=== PATIENT | male | born 1975 | race Caucasian/White ===

== ENCOUNTER 2017-01-11 02:24 | Inpatient (IN) | payer OTHER ==
[~2017-01-11] VITALS: Ht 177.8 cm; Wt 120.0 kg
--- NOTE | 2017-01-11 02:47 | ED GENERAL ADULT ---
History of Present Illness General Chief Complaint: General Adult Stated Complaint: UNRESPONSIVE Source: EMS, friend Exam Limitations: clinical condition Vital Signs & Intake/Output Vital Signs & Intake/Output Vital Signs Date Time Temp Pulse Resp B/P Pulse O2 O2 Flow FiO2 Ox Delivery Rate 01/11 0409 40 01/11 0318 94.9 94 16 86/43 99 Ventilator 100% 01/11 0308 100 01/11 0306 95.4 90 16 76/39 99 Ventilator 100% 01/11 0238 85 18 79 Room Air Allergies Coded Allergies: No Known Allergies (01/11/17) Triage Nurses Notes Reviewed? yes HPI: Patient brought in by ambulance for unresponsive. The friend states that the patient has not been feeling well over the past few days. He has been having a nonproductive cough. Been no fevers. He is just been feeling weak. Today he has been sleeping most of the day and when he woke up he was hallucinating. Tonight she thought that she saw him shaking so she finally called 911. ED Sepsis Exam Date of Focused Sepsis Exam: 01/11/17 Time of Focused Sepsis Exam: 229 Sepsis Cardiac Exam: Tachycardia Sepsis Resp Exam: DECREASED Sepsis Cap Refill Exam: >2 sec Sepsis Peripheral Pulse Exam: Weak Sepsis Peripheral Pulse Location: CAROTID ONLY Sepsis Skin Color Exam: Cyanotic, Mottled, Pale Skin Temp/Moisture Exam: Cool/Dry Past History Travel History Traveled to [place] past 21 day Yes Medical History Any Pertinent Medical History? none Surgical History Surgical History: non-contributory Psychosocial History Tobacco Use: Never used ETOH Use: occasional use Illicit Drug Use: denies illicit drug use Family History Hx Contributory? No Review of Systems Review of Systems Constitutional: Reports: see HPI. Physical Exam Physical Exam General Appearance: sedated, severe distress Head: atraumatic Eyes: Bilateral: PERRL. Ears, Nose, Throat: normal pharynx, normal ENT inspection Neck: supple, NO JVD Respiratory: decreased breath sounds, DECREASED RESP EFFORT NO GAG REFLEX Cardiovascular: tachycardia, CAROTID PULSE ONLY, NO OTHER PERIPHERAL PULSES PRESENT Gastrointestinal: normal bowel sounds, soft Back: normal inspection Extremities: no edema, DELAYED CAP REFIL Neurologic/Psych: UNRESPONSIVE NO RESPONSE TO PAIN Skin: cyanosis, mottled Core Measures ACS in differential dx? No CVA/TIA Diagnosis: No Severe Sepsis Present: No Septic Shock Present: No Progress Differential Diagnoses I considered the following diagnoses in my evaluation of the patient: [Septic shock, encephalitis, seizures, AMI, DKA, electrolyte abnormality, drug overdose] Plan of Care: Orders Procedure Date/time Status LACTIC ACID 01/11 0547 Complete Patient Data 01/11 438 Active Admit to inpatient 01/11 043 Active Add-on Test (ER Only) 01/11 0424 Active VENTILATOR PARAMETERS 01/11 0408 Complete ACETONE 01/11 0340 Complete ARTERIAL BLOOD GAS (GEN) 01/11 247 Complete Proctor, Insertion/Removal/Asses 01/11 247 Active CULTURE,URINE 01/11 247 Active BLOOD CULTURE 01/11 247 Active URINE DRUGS OF ABUSE 01/11 247 Complete URINALYSIS 01/11 247 Complete TROPONIN LEVEL 01/11 247 Complete COMPREHENSIVE METABOLIC PANEL 01/11 247 Complete CBC WITHOUT DIFFERENTIAL 01/11 247 Complete VENTILATOR PARAMETERS 01/11 245 Complete EKG 01/11 242 Active Current Medications Sig/Nelida Start time Last Medication Dose Stop Time Status Admin Ampicillin Sodium/ 3,000 MG ONCE ONE 01/11 445 AC Sulbactam Sodium 01/11 05 (Unasyn) Sodium Chloride 100 ML (Normal Saline 0.9%) Norepinephrine 4 MG Q24H 01/11 040 UNVr (Levophed Drip) Sodium Chloride 250 ML (Normal Saline 0.9%) Laboratory Tests 01/11/17 0350: pH 7.11 *L, pCO2 42, pO2 387 H, HCO3 13 L, ABG O2 Sat (Measured) 99.0, P-50 ( Temp Corrected) Y, Carboxyhemoglobin 0.5 L, O2 Concentration % 100%, Temperature 94.9 L, Respiration Rate 16, O2 Delivery Method ESPRIT, Vent Mode AC, Expiratory Pressure 5, Tidal Volume 550, Phlebotomy Draw Site LF 01/11/17 0340: Lactic Acid 2.4 H 01/11/17 034: Anion Gap 29 H, Estimated GFR 11 L, BUN/Creatinine Ratio 10.0, Glucose 1942 *H , Calcium 8.9, Total Bilirubin 0.5, AST 32, ALT 94 H, Alkaline Phosphatase 135 H, Troponin I < 0.01, Total Protein 5.7 L, Albumin 3.1 L, Globulin 2.6, Albumin/Globulin Ratio 1.2, CBC w Diff MAN DIFF ORDERED, RBC 4.94, MCV 102.8 H, MCH 29.6, RDW 15.9 H, MPV 14.2 H, Gran % 82.1 H, Lymphocytes % 8.4 L, Monocytes % 9.4 H, Eosinophils % 0.1, Basophils % 0 L, Absolute Granulocytes 14.8 H, Absolute Lymphocytes 1.5, Absolute Monocytes 1.7 H, Absolute Eosinophils 0, Absolute Basophils 0, Platelet Estimate ADEQUATE, Macrocytic Cells 1+, PUBS MCHC 28.9 L, Acetone Level POSITIVE AT 1:16 DIL 01/11/17 0306: Urine Opiates Screen < 100.00, Methadone Screen < 40, Barbiturate Screen < 60, Ur Phencyclidine Scrn < 6.00, Amphetamines Screen < 100, U Benzodiazepines Scrn < 85, Urine Cocaine Screen < 50, Urine Cannabis Screen 18.00, Urinalysis LIGHT H, Urine Color YEL, Urine Clarity CLEAR, Urine pH 6.0, Ur Specific [place] 1.010 , Urine Protein TRACE H, Urine Ketones TRACE H, Urine Nitrite NEG, Urine Bilirubin NEG, Urine Urobilinogen 0.2, Ur Leukocyte Esterase NEG, Ur Microscopic SEDIMENT EXAMINED, Urine RBC 1-3, Urine WBC 1-3 H, Ur Epithelial Cells FEW, Hyaline Casts 1-3 H, Granular Casts 3-5 H, Urine Mucus FEW, Urine Hemoglobin MOD H, Urine Glucose >=1000 H Microbiology 01/11 0355 BLOOD: Blood Culture - RECD 01/11 0340 BLOOD: Blood Culture - RECD 01/11 0306 URINE ROUT: Urine Culture - RECD Diagnostic Imaging: Viewed by Me: CT Scan. Discussed w/RAD: CT Scan. Radiology Impression: PATIENT: MERYL SENIOR PRESENT AGE: 41 PATIENT ACCOUNT NO: [id number] : 74 LOCATION: [facility] ORDERING PHYSICIAN: UMER MAHARAJ MD SERVICE DATE: 01/11/17 EXAM TYPE: CAT - CT ABD & PELVIS W/O IV CONTRAS; CT CHEST WO IV CONTRAST EXAM: NONCONTRAST CT OF THE CHEST; NONCONTRAST CT OF THE ABDOMEN AND PELVIS INDICATION: Unresponsive and hypotensive COMPARISON: None TECHNIQUE: No IV contrast was utilized. Multidetector helical imaging was performed through the chest, abdomen, and pelvis. Coronal and sagittal reformatted images were created at the technologist workstation. DLP: 1466.73 mGy-cm FINDINGS: Chest: Endotracheal tube tip lies approximately 3.3 cm above the marcello. There are dependent pulmonary opacities bilaterally favoring atelectasis. There is additional ill-defined, somewhat curvilinear opacity in the right middle lobe also suggestive of atelectasis. No pneumothorax or definite pleural effusion. The visualized thyroid gland is unremarkable. There are subcentimeter mediastinal lymph nodes within the range of normal variation. Cardiac size is within normal limits; no pericardial effusion. Abdomen/Pelvis: The liver demonstrates hypoattenuation consistent with fatty infiltration. No biliary ductal dilatation. The gallbladder is unremarkable. The unenhanced spleen, pancreas, and adrenal glands are within normal limits. There is a subcentimeter hypoattenuating lesion in the upper right kidney, suggestive of a small cyst. The unenhanced kidneys are unremarkable without hydronephrosis. No renal or ureteral calculi are present. The urinary bladder is unremarkable. The prostate and seminal vesicles are unremarkable. Bilateral fat-containing inguinal hernias are noted. There is mild colonic diverticulosis. The small and large bowel are otherwise unremarkable without evidence of obstruction or pericolonic inflammatory change. The appendix is unremarkable. No free fluid or free air is present. The unenhanced vascular structures are unremarkable. No retroperitoneal or pelvic lymphadenopathy is seen. Mild scattered endplate osteophytes are noted in the spine. IMPRESSION: 1. No acute findings identified in the chest/abdomen/pelvis. 2. Bibasilar atelectasis. 3. Hepatic steatosis. 4. Mild colonic diverticulosis. DICTATED BY : FRANCHESKA CANSECO MD DATE/TIME DICTATED:01/11/17317 ANALYTICAL LEAD: TONY DATE/TIME TRANSCRIBED:01/11/17317 CONFIDENTIAL, DO NOT COPY WITHOUT APPROPRIATE AUTHORIZATION. <Electronically signed in Other Vendor System> SIGNED BY: FRANCHESKA CANSECO MD 01/11/17 0332, PATIENT: MERYL SENIOR PRESENT AGE: 41 PATIENT ACCOUNT NO: [id number] : LOCATION: [facility] ORDERING PHYSICIAN: UMER MAHARAJ MD SERVICE DATE: 01/11/17 EXAM TYPE: CAT - CT HEAD WO IV CONTRAST EXAMINATION: CT HEAD WITHOUT CONTRAST CLINICAL INFORMATION: Unresponsive COMPARISON: None TECHNIQUE: Contiguous axial imaging was performed from the skull base to vertex without intravenous administration of contrast. DLP: 529.16 mGy-cm FINDINGS: There is no evidence of acute intracranial hemorrhage or territorial infarction. No abnormal mass effect or midline shift is seen. Garrison to white matter differentiation is well preserved. No extra-axial fluid collections are identified. The ventricles are normal in size. There is no abnormal attenuation within the brain parenchyma. The osseous structures and soft tissues are normal. The mastoid air cells and visualized portions of the paranasal sinuses are well aerated. IMPRESSION: No acute intracranial pathology. This was discussed with UMER MAHARAJ on 01/11/2017 3:07 AM. DICTATED BY: FRANCHESKA CANSECO MD DATE/TIME DICTATED:01/11/17301 ANALYTICAL LEAD:TONY DATE/TIME TRANSCRIBED:301 CONFIDENTIAL, DO NOT COPY WITHOUT APPROPRIATE AUTHORIZATION. < Electronically signed in Other Vendor System> SIGNED BY: FRANCHESKA CANSECO MD 01/11/17311 Initial ED EKG: SINUS RHYTHM WITH NONSPECIFIC st-t CHANGES AND ivcd Rhythm Strip: sinus tachycardia Comments: Girlfriend now mentions that he has been up for the past few nights because he has been urinating approximately every half an hour. She attributed to him drinking a lot of fluids. ABG is consistent with metabolic acidosis. We'll increase in respiratory rate to achieve respiratory alkalosis for compensation. Departure Departure Disposition: STILL A PATIENT Condition: Critical Clinical Impression Primary Impression: Acute renal failure Qualifiers: Acute renal failure type: unspecified Qualified Code: N17.9 - Acute kidney failure, unspecified Secondary Impressions: DKA (diabetic ketoacidoses) Qualifiers: Diabetes mellitus complication detail: with coma Hypotension Qualifiers: Hypotension type: unspecified hypotension type Qualified Code: I95.9 - Hypotension, unspecified Metabolic acidosis Shock Referrals: PATIENT HAS NO PRIMARY CARE DR (PCP/Family) Departure Forms: Customer Survey General Discharge Information Admission Note Spoke With: ÁLVARO NUR MD Documentation of Exam: Documentation of any treatments & extenuating circumstances including Concerns Regarding Discharge (functional status, medication knowledge or non-compliance, living conditions, etc.) that warrant an admission rather than observation: [ Aggressive hydration, pressors, most likely DKA, endocrine consult, renal consult, ICU level of care pulmonary consult] Procedures Central Line Central Line Lumen: triple Central Line Procedure: Yes: bentadine prep?, sterile drapes applied, sterile dressing applied. Central Line Position: femoral (R) Complications: none Central Line Post Position: sutured, good blood return Intubation Time of Intubation: 237 Intubation Method: orotracheal Tube Size (cm): 8.0 Medications: succinylcholine Breath Sounds After Intubation: equal Intubation Complications: no complications Post Intubation Xray? Yes Critical Care Note Critical Care Note Critical Care Time: mins: (75 MIN)
--- NOTE | 2017-01-11 03:12 | CT SCAN REPORT ---
EXAMINATION: CT HEAD WITHOUT CONTRAST CLINICAL INFORMATION: Unresponsive COMPARISON: None TECHNIQUE: Contiguous axial imaging was performed from the skull base to vertex without intravenous administration of contrast. DLP: 529.16 mGy-cm FINDINGS: There is no evidence of acute intracranial hemorrhage or territorial infarction. No abnormal mass effect or midline shift is seen. Garrison to white matter differentiation is well preserved. No extra-axial fluid collections are identified. The ventricles are normal in size. There is no abnormal attenuation within the brain parenchyma. The osseous structures and soft tissues are normal. The mastoid air cells and visualized portions of the paranasal sinuses are well aerated. IMPRESSION: No acute intracranial pathology. This was discussed with UMER MAHARAJ on 01/11/2017 3:07 AM.
--- NOTE | 2017-01-11 03:32 | CT SCAN REPORT ---
EXAM: NONCONTRAST CT OF THE CHEST; NONCONTRAST CT OF THE ABDOMEN AND PELVIS INDICATION: Unresponsive and hypotensive COMPARISON: None TECHNIQUE: No IV contrast was utilized. Multidetector helical imaging was performed through the chest, abdomen, and pelvis. Coronal and sagittal reformatted images were created at the technologist workstation. DLP: 1466.73 mGy-cm FINDINGS: Chest: Endotracheal tube tip lies approximately 3.3 cm above the marcello. There are dependent pulmonary opacities bilaterally favoring atelectasis. There is additional ill-defined, somewhat curvilinear opacity in the right middle lobe also suggestive of atelectasis. No pneumothorax or definite pleural effusion. The visualized thyroid gland is unremarkable. There are subcentimeter mediastinal lymph nodes within the range of normal variation. Cardiac size is within normal limits; no pericardial effusion. Abdomen/Pelvis: The liver demonstrates hypoattenuation consistent with fatty infiltration. No biliary ductal dilatation. The gallbladder is unremarkable. The unenhanced spleen, pancreas, and adrenal glands are within normal limits. There is a subcentimeter hypoattenuating lesion in the upper right kidney, suggestive of a small cyst. The unenhanced kidneys are unremarkable without hydronephrosis. No renal or ureteral calculi are present. The urinary bladder is unremarkable. The prostate and seminal vesicles are unremarkable. Bilateral fat-containing inguinal hernias are noted. There is mild colonic diverticulosis. The small and large bowel are otherwise unremarkable without evidence of obstruction or pericolonic inflammatory change. The appendix is unremarkable. No free fluid or free air is present. The unenhanced vascular structures are unremarkable. No retroperitoneal or pelvic lymphadenopathy is seen. Mild scattered endplate osteophytes are noted in the spine. IMPRESSION: 1. No acute findings identified in the chest/abdomen/pelvis. 2. Bibasilar atelectasis. 3. Hepatic steatosis. 4. Mild colonic diverticulosis.
[2017-01-11 03:52] LABS: ABSOLUTE EOSINOPHIL COUNT 0 /CUMM (0.0-0.7); EOSINOPHIL % 0.1 % (0-5); MEAN CORPUSCULAR HGB 29.6 PG (27.0-31.0)
[2017-01-11 04:10] LABS: ABSOLUTE BASOPHIL COUNT 0 /CUMM (0.0-0.2); ABSOLUTE GRANULOCYTE CT 14.8 /CUMM (1.4-6.5); ABSOLUTE LYMPH COUNT 1.5 /CUMM (1.2-3.4); ABSOLUTE MONOCYTE COUNT 1.7 /CUMM (0.10-0.60); BASOPHIL % 0 % (0.0-2.0); GRANULOCYTE % 82.1 % (42.2-75.2); HEMATOCRIT 50.8 % (42-52); MEAN CORPUSCULAR HGB CONC 28.9 G/DL (33.0-37.0); MEAN CORPUSCULAR VOLUME 102.8 FL (80.0-94.0); MEAN PLATELET VOLUME 14.2 FL (7.4-10.4); PLATELET COUNT 223 /CUMM (130-400); RBC DISTRIBUTION WIDTH 15.9 % (11.5-14.5); RED BLOOD CELL CT 4.94 /CUMM (4.70-6.10)
--- NOTE | 2017-01-11 05:53 | PN- Att Addend ---
Attending Addendum Attending Brief Note CC: AMS/ unresponsive PMHx :none History provided by ayleen and brother, a bedside. Patient intubated. Ayleen states that the patient has not been feeling well since one week or so. He has been having a nonproductive cough, extremely thirsty and drinking a lot of water , urinating a lot. He was drinking anything and everything possible to quench his thirst according to the family. He was complaining of altered taste in his mouth. They denied fever, burning urination, vomiting diarrhea nausea. He was feeling weak and lethargic, was not getting enough sleep. Yesterday he woke up several times and was hallucinating and inappropriate response. Today his fianc could not wake him up, he was very cold to touch so she called 911. On presentation patient was mottled, hypotensive with carotid pulsations only. He Was intubated for airway protection, extremely dry while intubating and unresponsive to pain. Right femoral was placed in ER. Vitals at presentation: Temperature 95.4, pulse 84, heart are 18, blood pressure 76/39, saturating 79% on room air. Blood pressure is gradually trending up, O2 saturation improved after intubation. On examination intubated, pupils dilated reactive, neck supple, no lymphadenopathy, no JVD, CVS: S1-S2, RRR. RS: Bilateral air entry present no adventitious sounds. Abdomen: Soft, NT, bowel sounds present. No pedal edema. Peripheral pulses present but feeble, extremities cold to touch decreased perfusion. Labs: WBC 18.0, neutrophils 82%, MCV 102, sodium 144, bicarbonate 14, anion gap 29, BUN 55, creatinine 5.5, glucose 1942, lactate 2.4, ALT 94, alkaline phosphatase 135, albumin 3.1, UA positive for trace protein and ketones and glucose, U tox negative except THC, acetone positive ABG: PH 7.11, PCO2 42, PO2 387, HCO3 13 on 100% before meals mode with tidal volume 550 and respiratory rate 16. Imaging CT chest, abdomen and pelvis, head was obtained : 1. No acute findings identified in the chest/abdomen/pelvis. 2. Bibasilar atelectasis. 3. Hepatic steatosis. 4. Mild colonic diverticulosis. 5. No acute intracranial pathology. A and P #1 acute respiratory failure #2 hypovolemic shock #3 high anion gap metabolic acidosis #4 DKA/hhs come #5 newly diagnosed diabetes #6 acute kidney injury : urine output appro 400 since arrival #7 suspected pneumonia # 8 S T depression in II III avf #9 paradoxically normal Na -Patient has right femoral central line, currently maxed on Levophed, 2 L NS wide open through triple-lumen, add third liter NS on peripheral line. -Maintain map above 60, add Tod-Synephrine if required - Continue current went settings at AC tidal volume 550 and RR 20, repeat ABG 1 hour from previous. Consult on-call pulmonology, inform the repeat ABG in current vent settings. - Continue insulin drip, patient received 10 unit bolus regular insulin in ER, Accu-Chek every hourly, BMP every 4 hours, titrate insulin drip according to Accu-Cheks, inform on-call bindery chief now. - Aggressive hydration: Currently patient on fifth L, continue boluses daily map improving, then maintenance drip at 250 mL per hour - check HBA1c - Potassium drip 40 mEq in 1 L NS at 150 mL per hour - Blood culture - Urine culture - Continue Unasyn - I's and O's - continue zelaya - Consult nephrology in a.m. - Trend troponin and serial EKG - Currently not sedated, neurochecks : Assess sedation requirement Patient is full code. Critical condition discussed with family at length TTS 40 min
--- NOTE | 2017-01-11 05:53 | Admission Certification ---
Admission Certification Certification Statement - As attending physician, I certify that at the time of - admission, based on clinical presentation, severity of - symptoms, need for further diagnostic testing and - therapeutic interventions, and risk of adverse outcomes - without in-hospital treatment, in my clinical assessment, - this patient requires an acute hospital stay for a minimum - of two nights or longer. I have also considered psychsocial - factors such as support system, advanced age, financial - issues, cognitive issues, and failed out-patient treatments, - past re-admission history, safety of patient, and lack of - compliance as applicable. Specific rationale supporting this admission is: Hypovolemic shock, DKA, acute kidney injury, acute respiratory failure
--- NOTE | 2017-01-11 06:58 | History & Physical ---
See Addendum General Information and HPI MD Statement: I have seen and personally examined MERYL SENIOR and documented this H&P. The patient is a 41 year old M who presented with a patient stated chief complaint of unresponsiveness []. Source of Information: family Exam Limitations: unable to give history, clinical condition History of Present Illness: Patient is 41-year-old gentleman with no significant past medical history was brought in by his fiance and brother through ambulance to emergency room when she found him unresponsive/lethargic last night. By the time I saw the patient in ER he was intubated and history was taken from his fiance and brother present at bedside. According to his fiance patient was not feeling well for last couple of weeks but assuming he might had flu as she and his brother had. She noted that patient was fairly thirsty and drinking a lot of fluids to quench his thirst and also urinating a lot. She also mentioned that he might lost 40 pounds in a month and had poor appetite. There is no recent history of fever, chills, cough, palpitations, chest pain, abdominal pain, headache, dizziness or loss of consciousness prior to this. Patient was getting weaker and last night he was pretty drowsy and also hallucinating, his talk was not making any sense, very cold to touch that's why she called 911. Admission vital signs were significant for temperature 95.4, pulse 84, respiratory rate 18, blood pressure 76/39 and because of continuous drop in his blood pressure a central line was taken in ER and patient was started on pressors. Labs on admission were WBC count 18.0, hemoglobin 14.6, hematocrit 50.8, platelet count 223, sodium 144, potassium 4.6, anion gap 29, glucose 1942 and negative troponins urine shows positive acetones Initial ABGs were 7.//13 Allergies/Medications Allergies: Coded Allergies: No Known Allergies (01/11/17) Home Med list No Known Home Medications Compliance With Home Meds: UNKNOWN Past History Travel History Traveled to [place] past 21 day Yes Medical History Neurological: NONE EENT: NONE Cardiovascular: NONE Respiratory: NONE Gastrointestinal: NONE Hepatic: NONE Renal: NONE Musculoskeletal: NONE Psychiatric: NONE Endocrine: NONE Blood Disorders: NONE Cancer(s): NONE 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 Psychosocial History ETOH Use: occasional use Illicit Drug Use: denies illicit drug use Review of Systems Review of Systems Constitutional: Reports: diaphoresis, malaise, weakness. Denies: chills, fever. EENTM: Reports: blurred vision. Cardiovascular: Denies: chest pain, edema, orthopena. Respiratory: Denies: cough, orthopnea. GI: Denies: abdominal pain, bloating, constipation. Genitourinary: Reports: frequency. Musculoskeletal: Denies: back pain, gout. Skin: Denies: cysts, change in skin color. Exam & Diagnostic Data Last 24 Hrs of Vital Signs/I&O Vital Signs Date Time Temp Pulse Resp B/P Pulse O2 O2 Flow FiO2 Ox Delivery Rate 01/11 0625 92 22 102/53 100 Ventilator 100% 01/11 0615 40 01/11 0559 98 22 105/54 100 Ventilator 100% 01/11 0549 95.4 102 22 117/53 100 Ventilator 100% 01/11 0448 96 88/59 01/11 0443 96 84/38 01/11 0441 94 81/38 01/11 0439 94 76/38 01/11 0435 79/38 01/11 0433 94 76/49 01/11 0431 95 75/39 01/11 0431 91 74/39 01/11 0429 93 70/35 01/11 0427 93 69/35 01/11 0425 93 64/31 01/11 0423 92 60/28 01/11 0421 93 58/27 01/11 0419 92 56/24 01/11 0416 92 55/25 01/11 0414 91 52/32 01/11 0413 92 44/22 01/11 0411 45/22 01/11 0409 40 01/11 0409 91 44/19 01/11 0407 91 46/20 01/11 0406 94.9 91 18 43/17 01/11 0406 91 43/17 01/11 0318 94.9 94 16 86/43 99 Ventilator 100% 01/11 0308 100 01/11 0306 95.4 90 16 76/39 99 Ventilator 100% 01/11 0238 85 18 79 Room Air Intake & Output 01/11 0800 01/11 0000 01/10 1600 Intake Total 5000 Output Total 580 Balance 4420 Intake, IV 5000 Output, Urine 580 Physical Exam General Appearance INTUBATED Skin No Breakdown Neck No JVD Cardiovascular Normal S1, Normal S2 Lungs Normal Air Movement Abdomen Soft, No Tenderness Extremities No Clubbing, No Cyanosis, No Edema Last 24 Hrs of Labs/Basilio: Laboratory Tests 01/11/17 0610: pH 7.10 *L, pCO2 36, pO2 105 H, HCO3 11 L, ABG O2 Sat (Measured) 97.0, P-50 ( Temp Corrected) Y, Carboxyhemoglobin 0.1 L, O2 Concentration % 40%, Temperature 95.4 L, Respiration Rate 20, O2 Delivery Method ESPRIT, Vent Mode AC, Expiratory Pressure 5, Tidal Volume 550, Phlebotomy Draw Site RIGHT RADIAL 01/11/17 0350: pH 7.11 *L, pCO2 42, pO2 387 H, HCO3 13 L, ABG O2 Sat (Measured) 99.0, P-50 ( Temp Corrected) Y, Carboxyhemoglobin 0.5 L, O2 Concentration % 100%, Temperature 94.9 L, Respiration Rate 16, O2 Delivery Method ESPRIT, Vent Mode AC, Expiratory Pressure 5, Tidal Volume 550, Phlebotomy Draw Site LF 01/11/17 0340: Lactic Acid 2.4 H 01/11/17 0340: Anion Gap 29 H, Estimated GFR 11 L, BUN/Creatinine Ratio 10.0, Glucose 1942 *H , Calcium 8.9, Total Bilirubin 0.5, AST 32, ALT 94 H, Alkaline Phosphatase 135 H, Troponin I < 0.01, Total Protein 5.7 L, Albumin 3.1 L, Globulin 2.6, Albumin/Globulin Ratio 1.2, CBC w Diff MAN DIFF ORDERED, RBC 4.94, MCV 102.8 H, MCH 29.6, RDW 15.9 H, MPV 14.2 H, Gran % 82.1 H, Lymphocytes % 8.4 L, Monocytes % 9.4 H, Eosinophils % 0.1, Basophils % 0 L, Absolute Granulocytes 14.8 H, Absolute Lymphocytes 1.5, Absolute Monocytes 1.7 H, Absolute Eosinophils 0, Absolute Basophils 0, Platelet Estimate ADEQUATE, Macrocytic Cells 1+, PUBS MCHC 28.9 L, Acetone Level POSITIVE AT 1:16 DIL 01/11/17 0306: Urine Opiates Screen < 100.00, Methadone Screen < 40, Barbiturate Screen < 60, Ur Phencyclidine Scrn < 6.00, Amphetamines Screen < 100, U Benzodiazepines Scrn < 85, Urine Cocaine Screen < 50, Urine Cannabis Screen 18.00, Urinalysis LIGHT H, Urine Color YEL, Urine Clarity CLEAR, Urine pH 6.0, Ur Specific [place] 1.010 , Urine Protein TRACE H, Urine Ketones TRACE H, Urine Nitrite NEG, Urine Bilirubin NEG, Urine Urobilinogen 0.2, Ur Leukocyte Esterase NEG, Ur Microscopic SEDIMENT EXAMINED, Urine RBC 1-3, Urine WBC 1-3 H, Ur Epithelial Cells FEW, Hyaline Casts 1-3 H, Granular Casts 3-5 H, Urine Mucus FEW, Urine Hemoglobin MOD H, Urine Glucose >=1000 H Microbiology 01/11 0355 BLOOD: Blood Culture - RECD 01/11 0340 BLOOD: Blood Culture - RECD 01/11 0306 URINE ROUT: Urine Culture - RECD Diagnostic Data EKG Results ST depressions in V2 V3 and aVF Other Results SERVICE DATE: 01/11/17 EXAM TYPE: CAT - CT ABD & PELVIS W/O IV CONTRAS; CT CHEST WO IV CONTRAST EXAM: NONCONTRAST CT OF THE CHEST; NONCONTRAST CT OF THE ABDOMEN AND PELVIS INDICATION: Unresponsive and hypotensive COMPARISON: None TECHNIQUE: No IV contrast was utilized. Multidetector helical imaging was performed through the chest, abdomen, and pelvis. Coronal and sagittal reformatted images were created at the technologist workstation. DLP: 1466.73 mGy-cm FINDINGS: Chest: Endotracheal tube tip lies approximately 3.3 cm above the marcello. There are dependent pulmonary opacities bilaterally favoring atelectasis. There is additional ill-defined, somewhat curvilinear opacity in the right middle lobe also suggestive of atelectasis. No pneumothorax or definite pleural effusion. The visualized thyroid gland is unremarkable. There are subcentimeter mediastinal lymph nodes within the range of normal variation. Cardiac size is within normal limits; no pericardial effusion. Abdomen/Pelvis: The liver demonstrates hypoattenuation consistent with fatty infiltration. No biliary ductal dilatation. The gallbladder is unremarkable. The unenhanced spleen, pancreas, and adrenal glands are within normal limits. There is a subcentimeter hypoattenuating lesion in the upper right kidney, suggestive of a small cyst. The unenhanced kidneys are unremarkable without hydronephrosis. No renal or ureteral calculi are present. The urinary bladder is unremarkable. The prostate and seminal vesicles are unremarkable. Bilateral fat-containing inguinal hernias are noted. There is mild colonic diverticulosis. The small and large bowel are otherwise unremarkable without evidence of obstruction or pericolonic inflammatory change. The appendix is unremarkable. No free fluid or free air is present. The unenhanced vascular structures are unremarkable. No retroperitoneal or pelvic lymphadenopathy is seen. Mild scattered endplate osteophytes are noted in the spine. IMPRESSION: 1. No acute findings identified in the chest/abdomen/pelvis. 2. Bibasilar atelectasis. 3. Hepatic steatosis. 4. Mild colonic diverticulosis. Assessment/Plan Assessment: Patient is a 41-year-old gentleman with no significant past medical history was brought in to emergency room with severe lethargy, unresponsiveness, hypotension and found to have severely elevated serum glucose of 1942 with high anion gap most likely DKA/hyperosmolar hyperglycemia, achy I most likely due to underlying dehydration, severe metabolic acidosis and hypovolemic shock. She was intubated in the emergency room and also central line was taken and was started on pressors. Problem list 1. DKA/hyperosmolar hyperglycemia most likely type 1 diabetes 2. High anion gap metabolic acidosis 3. Acute injury most likely due to underlying severe dehydration 4. Acute respiratory failure currently intubated 5. Leukocytosis would be due to aspiration pneumonia We will admit patient in ICU Patient was transfused for later normal saline boluses in the ER and currently he is on 6 L of normal saline. We will replete fluids to maintain his map above 60. Aggressive fluid resuscitation. Currently patient is on levo fed and if needed we could add Tod-Synephrine. We will start him on insulin drip 0.1 units per kilogram body weight. Patient was discussed with Tigre Montanez MD on phone and he will see patient in a.m. We will continue insulin drip until Will close and we will transition to subcutaneous insulin accordingly Patient was also started on 40 mEq of KCl in normal saline and we will replete potassium to avoid hypokalemia We will check labs every 4 hours Patient also has EKG changes with ST depression in aVF, V2 and V3. He shall set of troponin was negative and we will trend troponins and EKG and will call cardiology if needed Patient was discussed with Dr. Victoria on phone regarding worsening ABGs and ventilator setting were changed to respiratory rate increased to 24 and we will repeat ABGs in one hour and will hold on bicarbonate drip for now as patient is in DKA Nephrology consultation was called and will see patient in a.m. Patient was started on Unasyn for elevated leukocyte count for presumptive pressure pneumonia Strict ins and outs Patient is nothing by mouth Pharmacological DVT prophylaxis Patient is full code As Ranked By This Provider Problem List: 1. DKA (diabetic ketoacidoses) Qualifiers Diabetes mellitus complication detail: with coma 2. Hypotension Qualifiers Hypotension type: unspecified hypotension type Qualified Code: I95.9 - Hypotension, unspecified 3. Metabolic acidosis 4. Acute renal failure Qualifiers Acute renal failure type: unspecified Qualified Code: N17.9 - Acute kidney failure, unspecified Core Measures/Miscellaneous Acute Coronary Syndrome ACS Diagnosis: No Cerebrovascular Accident CVA/TIA Diagnosis: No Congestive Heart Failure CHF Diagnosis: No Venous Thromboembolism VTE Risk Factors: Age > 40 VTE Prophylaxis Ordered Inpt: Pharm- Heparin No Mech VTE prophylaxis d/t: No contraindications No VTE Pharm Prophylaxis d/t: No contraindications VTE Diagnosis: No VTE Type: NONE VTE Confirmed by (Test): NONE Severe Sepsis Severe Sepsis Present: No Septic Shock Septic Shock Present: No Miscellaneous Documentation Attending Case Discussed With: ÁLVARO NUR MD Primary Care Physician: PATIENT HAS NO PRIMARY CARE DR Patient sees these Specialists None Level of Patient Care: Critical Care (CRI) Resident Review Statement Resident Statement: examined this patient Other Findings: Patient was admitted by resident
--- NOTE | 2017-01-11 07:32 | Cons- Endocrinology ---
General Information and HPI Consulting Request Date of Consult: 01/11/17 Requested By: medical team Reason for Consult: Diabetic ketoacidosis with severe hyperosmolar state Source of Information: family, fiance Exam Limitations: unable to give history History of Present Illness: 41-year-old male not seen the doctor many years was brought in by ambulance. His fianc called the ambulance because he is lethargic and sleeping a lot. He also was noted to have a massively increased thirst and very frequent urination. Eventually condition worse and he began hallucinating as well. When he got to the emergency room blood pressure was low requiring pressors. He also developed respiratory failure and had to be intubated. The patient has no previous history of diabetes. In addition his fianc states there is no family history of diabetes. Allergies/Medications Allergies: Coded Allergies: No Known Allergies (01/11/17) Home Med List: No Known Home Medications Review of Systems Review of Systems Constitutional: Reports: no symptoms (cannot answer questions). 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 Psychosocial History ETOH Use: occasional use Illicit Drug Use: denies illicit drug use Exam & Diagnostic Data Last 24 Hrs of Vital Signs/I&O Vital Signs Date Time Temp Pulse Resp B/P Pulse O2 O2 Flow FiO2 Ox Delivery Rate 01/11 0734 96.4 98 24 99/50 96 Ventilator 100% 01/11 0720 101 24 112/57 96 01/11 0625 92 22 102/53 100 Ventilator 100% 01/11 0615 40 01/11 0559 98 22 105/54 100 Ventilator 100% 01/11 0549 95.4 102 22 117/53 100 Ventilator 100% 01/118 96 88/59 01/113 96 84/38 01/11 0441 94 81/38 01/11 0439 94 76/38 01/11 0435 79/38 01/11 0433 94 76/49 01/11 0431 95 75/39 01/11 0431 91 74/39 02/14 0429 93 70/35 02/14 0427 93 69/35 02/14 0425 93 64/31 02/14 0423 92 60/28 02/14 0421 93 58/27 /14 0419 92 56/24 /14 0416 92 55/25 02/14 0414 91 52/32 /14 0413 92 44/22 02/14 0411 45/22 02/14 0409 40 02/14 0409 91 44/19 /14 0407 91 46/20 /14 0406 94.9 91 18 43/17 02/14 0406 91 43/17 /14 0318 94.9 94 16 86/43 99 Ventilator 100% 01/11 0308 100 01/11 0306 95.4 90 16 76/39 99 Ventilator 100% 01/11 0238 85 18 79 Room Air Intake & Output 01/11 0800 01/11 0000 01/10 1600 Intake Total 5000 Output Total 580 Balance 4420 Intake, IV 5000 Output, Urine 580 Vital Signs Date Time Temp Pulse Resp B/P Pulse O2 O2 Flow FiO2 Ox Delivery Rate 01/11 0734 96.4 98 24 99/50 96 Ventilator 100% 01/11 0720 101 24 112/57 96 02/14 0625 92 22 102/53 100 Ventilator 100% / 0615 40 02/14 0559 98 22 105/54 100 Ventilator 100% / 0549 95.4 102 22 117/53 100 Ventilator 100% /14 0448 96 88/59 02/14 0443 96 84/38 02/14 0441 94 81/38 02/14 0439 94 76/38 02/14 0435 79/38 02/14 0433 94 76/49 02/14 0431 95 75/39 02/14 0431 91 74/39 02/14 0429 93 70/35 02/14 0427 93 69/35 02/14 0425 93 64/31 02/14 0423 92 60/28 02/14 0421 93 58/27 /14 0419 92 56/24 02/14 0416 92 55/25 02/14 0414 91 52/32 /14 0413 92 44/22 02/14 0411 45/22 02/14 0409 40 02/14 0409 91 44/19 /14 0407 91 46/20 /14 0406 94.9 91 18 43/17 01/11 0406 91 43/17 01/11 0318 94.9 94 16 86/43 99 Ventilator 100% 01/11 0308 100 01/11 0306 95.4 90 16 76/39 99 Ventilator 100% 01/11 0238 85 18 79 Room Air Intake & Output 01/11 0800 01/11 0000 01/10 1600 Intake Total 5000 Output Total 580 Balance 4420 Intake, IV 5000 Output, Urine 580 Physical Exam General Appearance: well developed/nourished, in coma on respirator Head: atraumatic Eyes: Bilateral: normal appearance. Neck: normal inspection Respiratory: normal breath sounds Cardiovascular: regular rate/rhythm Gastrointestinal: normal bowel sounds, soft Extremities: normal inspection Skin: intact Labs/Basilio Results: Laboratory Tests 01/11 01/11 01/11 0610 0350 0340 Blood Gas pH (7.35 - 7.45 PH) 7.10 *L 7.11 *L pCO2 (35 - 45 TORR) 36 42 pO2 (80 - 100 TORR) 105 H 387 H HCO3 (21 - 28 MEQ/L) 11 L 13 L ABG O2 Sat (Measured) (>96.0 %) 97.0 99.0 P-50 (Temp Corrected) Y Y Carboxyhemoglobin (1.5 - 5.0 %) 0.1 L 0.5 L O2 Concentration % 40% 100% Temperature (97.0 - 100.0 FARH) 95.4 L 94.9 L Respiration Rate (BPM) 20 16 O2 Delivery Method ESPRIT ESPRIT Vent Mode AC AC Expiratory Pressure (CMH2O/P) 5 5 Tidal Volume (CC) 550 550 Chemistry Lactic Acid (0.7 - 2.1 mmol/L) 2.4 H Miscellaneous Phlebotomy Draw Site RIGHT RADIAL LF 01/11 0340 Chemistry Sodium (137 - 145 mmol/L) 144 Potassium (3.5 - 5.1 mmol/L) 4.6 Chloride (98 - 107 mmol/L) 102 Carbon Dioxide (22 - 30 mmol/L) 14 L Anion Gap (5 - 16) 29 H BUN (9 - 20 mg/dL) 55 H Creatinine (0.7 - 1.2 mg/dL) 5.5 *H Estimated GFR (>60 ml/min) 11 L BUN/Creatinine Ratio (7 - 25 %) 10.0 Glucose (65 - 99 mg/dL) 1942 *H Calcium (8.4 - 10.2 mg/dL) 8.9 Total Bilirubin (0.2 - 1.3 mg/dL) 0.5 AST (17 - 59 U/L) 32 ALT (21 - 72 U/L) 94 H Alkaline Phosphatase (< 127 U/L) 135 H Troponin I (<0.11 ng/ml) < 0.01 Total Protein (6.3 - 8.2 g/dL) 5.7 L Albumin (3.5 - 5.0 g/dL) 3.1 L Globulin (1.9 - 4.2 gm/dL) 2.6 Albumin/Globulin Ratio (1.1 - 2.2 %) 1.2 Hematology CBC w Diff MAN DIFF ORDERED WBC (4.8 - 10.8 /CUMM) 18.0 H RBC (4.70 - 6.10 /CUMM) 4.94 Hgb (14.0 - 18.0 G/DL) 14.6 Hct (42 - 52 %) 50.8 MCV (80.0 - 94.0 FL) 102.8 H MCH (27.0 - 31.0 PG) 29.6 RDW (11.5 - 14.5 %) 15.9 H Plt Count (130 - 400 /CUMM) 223 MPV (7.4 - 10.4 FL) 14.2 H Gran % (42.2 - 75.2 %) 82.1 H Lymphocytes % (20.5 - 51.1 %) 8.4 L Monocytes % (1.7 - 9.3 %) 9.4 H Eosinophils % (0 - 5 %) 0.1 Basophils % (0.0 - 2.0 %) 0 L Absolute Granulocytes (1.4 - 6.5 /CUMM) 14.8 H Absolute Lymphocytes (1.2 - 3.4 /CUMM) 1.5 Absolute Monocytes (0.10 - 0.60 /CUMM) 1.7 H Absolute Eosinophils (0.0 - 0.7 /CUMM) 0 Absolute Basophils (0.0 - 0.2 /CUMM) 0 Platelet Estimate (ADEQUATE) ADEQUATE Macrocytic Cells 1+ PUBS MCHC (33.0 - 37.0 G/DL) 28.9 L Toxicology Acetone Level (NEGATIVE) POSITIVE AT 1:16 DIL 01/11 01/11 4505 5255 Chemistry Hemoglobin A1c Pending Toxicology Urine Opiates Screen (>2000 NG/ML) < 100.00 Methadone Screen (>300 NG/ML) < 40 Barbiturate Screen (>200 NG/ML) < 60 Ur Phencyclidine Scrn (>25 NG/ML) < 6.00 Amphetamines Screen (>1000 NG/ML) < 100 U Benzodiazepines Scrn (>200 NG/ML) < 85 Urine Cocaine Screen (>300 NG/ML) < 50 Urine Cannabis Screen (>50 NG/ML) 18.00 Urines Urinalysis LIGHT H Urine Color (YEL,AMB,STR) YEL Urine Clarity (CLEAR) CLEAR Urine pH (5.0 - 8.0) 6.0 Ur Specific [place] (1.001 - 1.035) 1.010 Urine Protein (NEG,<30 MG/DL) TRACE H Urine Ketones (NEG) TRACE H Urine Nitrite (NEG) NEG Urine Bilirubin (NEG) NEG Urine Urobilinogen (0.1 - 1.0 EU/dl) 0.2 Ur Leukocyte Esterase (NEG) NEG Ur Microscopic SEDIMENT EXAMINED Urine RBC (0 - 5 /HPF) 1-3 Urine WBC (0 - 2 /HPF) 1-3 H Ur Epithelial Cells (NONE,FEW) FEW Hyaline Casts (0/LPF) 1-3 H Granular Casts (NONE /LPF) 3-5 H Urine Mucus (FEW,NONE) FEW Urine Hemoglobin (NEG) MOD H Urine Glucose (N MG/DL) >=1000 H Assessment/Plan Assessment/Plan This 41-year-old male with no known previous medical history has a severe hyperosmolar state with diabetic ketoacidosis. Most likely he has a severely decompensated type II diabetes. He has a metabolic encephalopathy due to his high sugar. He is presently in a coma. His effective osmolality is about 400. The patient also has renal insufficiency a creatinine of 5.5. The patient was severely dehydrated on presentation. He is beginning to make some urine. He has received about 6 L of normal saline. Repeat blood work is pending at this time. He is being covered with antibiotics for possible aspiration although his CT scan shows mostly atelectasis. I suggest that we continue the insulin drip and continue the IV with normal saline. Once his blood pressure improves we should switch him to more hypotonic fluids. His serum potassium needs to be monitored closely while he is on insulin and as we bring his blood sugar down.. We should measure the patient's fingerstick blood sugars every hour when it comes in to arrange that we can measure. It appears that we may will be able to taper him off the pressors soon. We should repeat his labs every 2 hours including his CBC, BUN and creatinine electrolytes and anion gap. Renal consult should also be obtained. Arpan Victoria MD to also see the patient in ICU consult. Because of the risk of thrombotic events the patient is presently on subcutaneous heparin. Full blown anticoagulation with IV heparin could also be considered. Should measure the patient's anti-VINAY antibody. Consult Acknowledgment - Thank you for your consult request.
--- NOTE | 2017-01-11 07:41 | Cons- CRCU ---
RAVI [place]INGH[place] [place] 0741: General Information and HPI Consulting Request Date of Consult: 01/11/17 Requested By: Andres Cotter MD Reason for Consult: DKA Source of Information: family, old records Exam Limitations: unable to give history, not alert/orientated, clinical condition History of Present Illness: 41 y/o M with no significant PMHx other than obesity of who is brought in for unresponsiveness. Patient is unable to provide any history given his altered mental status and history is provided by his fiancee and brother who are at bedside. Per patient's fiancee, patient had been in his usual state of good health up until one week prior to admission when he started endorsing nonproductive cough, polydipsia, polyuria, generalized weakness and lethargy. He had also been complaining of a strange taste in his mouth. Of note, patient had lost between 20-40 pounds in the past 3 weeks. He does not have a PCP and does not take any medications including OTC medications. There was no dysuria, nausea , vomiting or diarrhea. On the day prior to current presentation, he was noted to be hallucinating and giving inappropriate responses to questions. On the day of current presentation to the ED, patient's fiancee was unable to wake him up, he was unresponsive and very cold to touch which prompted her to call 911. On initial presentation in the ED, vitals were temperature 95.4, HR 85, BP 76/39 and SpO2 of 79% on RA. Labs were remarkable for WBC 18, Na 144, anion gap metabolic acidosis with bicarbonate 14 and anion gap 29, BUN 55, creatinine 5.5, glucose 1942, ALT 95, alkaline phosphatase 135. UA was positive for glucose and trace protein and ketones. Urine toxicology was positive for acetone and THC. CT Head was negative for acute intracranial process and ABG revealed marked acidosis with 7.11/42/387/13. CT Chest/Abdomen/Pelvis was unremarkable. Patient was subsequently intubated for airway protection and administered 1 L boluses of NS x 6. Femoral line was placed in the ED and patient was started on Levophed drip for blood pressure support. He was admitted to the ICU for management of his DKA. Allergies/Medications Allergies: Coded Allergies: No Known Allergies (02/14/17) Home Med List: No Known Home Medications Current Medications: Current Medications Sig/Nelida Start time Last Medication Dose Route Stop Time Status Admin Acetaminophen 1,000 MG Q6P PRN 01/11 0745 01/11 N/A 1 UNIT IV 1520 Ampicillin Sodium/ 1,500 MG Q12H 01/11 1700 AC 01/11 Sulbactam Sodium IV 1609 Sodium Chloride 100 ML Ampicillin Sodium/ 1,500 MG Q12H 01/11 0500 DC Sulbactam Sodium IV Sodium Chloride 100 ML Ampicillin Sodium/ 0 .STK-MED ONE 01/11 0456 DC Sulbactam Sodium .ROUTE Ampicillin Sodium/ 3,000 MG ONCE ONE 01/11 0445 DC 01/11 Sulbactam Sodium IV 01/11 0514 0500 Sodium Chloride 100 ML Fentanyl Citrate 1,000 MCG Q14H 01/11 2200 AC Dextrose/Water 250 ML IV Fentanyl Citrate 50 MCG ONCE ONE 01/11 1215 DC 01/11 IV 01/11 1216 1740 Fentanyl Citrate 100 MCG .STK-MED ONE 01/11 1205 DC IM 01/11 1206 Fentanyl Citrate 1,000 MCG Q24H 01/11 1200 DC 01/11 Dextrose/Water 250 ML IV 1814 Heparin Sodium 0 .STK-MED ONE 01/11 0723 DC (Porcine) .ROUTE Heparin Sodium 5,000 UNIT Q8 01/11 0600 01/11 (Porcine) SC 1422 Insulin Human Regular 100 UNIT Q12H 01/11 0445 01/11 Sodium Chloride 100 ML IV 1421 Insulin Human Regular 10 UNITS ONCE ONE 01/11 0445 DC 01/11 IV 01/11 0446 0520 Levetiracetam 500 MG BID 01/11 1230 01/11 Sodium Chloride 100 ML IV 1422 Lorazepam 2 MG Q1 PRN 01/11 1200 AC 01/11 IV 1222 Lorazepam 1 MG ONCE ONE 01/11 0745 DC 01/11 IV 01/11 0746 0733 Lorazepam 0 .STK-MED ONE 01/11 0732 DC .ROUTE Naloxone HCl 0 .STK-MED ONE 01/11 0302 DC .ROUTE Naloxone HCl 0.4 MG ONCE ONE 01/11 0245 DC 01/11 IV 01/11 0246 0301 Norepinephrine 4 MG Q3H 01/11 2200 AC Sodium Chloride 250 ML IV Norepinephrine 4 MG Q24H 01/11 0400 DC 01/11 Sodium Chloride 250 ML IV 1815 Norepinephrine 0 .STK-MED ONE 01/11 0352 DC IV Pantoprazole Sodium 40 MG BID 01/11 1138 AC 01/11 IV 1155 Potassium Chloride 40 MEQ Q2H 01/11 2200 AC Sodium Chloride 1,000 ML IV Potassium Chloride 20 MEQ Q1 01/11 1900 CAN IV 01/11 2001 Potassium Chloride 20 MEQ ONCE ONE 01/11 1200 DC 01/11 IV 01/11 1201 1149 Potassium Chloride 40 MEQ Q4H 01/11 1130 CAN Dextrose/Sodium 1,000 ML IV Chloride Potassium Chloride 40 MEQ Q4H 01/11 1130 DC 01/11 Sodium Chloride 1,000 ML IV 2056 Potassium Chloride 20 MEQ ONCE ONE 01/11 1015 DC 01/11 IV 01/11 1016 1028 Potassium Chloride 20 MEQ ONCE ONE 01/11 0915 DC 01/11 IV 01/11 0916 0933 Potassium Chloride 40 MEQ Q8H 01/11 0515 DC 01/11 Sodium Chloride 1,000 ML IV 01/12 0354 0525 Potassium Phosphate 15 mMol ONE ONE 01/11 1845 CAN Sodium Chloride 250 ML IV 01/11 2248 Potassium Phosphate 15 mMol ONE ONE 01/11 1515 DC 01/11 Sodium Chloride 250 ML IV 01/11 1918 1704 Sodium Chloride 500 ML ONCE ONE 01/11 1645 DC 01/11 IV 01/11 1744 1638 Sodium Chloride 1,000 ML BOLUS ONE 01/11 1415 DC 01/11 IV 01/11 1514 1421 Sodium Chloride 1,000 ML BOLUS ONE 01/11 1315 DC / IV 01/11 1414 1315 Sodium Chloride 1,000 ML BOLUS ONE 01/11 0500 DC / IV 01/11 0559 0459 Sodium Chloride 1,000 ML BOLUS ONE 01/11 0500 DC / IV 01/11 0559 0525 Sodium Chloride 1,000 ML BOLUS ONE 01/11 0245 DC / IV 01/11 0344 0350 Sodium Chloride 1,000 ML BOLUS ONE 01/11 0245 DC 01/11 IV 01/11 0344 0350 Sodium Chloride 1,000 ML BOLUS ONE 01/11 0245 DC / IV 01/11 0344 0235 Sodium Chloride 1,000 ML BOLUS ONE 01/11 0245 DC 01/11 IV 01/11 0344 0235 Succinylcholine 100 MG ONCE ONE 01/11 0245 DC 01/11 Chloride IV 01/11 0246 0237 Vasopressin 40 UNIT Q16H 01/11 1600 DC 01/11 Sodium Chloride 100 ML IV 1640 Vecuronium [place] 0 .STK-MED ONE 01/11 0554 DC IV Vecuronium [place] 10 MG ONCE ONE 01/11 0245 DC 01/11 IV 01/11 0246 0240 Review of Systems Review of Systems Constitutional: Reports: malaise, weakness, unexplained weight loss. Denies: chills, fever. EENTM: Reports: blurred vision. Cardiovascular: Denies: chest pain. Respiratory: Reports: cough. Denies: sputum production. GI: Denies: abdominal pain, diarrhea, nausea. Genitourinary: Reports: frequency. Denies: dysuria. Musculoskeletal: Reports: no symptoms. Skin: Reports: no symptoms. Neurological/Psychological: Reports: confusion. Hematologic/Endocrine: Reports: polyuria, polydipsia. Immunologic/Allergic: Reports: no symptoms. 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 FH: [facility] (myocardial infarction) MATERNAL AUNT, . FH: chronic kidney disease FH: diabetes mellitus Psychosocial History Where Do You Live? Home Who Do You Live With? fiancee Services at Home: None Primary Language: Arabic Smoking Status: Never Smoked ETOH Use: denies use Illicit Drug Use: cocaine (remote history), marijuana, no IV drug abuse Functional Ability ADLs Independent: dressing, eating, toileting, bathing. Ambulation: independent IADLs Independent: shopping, housework, finances, food prep, telephone, transportation , medication admin. Employment History Employment: Employed Profession/Employer: Works from home Exam & Diagnostic Data Last 24 Hrs of Vital Signs/I&O Vital Signs Date Time Temp Pulse Resp B/P Pulse O2 O2 Flow FiO2 Ox Delivery Rate 01/11 1025 40 01/11 0900 97 Ventilator 40% 01/11 08 100.2 105 27 106/58 97 Ventilator 40% 01/11 0822 105 24 101/55 96 Ventilator 100% 01/11 0805 40 / 0734 96.4 98 24 99/50 96 Ventilator 100% 01/11 0720 101 24 112/57 96 / 0625 92 22 102/53 100 Ventilator 100% 01/11 0615 40 / 0559 98 22 105/54 100 Ventilator 100% 01/11 0549 95.4 102 22 117/53 100 Ventilator 100% 01/11 0448 96 88/59 / 0443 96 84/38 02/14 0441 94 81/38 /14 0439 94 76/38 /14 0435 79/38 /14 0433 94 76/49 /14 0431 95 75/39 /14 0431 91 74/39 / 0429 93 70/35 / 0427 93 69/35 /14 0425 93 64/31 / 0423 92 60/28 01/11 0421 93 58/27 01/11 0419 92 56/24 01/11 0416 92 55/25 01/11 0414 91 52/32 / 0413 92 44/22 01/11 0411 45/22 01/11 0409 40 / 0409 91 44/19 01/11 0407 91 46/20 01/11 0406 94.9 91 18 43/17 01/11 0406 91 43/17 01/11 0318 94.9 94 16 86/43 99 Ventilator 100% 01/11 0308 100 01/11 0306 95.4 90 16 76/39 99 Ventilator 100% 01/11 0238 85 18 79 Room Air Intake & Output 01/11 1600 01/11 0800 01/11 0000 Intake Total 5000 Output Total 700 580 Balance -700 4420 Intake, IV 5000 Output, Urine 700 580 Patient 120.004 kg Weight Physical Exam General Appearance: sedated, intubated, obese Ears, Nose, Throat: moist mucus membranes Neck: supple Respiratory: bilateral lungs clear on anterior marr Cardiovascular: regular rate/rhythm Gastrointestinal: soft, non-tender, positive bowel sounds Extremities: no edema Neurologic/Psych: unresponsive Last 48 Hrs of Labs/Basilio: Laboratory Tests 01/11/17 1040: Lactic Acid 2.7 H 01/11/17 1040: Anion Gap 18 H, Estimated GFR 15 L, Glucose 1230 *H, Calcium 8.6, Phosphorus 1.4 L, Magnesium 3.2 H, Total Bilirubin 0.5, AST 39, ALT 86 H, Troponin I 0.03, Albumin 2.9 L, Vitamin B12 Pending, Folate Pending, CBC w Diff NO MAN DIFF REQ, RBC 5.04, MCV 91.3, MCH 29.8, RDW 14.1, MPV 11.7 H, Gran % 88.8 H, Lymphocytes % 5.9 L, Monocytes % 5.0, Eosinophils % 0, Basophils % 0.3, Absolute Granulocytes 16.2 H, Absolute Lymphocytes 1.1 L, Absolute Monocytes 0.9 H, Absolute Eosinophils 0, Absolute Basophils 0.1, PUBS MCHC 32.7 L 01/11/17 0800: Lactic Acid 2.2 H 01/11/17 0800: Anion Gap 25 H, Estimated GFR 14 L, Glucose 1464 *H, Calcium 8.6, Phosphorus 2.5, Magnesium 3.2 H, Total Bilirubin 0.5, AST 32, ALT 82 H, Albumin 3.0 L, CBC w Diff MAN DIFF ORDERED, RBC 4.99, MCV 95.8 H, MCH 29.5, RDW 14.7 H, MPV 13.7 H, Gran % 84.4 H, Lymphocytes % 8.2 L, Monocytes % 7.0, Eosinophils % 0, Basophils % 0.4, Absolute Granulocytes 16.6 H, Segmented Neutrophils 76 H, Band Neutrophils 4, Absolute Lymphocytes 1.6, Lymphocytes 16 L, Monocytes 4, Absolute Monocytes 1.4 H, Absolute Eosinophils 0, Absolute Basophils 0.1, Platelet Estimate VERIFIED BY SMEAR, Normocytic RBCs VERIFIED, Normochromic RBCs VERIFIED, PUBS MCHC 30.8 L 01/11/17 0755: pH 7.21 *L, pCO2 33 L, pO2 103 H, HCO3 13 L, ABG O2 Sat (Measured) 97.0, P-50 (Temp Corrected) N, Carboxyhemoglobin 0.8 L, O2 Concentration % 40%, Respiration Rate 24, O2 Delivery Method VENT, Vent Mode AC, Expiratory Pressure 5, Tidal Volume 550, Pressure Support 0, Phlebotomy Draw Site RIGHT RADIAL 01/11/17 0610: pH 7.10 *L, pCO2 36, pO2 105 H, HCO3 11 L, ABG O2 Sat (Measured) 97.0, P-50 ( Temp Corrected) Y, Carboxyhemoglobin 0.1 L, O2 Concentration % 40%, Temperature 95.4 L, Respiration Rate 20, O2 Delivery Method ESPRIT, Vent Mode AC, Expiratory Pressure 5, Tidal Volume 550, Phlebotomy Draw Site RIGHT RADIAL 01/11/17 0350: pH 7.11 *L, pCO2 42, pO2 387 H, HCO3 13 L, ABG O2 Sat (Measured) 99.0, P-50 ( Temp Corrected) Y, Carboxyhemoglobin 0.5 L, O2 Concentration % 100%, Temperature 94.9 L, Respiration Rate 16, O2 Delivery Method ESPRIT, Vent Mode AC, Expiratory Pressure 5, Tidal Volume 550, Phlebotomy Draw Site LF 01/11/17 0340: Lactic Acid 2.4 H 01/11/17 0340: Anion Gap 29 H, Estimated GFR 11 L, BUN/Creatinine Ratio 10.0, Glucose 1942 *H , Calcium 8.9, Total Bilirubin 0.5, AST 32, ALT 94 H, Alkaline Phosphatase 135 H, Troponin I < 0.01, Total Protein 5.7 L, Albumin 3.1 L, Globulin 2.6, Albumin/Globulin Ratio 1.2, Amylase 481 H, Lipase 6960 H, TSH 0.142 L, Free T4 0.94, Cortisol AM Sample > 61.6 H, CBC w Diff MAN DIFF ORDERED, RBC 4.94, MCV 102.8 H, MCH 29.6, RDW 15.9 H, MPV 14.2 H, Gran % 82.1 H, Lymphocytes % 8.4 L, Monocytes % 9.4 H, Eosinophils % 0.1, Basophils % 0 L, Absolute Granulocytes 14.8 H, Absolute Lymphocytes 1.5, Absolute Monocytes 1.7 H, Absolute Eosinophils 0, Absolute Basophils 0, Platelet Estimate ADEQUATE, Macrocytic Cells 1+, PUBS MCHC 28.9 L, Salicylates < 1.0, Acetone Level POSITIVE AT 1:16 DIL 01/11/17 0306: Urine Opiates Screen < 100.00, Methadone Screen < 40, Barbiturate Screen < 60, Ur Phencyclidine Scrn < 6.00, Amphetamines Screen < 100, U Benzodiazepines Scrn < 85, Urine Cocaine Screen < 50, Urine Cannabis Screen 18.00, Urinalysis LIGHT H, Urine Color YEL, Urine Clarity CLEAR, Urine pH 6.0, Ur Specific [place] 1.010 , Urine Protein TRACE H, Urine Ketones TRACE H, Urine Nitrite NEG, Urine Bilirubin NEG, Urine Urobilinogen 0.2, Ur Leukocyte Esterase NEG, Ur Microscopic SEDIMENT EXAMINED, Urine RBC 1-3, Urine WBC 1-3 H, Ur Epithelial Cells FEW, Hyaline Casts 1-3 H, Granular Casts 3-5 H, Urine Mucus FEW, Urine Hemoglobin MOD H, Urine Glucose >=1000 H 01/11/17 0247: Hemoglobin A1c Pending Diagnostic Data EKG Results Sinus rhythm HR 90 [address]Tc [address] HEAD: No acute intracranial pathology. CT CHEST/ABDOMEN/PELVIS: 1. No acute findings identified in the chest/abdomen/pelvis. 2. Bibasilar atelectasis. 3. Hepatic steatosis. 4. Mild colonic diverticulosis. Assessment/Plan Impression/Plan: 41 y/o M with no prior history of DM who is admitted for severe DKA requiring intubation and pressor support. Respiratory: #Acute respiratory failure: Secondary to metabolic encephalopathy. Currently intubated and on mechanical ventilation with AC mode, tidal volume 650, FiO2 35% , RR 24 and PEEP 5. Initial ABG 7.11/42/387/13 consistent with severe metabolic acidosis. Most recent ABG 7.21/33/103/13 with some improvement of acidosis. * Check CXR daily. * Continue mechanical ventilation. * Re-check ABG. Reduce respiratory rate if alkalosis worsens. Infectious Diseases: #Suspected pneumonia: Presented with low grade-fever of 100.2 and marked leukocytosis to 18. Although CT Chest with no infiltrates, there is concern that patient may have aspirated during aspiration. * Rapid flu test ordered. * Continue Unasyn 1.5 g IV Q12H. * BCx, UCx and sputum Cx pending. Cardiovascular: #Hypovolemic shock: S/p femoral line placement. Hypotensive despite being on maximum doses of Levophed IV drip. * Administer NS boluses as needed. * Start second pressor for blood pressure support if no improvement with NS boluses. * Consider removing femoral line and replacing with central line to enable monitoring of CVP. * Check TSH, free T4 and random cortisol. * Monitor on telemetry for arrhythmia. * Although initial troponin negative, continue to monitor troponin and EKG to evaluate for demand ischemia/ACS in the setting of patient's critical condition. Hematology: #Upper GI bleed: Bloody secretions noted in the NG tube concerning for GI bleed secondary to acute stress. H/H 14.6/50.8 on admission. * Check CBC Q2H. * Monitor for worsening GI bleed. * Protonix 40 mg IV BID started. * Clamp NG tube. Metabolic: #DKA/hyperosmolar hyperglycemic state: Likely secondary to underlying decompensated T2DM. Blood glucose extremely elevated at 1942 on initial presentation and with severe anion gap metabolic acidosis (bicarbonate 14 and anion gap 29). Hyperosmolar state present with effective osmolality of about 400 and corrected sodium of 162, corresponding to a total body free water deficit of 11 L. S/p NS boluses x 6 and currently on 40 mEq KCL in NS @ 150 cc/hr. Fluid resuscitation is adequate as patient is having good urine output. * Endocrinology and nephrology following. Appreciate their recs. * Continue insulin drip with the goal of reducing blood sugars by 50-100 mg/hr. * Change fluids to 40 mEq KCl in 1/2 NS @ 250 cc/hr given marked hypernatremia and extremely high total body free water deficit. * Monitor Na closely to avoid rapid correction of hypernatremia. * Monitor corrected Na, glucose, K, Mg and Phos and replete as needed. * Check ICU bundle Q2H and adjust fluids/replete lytes accordingly. * Start phosphate supplementation if phosphorus drops down to <1. * Check amylase and lipase to evaluate for pancreatitis as a potential cause for new-onset diabetes. * Check salicylic level in the setting of severe metabolic acidosis. #LAMBERTO: Creatinine elevated to 5.5 on admission. Most likely pre-renal vs ATN 2/2 dehydration in the setting of poor PO intake and DKA. Urine output good initially, but decreasing. * Consider renal US if renal function does not improve. * Proctor inserted. Monitor strict I/Os. * Monitor kidney function closely. Alimentary: NPO Neurological: #Metabolic encephalopathy: Comatose. Secondary to severe DKA. CT Head negative on admission. * Fentanyl IV drip and Ativan 2 mg IV Q1H PRN for agitation. * Avoid rapid correction of hypernatremia to prevent cerebral edema. #New onset seizures: Suspected seizure with 20 seconds of upwardly deviating gaze. * Keppra 500 mg IV BID started for seizures. * Ativan 2 mg IV Q1H PRN for seizures. * Will repeat CT Head in the evening. * EEG ordered. Skin: No issues DVT PPx: HSQ CODE: FULL Problem List: 1. Acute renal failure 2. DKA (diabetic ketoacidoses) 3. Metabolic encephalopathy 4. Acute respiratory failure 5. Altered mental status 6. Aspiration pneumonia 7. Hypotension 8. High anion gap metabolic acidosis 9. Hypovolemic shock 10. Diabetic hyperosmolar coma 11. Upper GI bleed Consult Acknowledgment - Thank you for your consult request. ALESSANDRO SINGH,[facility] 01/11/17 1043: Assessment/Plan Other Findings/Comments: Seen and examined independently This is a critically ill 41-year-old gentleman with above noted history was brought in by ambulance as he had increasing lethargy. Prior to that he was apparently very thirsty and was becoming more and more lethargic. In the emergency room he was becoming more lethargic and had to be intubated. He was also found to have significant hypotension and shock while in the emergency room and was initially aggressively fluid resuscitated and subsequently was started on vasopressors with norepinephrine. When I saw him he was intubated. Patient had received 1 mg of Ativan and was not responding. Unfortunately history could not be obtained. All the other details of the patient is as noted above On exam patient was intubated bilateral pupils were responding extraocular movements appeared intact neck supple no JVD chest decreased breath sounds on both sides abdominal exam soft bowel sounds were heard No edema NG tube noted bloody secretions and fluid was aspirated from the NG tube Neurologically patient could not get proper exam as he was less responsive. Although significant data reviewed Corrected sodium upon admission was 181 Initial sugar was 1900His creatinine was more than 5 and his anion gap was 25. His acetone was positive for 1 is 16 dilution Lactic acid level was 2.2. All the other data reviewed as noted above IMPRESSION This is a 41-year-old gentleman with no significant past history who recently has had increasing thirst altered mental status no comes into the hospital with clinical signs and symptoms suggestive of * Significant hyperosmolar hyperglycemic diabetic ketoacidosis state * Acute renal insufficiency which seems to be slowly improving due to above and hypovolemia * Acute respiratory failure related to metabolic encephalopathy * Significant hypotension probably related to significant hypokalemia now has been resuscitated with more than 6 L of normal saline the emergency room now requiring vasopressors with norepinephrine with normalization of blood pressure and slow improvement in this urine output * Significantly reduced mental status related to hyperosmolar state as his corrected sodium was significantly elevated and osmolality calculated was more than 380. * No significant evidence of sepsis. There is some note to suggest that he may have aspirated during intubation and patient is now on Unasyn * Mild upper GI bleed most likely related to gastritis from above-mentioned factors * Significant leukocytosis most likely related to stress, probable aspiration RECOMMENDATION * Continue mechanical ventilator * Increase tidal volume * Continue his high respiratory rate of 24 with the mechanical ventilator and check ABG and reduce his respiratory rate if he starts becoming more alkalotic * Patient seems to be adequately fluid resuscitated with normal saline as he is adequately making urine and he appears to have had adequate initial resuscitation with normal saline. At this time his IV fluids needs to be changed to half-normal saline as his corrected sodium is still significantly elevated * Insulin drip to continue her endocrine * Check his blood work every 2 hours to evaluate his potassium * If his potassium continues to be low, hold his insulin drip and adequately replace his potassium so that we can avoid sig hypokalemic sideeffects * IV PPI bid * SUb cut heparin for now as he has a groin line * Watch for worsening gi bleed * Clamp ng for now * COnt Abx * Watch his cardiac rhythm * Goal of reduction of his glucose should be around 50 to 100 mg/h * His total body fluid deficit is very high, continue intravenous fluid around 200-250 mL per hour t provided his urine output maintains * Wean office levofed * Use fentanyl for sedation and as needed Ativan * No need for any bicarbonate drip * Renal evaluation pending * Maintain a flow sheet of Corrected sodium, Glucose, Potassium and phosphorus and appropriatetly replace. DO not correct phosphorus unless less than 1.5 Discussed extensively with the family and house staff Consult Acknowledgment - Thank you for your consult request.
[2017-01-11 08:13] LABS: ABSOLUTE BASOPHIL COUNT 0.1 /CUMM (0.0-0.2); ABSOLUTE EOSINOPHIL COUNT 0 /CUMM (0.0-0.7); ABSOLUTE GRANULOCYTE CT 16.6 /CUMM (1.4-6.5); ABSOLUTE LYMPH COUNT 1.6 /CUMM (1.2-3.4); ABSOLUTE MONOCYTE COUNT 1.4 /CUMM (0.10-0.60); BASOPHIL % 0.4 % (0.0-2.0); EOSINOPHIL % 0 % (0-5); GRANULOCYTE % 84.4 % (42.2-75.2); HEMATOCRIT 47.8 % (42-52); MEAN CORPUSCULAR HGB 29.5 PG (27.0-31.0); MEAN CORPUSCULAR HGB CONC 30.8 G/DL (33.0-37.0); MEAN PLATELET VOLUME 13.7 FL (7.4-10.4); PLATELET COUNT 215 /CUMM (130-400); RBC DISTRIBUTION WIDTH 14.7 % (11.5-14.5); RED BLOOD CELL CT 4.99 /CUMM (4.70-6.10); WHITE BLOOD CELL COUNT 19.7 /CUMM (4.8-10.8)
[2017-01-11 08:35] LABS: MEAN CORPUSCULAR VOLUME 95.8 FL (80.0-94.0)
[2017-01-11 08:40] VITALS: BP 106/58
[2017-01-11 10:56] LABS: ABSOLUTE BASOPHIL COUNT 0.1 /CUMM (0.0-0.2); ABSOLUTE EOSINOPHIL COUNT 0 /CUMM (0.0-0.7); ABSOLUTE GRANULOCYTE CT 16.2 /CUMM (1.4-6.5); ABSOLUTE LYMPH COUNT 1.1 /CUMM (1.2-3.4); ABSOLUTE MONOCYTE COUNT 0.9 /CUMM (0.10-0.60); BASOPHIL % 0.3 % (0.0-2.0); EOSINOPHIL % 0 % (0-5); MEAN CORPUSCULAR HGB 29.8 PG (27.0-31.0); MEAN CORPUSCULAR HGB CONC 32.7 G/DL (33.0-37.0); MEAN CORPUSCULAR VOLUME 91.3 FL (80.0-94.0); MEAN PLATELET VOLUME 11.7 FL (7.4-10.4); RBC DISTRIBUTION WIDTH 14.1 % (11.5-14.5); RED BLOOD CELL CT 5.04 /CUMM (4.70-6.10); WHITE BLOOD CELL COUNT 18.2 /CUMM (4.8-10.8)
[2017-01-11 11:24] LABS: PLATELET COUNT 170 /CUMM (130-400)
[2017-01-11 11:25] LABS: GRANULOCYTE % 88.8 % (42.2-75.2)
[2017-01-11 12:00] VITALS: BP 98/50
--- NOTE | 2017-01-11 12:08 | Cons- Nephrology ---
General Information and HPI Consulting Request Date of Consult: 01/11/17 Requested By: ALESSANDRO SINGH,ANKIT Brown Reason for Consult: Elevated creatinine level, DKA Source of Information: family History of Present Illness: Patient is a 41-year-old man who was admitted yesterday with obtundation and found to have a blood sugar of 1942 with a serum creatinine of 5.5, uncorrected sodium of 155, potassium 4.6 falling to 2.7, serum CO2 of 14 with an anion gap of 29, positive serum ketones of 1:16 and his serum phosphorus level of 2.5. Arterial blood gas showed a metabolic acidosis with inadequate respiratory compensation: PH 7.11, PCO2 42, bicarbonate 13. Lactic acid level was 2.4 rising slightly to 2.7. Initial troponin level was within normal limits; no amylase or lipase levels. He has required intubation and ventilator support. The history was obtained from the patient's family (mother, ayleen, brother) stated that he has been polyuric and polydipsia With impressive nocturia for the past 3 weeks without any associated symptoms until the last 48 hours when he are to to become confused and ultimately minimally responsive. Only episode of vomiting occurred 2-3 weeks ago, no diarrhea. There's been no fever, chills, abdominal pain or chest pain. According to his fiance, he lost between 20 and 40 pounds over the past 3 weeks, which she was happy about because of his obesity. He has no previous past history and specifically is not known to be a diabetic or to have any renal disease. He does not have a primary care physician. Finally, he is on no medications and does not take any over-the- counter medications with any regularity. Past medical history is entirely negative as noted above, except for obesity Medications: None Allergies: No known drug allergies Family history: Positive for diabetes mellitus with end-stage kidney disease in a maternal aunt who is now . Neither of his parents and none of his other many aunts and uncles have a history of either diabetes mellitus or kidney disease. He has one younger brother who is well and he has no children. Social history: He works from home, lives with his fiance, has no children, has never smoked or abused alcohol. There is a remote history of cocaine use but no IV drug abuse. He smokes cannabis on occasion. Allergies/Medications Allergies: Coded Allergies: No Known Allergies (01/11/17) Home Med List: No Known Home Medications Review of Systems Review of Systems: Review of Systems - obtained primarily from family and from the chart Constitutional: Reports: diaphoresis, malaise, weakness. Denies: chills, fever. EENTM: Reports: blurred vision. Cardiovascular: Denies: chest pain, edema, orthopena. Respiratory: Denies: cough, orthopnea. GI: Denies: abdominal pain, bloating, constipation. Genitourinary: Reports: polyuria, frequency, nocturia. Musculoskeletal: Denies: back pain, gout. Skin: Denies: cysts, change in skin color. 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 Psychosocial History Where Do You Live? Home Services at Home: None Smoking Status: Never Smoked ETOH Use: occasional use Illicit Drug Use: denies illicit drug use Exam & Diagnostic Data Vital Signs and I&O Vital Signs Date Time Temp Pulse Resp B/P Pulse O2 O2 Flow FiO2 Ox Delivery Rate 01/11 1025 40 01/11 0900 97 Ventilator 40% 01/11 0840 100.2 105 27 106/58 97 Ventilator 40% 01/11 0822 105 24 101/55 96 Ventilator 100% 01/11 0805 40 01/11 0734 96.4 98 24 99/50 96 Ventilator 100% 01/11 0720 101 24 112/57 96 01/11 0625 92 22 102/53 100 Ventilator 100% 01/11 0615 40 01/11 0559 98 22 105/54 100 Ventilator 100% 01/11 0549 95.4 102 22 117/53 100 Ventilator 100% 01/11 0448 96 88/59 01/11 0443 96 84/38 01/11 0441 94 81/38 01/11 0439 94 76/38 01/11 0435 79/38 01/11 0433 94 76/49 01/11 0431 95 75/39 01/11 0431 91 74/39 01/11 042 93 70/35 01/11 042 93 69/35 01/11 0425 93 64/31 01/11 0423 92 60/28 01/11 042 93 58/27 01/11 0419 92 56/24 01/11 0416 92 55/25 01/11 0414 91 52/32 01/11 0413 92 44/22 01/11 0411 45/22 01/11 0409 40 01/11 0409 91 44/19 01/11 0407 91 46/20 01/11 0406 94.9 91 18 43/17 01/11 0406 91 43/17 01/11 0318 94.9 94 16 86/43 99 Ventilator 100% 01/11 0308 100 01/11 0306 95.4 90 16 76/39 99 Ventilator 100% 01/11 0238 85 18 79 Room Air Intake & Output 01/11 1600 01/11 0400 01/10 1600 01/10 0400 01/09 1600 01/09 0400 Intake Total 4000 1000 Output Total 1080 200 Balance 2920 800 Intake, IV 4000 1000 Output, Urine 1080 200 Patient 265 lb Weight Physical Exam: General: Well-developed, obese, intubated, vented, unresponsive white male Skin: No rash or jaundice HEENT: Conjunctivae pink, sclerae anicteric Neck: Without masses or thyromegaly, no supraclavicular or cervical adenopathy Chest: Clear anterolaterally Heart: Regular rate and rhythm without S3 or rub Abdomen: Soft without palpable masses or organomegaly Extremities: Without cyanosis or edema Neuro: Unresponsive, no focal findings, no asterixis or myoclonus Results Pertinent Lab Results: Laboratory Tests 01/11 01/11 01/11 1040 1040 0800 Chemistry Sodium (137 - 145 mmol/L) 159 *H Potassium (3.5 - 5.1 mmol/L) 3.0 L Chloride (98 - 107 mmol/L) 121 H Carbon Dioxide (22 - 30 mmol/L) 20 L Anion Gap (5 - 16) 18 H BUN (9 - 20 mg/dL) 53 H Creatinine (0.7 - 1.2 mg/dL) 4.4 H Estimated GFR (>60 ml/min) 15 L Glucose (65 - 99 mg/dL) 1230 *H Lactic Acid (0.7 - 2.1 mmol/L) 2.7 H 2.2 H Calcium (8.4 - 10.2 mg/dL) 8.6 Phosphorus (2.5 - 4.5 mg/dL) 1.4 L Magnesium (1.6 - 2.3 mg/dL) 3.2 H Total Bilirubin (0.2 - 1.3 mg/dL) 0.5 AST (17 - 59 U/L) 39 ALT (21 - 72 U/L) 86 H Troponin I (<0.11 ng/ml) 0.03 Albumin (3.5 - 5.0 g/dL) 2.9 L Vitamin B12 (239 - 931 pg/mL) Pending Folate (2.76 - 20.0 ng/mL) Pending Hematology CBC w Diff NO MAN DIFF REQ WBC (4.8 - 10.8 /CUMM) 18.2 H RBC (4.70 - 6.10 /CUMM) 5.04 Hgb (14.0 - 18.0 G/DL) 15.0 Hct (42 - 52 %) 46.0 MCV (80.0 - 94.0 FL) 91.3 MCH (27.0 - 31.0 PG) 29.8 RDW (11.5 - 14.5 %) 14.1 Plt Count (130 - 400 /CUMM) 170 MPV (7.4 - 10.4 FL) 11.7 H Gran % (42.2 - 75.2 %) 88.8 H Lymphocytes % (20.5 - 51.1 %) 5.9 L Monocytes % (1.7 - 9.3 %) 5.0 Eosinophils % (0 - 5 %) 0 Basophils % (0.0 - 2.0 %) 0.3 Absolute Granulocytes (1.4 - 6.5 /CUMM) 16.2 H Absolute Lymphocytes (1.2 - 3.4 /CUMM) 1.1 L Absolute Monocytes (0.10 - 0.60 /CUMM) 0.9 H Absolute Eosinophils (0.0 - 0.7 /CUMM) 0 Absolute Basophils (0.0 - 0.2 /CUMM) 0.1 PUBS MCHC (33.0 - 37.0 G/DL) 32.7 L 01/11 01/11 0800 0755 Blood Gas pH (7.35 - 7.45 PH) 7.21 *L pCO2 (35 - 45 TORR) 33 L pO2 (80 - 100 TORR) 103 H HCO3 (21 - 28 MEQ/L) 13 L ABG O2 Sat (Measured) (>96.0 %) 97.0 P-50 (Temp Corrected) N Carboxyhemoglobin (1.5 - 5.0 %) 0.8 L O2 Concentration % 40% Respiration Rate (BPM) 24 O2 Delivery Method VENT Vent Mode AC Expiratory Pressure (CMH2O/P) 5 Tidal Volume (CC) 550 Pressure Support (CMH2O/P) 0 Chemistry Sodium (137 - 145 mmol/L) 155 H Potassium (3.5 - 5.1 mmol/L) 2.7 *L Chloride (98 - 107 mmol/L) 117 H Carbon Dioxide (22 - 30 mmol/L) 13 L Anion Gap (5 - 16) 25 H BUN (9 - 20 mg/dL) 54 H Creatinine (0.7 - 1.2 mg/dL) 4.6 H Estimated GFR (>60 ml/min) 14 L Glucose (65 - 99 mg/dL) 1464 *H Calcium (8.4 - 10.2 mg/dL) 8.6 Phosphorus (2.5 - 4.5 mg/dL) 2.5 Magnesium (1.6 - 2.3 mg/dL) 3.2 H Total Bilirubin (0.2 - 1.3 mg/dL) 0.5 AST (17 - 59 U/L) 32 ALT (21 - 72 U/L) 82 H Albumin (3.5 - 5.0 g/dL) 3.0 L Hematology CBC w Diff MAN DIFF ORDERED WBC (4.8 - 10.8 /CUMM) 19.7 H RBC (4.70 - 6.10 /CUMM) 4.99 Hgb (14.0 - 18.0 G/DL) 14.7 Hct (42 - 52 %) 47.8 MCV (80.0 - 94.0 FL) 95.8 H MCH (27.0 - 31.0 PG) 29.5 RDW (11.5 - 14.5 %) 14.7 H Plt Count (130 - 400 /CUMM) 215 MPV (7.4 - 10.4 FL) 13.7 H Gran % (42.2 - 75.2 %) 84.4 H Lymphocytes % (20.5 - 51.1 %) 8.2 L Monocytes % (1.7 - 9.3 %) 7.0 Eosinophils % (0 - 5 %) 0 Basophils % (0.0 - 2.0 %) 0.4 Absolute Granulocytes (1.4 - 6.5 /CUMM) 16.6 H Segmented Neutrophils (42.2 - 75.2 %) 76 H Band Neutrophils (0.0 - 5.0 %) 4 Absolute Lymphocytes (1.2 - 3.4 /CUMM) 1.6 Lymphocytes (20.5 - 51.1 %) 16 L Monocytes (1.7 - 9.3 %) 4 Absolute Monocytes (0.10 - 0.60 /CUMM) 1.4 H Absolute Eosinophils (0.0 - 0.7 /CUMM) 0 Absolute Basophils (0.0 - 0.2 /CUMM) 0.1 Platelet Estimate (ADEQUATE) VERIFIED BY SMEAR Normocytic RBCs VERIFIED Normochromic RBCs VERIFIED PUBS MCHC (33.0 - 37.0 G/DL) 30.8 L Miscellaneous Phlebotomy Draw Site RIGHT RADIAL 01/11 01/11 01/11 0610 0350 0340 Blood Gas pH (7.35 - 7.45 PH) 7.10 *L 7.11 *L pCO2 (35 - 45 TORR) 36 42 pO2 (80 - 100 TORR) 105 H 387 H HCO3 (21 - 28 MEQ/L) 11 L 13 L ABG O2 Sat (Measured) (>96.0 %) 97.0 99.0 P-50 (Temp Corrected) Y Y Carboxyhemoglobin (1.5 - 5.0 %) 0.1 L 0.5 L O2 Concentration % 40% 100% Temperature (97.0 - 100.0 FARH) 95.4 L 94.9 L Respiration Rate (BPM) 20 16 O2 Delivery Method ESPRIT ESPRIT Vent Mode AC AC Expiratory Pressure (CMH2O/P) 5 5 Tidal Volume (CC) 550 550 Chemistry Lactic Acid (0.7 - 2.1 mmol/L) 2.4 H Miscellaneous Phlebotomy Draw Site RIGHT RADIAL LF 01/11 0340 Chemistry Sodium (137 - 145 mmol/L) 144 Potassium (3.5 - 5.1 mmol/L) 4.6 Chloride (98 - 107 mmol/L) 102 Carbon Dioxide (22 - 30 mmol/L) 14 L Anion Gap (5 - 16) 29 H BUN (9 - 20 mg/dL) 55 H Creatinine (0.7 - 1.2 mg/dL) 5.5 *H Estimated GFR (>60 ml/min) 11 L BUN/Creatinine Ratio (7 - 25 %) 10.0 Glucose (65 - 99 mg/dL) 1942 *H Calcium (8.4 - 10.2 mg/dL) 8.9 Total Bilirubin (0.2 - 1.3 mg/dL) 0.5 AST (17 - 59 U/L) 32 ALT (21 - 72 U/L) 94 H Alkaline Phosphatase (< 127 U/L) 135 H Troponin I (<0.11 ng/ml) < 0.01 Total Protein (6.3 - 8.2 g/dL) 5.7 L Albumin (3.5 - 5.0 g/dL) 3.1 L Globulin (1.9 - 4.2 gm/dL) 2.6 Albumin/Globulin Ratio (1.1 - 2.2 %) 1.2 TSH (0.270 - 4.200 uIU/mL) Pending Free T4 (0.64 - 1.79 ng/dL) Pending Cortisol AM Sample (4.46 - 22.7 ug/dL) Pending Hematology CBC w Diff MAN DIFF ORDERED WBC (4.8 - 10.8 /CUMM) 18.0 H RBC (4.70 - 6.10 /CUMM) 4.94 Hgb (14.0 - 18.0 G/DL) 14.6 Hct (42 - 52 %) 50.8 MCV (80.0 - 94.0 FL) 102.8 H MCH (27.0 - 31.0 PG) 29.6 RDW (11.5 - 14.5 %) 15.9 H Plt Count (130 - 400 /CUMM) 223 MPV (7.4 - 10.4 FL) 14.2 H Gran % (42.2 - 75.2 %) 82.1 H Lymphocytes % (20.5 - 51.1 %) 8.4 L Monocytes % (1.7 - 9.3 %) 9.4 H Eosinophils % (0 - 5 %) 0.1 Basophils % (0.0 - 2.0 %) 0 L Absolute Granulocytes (1.4 - 6.5 /CUMM) 14.8 H Absolute Lymphocytes (1.2 - 3.4 /CUMM) 1.5 Absolute Monocytes (0.10 - 0.60 /CUMM) 1.7 H Absolute Eosinophils (0.0 - 0.7 /CUMM) 0 Absolute Basophils (0.0 - 0.2 /CUMM) 0 Platelet Estimate (ADEQUATE) ADEQUATE Macrocytic Cells 1+ PUBS MCHC (33.0 - 37.0 G/DL) 28.9 L Toxicology Salicylates (0 - 20.0 mg/dL) Pending Acetone Level (NEGATIVE) POSITIVE AT 1:16 DIL 01/11 01/11 0306 0247 Chemistry Hemoglobin A1c Pending Toxicology Urine Opiates Screen (>2000 NG/ML) < 100.00 Methadone Screen (>300 NG/ML) < 40 Barbiturate Screen (>200 NG/ML) < 60 Ur Phencyclidine Scrn (>25 NG/ML) < 6.00 Amphetamines Screen (>1000 NG/ML) < 100 U Benzodiazepines Scrn (>200 NG/ML) < 85 Urine Cocaine Screen (>300 NG/ML) < 50 Urine Cannabis Screen (>50 NG/ML) 18.00 Urines Urinalysis LIGHT H Urine Color (YEL,AMB,STR) YEL Urine Clarity (CLEAR) CLEAR Urine pH (5.0 - 8.0) 6.0 Ur Specific [place] (1.001 - 1.035) 1.010 Urine Protein (NEG,<30 MG/DL) TRACE H Urine Ketones (NEG) TRACE H Urine Nitrite (NEG) NEG Urine Bilirubin (NEG) NEG Urine Urobilinogen (0.1 - 1.0 EU/dl) 0.2 Ur Leukocyte Esterase (NEG) NEG Ur Microscopic SEDIMENT EXAMINED Urine RBC (0 - 5 /HPF) 1-3 Urine WBC (0 - 2 /HPF) 1-3 H Ur Epithelial Cells (NONE,FEW) FEW Hyaline Casts (0/LPF) 1-3 H Granular Casts (NONE /LPF) 3-5 H Urine Mucus (FEW,NONE) FEW Urine Hemoglobin (NEG) MOD H Urine Glucose (N MG/DL) >=1000 H Assessment/Plan Assessment/Recommendations Assessment: 41-year-old gentleman with no prior history of diabetes mellitus now presents with a 3 week history of polyuria, polydipsia and nocturia and is found to be in diabetic ketoacidosis with an impressively elevated blood sugar of almost 2000. As one would expect, concomitant problems include renal failure and multiple electrolyte problems including hypernatremia, hypokalemia and borderline hypophosphatemia. The acid base disturbance is consistent with an anion gap metabolic acidosis with a superimposed respiratory acidosis as well, which required intubation. His corrected serum sodium at time of admission was markedly elevated at approximately 175, and this is due to extensive free water losses induced by several weeks of profound glycosuria. The same pathophysiology is responsible for his marked depletion and total body potassium. I expect that his phosphorus level will fall with further correction of his metabolic state. Finally, I am hopeful that renal function will markedly improve, perhaps normalize, with correction of his metabolic, hemodynamic and volume status. Recommendations: 1. Diagnostically, would obtain blood and urine cultures as well as a serum amylase and lipase 2. Renal ultrasound if renal function does not normalize over next few days 3. Agree with changing to hypotonic IV fluids with aggressive potassium supplementation 4. Would monitor phosphorus and magnesium closely; for the moment no supplementation is recommended Thank you. Will follow along with you.
[2017-01-11 13:34] LABS: ABSOLUTE BASOPHIL COUNT 0 /CUMM (0.0-0.2); ABSOLUTE EOSINOPHIL COUNT 0 /CUMM (0.0-0.7); ABSOLUTE GRANULOCYTE CT 12.6 /CUMM (1.4-6.5); ABSOLUTE LYMPH COUNT 0.7 /CUMM (1.2-3.4); ABSOLUTE MONOCYTE COUNT 1.1 /CUMM (0.10-0.60); BASOPHIL % 0 % (0.0-2.0); EOSINOPHIL % 0 % (0-5); GRANULOCYTE % 87.7 % (42.2-75.2); HEMATOCRIT 41.1 % (42-52); MEAN CORPUSCULAR HGB 29.5 PG (27.0-31.0); MEAN CORPUSCULAR HGB CONC 32.8 G/DL (33.0-37.0); MEAN PLATELET VOLUME 13.5 FL (7.4-10.4); PLATELET COUNT 190 /CUMM (130-400); RBC DISTRIBUTION WIDTH 13.9 % (11.5-14.5); RED BLOOD CELL CT 4.57 /CUMM (4.70-6.10)
[2017-01-11 13:46] LABS: PT 12.4 SEC (9.4-12.5)
[2017-01-11 13:53] LABS: WHITE BLOOD CELL COUNT 14.4 /CUMM (4.8-10.8)
[2017-01-11 13:55] LABS: PTT 18 SEC (25-37)
[2017-01-11 15:00] VITALS: BP 94/42
[2017-01-11 16:00] VITALS: BP 78/38
[2017-01-11 16:45] LABS: HEMATOCRIT 39.7 % (42-52); MEAN CORPUSCULAR HGB 29.6 PG (27.0-31.0); MEAN CORPUSCULAR HGB CONC 33.8 G/DL (33.0-37.0); MEAN CORPUSCULAR VOLUME 87.6 FL (80.0-94.0); PLATELET COUNT 167 /CUMM (130-400); RBC DISTRIBUTION WIDTH 13.9 % (11.5-14.5); RED BLOOD CELL CT 4.54 /CUMM (4.70-6.10); WHITE BLOOD CELL COUNT 15.4 /CUMM (4.8-10.8)
[2017-01-11 17:00] VITALS: BP 98/56
[2017-01-11 18:00] VITALS: BP 100/60
--- NOTE | 2017-01-11 18:13 | CT SCAN REPORT ---
EXAMINATION: CT HEAD WITHOUT CONTRAST CLINICAL INFORMATION: Evaluate for acute abnormality. Patient is comatose and in diabetic ketoacidosis. COMPARISON: Head CT dated 01/11/2017. TECHNIQUE: Contiguous axial imaging was performed from the skull base to vertex without intravenous administration of contrast. The study is limited due to patient motion artifacts. DLP: 1201.41 mGy-cm FINDINGS: There is no evidence of acute intracranial hemorrhage or territorial infarction. No abnormal mass effect or midline shift is seen. [place] to white matter differentiation is well preserved. No extra-axial fluid collections are identified. The ventricles are normal in size. There is no abnormal attenuation within the brain parenchyma. The osseous structures and soft tissues are normal. The mastoid air cells and visualized portions of the paranasal sinuses are well aerated. IMPRESSION: Limited study due to motion artifacts. No acute territorial infarction or intracranial hemorrhage. No abnormal mass effect.
[2017-01-11 19:19] LABS: HEMATOCRIT 39.2 % (42-52); MEAN CORPUSCULAR HGB 29.6 PG (27.0-31.0); MEAN CORPUSCULAR HGB CONC 33.6 G/DL (33.0-37.0); MEAN PLATELET VOLUME 13.1 FL (7.4-10.4); PLATELET COUNT 157 /CUMM (130-400); RBC DISTRIBUTION WIDTH 13.7 % (11.5-14.5); RED BLOOD CELL CT 4.46 /CUMM (4.70-6.10); WHITE BLOOD CELL COUNT 13.7 /CUMM (4.8-10.8)
[2017-01-11 21:05] LABS: MEAN CORPUSCULAR HGB 30.1 PG (27.0-31.0); MEAN CORPUSCULAR HGB CONC 34.8 G/DL (33.0-37.0); MEAN CORPUSCULAR VOLUME 86.5 FL (80.0-94.0); MEAN PLATELET VOLUME 12.5 FL (7.4-10.4); PLATELET COUNT 139 /CUMM (130-400); RBC DISTRIBUTION WIDTH 13.7 % (11.5-14.5); RED BLOOD CELL CT 4.51 /CUMM (4.70-6.10); WHITE BLOOD CELL COUNT 12.8 /CUMM (4.8-10.8)
[2017-01-11 22:53] LABS: MEAN CORPUSCULAR HGB 29.6 PG (27.0-31.0); MEAN CORPUSCULAR HGB CONC 33.7 G/DL (33.0-37.0); MEAN CORPUSCULAR VOLUME 87.7 FL (80.0-94.0); MEAN PLATELET VOLUME 10.8 FL (7.4-10.4); PLATELET COUNT 119 /CUMM (130-400); RBC DISTRIBUTION WIDTH 13.8 % (11.5-14.5); RED BLOOD CELL CT 4.45 /CUMM (4.70-6.10); WHITE BLOOD CELL COUNT 12.7 /CUMM (4.8-10.8)
[2017-01-12] VITALS: BP 130/64
[2017-01-12 00:52] LABS: ABSOLUTE BASOPHIL COUNT 0 /CUMM (0.0-0.2); ABSOLUTE EOSINOPHIL COUNT 0 /CUMM (0.0-0.7); ABSOLUTE GRANULOCYTE CT 8.8 /CUMM (1.4-6.5); ABSOLUTE LYMPH COUNT 1.5 /CUMM (1.2-3.4); ABSOLUTE MONOCYTE COUNT 1.4 /CUMM (0.10-0.60); BASOPHIL % 0.3 % (0.0-2.0); EOSINOPHIL % 0.1 % (0-5); GRANULOCYTE % 74.3 % (42.2-75.2); HEMATOCRIT 38.5 % (42-52); MEAN CORPUSCULAR HGB 29.7 PG (27.0-31.0); MEAN CORPUSCULAR HGB CONC 34.4 G/DL (33.0-37.0); MEAN CORPUSCULAR VOLUME 86.4 FL (80.0-94.0); MEAN PLATELET VOLUME 10.4 FL (7.4-10.4); PLATELET COUNT 119 /CUMM (130-400); RBC DISTRIBUTION WIDTH 13.8 % (11.5-14.5); RED BLOOD CELL CT 4.46 /CUMM (4.70-6.10); WHITE BLOOD CELL COUNT 11.9 /CUMM (4.8-10.8)
[2017-01-12 03:26] LABS: ABSOLUTE BASOPHIL COUNT 0 /CUMM (0.0-0.2); ABSOLUTE EOSINOPHIL COUNT 0 /CUMM (0.0-0.7); ABSOLUTE GRANULOCYTE CT 6.9 /CUMM (1.4-6.5); ABSOLUTE LYMPH COUNT 1.4 /CUMM (1.2-3.4); ABSOLUTE MONOCYTE COUNT 1.3 /CUMM (0.10-0.60); BASOPHIL % 0.2 % (0.0-2.0); EOSINOPHIL % 0 % (0-5); GRANULOCYTE % 71.6 % (42.2-75.2); HEMATOCRIT 37.5 % (42-52); MEAN CORPUSCULAR HGB 29.8 PG (27.0-31.0); MEAN CORPUSCULAR HGB CONC 33.8 G/DL (33.0-37.0); MEAN PLATELET VOLUME 12.6 FL (7.4-10.4); PLATELET COUNT 122 /CUMM (130-400); RBC DISTRIBUTION WIDTH 13.9 % (11.5-14.5); RED BLOOD CELL CT 4.25 /CUMM (4.70-6.10); WHITE BLOOD CELL COUNT 9.7 /CUMM (4.8-10.8)
[2017-01-12 06:42] LABS: ABSOLUTE BASOPHIL COUNT 0 /CUMM (0.0-0.2); ABSOLUTE EOSINOPHIL COUNT 0 /CUMM (0.0-0.7); ABSOLUTE GRANULOCYTE CT 5.8 /CUMM (1.4-6.5); ABSOLUTE LYMPH COUNT 1.5 /CUMM (1.2-3.4); ABSOLUTE MONOCYTE COUNT 1.1 /CUMM (0.10-0.60); BASOPHIL % 0.2 % (0.0-2.0); EOSINOPHIL % 0.2 % (0-5); GRANULOCYTE % 69.2 % (42.2-75.2); HEMATOCRIT 36.3 % (42-52); MEAN CORPUSCULAR VOLUME 88.1 FL (80.0-94.0); MEAN PLATELET VOLUME 12.6 FL (7.4-10.4); PLATELET COUNT 109 /CUMM (130-400); RBC DISTRIBUTION WIDTH 13.8 % (11.5-14.5); RED BLOOD CELL CT 4.11 /CUMM (4.70-6.10); WHITE BLOOD CELL COUNT 8.4 /CUMM (4.8-10.8)
--- NOTE | 2017-01-12 07:15 | PN- Resident CRCU ---
Subjective HPI/CRCU Issues: Patient was on the insulin drip overnight with gradual improvement of his blood sugars to 300s this morning. He was started on vasopressin IV drip yesterday evening which was later discontinued as blood pressures improved. He was also weaned off the Levophed IV drip this morning around 5 AM and currently he is hemodynamically stable off pressors. Patient was seen and examined this morning. His mental status is showing some improvement. He is moving all four extremities spontaneously and opens eye to verbal command. He remains intubated and sedated on Fentanyl drip. On mechanical ventilation day #2 with the following current settings: VC-AC mode, tidal volume 650, FiO2 30%, RR 24 and PEEP 5. Objective Vital Signs & I&O Last 8 Hrs of Vitals and I&O: Vital Signs Date Time Temp Pulse Resp B/P Pulse O2 O2 Flow FiO2 Ox Delivery Rate 01/12 0842 30 01/12 0800 98 Ventilator 30% 01/12 0800 98.3 122 24 116/67 98 Ventilator 30% 01/12 0519 30 01/12 0400 98 Ventilator 30% 01/12 0209 30 01/12 0205 35 01/12 0114 112 129/73 01/12 0000 100.0 112 24 130/64 98 Ventilator 35% 01/12 0000 98 Ventilator 35% 01/11 2230 35 01/11 2147 116 114/66 01/11 2000 98 Ventilator 35% 01/11 1918 35 01/11 1815 101.9 127 25 100/60 02/14 1800 101.9 127 27 100/60 98 Ventilator 35% 01/11 1700 101.7 128 24 98/56 99 Ventilator 35% 01/11 1620 101.7 / 1600 129 27 78/38 99 Ventilator 35% /14 1600 99 Ventilator 35% /14 1553 35 01/11 1520 102.9 02/14 1500 102.9 129 26 94/42 99 Ventilator 35% 01/11 1435 35 14 1421 128 92/40 02/14 1200 100 Ventilator 35% / 1200 99.0 124 24 98/50 100 Ventilator 35% / 1025 40 Exam General Appearance: sedated, intubated, obese Ears, Nose, Throat: moist mucus membranes Respiratory: bilateral anterior lung marr clear Cardiovascular: regular rate/rhythm, normal S1 and S2, no murmurs, rubs or gallops Gastrointestinal: soft, non-tender, non-distended, positive bowel sounds Extremities: no edema, no clubbing or cyanosis Cranial Nerves: PERRL, moving all extremities spontaneously, opens eye to verbal command Skin: normal color, warm/dry IV Drips IV Drips: Fentanyl IV drip Current Medications: Current Medications Sig/Nelida Start time Last Medication Dose Route Stop Time Status Admin Acetaminophen 1,000 MG Q6P PRN 01/11 0745 AC 01/11 N/A 1 UNIT IV 1520 Ampicillin Sodium/ 1,500 MG Q12H 01/11 1700 AC 01/12 Sulbactam Sodium IV 0445 Sodium Chloride 100 ML Fentanyl Citrate 1,000 MCG Q24H 01/12 0100 CAN Dextrose/Water 250 ML IV Fentanyl Citrate 1,000 MCG Q14H 01/11 2200 AC 01/12 Dextrose/Water 250 ML IV 0349 Fentanyl Citrate 50 MCG ONCE ONE 01/11 1215 DC 01/11 IV 01/11 1216 1740 Fentanyl Citrate 100 MCG .STK-MED ONE 01/11 1205 DC IM 01/11 1206 Fentanyl Citrate 1,000 MCG Q24H 01/11 1200 DC 01/11 Dextrose/Water 250 ML IV 1814 Heparin Sodium 5,000 UNIT Q8 01/11 0600 AC 01/12 (Porcine) SC 0637 Insulin Human Regular 100 UNIT Q12H 01/11 0445 AC 01/12 Sodium Chloride 100 ML IV 0000 Levetiracetam 500 MG BID 01/11 1230 AC 01/12 Sodium Chloride 100 ML IV 01/13 0200 0904 Lorazepam 2 MG Q1 PRN 01/11 1200 AC 01/11 IV 1222 Norepinephrine 4 MG Q3H 01/11 2200 AC 01/12 Sodium Chloride 250 ML IV 0114 Norepinephrine 4 MG .STK-MED ONE 01/11 2138 DC IV 01/11 2139 Norepinephrine 4 MG Q24H 01/11 0400 DC 01/11 Sodium Chloride 250 ML IV 1815 Pantoprazole Sodium 40 MG BID 01/11 1138 AC 01/12 IV 0904 Potassium Chloride 40 MEQ Q4H 01/12 0130 AC 01/12 Sodium Chloride 1,000 ML IV 0636 Potassium Chloride 40 MEQ Q2H 01/11 2200 DC 01/11 Sodium Chloride 1,000 ML IV 2300 Potassium Chloride 20 MEQ Q1 01/11 1900 CAN IV 01/11 2001 Potassium Chloride 20 MEQ ONCE ONE 01/11 1200 DC 01/11 IV 01/11 1201 1149 Potassium Chloride 40 MEQ Q4H 01/11 1130 CAN Dextrose/Sodium 1,000 ML IV Chloride Potassium Chloride 40 MEQ Q4H 01/11 1130 DC 01/11 Sodium Chloride 1,000 ML IV 2056 Potassium Chloride 20 MEQ ONCE ONE 01/11 1015 DC 01/11 IV 01/11 1016 1028 Potassium Chloride 40 MEQ Q8H 01/11 0515 DC 01/11 Sodium Chloride 1,000 ML IV 01/12 0354 0525 Potassium Phosphate 15 mMol ONE ONE 01/11 1845 CAN Sodium Chloride 250 ML IV 01/11 2248 Potassium Phosphate 15 mMol ONE ONE 01/11 1515 DC 01/11 Sodium Chloride 250 ML IV 01/11 1918 1704 Sodium Chloride 500 ML ONCE ONE 01/11 1645 DC 01/11 IV 01/11 1744 1638 Sodium Chloride 1,000 ML BOLUS ONE 01/11 1415 DC 01/11 IV 01/11 1514 1421 Sodium Chloride 1,000 ML BOLUS ONE 01/11 1315 DC 01/11 IV 01/11 1414 1315 Vancomycin HCl 1,500 MG ONCE ONE 01/12 0900 AC Dextrose/Water 250 ML IV 01/12 1059 Vasopressin 40 UNIT Q16H 01/11 1600 DC 01/11 Sodium Chloride 100 ML IV 1640 Results Results: Laboratory Tests 01/12 01/12 0900 0850 Blood Gas pH (7.35 - 7.45 PH) 7.38 pCO2 (35 - 45 TORR) 27 L pO2 (80 - 100 TORR) 82 HCO3 (21 - 28 MEQ/L) 16 L ABG O2 Sat (Measured) (>96.0 %) 96.0 Carboxyhemoglobin (1.5 - 5.0 %) 0.6 L O2 Concentration % .30 Temperature (97.0 - 100.0 FARH) 98.3 Respiration Rate (BPM) 24 O2 Delivery Method VENT Vent Mode VC-AC Expiratory Pressure (CMH2O/P) 5 Tidal Volume (CC) 650 Chemistry Sodium Pending Potassium Pending Chloride Pending Carbon Dioxide Pending Anion Gap Pending BUN Pending Creatinine Pending Glucose Pending Calcium Pending Phosphorus Pending Magnesium Pending Total Bilirubin Pending AST Pending ALT Pending Albumin Pending Hematology CBC w Diff NO MAN DIFF REQ WBC (4.8 - 10.8 /CUMM) 8.2 RBC (4.70 - 6.10 /CUMM) 4.16 L Hgb (14.0 - 18.0 G/DL) 12.4 L Hct (42 - 52 %) 36.4 L MCV (80.0 - 94.0 FL) 87.5 MCH (27.0 - 31.0 PG) 29.7 RDW (11.5 - 14.5 %) 14.4 Plt Count (130 - 400 /CUMM) 111 L MPV (7.4 - 10.4 FL) 12.8 H Gran % (42.2 - 75.2 %) 74.4 Lymphocytes % (20.5 - 51.1 %) 16.9 L Monocytes % (1.7 - 9.3 %) 8.4 Eosinophils % (0 - 5 %) 0.2 Basophils % (0.0 - 2.0 %) 0.1 Absolute Granulocytes (1.4 - 6.5 /CUMM) 6.1 Absolute Lymphocytes (1.2 - 3.4 /CUMM) 1.4 Absolute Monocytes (0.10 - 0.60 /CUMM) 0.7 H Absolute Eosinophils (0.0 - 0.7 /CUMM) 0 Absolute Basophils (0.0 - 0.2 /CUMM) 0 PUBS MCHC (33.0 - 37.0 G/DL) 34.0 Miscellaneous Phlebotomy Draw Site R BRACH 01/12 01/12 0600 0500 Chemistry Sodium (137 - 145 mmol/L) 162 *H Cancelled Potassium (3.5 - 5.1 mmol/L) 4.1 Cancelled Chloride (98 - 107 mmol/L) 136 H Cancelled Carbon Dioxide (22 - 30 mmol/L) 18 L Cancelled Anion Gap (5 - 16) 8 Cancelled BUN (9 - 20 mg/dL) 39 H Cancelled Creatinine (0.7 - 1.2 mg/dL) 2.7 H Cancelled Estimated GFR (>60 ml/min) 26 L Glucose (65 - 99 mg/dL) 381 H Cancelled Calcium (8.4 - 10.2 mg/dL) 8.3 L Cancelled Phosphorus (2.5 - 4.5 mg/dL) 1.1 L Cancelled Magnesium (1.6 - 2.3 mg/dL) 2.4 H Cancelled Total Bilirubin (0.2 - 1.3 mg/dL) 0.4 Cancelled AST (17 - 59 U/L) 81 H Cancelled ALT (21 - 72 U/L) 77 H Cancelled Troponin I (<0.11 ng/ml) 0.08 Albumin (3.5 - 5.0 g/dL) 2.2 L Cancelled Hematology CBC w Diff NO MAN DIFF REQ Cancelled WBC (4.8 - 10.8 /CUMM) 8.4 Cancelled RBC (4.70 - 6.10 /CUMM) 4.11 L Cancelled Hgb (14.0 - 18.0 G/DL) 12.3 L Cancelled Hct (42 - 52 %) 36.3 L Cancelled MCV (80.0 - 94.0 FL) 88.1 Cancelled MCH (27.0 - 31.0 PG) 30.0 Cancelled RDW (11.5 - 14.5 %) 13.8 Cancelled Plt Count (130 - 400 /CUMM) 109 L Cancelled MPV (7.4 - 10.4 FL) 12.6 H Cancelled Gran % (42.2 - 75.2 %) 69.2 Lymphocytes % (20.5 - 51.1 %) 17.8 L Monocytes % (1.7 - 9.3 %) 12.6 H Eosinophils % (0 - 5 %) 0.2 Basophils % (0.0 - 2.0 %) 0.2 Absolute Granulocytes (1.4 - 6.5 /CUMM) 5.8 Absolute Lymphocytes (1.2 - 3.4 /CUMM) 1.5 Absolute Monocytes (0.10 - 0.60 /CUMM) 1.1 H Absolute Eosinophils (0.0 - 0.7 /CUMM) 0 Absolute Basophils (0.0 - 0.2 /CUMM) 0 PUBS MCHC (33.0 - 37.0 G/DL) 34.0 Cancelled 01/12 01/12 0300 0030 Chemistry Sodium (137 - 145 mmol/L) 163 *H 165 *H Potassium (3.5 - 5.1 mmol/L) 4.2 4.5 Chloride (98 - 107 mmol/L) 135 H 133 H Carbon Dioxide (22 - 30 mmol/L) 19 L 18 L Anion Gap (5 - 16) 9 14 BUN (9 - 20 mg/dL) 42 H 45 H Creatinine (0.7 - 1.2 mg/dL) 3.0 H 3.2 H Estimated GFR (>60 ml/min) 23 L 21 L Glucose (65 - 99 mg/dL) 447 H 513 *H Calcium (8.4 - 10.2 mg/dL) 8.2 L 8.3 L Phosphorus (2.5 - 4.5 mg/dL) 1.0 L 1.1 L Magnesium (1.6 - 2.3 mg/dL) 2.5 H 2.6 H Total Bilirubin (0.2 - 1.3 mg/dL) 0.4 0.4 AST (17 - 59 U/L) 74 H 65 H ALT (21 - 72 U/L) 73 H 74 H Albumin (3.5 - 5.0 g/dL) 2.2 L 2.4 L Hematology CBC w Diff NO MAN DIFF REQ MAN DIFF ORDERED WBC (4.8 - 10.8 /CUMM) 9.7 11.9 H RBC (4.70 - 6.10 /CUMM) 4.25 L 4.46 L Hgb (14.0 - 18.0 G/DL) 12.7 L 13.2 L Hct (42 - 52 %) 37.5 L 38.5 L MCV (80.0 - 94.0 FL) 88.0 86.4 MCH (27.0 - 31.0 PG) 29.8 29.7 RDW (11.5 - 14.5 %) 13.9 13.8 Plt Count (130 - 400 /CUMM) 122 L 119 L MPV (7.4 - 10.4 FL) 12.6 H 10.4 Gran % (42.2 - 75.2 %) 71.6 74.3 Lymphocytes % (20.5 - 51.1 %) 14.4 L 13.1 L Monocytes % (1.7 - 9.3 %) 13.8 H 12.2 H Eosinophils % (0 - 5 %) 0 0.1 Basophils % (0.0 - 2.0 %) 0.2 0.3 Absolute Granulocytes (1.4 - 6.5 /CUMM) 6.9 H 8.8 H Segmented Neutrophils (42.2 - 75.2 %) 67 Band Neutrophils (0.0 - 5.0 %) 9 H Absolute Lymphocytes (1.2 - 3.4 /CUMM) 1.4 1.5 Lymphocytes (20.5 - 51.1 %) 16 L Monocytes (1.7 - 9.3 %) 7 Absolute Monocytes (0.10 - 0.60 /CUMM) 1.3 H 1.4 H Absolute Eosinophils (0.0 - 0.7 /CUMM) 0 0 Basophils (0.0 - 2.0 %) 1 Absolute Basophils (0.0 - 0.2 /CUMM) 0 0 Platelet Estimate (ADEQUATE) ADEQUATE Normocytic RBCs VERIFIED Normochromic RBCs VERIFIED PUBS MCHC (33.0 - 37.0 G/DL) 33.8 34.4 Other Body Source Fld Total RBCs Counted (%) 100 01/110 2030 Chemistry Sodium (137 - 145 mmol/L) 161 *H 161 *H Potassium (3.5 - 5.1 mmol/L) 4.0 3.9 Chloride (98 - 107 mmol/L) 131 H 130 H Carbon Dioxide (22 - 30 mmol/L) 18 L 20 L Anion Gap (5 - 16) 12 11 BUN (9 - 20 mg/dL) 47 H 49 H Creatinine (0.7 - 1.2 mg/dL) 3.5 H 3.7 H Estimated GFR (>60 ml/min) 19 L 18 L Glucose (65 - 99 mg/dL) 579 *H 644 *H Lactic Acid (0.7 - 2.1 mmol/L) 1.6 1.6 Calcium (8.4 - 10.2 mg/dL) 8.0 L 8.0 L Phosphorus (2.5 - 4.5 mg/dL) 1.2 L 1.0 L Magnesium (1.6 - 2.3 mg/dL) 2.6 H 2.6 H Total Bilirubin (0.2 - 1.3 mg/dL) 0.4 0.4 AST (17 - 59 U/L) 65 H 58 ALT (21 - 72 U/L) 75 H 75 H Creatine Kinase (55 - 170 U/L) 1497 H Troponin I (<0.11 ng/ml) 0.11 *H Albumin (3.5 - 5.0 g/dL) 2.4 L 2.4 L Hematology CBC w Diff MAN DIFF ORDERED MAN DIFF ORDERED WBC (4.8 - 10.8 /CUMM) 12.7 H 12.8 H RBC (4.70 - 6.10 /CUMM) 4.45 L 4.51 L Hgb (14.0 - 18.0 G/DL) 13.2 L 13.6 L Hct (42 - 52 %) 39.0 L 39.0 L MCV (80.0 - 94.0 FL) 87.7 86.5 MCH (27.0 - 31.0 PG) 29.6 30.1 RDW (11.5 - 14.5 %) 13.8 13.7 Plt Count (130 - 400 /CUMM) 119 L 139 MPV (7.4 - 10.4 FL) 10.8 H 12.5 H Segmented Neutrophils (42.2 - 75.2 %) 66 61 Band Neutrophils (0.0 - 5.0 %) 19 H 20 H Lymphocytes (20.5 - 51.1 %) 8 L 10 L Monocytes (1.7 - 9.3 %) 5 6 Metamyelocytes (0.0 - 1.0 %) 2 H 3 H Platelet Estimate (ADEQUATE) ADEQUATE Polychromasia 1+ Anisocytosis 1+ Microcytic Cells 1+ 1+ PUBS MCHC (33.0 - 37.0 G/DL) 33.7 34.8 01/11 01/11 1910 1840 Blood Gas pH (7.35 - 7.45 PH) 7.40 pCO2 (35 - 45 TORR) 28 L pO2 (80 - 100 TORR) 90 HCO3 (21 - 28 MEQ/L) 17 L ABG O2 Sat (Measured) (>96.0 %) 97.0 Carboxyhemoglobin (1.5 - 5.0 %) 0.1 L O2 Concentration % 35 Respiration Rate (BPM) 24 O2 Delivery Method VENT Vent Mode AC Expiratory Pressure (CMH2O/P) 5 Tidal Volume (CC) 650 Chemistry Sodium (137 - 145 mmol/L) 160 *H Potassium (3.5 - 5.1 mmol/L) 3.5 Chloride (98 - 107 mmol/L) 129 H Carbon Dioxide (22 - 30 mmol/L) 20 L Anion Gap (5 - 16) 11 BUN (9 - 20 mg/dL) 51 H Creatinine (0.7 - 1.2 mg/dL) 4.0 H Estimated GFR (>60 ml/min) 17 L Glucose (65 - 99 mg/dL) 749 *H Lactic Acid (0.7 - 2.1 mmol/L) 1.8 Calcium (8.4 - 10.2 mg/dL) 8.1 L Phosphorus (2.5 - 4.5 mg/dL) 0.9 *L Magnesium (1.6 - 2.3 mg/dL) 2.6 H Total Bilirubin (0.2 - 1.3 mg/dL) 0.4 AST (17 - 59 U/L) 53 ALT (21 - 72 U/L) 73 H Albumin (3.5 - 5.0 g/dL) 2.4 L Hematology CBC w Diff MAN DIFF ORDERED WBC (4.8 - 10.8 /CUMM) 13.7 H RBC (4.70 - 6.10 /CUMM) 4.46 L Hgb (14.0 - 18.0 G/DL) 13.2 L Hct (42 - 52 %) 39.2 L MCV (80.0 - 94.0 FL) 88.0 MCH (27.0 - 31.0 PG) 29.6 RDW (11.5 - 14.5 %) 13.7 Plt Count (130 - 400 /CUMM) 157 MPV (7.4 - 10.4 FL) 13.1 H Segmented Neutrophils (42.2 - 75.2 %) 75 Band Neutrophils (0.0 - 5.0 %) 13 H Lymphocytes (20.5 - 51.1 %) 8 L Monocytes (1.7 - 9.3 %) 3 Metamyelocytes (0.0 - 1.0 %) 1 Platelet Estimate (ADEQUATE) ADEQUATE Anisocytosis 1+ Microcytic Cells 1+ PUBS MCHC (33.0 - 37.0 G/DL) 33.6 Miscellaneous Phlebotomy Draw Site RIGHT BRACHIAL 01/11 01/11 01/11 1620 1445 1406 Blood Gas pH (7.35 - 7.45 PH) 7.37 pCO2 (35 - 45 TORR) 29 L pO2 (80 - 100 TORR) 117 H HCO3 (21 - 28 MEQ/L) 16 L ABG O2 Sat (Measured) (>96.0 %) 98.0 Carboxyhemoglobin (1.5 - 5.0 %) 0.4 L O2 Concentration % .35 Respiration Rate (BPM) 24 O2 Delivery Method VENT Vent Mode AC Expiratory Pressure (CMH2O/P) 5 Tidal Volume (CC) 650 Chemistry Sodium (137 - 145 mmol/L) 161 *H 162 *H Potassium (3.5 - 5.1 mmol/L) 3.1 L 3.1 L Chloride (98 - 107 mmol/L) 127 H 126 H Carbon Dioxide (22 - 30 mmol/L) 19 L 21 L Anion Gap (5 - 16) 15 15 BUN (9 - 20 mg/dL) 52 H 55 H Creatinine (0.7 - 1.2 mg/dL) 4.4 H 4.4 H Estimated GFR (>60 ml/min) 15 L 15 L Glucose (65 - 99 mg/dL) 899 *H 1076 *H Lactic Acid (0.7 - 2.1 mmol/L) 2.4 H 2.5 H Calcium (8.4 - 10.2 mg/dL) 8.2 L 8.4 Phosphorus (2.5 - 4.5 mg/dL) 0.6 *L 0.7 *L Magnesium (1.6 - 2.3 mg/dL) 2.8 H 2.9 H Total Bilirubin (0.2 - 1.3 mg/dL) 0.5 0.5 AST (17 - 59 U/L) 45 39 ALT (21 - 72 U/L) 71 78 H Troponin I (<0.11 ng/ml) 0.11 *H Albumin (3.5 - 5.0 g/dL) 2.4 L 2.6 L Hematology CBC w Diff MAN DIFF ORDERED WBC (4.8 - 10.8 /CUMM) 15.4 H RBC (4.70 - 6.10 /CUMM) 4.54 L Hgb (14.0 - 18.0 G/DL) 13.4 L Hct (42 - 52 %) 39.7 L MCV (80.0 - 94.0 FL) 87.6 MCH (27.0 - 31.0 PG) 29.6 RDW (11.5 - 14.5 %) 13.9 Plt Count (130 - 400 /CUMM) 167 MPV (7.4 - 10.4 FL) 13.0 H Segmented Neutrophils (42.2 - 75.2 %) 81 H Band Neutrophils (0.0 - 5.0 %) 4 Lymphocytes (20.5 - 51.1 %) 9 L Monocytes (1.7 - 9.3 %) 6 Platelet Estimate (ADEQUATE) ADEQUATE Anisocytosis 1+ Microcytic Cells 1+ PUBS MCHC (33.0 - 37.0 G/DL) 33.8 Miscellaneous Phlebotomy Draw Site LEFT RADIAL 01/11 01/11 1304 1040 Chemistry Lactic Acid (0.7 - 2.1 mmol/L) 2.7 H Coagulation PT (9.4 - 12.5 SEC) 12.4 INR (0.90 - 1.17) 1.18 H APTT (25 - 37 SEC) 18 L Hematology CBC w Diff NO MAN DIFF REQ WBC (4.8 - 10.8 /CUMM) 14.4 H RBC (4.70 - 6.10 /CUMM) 4.57 L Hgb (14.0 - 18.0 G/DL) 13.5 L Hct (42 - 52 %) 41.1 L MCV (80.0 - 94.0 FL) 90.0 MCH (27.0 - 31.0 PG) 29.5 RDW (11.5 - 14.5 %) 13.9 Plt Count (130 - 400 /CUMM) 190 MPV (7.4 - 10.4 FL) 13.5 H Gran % (42.2 - 75.2 %) 87.7 H Lymphocytes % (20.5 - 51.1 %) 4.6 L Monocytes % (1.7 - 9.3 %) 7.7 Eosinophils % (0 - 5 %) 0 Basophils % (0.0 - 2.0 %) 0 L Absolute Granulocytes (1.4 - 6.5 /CUMM) 12.6 H Absolute Lymphocytes (1.2 - 3.4 /CUMM) 0.7 L Absolute Monocytes (0.10 - 0.60 /CUMM) 1.1 H Absolute Eosinophils (0.0 - 0.7 /CUMM) 0 Absolute Basophils (0.0 - 0.2 /CUMM) 0 PUBS MCHC (33.0 - 37.0 G/DL) 32.8 L 01/11 1040 Chemistry Sodium (137 - 145 mmol/L) 159 *H Potassium (3.5 - 5.1 mmol/L) 3.0 L Chloride (98 - 107 mmol/L) 121 H Carbon Dioxide (22 - 30 mmol/L) 20 L Anion Gap (5 - 16) 18 H BUN (9 - 20 mg/dL) 53 H Creatinine (0.7 - 1.2 mg/dL) 4.4 H Estimated GFR (>60 ml/min) 15 L Glucose (65 - 99 mg/dL) 1230 *H Calcium (8.4 - 10.2 mg/dL) 8.6 Phosphorus (2.5 - 4.5 mg/dL) 1.4 L Magnesium (1.6 - 2.3 mg/dL) 3.2 H Total Bilirubin (0.2 - 1.3 mg/dL) 0.5 AST (17 - 59 U/L) 39 ALT (21 - 72 U/L) 86 H Troponin I (<0.11 ng/ml) 0.03 Albumin (3.5 - 5.0 g/dL) 2.9 L Vitamin B12 (239 - 931 pg/mL) > 1000 H Folate (2.76 - 20.0 ng/mL) > 20.0 H Hematology CBC w Diff NO MAN DIFF REQ WBC (4.8 - 10.8 /CUMM) 18.2 H RBC (4.70 - 6.10 /CUMM) 5.04 Hgb (14.0 - 18.0 G/DL) 15.0 Hct (42 - 52 %) 46.0 MCV (80.0 - 94.0 FL) 91.3 MCH (27.0 - 31.0 PG) 29.8 RDW (11.5 - 14.5 %) 14.1 Plt Count (130 - 400 /CUMM) 170 MPV (7.4 - 10.4 FL) 11.7 H Gran % (42.2 - 75.2 %) 88.8 H Lymphocytes % (20.5 - 51.1 %) 5.9 L Monocytes % (1.7 - 9.3 %) 5.0 Eosinophils % (0 - 5 %) 0 Basophils % (0.0 - 2.0 %) 0.3 Absolute Granulocytes (1.4 - 6.5 /CUMM) 16.2 H Absolute Lymphocytes (1.2 - 3.4 /CUMM) 1.1 L Absolute Monocytes (0.10 - 0.60 /CUMM) 0.9 H Absolute Eosinophils (0.0 - 0.7 /CUMM) 0 Absolute Basophils (0.0 - 0.2 /CUMM) 0.1 PUBS MCHC (33.0 - 37.0 G/DL) 32.7 L Sputum Cx (01/11/17): Light growth of gram negative rods, moderate growth of yeast and Staph aureus BCx (01/11/17): NGTD x2 UCx (01/11/17): NGTD CXR Findings: Patchy right basilar opacity, nonspecific potentially reflecting aspiration or consolidation. Endotracheal tube terminating 4.6 in meters above the marcello. Interval placement of a feeding tube extending below the hemidiaphragmatic level, tip not visualized. CT Scan Findings: CT HEAD: Limited study due to motion artifacts. No acute territorial infarction or intracranial hemorrhage. No abnormal mass effect. Impression/Plan Impression/Problem List Impression: 41 y/o M with no prior history of DM who is admitted for severe DKA with multisystem organ failure. Currently hemodynamically stable off pressors, but remains intubated and on insulin drip. Problem List: 1. DKA (diabetic ketoacidoses) 2. Metabolic encephalopathy 3. Acute respiratory failure 4. Acute renal failure 5. Hypernatremia 6. Diabetic hyperosmolar coma 7. Hypotension 8. Pneumonia Pain Ratin Tomorrow's Labs & Rationales: CBC and ICU bundle (critically ill ICU patient) Plan Respiratory: #Acute respiratory failure: Secondary to metabolic encephalopathy. On mechanical ventilation day #2 with the following current vent settings: VC-AC mode, tidal volume 650, FiO2 30%, RR 24 and PEEP 5. Serial ABGs yesterday documented resolution of acidosis. Most recent ABG this AM 7.38///16. * Check CXR daily. * Continue mechanical ventilation. Reduce respiratory rate to 14. * Continue fentanyl IV drip and Ativan 2 mg IV Q1H PRN for sedation. Infectious Diseases: #Pneumonia: CXR this AM with patchy right basilar opacity suspicious for aspiration pneumonia vs CAP. Sputum Cx with light growth of gram negative rods and moderate growth of yeast and Staph aureus. Spiked fevers to Tmax of 102.9 yesterday afternoon. Continues to be febrile, Tmax 101.7 today, although leukocytosis has resolved, WBC 8.2 this morning down from 19.7 on admission. Rapid flu test negative. BCx and UCx NGTD. * Continue Unasyn 1.5 g IV Q12H. * Vancomycin 1.5 g IV daily started. * Follow sputum Cx speciation and susceptibilities. Cardiovascular: #Hypovolemic shock: Secondary to severe DKA with massive free water deficit. S/p femoral line placement. Currently improved with aggressive IVF hydration. Patient is hemodynamically stable off pressors. Hypothyroidism can be ruled out as TSH low at 0.142 and free T4 within normal limits. Adrenal insufficiency can be ruled out as well given random cortisol from admission labs elevated at 61.6. * Establish multiple peripheral lines and consider removing femoral line. * Continue telemetry monitoring. * Continue aggressive IVF hydration with care in the setting of acute pancreatitis (amylase 481 and lipase 6960 on admission). * Re-check amylase and lipase today. #Elevated troponin: Although troponins were negative on admission, they increased to 0.11. Serial EKGs without any ST-T changes. Most likely secondary to demand ischemia. Troponins have been downtrended to 0.18. * NTD. Hematology: #Upper GI bleed: Bloody secretions noted in the NG tube yesterday concerning for GI bleed secondary to acute stress. Currently resolved. H/H has been downtrending slightly from 14.6/50.8 on admission to 11.9/35.4 but this is secondary to hemodilution in the setting of aggressive IVF hydration. * Check CBC Q3H. * Monitor for worsening GI bleed. * Continue protonix 40 mg IV BID. * HSQ for DVT PPx. Metabolic: #DKA/hyperosmolar hyperglycemic state: Likely secondary to underlying decompensated T2DM. Remains on insulin drip. Anion gap closed yesterday and multiple electrolyte abnormalities are gradually normalizing. Corrected sodium still remains elevated around 160s. Currently on 40 mEq KCl in 1/2 NS @ 250 cc/ hr and 100 mL free water flushes through the NG tube every 4 hours. * Endocrinology and nephrology following. Appreciate their recs. * Continue insulin drip adjusting to keep blood glucose in the 180-200 range. * Change fluids to 20 mEq KCl in D51/2 NS @ 150 cc/hr once blood sugar reaches 250. * Increase free water flushes through the NG tube to 200 mL every 3 hours. * Check ICU bundle Q3H and adjust fluids/replete lytes accordingly. * Monitor Na closely to avoid rapid correction of hypernatremia. * Start phosphate supplementation if phosphorus drops down to <1. #LAMBERTO: Creatinine elevated to 5.5 on admission. Most likely pre-renal vs ATN 2/2 dehydration and DKA. Creatinine has improved to 2-3 range with IVF hydration. Urine output is good. * Nephrology following. Appreciate their recs. * Continue to monitor strict I/Os and kidney function. Alimentary: NPO Neurological: #Metabolic encephalopathy: Mental status improved since yesterday. Currently moving all extremities spontaneously and opening eyes to verbal command. Repeat CT Head negative yesterday evening. * Fentanyl IV drip and Ativan 2 mg IV Q1H PRN for agitation. * Avoid rapid correction of hypernatremia to prevent cerebral edema. #New onset seizures: Suspected seizure with 20 seconds of upwardly deviating gaze yesterday. Started on Keppra with no repeat seizures subsequently. * Will discontinue Keppra tomorrow if there are no more seizures. * EEG pending. Skin: #Stage 2 pressure ulcers: Multiple stage 2 pressure ulcers noted to left buttock. * Management per wound care team. * Apply barrier cream to affected areas Qshift and PRN. * Reposition and turn patient frequently. * Patient placed on category 2 mattress. * Nutrition consult requested. Appreciate their recs. Skin Care Protocol Ordered? Yes DVT/Prophylaxis: mechanical, pharmacological Code Status: Full Code
--- NOTE | 2017-01-12 07:23 | PN- Diabetes ---
Assessment/Plan Assessment: The patient remains on a respirator. He is on an insulin drip at 6 units per hour. He is off pressors. He is currently sedated. His most recent labs show glucose 447, BUN 42, creatinine 3.0, sodium 163, potassium 4.2, anion gap is 9, and CO2 is 19. Liver lunction tests are mildly elevated. The patient is improved. The ketoacidosis is resolved. Renal function is also improving. Plan: Suggest continue the insulin drip. When the patient's fingerstick blood sugar gets to 250 we should be placed on D5 half-normal saline +20 mEq of KCl at 150 mL per hour. We should adjust the insulin drip to keep his sugar between 180- 200 range. In view of the hyponatremia we should increase his [place] through the NG tube to 200 mL every 4 hours. We need to bring his serum sodium down gradually. Subjective Subjective: Patient is on respirator Objective Last 24 Hrs of Vital Signs/I&O Vital Signs Date Time Temp Pulse Resp B/P Pulse O2 O2 Flow FiO2 Ox Delivery Rate 01/12 0519 30 01/12 0400 98 Ventilator 30% 01/12 0209 30 01/12 0205 35 01/12 0114 112 129/73 01/12 0000 100.0 112 24 130/64 98 Ventilator 35% 01/12 0000 98 Ventilator 35% 01/11 2230 35 01/11 2147 116 114/66 01/11 2000 98 Ventilator 35% 01/11 1918 35 0214 1815 101.9 127 25 100/60 02/14 1800 101.9 127 27 100/60 98 Ventilator 35% 01/11 1700 101.7 128 24 98/56 99 Ventilator 35% / 1620 101.7 02/14 1600 129 27 78/38 99 Ventilator 35% 02/14 1600 99 Ventilator 35% 02/14 1553 35 14 1520 102.9 02/14 1500 102.9 129 26 94/42 99 Ventilator 35% 02/14 1435 35 0214 1421 128 92/40 02/14 1200 100 Ventilator 35% 02/14 1200 99.0 124 24 98/50 100 Ventilator 35% 02/14 1025 40 02/14 0900 97 Ventilator 40% 02 0840 100.2 105 27 106/58 97 Ventilator 40% 02 0822 105 24 101/55 96 Ventilator 100% 02/14 0805 40 01/11 0734 96.4 98 24 99/50 96 Ventilator 100% Intake & Output 01/12 0800 01/12 0000 01/11 1600 Intake Total 3649 5010 4578 Output Total 9735 408 2794 Balance 2449 4230 2453 Intake, IV 3449 4880 4548 Intake, Other 200 130 30 Number 0 Bowel Movements Output, 200 550 Gastric Drainage Output, Urine 4994 617 3289 Patient 265 lb Weight Vital Signs Date Time Temp Pulse Resp B/P Pulse O2 O2 Flow FiO2 Ox Delivery Rate 01/12 0519 30 01/12 0400 98 Ventilator 30% 01/12 0209 30 01/12 0205 35 01/12 0114 112 129/73 01/12 0000 100.0 112 24 130/64 98 Ventilator 35% 01/12 0000 98 Ventilator 35% 01/11 2230 35 01/11 2147 116 114/66 01/11 2000 98 Ventilator 35% 01/11 1918 35 01/11 1815 101.9 127 25 100/60 01/11 1800 101.9 127 27 100/60 98 Ventilator 35% 01/11 1700 101.7 128 24 98/56 99 Ventilator 35% 01/11 1620 101.7 01/11 1600 129 27 78/38 99 Ventilator 35% 01/11 1600 99 Ventilator 35% 01/11 1553 35 01/11 1520 102.9 01/11 1500 102.9 129 26 94/42 99 Ventilator 35% 01/11 1435 35 01/11 1421 128 92/40 01/11 1200 100 Ventilator 35% 01/11 1200 99.0 124 24 98/50 100 Ventilator 35% 01/11 1025 40 01/11 0900 97 Ventilator 40% 01/11 0840 100.2 105 27 106/58 97 Ventilator 40% 01/11 0822 105 24 101/55 96 Ventilator 100% 01/11 0805 40 01/11 0734 96.4 98 24 99/50 96 Ventilator 100% Intake & Output 01/12 0800 01/12 0000 01/11 1600 Intake Total 3649 5010 4578 Output Total 8365 189 3025 Balance 2449 4230 2453 Intake, IV 3449 4880 4548 Intake, Other 200 130 30 Number 0 Bowel Movements Output, 200 550 Gastric Drainage Output, Urine 2933 126 6578 Patient 265 lb Weight Physical Exam General Appearance: sedated, intubated Head: normal appearance Neck: normal inspection Respiratory: normal breath sounds Cardiovascular: regular rate/rhythm Abdomen: normal bowel sounds Extremities: normal inspection Current Medications: Current Medications Sig/Nelida Start time Last Medication Dose Route Stop Time Status Admin Acetaminophen 1,000 MG Q6P PRN 01/11 0745 AC 01/11 N/A 1 UNIT IV 1520 Ampicillin Sodium/ 1,500 MG Q12H 01/11 1700 AC 01/12 Sulbactam Sodium IV 0445 Sodium Chloride 100 ML Fentanyl Citrate 1,000 MCG Q24H 01/12 0100 CAN Dextrose/Water 250 ML IV Fentanyl Citrate 1,000 MCG Q14H 01/11 2200 AC 01/12 Dextrose/Water 250 ML IV 0349 Fentanyl Citrate 50 MCG ONCE ONE 01/11 1215 DC 01/11 IV 01/11 1216 1740 Fentanyl Citrate 100 MCG .STK-MED ONE 01/11 1205 DC IM 01/11 1206 Fentanyl Citrate 1,000 MCG Q24H 01/11 1200 DC 01/11 Dextrose/Water 250 ML IV 1814 Heparin Sodium 5,000 UNIT Q8 01/11 0600 AC 01/12 (Porcine) SC 0637 Insulin Human Regular 100 UNIT Q12H 01/11 0445 AC 01/12 Sodium Chloride 100 ML IV 0000 Levetiracetam 500 MG BID 01/11 1230 AC 01/11 Sodium Chloride 100 ML IV 2148 Lorazepam 2 MG Q1 PRN 01/11 1200 AC 01/11 IV 1222 Lorazepam 1 MG ONCE ONE 01/11 0745 DC 01/11 IV 01/11 0746 0733 Lorazepam 0 .STK-MED ONE 01/11 0732 DC .ROUTE Norepinephrine 4 MG Q3H 01/11 2200 AC 01/12 Sodium Chloride 250 ML IV 0114 Norepinephrine 4 MG .STK-MED ONE 01/11 2138 DC IV 01/11 2139 Norepinephrine 4 MG Q24H 01/11 0400 DC 01/11 Sodium Chloride 250 ML IV 1815 Pantoprazole Sodium 40 MG BID 01/11 1138 AC 01/11 IV 2147 Potassium Chloride 40 MEQ Q4H 01/12 0130 AC 01/12 Sodium Chloride 1,000 ML IV 0636 Potassium Chloride 40 MEQ Q2H 01/11 2200 DC 01/11 Sodium Chloride 1,000 ML IV 2300 Potassium Chloride 20 MEQ Q1 01/11 1900 CAN IV 01/11 2001 Potassium Chloride 20 MEQ ONCE ONE 01/11 1200 DC 01/11 IV 01/11 1201 1149 Potassium Chloride 40 MEQ Q4H 01/11 1130 CAN Dextrose/Sodium 1,000 ML IV Chloride Potassium Chloride 40 MEQ Q4H 01/11 1130 DC 01/11 Sodium Chloride 1,000 ML IV 2056 Potassium Chloride 20 MEQ ONCE ONE 01/11 1015 DC 01/11 IV 01/11 1016 1028 Potassium Chloride 20 MEQ ONCE ONE 01/11 0915 DC 01/11 IV 01/11 0916 0933 Potassium Chloride 40 MEQ Q8H 01/11 0515 DC 01/11 Sodium Chloride 1,000 ML IV 01/12 0354 0525 Potassium Phosphate 15 mMol ONE ONE 01/11 1845 CAN Sodium Chloride 250 ML IV 01/11 2248 Potassium Phosphate 15 mMol ONE ONE 01/11 1515 DC 01/11 Sodium Chloride 250 ML IV 01/11 1918 1704 Sodium Chloride 500 ML ONCE ONE 01/11 1645 DC 01/11 IV 01/11 1744 1638 Sodium Chloride 1,000 ML BOLUS ONE 01/11 1415 DC 01/11 IV 01/11 1514 1421 Sodium Chloride 1,000 ML BOLUS ONE 01/11 1315 DC 01/11 IV 01/11 1414 1315 Vasopressin 40 UNIT Q16H 01/11 1600 DC 01/11 Sodium Chloride 100 ML IV 1640 Findings Pertinent Lab/Basilio Results: Laboratory Tests 01/12 01/12 0600 0500 Chemistry Sodium (137 - 145 mmol/L) 162 *H Cancelled Potassium (3.5 - 5.1 mmol/L) 4.1 Cancelled Chloride (98 - 107 mmol/L) 136 H Cancelled Carbon Dioxide (22 - 30 mmol/L) 18 L Cancelled Anion Gap (5 - 16) 8 Cancelled BUN (9 - 20 mg/dL) 39 H Cancelled Creatinine (0.7 - 1.2 mg/dL) 2.7 H Cancelled Estimated GFR (>60 ml/min) 26 L Glucose (65 - 99 mg/dL) 381 H Cancelled Calcium (8.4 - 10.2 mg/dL) 8.3 L Cancelled Phosphorus (2.5 - 4.5 mg/dL) 1.1 L Cancelled Magnesium (1.6 - 2.3 mg/dL) 2.4 H Cancelled Total Bilirubin (0.2 - 1.3 mg/dL) 0.4 Cancelled AST (17 - 59 U/L) 81 H Cancelled ALT (21 - 72 U/L) 77 H Cancelled Troponin I (<0.11 ng/ml) 0.08 Albumin (3.5 - 5.0 g/dL) 2.2 L Cancelled Hematology CBC w Diff NO MAN DIFF REQ Cancelled WBC (4.8 - 10.8 /CUMM) 8.4 Cancelled RBC (4.70 - 6.10 /CUMM) 4.11 L Cancelled Hgb (14.0 - 18.0 G/DL) 12.3 L Cancelled Hct (42 - 52 %) 36.3 L Cancelled MCV (80.0 - 94.0 FL) 88.1 Cancelled MCH (27.0 - 31.0 PG) 30.0 Cancelled RDW (11.5 - 14.5 %) 13.8 Cancelled Plt Count (130 - 400 /CUMM) 109 L Cancelled MPV (7.4 - 10.4 FL) 12.6 H Cancelled Gran % (42.2 - 75.2 %) 69.2 Lymphocytes % (20.5 - 51.1 %) 17.8 L Monocytes % (1.7 - 9.3 %) 12.6 H Eosinophils % (0 - 5 %) 0.2 Basophils % (0.0 - 2.0 %) 0.2 Absolute Granulocytes (1.4 - 6.5 /CUMM) 5.8 Absolute Lymphocytes (1.2 - 3.4 /CUMM) 1.5 Absolute Monocytes (0.10 - 0.60 /CUMM) 1.1 H Absolute Eosinophils (0.0 - 0.7 /CUMM) 0 Absolute Basophils (0.0 - 0.2 /CUMM) 0 PUBS MCHC (33.0 - 37.0 G/DL) 34.0 Cancelled 01/12 01/12 0300 0030 Chemistry Sodium (137 - 145 mmol/L) 163 *H 165 *H Potassium (3.5 - 5.1 mmol/L) 4.2 4.5 Chloride (98 - 107 mmol/L) 135 H 133 H Carbon Dioxide (22 - 30 mmol/L) 19 L 18 L Anion Gap (5 - 16) 9 14 BUN (9 - 20 mg/dL) 42 H 45 H Creatinine (0.7 - 1.2 mg/dL) 3.0 H 3.2 H Estimated GFR (>60 ml/min) 23 L 21 L Glucose (65 - 99 mg/dL) 447 H 513 *H Calcium (8.4 - 10.2 mg/dL) 8.2 L 8.3 L Phosphorus (2.5 - 4.5 mg/dL) 1.0 L 1.1 L Magnesium (1.6 - 2.3 mg/dL) 2.5 H 2.6 H Total Bilirubin (0.2 - 1.3 mg/dL) 0.4 0.4 AST (17 - 59 U/L) 74 H 65 H ALT (21 - 72 U/L) 73 H 74 H Albumin (3.5 - 5.0 g/dL) 2.2 L 2.4 L Hematology CBC w Diff NO MAN DIFF REQ MAN DIFF ORDERED WBC (4.8 - 10.8 /CUMM) 9.7 11.9 H RBC (4.70 - 6.10 /CUMM) 4.25 L 4.46 L Hgb (14.0 - 18.0 G/DL) 12.7 L 13.2 L Hct (42 - 52 %) 37.5 L 38.5 L MCV (80.0 - 94.0 FL) 88.0 86.4 MCH (27.0 - 31.0 PG) 29.8 29.7 RDW (11.5 - 14.5 %) 13.9 13.8 Plt Count (130 - 400 /CUMM) 122 L 119 L MPV (7.4 - 10.4 FL) 12.6 H 10.4 Gran % (42.2 - 75.2 %) 71.6 74.3 Lymphocytes % (20.5 - 51.1 %) 14.4 L 13.1 L Monocytes % (1.7 - 9.3 %) 13.8 H 12.2 H Eosinophils % (0 - 5 %) 0 0.1 Basophils % (0.0 - 2.0 %) 0.2 0.3 Absolute Granulocytes (1.4 - 6.5 /CUMM) 6.9 H 8.8 H Segmented Neutrophils (42.2 - 75.2 %) 67 Band Neutrophils (0.0 - 5.0 %) 9 H Absolute Lymphocytes (1.2 - 3.4 /CUMM) 1.4 1.5 Lymphocytes (20.5 - 51.1 %) 16 L Monocytes (1.7 - 9.3 %) 7 Absolute Monocytes (0.10 - 0.60 /CUMM) 1.3 H 1.4 H Absolute Eosinophils (0.0 - 0.7 /CUMM) 0 0 Basophils (0.0 - 2.0 %) 1 Absolute Basophils (0.0 - 0.2 /CUMM) 0 0 Platelet Estimate (ADEQUATE) ADEQUATE Normocytic RBCs VERIFIED Normochromic RBCs VERIFIED PUBS MCHC (33.0 - 37.0 G/DL) 33.8 34.4 Other Body Source Fld Total RBCs Counted (%) 100 01/11 01/11 2230 2030 Chemistry Sodium (137 - 145 mmol/L) 161 *H 161 *H Potassium (3.5 - 5.1 mmol/L) 4.0 3.9 Chloride (98 - 107 mmol/L) 131 H 130 H Carbon Dioxide (22 - 30 mmol/L) 18 L 20 L Anion Gap (5 - 16) 12 11 BUN (9 - 20 mg/dL) 47 H 49 H Creatinine (0.7 - 1.2 mg/dL) 3.5 H 3.7 H Estimated GFR (>60 ml/min) 19 L 18 L Glucose (65 - 99 mg/dL) 579 *H 644 *H Lactic Acid (0.7 - 2.1 mmol/L) 1.6 1.6 Calcium (8.4 - 10.2 mg/dL) 8.0 L 8.0 L Phosphorus (2.5 - 4.5 mg/dL) 1.2 L 1.0 L Magnesium (1.6 - 2.3 mg/dL) 2.6 H 2.6 H Total Bilirubin (0.2 - 1.3 mg/dL) 0.4 0.4 AST (17 - 59 U/L) 65 H 58 ALT (21 - 72 U/L) 75 H 75 H Creatine Kinase (55 - 170 U/L) 1497 H Troponin I (<0.11 ng/ml) 0.11 *H Albumin (3.5 - 5.0 g/dL) 2.4 L 2.4 L Hematology CBC w Diff MAN DIFF ORDERED MAN DIFF ORDERED WBC (4.8 - 10.8 /CUMM) 12.7 H 12.8 H RBC (4.70 - 6.10 /CUMM) 4.45 L 4.51 L Hgb (14.0 - 18.0 G/DL) 13.2 L 13.6 L Hct (42 - 52 %) 39.0 L 39.0 L MCV (80.0 - 94.0 FL) 87.7 86.5 MCH (27.0 - 31.0 PG) 29.6 30.1 RDW (11.5 - 14.5 %) 13.8 13.7 Plt Count (130 - 400 /CUMM) 119 L 139 MPV (7.4 - 10.4 FL) 10.8 H 12.5 H Segmented Neutrophils (42.2 - 75.2 %) 66 61 Band Neutrophils (0.0 - 5.0 %) 19 H 20 H Lymphocytes (20.5 - 51.1 %) 8 L 10 L Monocytes (1.7 - 9.3 %) 5 6 Metamyelocytes (0.0 - 1.0 %) 2 H 3 H Platelet Estimate (ADEQUATE) ADEQUATE Polychromasia 1+ Anisocytosis 1+ Microcytic Cells 1+ 1+ PUBS MCHC (33.0 - 37.0 G/DL) 33.7 34.8 01/11 01/11 1840 1620 Chemistry Sodium (137 - 145 mmol/L) 160 *H 161 *H Potassium (3.5 - 5.1 mmol/L) 3.5 3.1 L Chloride (98 - 107 mmol/L) 129 H 127 H Carbon Dioxide (22 - 30 mmol/L) 20 L 19 L Anion Gap (5 - 16) 11 15 BUN (9 - 20 mg/dL) 51 H 52 H Creatinine (0.7 - 1.2 mg/dL) 4.0 H 4.4 H Estimated GFR (>60 ml/min) 17 L 15 L Glucose (65 - 99 mg/dL) 749 *H 899 *H Lactic Acid (0.7 - 2.1 mmol/L) 1.8 2.4 H Calcium (8.4 - 10.2 mg/dL) 8.1 L 8.2 L Phosphorus (2.5 - 4.5 mg/dL) 0.9 *L 0.6 *L Magnesium (1.6 - 2.3 mg/dL) 2.6 H 2.8 H Total Bilirubin (0.2 - 1.3 mg/dL) 0.4 0.5 AST (17 - 59 U/L) 53 45 ALT (21 - 72 U/L) 73 H 71 Troponin I (<0.11 ng/ml) 0.11 *H Albumin (3.5 - 5.0 g/dL) 2.4 L 2.4 L Hematology CBC w Diff MAN DIFF ORDERED MAN DIFF ORDERED WBC (4.8 - 10.8 /CUMM) 13.7 H 15.4 H RBC (4.70 - 6.10 /CUMM) 4.46 L 4.54 L Hgb (14.0 - 18.0 G/DL) 13.2 L 13.4 L Hct (42 - 52 %) 39.2 L 39.7 L MCV (80.0 - 94.0 FL) 88.0 87.6 MCH (27.0 - 31.0 PG) 29.6 29.6 RDW (11.5 - 14.5 %) 13.7 13.9 Plt Count (130 - 400 /CUMM) 157 167 MPV (7.4 - 10.4 FL) 13.1 H 13.0 H Segmented Neutrophils (42.2 - 75.2 %) 75 81 H Band Neutrophils (0.0 - 5.0 %) 13 H 4 Lymphocytes (20.5 - 51.1 %) 8 L 9 L Monocytes (1.7 - 9.3 %) 3 6 Metamyelocytes (0.0 - 1.0 %) 1 Platelet Estimate (ADEQUATE) ADEQUATE ADEQUATE Anisocytosis 1+ 1+ Microcytic Cells 1+ 1+ PUBS MCHC (33.0 - 37.0 G/DL) 33.6 33.8 01/11 01/11 01/11 1445 1406 1304 Blood Gas pH (7.35 - 7.45 PH) 7.37 pCO2 (35 - 45 TORR) 29 L pO2 (80 - 100 TORR) 117 H HCO3 (21 - 28 MEQ/L) 16 L ABG O2 Sat (Measured) (>96.0 %) 98.0 Carboxyhemoglobin (1.5 - 5.0 %) 0.4 L O2 Concentration % .35 Respiration Rate (BPM) 24 O2 Delivery Method VENT Vent Mode AC Expiratory Pressure (CMH2O/P) 5 Tidal Volume (CC) 650 Chemistry Sodium (137 - 145 mmol/L) 162 *H Potassium (3.5 - 5.1 mmol/L) 3.1 L Chloride (98 - 107 mmol/L) 126 H Carbon Dioxide (22 - 30 mmol/L) 21 L Anion Gap (5 - 16) 15 BUN (9 - 20 mg/dL) 55 H Creatinine (0.7 - 1.2 mg/dL) 4.4 H Estimated GFR (>60 ml/min) 15 L Glucose (65 - 99 mg/dL) 1076 *H Lactic Acid (0.7 - 2.1 mmol/L) 2.5 H Calcium (8.4 - 10.2 mg/dL) 8.4 Phosphorus (2.5 - 4.5 mg/dL) 0.7 *L Magnesium (1.6 - 2.3 mg/dL) 2.9 H Total Bilirubin (0.2 - 1.3 mg/dL) 0.5 AST (17 - 59 U/L) 39 ALT (21 - 72 U/L) 78 H Albumin (3.5 - 5.0 g/dL) 2.6 L Coagulation PT (9.4 - 12.5 SEC) 12.4 INR (0.90 - 1.17) 1.18 H APTT (25 - 37 SEC) 18 L Hematology CBC w Diff NO MAN DIFF REQ WBC (4.8 - 10.8 /CUMM) 14.4 H RBC (4.70 - 6.10 /CUMM) 4.57 L Hgb (14.0 - 18.0 G/DL) 13.5 L Hct (42 - 52 %) 41.1 L MCV (80.0 - 94.0 FL) 90.0 MCH (27.0 - 31.0 PG) 29.5 RDW (11.5 - 14.5 %) 13.9 Plt Count (130 - 400 /CUMM) 190 MPV (7.4 - 10.4 FL) 13.5 H Gran % (42.2 - 75.2 %) 87.7 H Lymphocytes % (20.5 - 51.1 %) 4.6 L Monocytes % (1.7 - 9.3 %) 7.7 Eosinophils % (0 - 5 %) 0 Basophils % (0.0 - 2.0 %) 0 L Absolute Granulocytes (1.4 - 6.5 /CUMM) 12.6 H Absolute Lymphocytes (1.2 - 3.4 /CUMM) 0.7 L Absolute Monocytes (0.10 - 0.60 /CUMM) 1.1 H Absolute Eosinophils (0.0 - 0.7 /CUMM) 0 Absolute Basophils (0.0 - 0.2 /CUMM) 0 PUBS MCHC (33.0 - 37.0 G/DL) 32.8 L Miscellaneous Phlebotomy Draw Site LEFT RADIAL 01/11 01/11 01/11 1040 1040 0905 Chemistry Sodium (137 - 145 mmol/L) 159 *H Potassium (3.5 - 5.1 mmol/L) 3.0 L Chloride (98 - 107 mmol/L) 121 H Carbon Dioxide (22 - 30 mmol/L) 20 L Anion Gap (5 - 16) 18 H BUN (9 - 20 mg/dL) 53 H Creatinine (0.7 - 1.2 mg/dL) 4.4 H Estimated GFR (>60 ml/min) 15 L Glucose (65 - 99 mg/dL) 1230 *H Lactic Acid (0.7 - 2.1 mmol/L) 2.7 H Calcium (8.4 - 10.2 mg/dL) 8.6 Phosphorus (2.5 - 4.5 mg/dL) 1.4 L Magnesium (1.6 - 2.3 mg/dL) 3.2 H Total Bilirubin (0.2 - 1.3 mg/dL) 0.5 AST (17 - 59 U/L) 39 ALT (21 - 72 U/L) 86 H Troponin I (<0.11 ng/ml) 0.03 Albumin (3.5 - 5.0 g/dL) 2.9 L Vitamin B12 (239 - 931 pg/mL) > 1000 H Folate (2.76 - 20.0 ng/mL) > 20.0 H Hematology CBC w Diff NO MAN DIFF REQ WBC (4.8 - 10.8 /CUMM) 18.2 H RBC (4.70 - 6.10 /CUMM) 5.04 Hgb (14.0 - 18.0 G/DL) 15.0 Hct (42 - 52 %) 46.0 MCV (80.0 - 94.0 FL) 91.3 MCH (27.0 - 31.0 PG) 29.8 RDW (11.5 - 14.5 %) 14.1 Plt Count (130 - 400 /CUMM) 170 MPV (7.4 - 10.4 FL) 11.7 H Gran % (42.2 - 75.2 %) 88.8 H Lymphocytes % (20.5 - 51.1 %) 5.9 L Monocytes % (1.7 - 9.3 %) 5.0 Eosinophils % (0 - 5 %) 0 Basophils % (0.0 - 2.0 %) 0.3 Absolute Granulocytes (1.4 - 6.5 /CUMM) 16.2 H Absolute Lymphocytes (1.2 - 3.4 /CUMM) 1.1 L Absolute Monocytes (0.10 - 0.60 /CUMM) 0.9 H Absolute Eosinophils (0.0 - 0.7 /CUMM) 0 Absolute Basophils (0.0 - 0.2 /CUMM) 0.1 PUBS MCHC (33.0 - 37.0 G/DL) 32.7 L Serology Virus Culture Pending 01/11 01/11 0800 0800 Chemistry Sodium (137 - 145 mmol/L) 155 H Potassium (3.5 - 5.1 mmol/L) 2.7 *L Chloride (98 - 107 mmol/L) 117 H Carbon Dioxide (22 - 30 mmol/L) 13 L Anion Gap (5 - 16) 25 H BUN (9 - 20 mg/dL) 54 H Creatinine (0.7 - 1.2 mg/dL) 4.6 H Estimated GFR (>60 ml/min) 14 L Glucose (65 - 99 mg/dL) 1464 *H Lactic Acid (0.7 - 2.1 mmol/L) 2.2 H Calcium (8.4 - 10.2 mg/dL) 8.6 Phosphorus (2.5 - 4.5 mg/dL) 2.5 Magnesium (1.6 - 2.3 mg/dL) 3.2 H Total Bilirubin (0.2 - 1.3 mg/dL) 0.5 AST (17 - 59 U/L) 32 ALT (21 - 72 U/L) 82 H Albumin (3.5 - 5.0 g/dL) 3.0 L Hematology CBC w Diff MAN DIFF ORDERED WBC (4.8 - 10.8 /CUMM) 19.7 H RBC (4.70 - 6.10 /CUMM) 4.99 Hgb (14.0 - 18.0 G/DL) 14.7 Hct (42 - 52 %) 47.8 MCV (80.0 - 94.0 FL) 95.8 H MCH (27.0 - 31.0 PG) 29.5 RDW (11.5 - 14.5 %) 14.7 H Plt Count (130 - 400 /CUMM) 215 MPV (7.4 - 10.4 FL) 13.7 H Gran % (42.2 - 75.2 %) 84.4 H Lymphocytes % (20.5 - 51.1 %) 8.2 L Monocytes % (1.7 - 9.3 %) 7.0 Eosinophils % (0 - 5 %) 0 Basophils % (0.0 - 2.0 %) 0.4 Absolute Granulocytes (1.4 - 6.5 /CUMM) 16.6 H Segmented Neutrophils (42.2 - 75.2 %) 76 H Band Neutrophils (0.0 - 5.0 %) 4 Absolute Lymphocytes (1.2 - 3.4 /CUMM) 1.6 Lymphocytes (20.5 - 51.1 %) 16 L Monocytes (1.7 - 9.3 %) 4 Absolute Monocytes (0.10 - 0.60 /CUMM) 1.4 H Absolute Eosinophils (0.0 - 0.7 /CUMM) 0 Absolute Basophils (0.0 - 0.2 /CUMM) 0.1 Platelet Estimate (ADEQUATE) VERIFIED BY SMEAR Normocytic RBCs VERIFIED Normochromic RBCs VERIFIED PUBS MCHC (33.0 - 37.0 G/DL) 30.8 L 01/11 0755 Blood Gas pH (7.35 - 7.45 PH) 7.21 *L pCO2 (35 - 45 TORR) 33 L pO2 (80 - 100 TORR) 103 H HCO3 (21 - 28 MEQ/L) 13 L ABG O2 Sat (Measured) (>96.0 %) 97.0 P-50 (Temp Corrected) N Carboxyhemoglobin (1.5 - 5.0 %) 0.8 L O2 Concentration % 40% Respiration Rate (BPM) 24 O2 Delivery Method VENT Vent Mode AC Expiratory Pressure (CMH2O/P) 5 Tidal Volume (CC) 550 Pressure Support (CMH2O/P) 0 Miscellaneous Phlebotomy Draw Site RIGHT RADIAL
[2017-01-12 08:00] VITALS: BP 116/67
--- NOTE | 2017-01-12 08:10 | RADIOLOGY REPORT ---
EXAMINATION: XR PORTABLE CHEST CLINICAL INFORMATION: Suspected aspiration pneumonia COMPARISON: CT chest from 01/11/2017 TECHNIQUE: Portable AP view of the chest was obtained. FINDINGS: An endotracheal tube terminates proximally 4.6 cm above the marcello. A feeding tube is visualized extending into the stomach, new from the prior. Its tip extends below the imaged volume. The cardiomediastinal silhouette is normal. There are some patchy platelike opacities in the right lung base, fairly similar to the prior across modalities. The left lung appears grossly clear. No gross pleural effusions or pneumothoraces. No acute osseous abnormalities. IMPRESSION: Patchy right basilar opacity, nonspecific potentially reflecting aspiration or consolidation. Endotracheal tube terminating 4.6 in meters above the marcello. Interval placement of a feeding tube extending below the hemidiaphragmatic level, tip not visualized.
[2017-01-12 09:21] LABS: ABSOLUTE BASOPHIL COUNT 0 /CUMM (0.0-0.2); ABSOLUTE EOSINOPHIL COUNT 0 /CUMM (0.0-0.7); ABSOLUTE GRANULOCYTE CT 6.1 /CUMM (1.4-6.5); ABSOLUTE LYMPH COUNT 1.4 /CUMM (1.2-3.4); ABSOLUTE MONOCYTE COUNT 0.7 /CUMM (0.10-0.60); BASOPHIL % 0.1 % (0.0-2.0); EOSINOPHIL % 0.2 % (0-5); GRANULOCYTE % 74.4 % (42.2-75.2); HEMATOCRIT 36.4 % (42-52); MEAN CORPUSCULAR HGB 29.7 PG (27.0-31.0); MEAN CORPUSCULAR VOLUME 87.5 FL (80.0-94.0); MEAN PLATELET VOLUME 12.8 FL (7.4-10.4); PLATELET COUNT 111 /CUMM (130-400); RBC DISTRIBUTION WIDTH 14.4 % (11.5-14.5); RED BLOOD CELL CT 4.16 /CUMM (4.70-6.10); WHITE BLOOD CELL COUNT 8.2 /CUMM (4.8-10.8)
--- NOTE | 2017-01-12 12:34 | PN- Nephrology ---
Assessment/Plan Assessment: 1. DKA - resolving 2. Persistent hypernatremia 3. Multiple electrolyte abnormalities gradually normalizing Suggestion: 1. Increase free water administration via NG tube to 200 mL tap water every 3 hours 2. Continue to monitor chemistries frequently until stable Subjective Subjective: Patient remains intubated and vented. He is sedated because of agitation. Labs as noted. Renal function continues to improve with good urine output. Temperature curve trending down, afebrile today. Objective Vital Signs and I&Os Vital Signs Date Time Temp Pulse Resp B/P Pulse O2 O2 Flow FiO2 Ox Delivery Rate 01/12 0842 30 01/12 0800 98 Ventilator 30% 01/12 0800 98.3 122 24 116/67 98 Ventilator 30% 01/12 0519 30 01/12 0400 98 Ventilator 30% 01/12 0209 30 01/12 0205 35 01/12 0114 112 129/73 01/12 0000 100.0 112 24 130/64 98 Ventilator 35% 01/12 0000 98 Ventilator 35% 01/11 2230 35 01/11 2147 116 114/66 01/11 2000 98 Ventilator 35% 01/11 1918 35 01/11 1815 101.9 127 25 100/60 01/11 1800 101.9 127 27 100/60 98 Ventilator 35% 01/11 1700 101.7 128 24 98/56 99 Ventilator 35% 01/11 1620 101.7 01/11 1600 129 27 78/38 99 Ventilator 35% 01/11 1600 99 Ventilator 35% 01/11 1553 35 01/11 1520 102.9 01/11 1500 102.9 129 26 94/42 99 Ventilator 35% 01/11 1435 35 01/11 1421 128 92/40 Intake & Output 01/12 1600 01/12 0400 01/11 1600 01/11 0400 01/10 1600 01/10 0400 Intake Total 3649 5010 8578 1000 Output Total 3276 948 7083 200 Balance 2449 4230 6073 800 Intake, IV 3449 4880 8548 1000 Intake, Other 200 130 30 Number 0 Bowel Movements Output, 200 550 Gastric Drainage Output, Urine 3363 934 0226 200 Patient 265 lb Weight Physical Exam: General: Well-developed, obese, intubated, vented, unresponsive white male Skin: No rash or jaundice HEENT: Conjunctivae pink, sclerae anicteric Neck: Without masses or thyromegaly, no supraclavicular or cervical adenopathy Chest: Clear anterolaterally Heart: Regular rate and rhythm without S3 or rub Abdomen: Soft without palpable masses or organomegaly Extremities: Without cyanosis or edema Neuro: Sedated, no focal findings, no asterixis or myoclonus Current Medications: Current Medications Sig/Nelida Start time Last Medication Dose Route Stop Time Status Admin Acetaminophen 1,000 MG Q6P PRN 01/11 0745 01/11 N/A 1 UNIT IV 1520 Ampicillin Sodium/ 1,500 MG Q12H 01/11 1700 AC 01/12 Sulbactam Sodium IV 0445 Sodium Chloride 100 ML Fentanyl Citrate 1,000 MCG Q24H 01/12 0100 CAN Dextrose/Water 250 ML IV Fentanyl Citrate 1,000 MCG Q14H 01/11 2200 AC 01/12 Dextrose/Water 250 ML IV 1124 Fentanyl Citrate 1,000 MCG Q24H 01/11 1200 DC 01/11 Dextrose/Water 250 ML IV 1814 Heparin Sodium 5,000 UNIT Q8 01/11 0600 01/12 (Porcine) SC 0637 Insulin Human Regular 100 UNIT Q12H 01/11 0445 AC 01/12 Sodium Chloride 100 ML IV 0000 Levetiracetam 500 MG BID 01/11 1230 AC 01/12 Sodium Chloride 100 ML IV 01/13 0200 0904 Lorazepam 2 MG Q1 PRN 01/11 1200 AC 01/11 IV 1222 Norepinephrine 4 MG Q3H 01/11 2200 DC 01/12 Sodium Chloride 250 ML IV 0114 Norepinephrine 4 MG .STK-MED ONE 01/11 2138 DC IV 01/11 2139 Norepinephrine 4 MG Q24H 01/11 0400 SC 01/11 Sodium Chloride 250 ML IV 1815 Pantoprazole Sodium 40 MG BID 01/11 1138 01/12 IV 0904 Potassium Chloride 40 MEQ Q4H 01/12 0130 01/12 Sodium Chloride 1,000 ML IV 0636 Potassium Chloride 40 MEQ Q2H 01/11 2200 DC 01/11 Sodium Chloride 1,000 ML IV 2300 Potassium Chloride 20 MEQ Q1 01/11 1900 CAN IV 01/11 2001 Potassium Chloride 40 MEQ Q4H 01/11 1130 SC 01/11 Sodium Chloride 1,000 ML IV 2056 Potassium Phosphate 15 mMol ONE ONE 01/11 1845 CAN Sodium Chloride 250 ML IV 01/11 2248 Potassium Phosphate 15 mMol ONE ONE 01/11 1515 DC 01/11 Sodium Chloride 250 ML IV 01/11 1918 1704 Sodium Chloride 500 ML ONCE ONE 01/11 1645 DC 01/11 IV 01/11 1744 1638 Sodium Chloride 1,000 ML BOLUS ONE 01/11 1415 DC 01/11 IV 01/11 1514 1421 Sodium Chloride 1,000 ML BOLUS ONE 01/11 1315 DC 01/11 IV 01/11 1414 1315 Vancomycin HCl 1,500 MG ONCE ONE 01/12 0900 DC 01/12 Dextrose/Water 250 ML IV 01/12 1059 1017 Vasopressin 40 UNIT Q16H 01/11 1600 DC 01/11 Sodium Chloride 100 ML IV 1640 Results Pertinent Lab Results: Laboratory Tests 01/12 01/12 01/12 1202 0900 0850 Blood Gas pH (7.35 - 7.45 PH) 7.38 pCO2 (35 - 45 TORR) 27 L pO2 (80 - 100 TORR) 82 HCO3 (21 - 28 MEQ/L) 16 L ABG O2 Sat (Measured) (>96.0 %) 96.0 Carboxyhemoglobin (1.5 - 5.0 %) 0.6 L O2 Concentration % .30 Temperature (97.0 - 100.0 FARH) 98.3 Respiration Rate (BPM) 24 O2 Delivery Method VENT Vent Mode VC-AC Expiratory Pressure (CMH2O/P) 5 Tidal Volume (CC) 650 Chemistry Sodium (137 - 145 mmol/L) Pending 163 *H Potassium (3.5 - 5.1 mmol/L) Pending 4.0 Chloride (98 - 107 mmol/L) Pending 136 H Carbon Dioxide (22 - 30 mmol/L) Pending 18 L Anion Gap (5 - 16) Pending 9 BUN (9 - 20 mg/dL) Pending 37 H Creatinine (0.7 - 1.2 mg/dL) Pending 2.5 H Estimated GFR (>60 ml/min) 28 L Glucose (65 - 99 mg/dL) Pending 348 H Calcium (8.4 - 10.2 mg/dL) Pending 8.4 Phosphorus (2.5 - 4.5 mg/dL) Pending 1.5 L Magnesium (1.6 - 2.3 mg/dL) Pending 2.3 Total Bilirubin (0.2 - 1.3 mg/dL) Pending 0.5 AST (17 - 59 U/L) Pending 90 H ALT (21 - 72 U/L) Pending 75 H Albumin (3.5 - 5.0 g/dL) Pending 2.2 L Hematology CBC w Diff Pending NO MAN DIFF REQ WBC (4.8 - 10.8 /CUMM) Pending 8.2 RBC (4.70 - 6.10 /CUMM) Pending 4.16 L Hgb (14.0 - 18.0 G/DL) Pending 12.4 L Hct (42 - 52 %) Pending 36.4 L MCV (80.0 - 94.0 FL) Pending 87.5 MCH (27.0 - 31.0 PG) Pending 29.7 RDW (11.5 - 14.5 %) Pending 14.4 Plt Count (130 - 400 /CUMM) Pending 111 L MPV (7.4 - 10.4 FL) Pending 12.8 H Gran % (42.2 - 75.2 %) 74.4 Lymphocytes % (20.5 - 51.1 %) 16.9 L Monocytes % (1.7 - 9.3 %) 8.4 Eosinophils % (0 - 5 %) 0.2 Basophils % (0.0 - 2.0 %) 0.1 Absolute Granulocytes (1.4 - 6.5 /CUMM) 6.1 Absolute Lymphocytes (1.2 - 3.4 /CUMM) 1.4 Absolute Monocytes (0.10 - 0.60 /CUMM) 0.7 H Absolute Eosinophils (0.0 - 0.7 /CUMM) 0 Absolute Basophils (0.0 - 0.2 /CUMM) 0 PUBS MCHC (33.0 - 37.0 G/DL) Pending 34.0 Miscellaneous Phlebotomy Draw Site R BRACH 01/12 01/12 0600 0500 Chemistry Sodium (137 - 145 mmol/L) 162 *H Cancelled Potassium (3.5 - 5.1 mmol/L) 4.1 Cancelled Chloride (98 - 107 mmol/L) 136 H Cancelled Carbon Dioxide (22 - 30 mmol/L) 18 L Cancelled Anion Gap (5 - 16) 8 Cancelled BUN (9 - 20 mg/dL) 39 H Cancelled Creatinine (0.7 - 1.2 mg/dL) 2.7 H Cancelled Estimated GFR (>60 ml/min) 26 L Glucose (65 - 99 mg/dL) 381 H Cancelled Calcium (8.4 - 10.2 mg/dL) 8.3 L Cancelled Phosphorus (2.5 - 4.5 mg/dL) 1.1 L Cancelled Magnesium (1.6 - 2.3 mg/dL) 2.4 H Cancelled Total Bilirubin (0.2 - 1.3 mg/dL) 0.4 Cancelled AST (17 - 59 U/L) 81 H Cancelled ALT (21 - 72 U/L) 77 H Cancelled Troponin I (<0.11 ng/ml) 0.08 Albumin (3.5 - 5.0 g/dL) 2.2 L Cancelled Amylase (30 - 110 U/L) 402 H Lipase (23 - 300 U/L) 2781 H Hematology CBC w Diff NO MAN DIFF REQ Cancelled WBC (4.8 - 10.8 /CUMM) 8.4 Cancelled RBC (4.70 - 6.10 /CUMM) 4.11 L Cancelled Hgb (14.0 - 18.0 G/DL) 12.3 L Cancelled Hct (42 - 52 %) 36.3 L Cancelled MCV (80.0 - 94.0 FL) 88.1 Cancelled MCH (27.0 - 31.0 PG) 30.0 Cancelled RDW (11.5 - 14.5 %) 13.8 Cancelled Plt Count (130 - 400 /CUMM) 109 L Cancelled MPV (7.4 - 10.4 FL) 12.6 H Cancelled Gran % (42.2 - 75.2 %) 69.2 Lymphocytes % (20.5 - 51.1 %) 17.8 L Monocytes % (1.7 - 9.3 %) 12.6 H Eosinophils % (0 - 5 %) 0.2 Basophils % (0.0 - 2.0 %) 0.2 Absolute Granulocytes (1.4 - 6.5 /CUMM) 5.8 Absolute Lymphocytes (1.2 - 3.4 /CUMM) 1.5 Absolute Monocytes (0.10 - 0.60 /CUMM) 1.1 H Absolute Eosinophils (0.0 - 0.7 /CUMM) 0 Absolute Basophils (0.0 - 0.2 /CUMM) 0 PUBS MCHC (33.0 - 37.0 G/DL) 34.0 Cancelled 01/12 01/12 0300 0030 Chemistry Sodium (137 - 145 mmol/L) 163 *H 165 *H Potassium (3.5 - 5.1 mmol/L) 4.2 4.5 Chloride (98 - 107 mmol/L) 135 H 133 H Carbon Dioxide (22 - 30 mmol/L) 19 L 18 L Anion Gap (5 - 16) 9 14 BUN (9 - 20 mg/dL) 42 H 45 H Creatinine (0.7 - 1.2 mg/dL) 3.0 H 3.2 H Estimated GFR (>60 ml/min) 23 L 21 L Glucose (65 - 99 mg/dL) 447 H 513 *H Calcium (8.4 - 10.2 mg/dL) 8.2 L 8.3 L Phosphorus (2.5 - 4.5 mg/dL) 1.0 L 1.1 L Magnesium (1.6 - 2.3 mg/dL) 2.5 H 2.6 H Total Bilirubin (0.2 - 1.3 mg/dL) 0.4 0.4 AST (17 - 59 U/L) 74 H 65 H ALT (21 - 72 U/L) 73 H 74 H Albumin (3.5 - 5.0 g/dL) 2.2 L 2.4 L Hematology CBC w Diff NO MAN DIFF REQ MAN DIFF ORDERED WBC (4.8 - 10.8 /CUMM) 9.7 11.9 H RBC (4.70 - 6.10 /CUMM) 4.25 L 4.46 L Hgb (14.0 - 18.0 G/DL) 12.7 L 13.2 L Hct (42 - 52 %) 37.5 L 38.5 L MCV (80.0 - 94.0 FL) 88.0 86.4 MCH (27.0 - 31.0 PG) 29.8 29.7 RDW (11.5 - 14.5 %) 13.9 13.8 Plt Count (130 - 400 /CUMM) 122 L 119 L MPV (7.4 - 10.4 FL) 12.6 H 10.4 Gran % (42.2 - 75.2 %) 71.6 74.3 Lymphocytes % (20.5 - 51.1 %) 14.4 L 13.1 L Monocytes % (1.7 - 9.3 %) 13.8 H 12.2 H Eosinophils % (0 - 5 %) 0 0.1 Basophils % (0.0 - 2.0 %) 0.2 0.3 Absolute Granulocytes (1.4 - 6.5 /CUMM) 6.9 H 8.8 H Segmented Neutrophils (42.2 - 75.2 %) 67 Band Neutrophils (0.0 - 5.0 %) 9 H Absolute Lymphocytes (1.2 - 3.4 /CUMM) 1.4 1.5 Lymphocytes (20.5 - 51.1 %) 16 L Monocytes (1.7 - 9.3 %) 7 Absolute Monocytes (0.10 - 0.60 /CUMM) 1.3 H 1.4 H Absolute Eosinophils (0.0 - 0.7 /CUMM) 0 0 Basophils (0.0 - 2.0 %) 1 Absolute Basophils (0.0 - 0.2 /CUMM) 0 0 Platelet Estimate (ADEQUATE) ADEQUATE Normocytic RBCs VERIFIED Normochromic RBCs VERIFIED PUBS MCHC (33.0 - 37.0 G/DL) 33.8 34.4 Other Body Source Fld Total RBCs Counted (%) 100 01/11 01/11 2230 2030 Chemistry Sodium (137 - 145 mmol/L) 161 *H 161 *H Potassium (3.5 - 5.1 mmol/L) 4.0 3.9 Chloride (98 - 107 mmol/L) 131 H 130 H Carbon Dioxide (22 - 30 mmol/L) 18 L 20 L Anion Gap (5 - 16) 12 11 BUN (9 - 20 mg/dL) 47 H 49 H Creatinine (0.7 - 1.2 mg/dL) 3.5 H 3.7 H Estimated GFR (>60 ml/min) 19 L 18 L Glucose (65 - 99 mg/dL) 579 *H 644 *H Lactic Acid (0.7 - 2.1 mmol/L) 1.6 1.6 Calcium (8.4 - 10.2 mg/dL) 8.0 L 8.0 L Phosphorus (2.5 - 4.5 mg/dL) 1.2 L 1.0 L Magnesium (1.6 - 2.3 mg/dL) 2.6 H 2.6 H Total Bilirubin (0.2 - 1.3 mg/dL) 0.4 0.4 AST (17 - 59 U/L) 65 H 58 ALT (21 - 72 U/L) 75 H 75 H Creatine Kinase (55 - 170 U/L) 1497 H Troponin I (<0.11 ng/ml) 0.11 *H Albumin (3.5 - 5.0 g/dL) 2.4 L 2.4 L Hematology CBC w Diff MAN DIFF ORDERED MAN DIFF ORDERED WBC (4.8 - 10.8 /CUMM) 12.7 H 12.8 H RBC (4.70 - 6.10 /CUMM) 4.45 L 4.51 L Hgb (14.0 - 18.0 G/DL) 13.2 L 13.6 L Hct (42 - 52 %) 39.0 L 39.0 L MCV (80.0 - 94.0 FL) 87.7 86.5 MCH (27.0 - 31.0 PG) 29.6 30.1 RDW (11.5 - 14.5 %) 13.8 13.7 Plt Count (130 - 400 /CUMM) 119 L 139 MPV (7.4 - 10.4 FL) 10.8 H 12.5 H Segmented Neutrophils (42.2 - 75.2 %) 66 61 Band Neutrophils (0.0 - 5.0 %) 19 H 20 H Lymphocytes (20.5 - 51.1 %) 8 L 10 L Monocytes (1.7 - 9.3 %) 5 6 Metamyelocytes (0.0 - 1.0 %) 2 H 3 H Platelet Estimate (ADEQUATE) ADEQUATE Polychromasia 1+ Anisocytosis 1+ Microcytic Cells 1+ 1+ PUBS MCHC (33.0 - 37.0 G/DL) 33.7 34.8 01/11 01/11 1910 1840 Blood Gas pH (7.35 - 7.45 PH) 7.40 pCO2 (35 - 45 TORR) 28 L pO2 (80 - 100 TORR) 90 HCO3 (21 - 28 MEQ/L) 17 L ABG O2 Sat (Measured) (>96.0 %) 97.0 Carboxyhemoglobin (1.5 - 5.0 %) 0.1 L O2 Concentration % 35 Respiration Rate (BPM) 24 O2 Delivery Method VENT Vent Mode AC Expiratory Pressure (CMH2O/P) 5 Tidal Volume (CC) 650 Chemistry Sodium (137 - 145 mmol/L) 160 *H Potassium (3.5 - 5.1 mmol/L) 3.5 Chloride (98 - 107 mmol/L) 129 H Carbon Dioxide (22 - 30 mmol/L) 20 L Anion Gap (5 - 16) 11 BUN (9 - 20 mg/dL) 51 H Creatinine (0.7 - 1.2 mg/dL) 4.0 H Estimated GFR (>60 ml/min) 17 L Glucose (65 - 99 mg/dL) 749 *H Lactic Acid (0.7 - 2.1 mmol/L) 1.8 Calcium (8.4 - 10.2 mg/dL) 8.1 L Phosphorus (2.5 - 4.5 mg/dL) 0.9 *L Magnesium (1.6 - 2.3 mg/dL) 2.6 H Total Bilirubin (0.2 - 1.3 mg/dL) 0.4 AST (17 - 59 U/L) 53 ALT (21 - 72 U/L) 73 H Albumin (3.5 - 5.0 g/dL) 2.4 L Hematology CBC w Diff MAN DIFF ORDERED WBC (4.8 - 10.8 /CUMM) 13.7 H RBC (4.70 - 6.10 /CUMM) 4.46 L Hgb (14.0 - 18.0 G/DL) 13.2 L Hct (42 - 52 %) 39.2 L MCV (80.0 - 94.0 FL) 88.0 MCH (27.0 - 31.0 PG) 29.6 RDW (11.5 - 14.5 %) 13.7 Plt Count (130 - 400 /CUMM) 157 MPV (7.4 - 10.4 FL) 13.1 H Segmented Neutrophils (42.2 - 75.2 %) 75 Band Neutrophils (0.0 - 5.0 %) 13 H Lymphocytes (20.5 - 51.1 %) 8 L Monocytes (1.7 - 9.3 %) 3 Metamyelocytes (0.0 - 1.0 %) 1 Platelet Estimate (ADEQUATE) ADEQUATE Anisocytosis 1+ Microcytic Cells 1+ PUBS MCHC (33.0 - 37.0 G/DL) 33.6 Miscellaneous Phlebotomy Draw Site RIGHT BRACHIAL 01/11 01/11 01/11 1620 1445 1406 Blood Gas pH (7.35 - 7.45 PH) 7.37 pCO2 (35 - 45 TORR) 29 L pO2 (80 - 100 TORR) 117 H HCO3 (21 - 28 MEQ/L) 16 L ABG O2 Sat (Measured) (>96.0 %) 98.0 Carboxyhemoglobin (1.5 - 5.0 %) 0.4 L O2 Concentration % .35 Respiration Rate (BPM) 24 O2 Delivery Method VENT Vent Mode AC Expiratory Pressure (CMH2O/P) 5 Tidal Volume (CC) 650 Chemistry Sodium (137 - 145 mmol/L) 161 *H 162 *H Potassium (3.5 - 5.1 mmol/L) 3.1 L 3.1 L Chloride (98 - 107 mmol/L) 127 H 126 H Carbon Dioxide (22 - 30 mmol/L) 19 L 21 L Anion Gap (5 - 16) 15 15 BUN (9 - 20 mg/dL) 52 H 55 H Creatinine (0.7 - 1.2 mg/dL) 4.4 H 4.4 H Estimated GFR (>60 ml/min) 15 L 15 L Glucose (65 - 99 mg/dL) 899 *H 1076 *H Lactic Acid (0.7 - 2.1 mmol/L) 2.4 H 2.5 H Calcium (8.4 - 10.2 mg/dL) 8.2 L 8.4 Phosphorus (2.5 - 4.5 mg/dL) 0.6 *L 0.7 *L Magnesium (1.6 - 2.3 mg/dL) 2.8 H 2.9 H Total Bilirubin (0.2 - 1.3 mg/dL) 0.5 0.5 AST (17 - 59 U/L) 45 39 ALT (21 - 72 U/L) 71 78 H Troponin I (<0.11 ng/ml) 0.11 *H Albumin (3.5 - 5.0 g/dL) 2.4 L 2.6 L Hematology CBC w Diff MAN DIFF ORDERED WBC (4.8 - 10.8 /CUMM) 15.4 H RBC (4.70 - 6.10 /CUMM) 4.54 L Hgb (14.0 - 18.0 G/DL) 13.4 L Hct (42 - 52 %) 39.7 L MCV (80.0 - 94.0 FL) 87.6 MCH (27.0 - 31.0 PG) 29.6 RDW (11.5 - 14.5 %) 13.9 Plt Count (130 - 400 /CUMM) 167 MPV (7.4 - 10.4 FL) 13.0 H Segmented Neutrophils (42.2 - 75.2 %) 81 H Band Neutrophils (0.0 - 5.0 %) 4 Lymphocytes (20.5 - 51.1 %) 9 L Monocytes (1.7 - 9.3 %) 6 Platelet Estimate (ADEQUATE) ADEQUATE Anisocytosis 1+ Microcytic Cells 1+ PUBS MCHC (33.0 - 37.0 G/DL) 33.8 Miscellaneous Phlebotomy Draw Site LEFT RADIAL 01/11 01/11 1304 1040 Chemistry Lactic Acid (0.7 - 2.1 mmol/L) 2.7 H Coagulation PT (9.4 - 12.5 SEC) 12.4 INR (0.90 - 1.17) 1.18 H APTT (25 - 37 SEC) 18 L Hematology CBC w Diff NO MAN DIFF REQ WBC (4.8 - 10.8 /CUMM) 14.4 H RBC (4.70 - 6.10 /CUMM) 4.57 L Hgb (14.0 - 18.0 G/DL) 13.5 L Hct (42 - 52 %) 41.1 L MCV (80.0 - 94.0 FL) 90.0 MCH (27.0 - 31.0 PG) 29.5 RDW (11.5 - 14.5 %) 13.9 Plt Count (130 - 400 /CUMM) 190 MPV (7.4 - 10.4 FL) 13.5 H Gran % (42.2 - 75.2 %) 87.7 H Lymphocytes % (20.5 - 51.1 %) 4.6 L Monocytes % (1.7 - 9.3 %) 7.7 Eosinophils % (0 - 5 %) 0 Basophils % (0.0 - 2.0 %) 0 L Absolute Granulocytes (1.4 - 6.5 /CUMM) 12.6 H Absolute Lymphocytes (1.2 - 3.4 /CUMM) 0.7 L Absolute Monocytes (0.10 - 0.60 /CUMM) 1.1 H Absolute Eosinophils (0.0 - 0.7 /CUMM) 0 Absolute Basophils (0.0 - 0.2 /CUMM) 0 PUBS MCHC (33.0 - 37.0 G/DL) 32.8 L 01/11 01/11 01/11 1040 0905 0800 Chemistry Sodium (137 - 145 mmol/L) 159 *H Potassium (3.5 - 5.1 mmol/L) 3.0 L Chloride (98 - 107 mmol/L) 121 H Carbon Dioxide (22 - 30 mmol/L) 20 L Anion Gap (5 - 16) 18 H BUN (9 - 20 mg/dL) 53 H Creatinine (0.7 - 1.2 mg/dL) 4.4 H Estimated GFR (>60 ml/min) 15 L Glucose (65 - 99 mg/dL) 1230 *H Lactic Acid (0.7 - 2.1 mmol/L) 2.2 H Calcium (8.4 - 10.2 mg/dL) 8.6 Phosphorus (2.5 - 4.5 mg/dL) 1.4 L Magnesium (1.6 - 2.3 mg/dL) 3.2 H Total Bilirubin (0.2 - 1.3 mg/dL) 0.5 AST (17 - 59 U/L) 39 ALT (21 - 72 U/L) 86 H Troponin I (<0.11 ng/ml) 0.03 Albumin (3.5 - 5.0 g/dL) 2.9 L Vitamin B12 (239 - 931 pg/mL) > 1000 H Folate (2.76 - 20.0 ng/mL) > 20.0 H Hematology CBC w Diff NO MAN DIFF REQ WBC (4.8 - 10.8 /CUMM) 18.2 H RBC (4.70 - 6.10 /CUMM) 5.04 Hgb (14.0 - 18.0 G/DL) 15.0 Hct (42 - 52 %) 46.0 MCV (80.0 - 94.0 FL) 91.3 MCH (27.0 - 31.0 PG) 29.8 RDW (11.5 - 14.5 %) 14.1 Plt Count (130 - 400 /CUMM) 170 MPV (7.4 - 10.4 FL) 11.7 H Gran % (42.2 - 75.2 %) 88.8 H Lymphocytes % (20.5 - 51.1 %) 5.9 L Monocytes % (1.7 - 9.3 %) 5.0 Eosinophils % (0 - 5 %) 0 Basophils % (0.0 - 2.0 %) 0.3 Absolute Granulocytes (1.4 - 6.5 /CUMM) 16.2 H Absolute Lymphocytes (1.2 - 3.4 /CUMM) 1.1 L Absolute Monocytes (0.10 - 0.60 /CUMM) 0.9 H Absolute Eosinophils (0.0 - 0.7 /CUMM) 0 Absolute Basophils (0.0 - 0.2 /CUMM) 0.1 PUBS MCHC (33.0 - 37.0 G/DL) 32.7 L Serology Virus Culture Pending 01/11 01/11 0800 0755 Blood Gas pH (7.35 - 7.45 PH) 7.21 *L pCO2 (35 - 45 TORR) 33 L pO2 (80 - 100 TORR) 103 H HCO3 (21 - 28 MEQ/L) 13 L ABG O2 Sat (Measured) (>96.0 %) 97.0 P-50 (Temp Corrected) N Carboxyhemoglobin (1.5 - 5.0 %) 0.8 L O2 Concentration % 40% Respiration Rate (BPM) 24 O2 Delivery Method VENT Vent Mode AC Expiratory Pressure (CMH2O/P) 5 Tidal Volume (CC) 550 Pressure Support (CMH2O/P) 0 Chemistry Sodium (137 - 145 mmol/L) 155 H Potassium (3.5 - 5.1 mmol/L) 2.7 *L Chloride (98 - 107 mmol/L) 117 H Carbon Dioxide (22 - 30 mmol/L) 13 L Anion Gap (5 - 16) 25 H BUN (9 - 20 mg/dL) 54 H Creatinine (0.7 - 1.2 mg/dL) 4.6 H Estimated GFR (>60 ml/min) 14 L Glucose (65 - 99 mg/dL) 1464 *H Calcium (8.4 - 10.2 mg/dL) 8.6 Phosphorus (2.5 - 4.5 mg/dL) 2.5 Magnesium (1.6 - 2.3 mg/dL) 3.2 H Total Bilirubin (0.2 - 1.3 mg/dL) 0.5 AST (17 - 59 U/L) 32 ALT (21 - 72 U/L) 82 H Albumin (3.5 - 5.0 g/dL) 3.0 L Hematology CBC w Diff MAN DIFF ORDERED WBC (4.8 - 10.8 /CUMM) 19.7 H RBC (4.70 - 6.10 /CUMM) 4.99 Hgb (14.0 - 18.0 G/DL) 14.7 Hct (42 - 52 %) 47.8 MCV (80.0 - 94.0 FL) 95.8 H MCH (27.0 - 31.0 PG) 29.5 RDW (11.5 - 14.5 %) 14.7 H Plt Count (130 - 400 /CUMM) 215 MPV (7.4 - 10.4 FL) 13.7 H Gran % (42.2 - 75.2 %) 84.4 H Lymphocytes % (20.5 - 51.1 %) 8.2 L Monocytes % (1.7 - 9.3 %) 7.0 Eosinophils % (0 - 5 %) 0 Basophils % (0.0 - 2.0 %) 0.4 Absolute Granulocytes (1.4 - 6.5 /CUMM) 16.6 H Segmented Neutrophils (42.2 - 75.2 %) 76 H Band Neutrophils (0.0 - 5.0 %) 4 Absolute Lymphocytes (1.2 - 3.4 /CUMM) 1.6 Lymphocytes (20.5 - 51.1 %) 16 L Monocytes (1.7 - 9.3 %) 4 Absolute Monocytes (0.10 - 0.60 /CUMM) 1.4 H Absolute Eosinophils (0.0 - 0.7 /CUMM) 0 Absolute Basophils (0.0 - 0.2 /CUMM) 0.1 Platelet Estimate (ADEQUATE) VERIFIED BY SMEAR Normocytic RBCs VERIFIED Normochromic RBCs VERIFIED PUBS MCHC (33.0 - 37.0 G/DL) 30.8 L Miscellaneous Phlebotomy Draw Site RIGHT RADIAL 01/11 01/11 01/11 0633 0355 0340 Blood Gas pH (7.35 - 7.45 PH) 7.10 *L 7.11 *L pCO2 (35 - 45 TORR) 36 42 pO2 (80 - 100 TORR) 105 H 387 H HCO3 (21 - 28 MEQ/L) 11 L 13 L ABG O2 Sat (Measured) (>96.0 %) 97.0 99.0 P-50 (Temp Corrected) Y Y Carboxyhemoglobin (1.5 - 5.0 %) 0.1 L 0.5 L O2 Concentration % 40% 100% Temperature (97.0 - 100.0 FARH) 95.4 L 94.9 L Respiration Rate (BPM) 20 16 O2 Delivery Method ESPRIT ESPRIT Vent Mode AC AC Expiratory Pressure (CMH2O/P) 5 5 Tidal Volume (CC) 550 550 Chemistry Lactic Acid (0.7 - 2.1 mmol/L) 2.4 H Miscellaneous Phlebotomy Draw Site RIGHT RADIAL LF 01/11 0340 Chemistry Sodium (137 - 145 mmol/L) 144 Potassium (3.5 - 5.1 mmol/L) 4.6 Chloride (98 - 107 mmol/L) 102 Carbon Dioxide (22 - 30 mmol/L) 14 L Anion Gap (5 - 16) 29 H BUN (9 - 20 mg/dL) 55 H Creatinine (0.7 - 1.2 mg/dL) 5.5 *H Estimated GFR (>60 ml/min) 11 L BUN/Creatinine Ratio (7 - 25 %) 10.0 Glucose (65 - 99 mg/dL) 1942 *H Calcium (8.4 - 10.2 mg/dL) 8.9 Total Bilirubin (0.2 - 1.3 mg/dL) 0.5 AST (17 - 59 U/L) 32 ALT (21 - 72 U/L) 94 H Alkaline Phosphatase (< 127 U/L) 135 H Troponin I (<0.11 ng/ml) < 0.01 Total Protein (6.3 - 8.2 g/dL) 5.7 L Albumin (3.5 - 5.0 g/dL) 3.1 L Globulin (1.9 - 4.2 gm/dL) 2.6 Albumin/Globulin Ratio (1.1 - 2.2 %) 1.2 Triglycerides (<150 mg/dL) 839 H Cholesterol (< 200 MG/DL) 242 H LDL Cholesterol, Calc (65 - 129 MG/DL) ND HDL Cholesterol (40 - 60 mg/dL) 24 L Cholesterol/HDL Ratio (0.00 - 4.88 %) 10 H Amylase (30 - 110 U/L) 481 H Lipase (23 - 300 U/L) 6960 H TSH (0.270 - 4.200 uIU/mL) 0.142 L Free T4 (0.64 - 1.79 ng/dL) 0.94 Cortisol AM Sample (4.46 - 22.7 ug/dL) > 61.6 H Hematology CBC w Diff MAN DIFF ORDERED WBC (4.8 - 10.8 /CUMM) 18.0 H RBC (4.70 - 6.10 /CUMM) 4.94 Hgb (14.0 - 18.0 G/DL) 14.6 Hct (42 - 52 %) 50.8 MCV (80.0 - 94.0 FL) 102.8 H MCH (27.0 - 31.0 PG) 29.6 RDW (11.5 - 14.5 %) 15.9 H Plt Count (130 - 400 /CUMM) 223 MPV (7.4 - 10.4 FL) 14.2 H Gran % (42.2 - 75.2 %) 82.1 H Lymphocytes % (20.5 - 51.1 %) 8.4 L Monocytes % (1.7 - 9.3 %) 9.4 H Eosinophils % (0 - 5 %) 0.1 Basophils % (0.0 - 2.0 %) 0 L Absolute Granulocytes (1.4 - 6.5 /CUMM) 14.8 H Absolute Lymphocytes (1.2 - 3.4 /CUMM) 1.5 Absolute Monocytes (0.10 - 0.60 /CUMM) 1.7 H Absolute Eosinophils (0.0 - 0.7 /CUMM) 0 Absolute Basophils (0.0 - 0.2 /CUMM) 0 Platelet Estimate (ADEQUATE) ADEQUATE Macrocytic Cells 1+ PUBS MCHC (33.0 - 37.0 G/DL) 28.9 L Toxicology Salicylates (0 - 20.0 mg/dL) < 1.0 Acetone Level (NEGATIVE) POSITIVE AT 1:16 DIL 01/11 01/11 [id number] Chemistry Hemoglobin A1c (<5.7) 15.1 H Toxicology Urine Opiates Screen (>2000 NG/ML) < 100.00 Methadone Screen (>300 NG/ML) < 40 Barbiturate Screen (>200 NG/ML) < 60 Ur Phencyclidine Scrn (>25 NG/ML) < 6.00 Amphetamines Screen (>1000 NG/ML) < 100 U Benzodiazepines Scrn (>200 NG/ML) < 85 Urine Cocaine Screen (>300 NG/ML) < 50 Urine Cannabis Screen (>50 NG/ML) 18.00 Urines Urinalysis LIGHT H Urine Color (YEL,AMB,STR) YEL Urine Clarity (CLEAR) CLEAR Urine pH (5.0 - 8.0) 6.0 Ur Specific [place] (1.001 - 1.035) 1.010 Urine Protein (NEG,<30 MG/DL) TRACE H Urine Ketones (NEG) TRACE H Urine Nitrite (NEG) NEG Urine Bilirubin (NEG) NEG Urine Urobilinogen (0.1 - 1.0 EU/dl) 0.2 Ur Leukocyte Esterase (NEG) NEG Ur Microscopic SEDIMENT EXAMINED Urine RBC (0 - 5 /HPF) 1-3 Urine WBC (0 - 2 /HPF) 1-3 H Ur Epithelial Cells (NONE,FEW) FEW Hyaline Casts (0/LPF) 1-3 H Granular Casts (NONE /LPF) 3-5 H Urine Mucus (FEW,NONE) FEW Urine Hemoglobin (NEG) MOD H Urine Glucose (N MG/DL) >=1000 H
[2017-01-12 13:08] LABS: ABSOLUTE BASOPHIL COUNT 0 /CUMM (0.0-0.2); ABSOLUTE EOSINOPHIL COUNT 0 /CUMM (0.0-0.7); ABSOLUTE GRANULOCYTE CT 6.1 /CUMM (1.4-6.5); ABSOLUTE LYMPH COUNT 1.5 /CUMM (1.2-3.4); ABSOLUTE MONOCYTE COUNT 0.7 /CUMM (0.10-0.60); BASOPHIL % 0.3 % (0.0-2.0); EOSINOPHIL % 0.2 % (0-5); GRANULOCYTE % 72.9 % (42.2-75.2); HEMATOCRIT 35.9 % (42-52); MEAN CORPUSCULAR HGB 29.5 PG (27.0-31.0); MEAN CORPUSCULAR HGB CONC 33.5 G/DL (33.0-37.0); MEAN CORPUSCULAR VOLUME 88.1 FL (80.0-94.0); MEAN PLATELET VOLUME 13.1 FL (7.4-10.4); PLATELET COUNT 109 /CUMM (130-400); RBC DISTRIBUTION WIDTH 14.3 % (11.5-14.5); RED BLOOD CELL CT 4.08 /CUMM (4.70-6.10); WHITE BLOOD CELL COUNT 8.3 /CUMM (4.8-10.8)
--- NOTE | 2017-01-12 13:59 | PN- CRCU ---
Subjective HPI/Critical Care Issues: Patient was on the insulin drip overnight with gradual improvement of his blood sugars to 381 this morning. He was started on vasopressin IV drip yesterday evening which was later discontinued as blood pressures improved. He was also weaned off the Levophed IV drip this morning around 5 AM and currently he is hemodynamically stable off pressors. Patient was seen and examined this morning. His mental status has improved since yesterday and now does move all limbs and does opens eyes on commands attimes, intubated and sedated on Fentanyl drip. Vent reviewed Objective Current Medications: Current Medications Sig/Nelida Start time Last Medication Dose Route Stop Time Status Admin Acetaminophen 1,000 MG Q6P PRN 01/11 0745 AC 01/11 N/A 1 UNIT IV 1520 Ampicillin Sodium/ 1,500 MG Q12H 01/11 1700 AC 01/12 Sulbactam Sodium IV 0445 Sodium Chloride 100 ML Fentanyl Citrate 1,000 MCG Q24H 01/12 0100 CAN Dextrose/Water 250 ML IV Fentanyl Citrate 1,000 MCG Q14H 01/11 2200 AC 01/12 Dextrose/Water 250 ML IV 1124 Fentanyl Citrate 1,000 MCG Q24H 01/11 1200 DC 01/11 Dextrose/Water 250 ML IV 1814 Heparin Sodium 5,000 UNIT Q8 01/11 0600 AC 01/12 (Porcine) SC 0637 Insulin Human Regular 100 UNIT Q12H 01/11 0445 AC 01/12 Sodium Chloride 100 ML IV 0000 Levetiracetam 500 MG BID 01/11 1230 AC 01/12 Sodium Chloride 100 ML IV 01/13 0200 0904 Lorazepam 2 MG Q1 PRN 01/11 1200 AC 01/11 IV 1222 Norepinephrine 4 MG Q3H 01/11 2200 DC 01/12 Sodium Chloride 250 ML IV 0114 Norepinephrine 4 MG .STK-MED ONE 01/11 2138 DC IV 01/11 2139 Norepinephrine 4 MG Q24H 01/11 0400 DC 01/11 Sodium Chloride 250 ML IV 1815 Pantoprazole Sodium 40 MG BID 01/11 1138 AC 01/12 IV 0904 Potassium Chloride 40 MEQ Q4H 01/12 0130 AC 01/12 Sodium Chloride 1,000 ML IV 1321 Potassium Chloride 40 MEQ Q2H 01/11 2200 DC 01/11 Sodium Chloride 1,000 ML IV 2300 Potassium Chloride 20 MEQ Q1 01/11 1900 CAN IV 02/14 2001 Potassium Chloride 40 MEQ Q4H 01/11 1130 DC 01/11 Sodium Chloride 1,000 ML IV 2056 Potassium Phosphate 15 mMol ONE ONE 01/11 1845 CAN Sodium Chloride 250 ML IV 01/11 2248 Potassium Phosphate 15 mMol ONE ONE 01/11 1515 DC 01/11 Sodium Chloride 250 ML IV 01/11 1918 1704 Sodium Chloride 500 ML ONCE ONE 01/11 1645 DC 01/11 IV 01/11 1744 1638 Sodium Chloride 1,000 ML BOLUS ONE 01/11 1415 DC 01/11 IV 01/11 1514 1421 Sodium Chloride 1,000 ML BOLUS ONE 01/11 1315 DC 01/11 IV 01/11 1414 1315 Vancomycin HCl 1,500 MG ONCE ONE 01/12 0900 DC 01/12 Dextrose/Water 250 ML IV 01/12 1059 1017 Vasopressin 40 UNIT Q16H 01/11 1600 DC 01/11 Sodium Chloride 100 ML IV 1640 Vital Signs & I&O Last 24 Hrs of Vitals and I&O: Vital Signs Date Time Temp Pulse Resp B/P Pulse O2 O2 Flow FiO2 Ox Delivery Rate 01/12 1344 30 01/12 1200 94 Ventilator 30% 01/12 1100 30 01/12 0842 30 01/12 0800 98 Ventilator 30% 01/12 0800 98.3 122 24 116/67 98 Ventilator 30% 01/12 0519 30 01/12 0400 98 Ventilator 30% 01/12 0209 30 01/12 0205 35 01/12 0114 112 129/73 01/12 0000 100.0 112 24 130/64 98 Ventilator 35% 01/12 0000 98 Ventilator 35% 01/11 2230 35 01/11 2147 116 114/66 01/11 2000 98 Ventilator 35% 01/11 1918 35 01/11 1815 101.9 127 25 100/60 14 1800 101.9 127 27 100/60 98 Ventilator 35% 01/11 1700 101.7 128 24 98/56 99 Ventilator 35% 01/11 1620 101.7 / 1600 129 27 78/38 99 Ventilator 35% 01/11 1600 99 Ventilator 35% 01/11 1553 35 01/11 1520 102.9 01/11 1500 102.9 129 26 94/42 99 Ventilator 35% 01/11 1435 35 01/11 1421 128 92/40 Intake & Output 02/15 1600 01/12 0800 01/12 0000 Intake Total 3649 5010 Output Total 1200 780 Balance 2449 4230 Intake, IV 3449 4880 Intake, Other 200 130 Output, 200 Gastric Drainage Output, Urine 1000 780 Impression/Plan Impression/Plan Impression/Plan: 41 y/o M with no prior history of DM who is admitted for severe DKA with multisystem organ failure. Currently hemodynamically stable off pressors, but remains intubated and on insulin drip. IMPRESSION * Significant hyperosmolar hyperglycemic diabetic ketoacidosis state * Acute renal insufficiency which seems to be slowly improving due to above and hypovolemia * Acute respiratory failure related to metabolic encephalopathy * Significant hypotension now resolved due to hypovolemia and improvement * Improving but Significantly reduced mental status related to hyperosmolar state as his corrected sodium was significantly elevated and osmolality calculated was more than 380. * Asp pna vs cap now has staph and gram neg rods in evelina sputum * REsolved Mild upper GI bleed most likely related to gastritis from above- mentioned factors Significant leukocytosis most likely related to stress, probable aspiration RECOMMENDATION * Cont vent and reduce rate to 14 * IV fluids to contine and change to d5.45 when sugars are better * Insulin drip to continue her endocrine * Check his blood work often * IV PPI bid * SUb cut heparin for now as he has a groin line * COnt Abx and add vanco * Use fentanyl for sedation and as needed Ativan * Increase free water Discussed extensively with the family and house staff Code Status: Full Code
[2017-01-12 16:00] VITALS: BP 108/56
[2017-01-12 16:37] LABS: ABSOLUTE BASOPHIL COUNT 0 /CUMM (0.0-0.2); ABSOLUTE EOSINOPHIL COUNT 0 /CUMM (0.0-0.7); ABSOLUTE GRANULOCYTE CT 6.5 /CUMM (1.4-6.5); ABSOLUTE LYMPH COUNT 1.5 /CUMM (1.2-3.4); ABSOLUTE MONOCYTE COUNT 0.8 /CUMM (0.10-0.60); BASOPHIL % 0.2 % (0.0-2.0); EOSINOPHIL % 0.3 % (0-5); GRANULOCYTE % 74.2 % (42.2-75.2); HEMATOCRIT 35.4 % (42-52); MEAN CORPUSCULAR HGB 29.9 PG (27.0-31.0); MEAN CORPUSCULAR HGB CONC 33.5 G/DL (33.0-37.0); MEAN CORPUSCULAR VOLUME 89.1 FL (80.0-94.0); RBC DISTRIBUTION WIDTH 14.2 % (11.5-14.5); RED BLOOD CELL CT 3.98 /CUMM (4.70-6.10); WHITE BLOOD CELL COUNT 8.8 /CUMM (4.8-10.8)
[2017-01-12 16:44] LABS: PLATELET COUNT 99 /CUMM (130-400)
--- NOTE | 2017-01-12 19:14 | Event Note ---
Event Note Event Note: I was informed by nursing staff that patient's blood sugar was 244. I change the IV drip to 20 meq KCl in D5W half normal saline at 150 mL per hour. His potassium is 3.7, not needing any correction, phosphorus is 1.4 not needing any correction either, sodium however is still 162. Dr. Montanez was called to inquire about the timing to start subcutaneous insulin on the patient, as his blood sugar seems to be dropping as planned. According to him, subcutis insulin can be started in the morning and was to how he drops his blood sugar overnight. Regarding sodium levels, if he continues to have high sodium in 6 PM labs as well, the free water intake being delivered via NG tube can be increased in frequency from 4 hours to 2 hours. If urine output becomes low, the IV fluid rate can be increased from 150 mL per hour to 250 mL per hour. Also he advised to reduce the insulin drip on 16 units per hour and titrate it down with a target glucose of 180-200. Accordingly, insulin drip was decreased initially to 14 and then 12. Patient's glucose seems to be dropping drastically in 180s so insulin drip was reduced to 6 units per hour. Night staff informed.
[2017-01-12 19:19] LABS: ABSOLUTE BASOPHIL COUNT 0 /CUMM (0.0-0.2); ABSOLUTE EOSINOPHIL COUNT 0 /CUMM (0.0-0.7); ABSOLUTE GRANULOCYTE CT 7.1 /CUMM (1.4-6.5); ABSOLUTE LYMPH COUNT 1.5 /CUMM (1.2-3.4); ABSOLUTE MONOCYTE COUNT 1.1 /CUMM (0.10-0.60); BASOPHIL % 0.4 % (0.0-2.0); EOSINOPHIL % 0.5 % (0-5); GRANULOCYTE % 73.1 % (42.2-75.2); HEMATOCRIT 34.6 % (42-52); MEAN CORPUSCULAR HGB 29.9 PG (27.0-31.0); MEAN CORPUSCULAR HGB CONC 33.6 G/DL (33.0-37.0); MEAN CORPUSCULAR VOLUME 88.9 FL (80.0-94.0); RBC DISTRIBUTION WIDTH 14.3 % (11.5-14.5); RED BLOOD CELL CT 3.89 /CUMM (4.70-6.10); WHITE BLOOD CELL COUNT 9.7 /CUMM (4.8-10.8)
[2017-01-12 19:23] LABS: PLATELET COUNT 90 /CUMM (130-400)
--- NOTE | 2017-01-12 19:54 | ELECTROENCEPHALOGRAM REPORT ---
Electroencephalogram Report Electroencephalogram Results Date of service: 01/12/17 Attending MD: ALESSANDRO SINGH,ANKIT Brown Patient Care Coordinator: Karla EEG Number: [id number] Test Utilizes: Test Utilizes a 10-20 system, 21 lead, 18 channel digital recording Pertinent Hx/Physical/Neuro Findings/Clin Diagnosis: 41 year old male wiith "new onset seizures". Inpatient Medications: Current Medications Sig/Nelida Start time Last Medication Dose Route Stop Time Status Admin Acetaminophen 1,000 MG Q6P PRN 01/11 0745 AC 01/12 N/A 1 UNIT IV 1402 Ampicillin Sodium/ 1,500 MG Q12H 01/11 1700 AC 01/12 Sulbactam Sodium IV 1624 Sodium Chloride 100 ML Fentanyl Citrate 1,000 MCG Q24H 01/12 0100 CAN Dextrose/Water 250 ML IV Fentanyl Citrate 1,000 MCG Q14H 01/11 2200 AC 01/12 Dextrose/Water 250 ML IV 1124 Fentanyl Citrate 1,000 MCG Q24H 01/11 1200 DC 01/11 Dextrose/Water 250 ML IV 1814 Heparin Sodium 5,000 UNIT Q8 01/11 0600 AC 01/12 (Porcine) SC 1415 Insulin Human Regular 100 UNIT Q12H 01/11 0445 AC 01/12 Sodium Chloride 100 ML IV 1600 Levetiracetam 500 MG BID 01/11 1230 AC 01/12 Sodium Chloride 100 ML IV 01/13 0200 0904 Lorazepam 2 MG Q1 PRN 01/11 1200 AC 01/11 IV 1222 Norepinephrine 4 MG Q3H 01/11 2200 DC 01/12 Sodium Chloride 250 ML IV 0114 Norepinephrine 4 MG .STK-MED ONE 01/11 2138 DC IV 01/11 2139 Norepinephrine 4 MG Q24H / 0400 DC 01/11 Sodium Chloride 250 ML IV 1815 Pantoprazole Sodium 40 MG BID 01/11 1138 AC 01/12 IV 0904 Potassium Chloride 20 MEQ ONCE ONE 01/12 1945 UNVr IV 01/12 1946 Potassium Chloride 20 MEQ Q8H / 1615 AC 01/12 Dextrose/Sodium 1,000 ML IV 1611 Chloride Potassium Chloride 40 MEQ Q4H 01/12 0130 DC 01/12 Sodium Chloride 1,000 ML IV 1321 Potassium Chloride 40 MEQ Q2H 01/11 2200 DC 01/11 Sodium Chloride 1,000 ML IV 2300 Potassium Chloride 40 MEQ Q4H 01/11 1130 DC 01/11 Sodium Chloride 1,000 ML IV 2056 Potassium Phosphate 15 mMol ONE ONE 01/11 1845 CAN Sodium Chloride 250 ML IV 01/11 2248 Vancomycin HCl 1,500 MG ONCE ONE 01/12 0900 DC 01/12 Dextrose/Water 250 ML IV 01/12 1059 1017 Vasopressin 40 UNIT Q16H 01/11 1600 DC 01/11 Sodium Chloride 100 ML IV 1640 Interpretation: The recording demonstrates a diminution in the normal frequency gradient due to mild background slowing. There is intermixed theta and delta rhythms, with bursts of theta range activity followed by some low amplitude slow delta waves. There are occasional bifrontal periodic discharges that are more prominent on the left. The posterior dominant rhythm is indiscernible. Impression: Abnormal EEG due to slowing of the backgrounds with rare intermittent periodic discharges that could potentially be epileptogenic. Please correlate clinically.
[2017-01-12 21:39] LABS: ABSOLUTE BASOPHIL COUNT 0 /CUMM (0.0-0.2); ABSOLUTE EOSINOPHIL COUNT 0 /CUMM (0.0-0.7); ABSOLUTE GRANULOCYTE CT 8.5 /CUMM (1.4-6.5); ABSOLUTE LYMPH COUNT 1.7 /CUMM (1.2-3.4); ABSOLUTE MONOCYTE COUNT 0.9 /CUMM (0.10-0.60); BASOPHIL % 0.3 % (0.0-2.0); EOSINOPHIL % 0.4 % (0-5); GRANULOCYTE % 76.3 % (42.2-75.2); HEMATOCRIT 35.8 % (42-52); MEAN CORPUSCULAR HGB 29.4 PG (27.0-31.0); MEAN CORPUSCULAR HGB CONC 33.3 G/DL (33.0-37.0); MEAN PLATELET VOLUME 11.8 FL (7.4-10.4); PLATELET COUNT 90 /CUMM (130-400); RBC DISTRIBUTION WIDTH 14.6 % (11.5-14.5); RED BLOOD CELL CT 4.06 /CUMM (4.70-6.10); WHITE BLOOD CELL COUNT 11.2 /CUMM (4.8-10.8)
[2017-01-13] VITALS: BP 130/60
[2017-01-13 01:08] LABS: ABSOLUTE BASOPHIL COUNT 0 /CUMM (0.0-0.2); ABSOLUTE EOSINOPHIL COUNT 0 /CUMM (0.0-0.7); ABSOLUTE GRANULOCYTE CT 9.3 /CUMM (1.4-6.5); ABSOLUTE LYMPH COUNT 1.7 /CUMM (1.2-3.4); ABSOLUTE MONOCYTE COUNT 0.8 /CUMM (0.10-0.60); BASOPHIL % 0.2 % (0.0-2.0); EOSINOPHIL % 0.3 % (0-5); GRANULOCYTE % 78.5 % (42.2-75.2); HEMATOCRIT 34.3 % (42-52); MEAN CORPUSCULAR HGB 30.1 PG (27.0-31.0); MEAN CORPUSCULAR HGB CONC 34.3 G/DL (33.0-37.0); MEAN CORPUSCULAR VOLUME 87.8 FL (80.0-94.0); MEAN PLATELET VOLUME 12.6 FL (7.4-10.4); PLATELET COUNT 89 /CUMM (130-400); RBC DISTRIBUTION WIDTH 14.4 % (11.5-14.5); RED BLOOD CELL CT 3.91 /CUMM (4.70-6.10); WHITE BLOOD CELL COUNT 11.9 /CUMM (4.8-10.8)
[2017-01-13 03:26] LABS: ABSOLUTE BASOPHIL COUNT 0 /CUMM (0.0-0.2); ABSOLUTE EOSINOPHIL COUNT 0 /CUMM (0.0-0.7); ABSOLUTE GRANULOCYTE CT 8.5 /CUMM (1.4-6.5); ABSOLUTE LYMPH COUNT 1.2 /CUMM (1.2-3.4); ABSOLUTE MONOCYTE COUNT 1.1 /CUMM (0.10-0.60); BASOPHIL % 0 % (0.0-2.0); EOSINOPHIL % 0.2 % (0-5); GRANULOCYTE % 77.9 % (42.2-75.2); HEMATOCRIT 33.3 % (42-52); MEAN CORPUSCULAR HGB 29.9 PG (27.0-31.0); MEAN CORPUSCULAR VOLUME 87.9 FL (80.0-94.0); PLATELET COUNT 80 /CUMM (130-400); RBC DISTRIBUTION WIDTH 14.2 % (11.5-14.5); RED BLOOD CELL CT 3.78 /CUMM (4.70-6.10); WHITE BLOOD CELL COUNT 10.9 /CUMM (4.8-10.8)
[2017-01-13 06:36] LABS: ABSOLUTE BASOPHIL COUNT 0 /CUMM (0.0-0.2); ABSOLUTE EOSINOPHIL COUNT 0 /CUMM (0.0-0.7); ABSOLUTE GRANULOCYTE CT 8.5 /CUMM (1.4-6.5); ABSOLUTE LYMPH COUNT 1.7 /CUMM (1.2-3.4); ABSOLUTE MONOCYTE COUNT 0.7 /CUMM (0.10-0.60); BASOPHIL % 0.1 % (0.0-2.0); EOSINOPHIL % 0.3 % (0-5); GRANULOCYTE % 78.2 % (42.2-75.2); HEMATOCRIT 32.4 % (42-52); MEAN CORPUSCULAR HGB 29.6 PG (27.0-31.0); MEAN CORPUSCULAR HGB CONC 33.3 G/DL (33.0-37.0); MEAN PLATELET VOLUME 13.6 FL (7.4-10.4); PLATELET COUNT 78 /CUMM (130-400); RBC DISTRIBUTION WIDTH 14.4 % (11.5-14.5); RED BLOOD CELL CT 3.64 /CUMM (4.70-6.10); WHITE BLOOD CELL COUNT 10.9 /CUMM (4.8-10.8)
--- NOTE | 2017-01-13 07:45 | PN- Diabetes ---
Assessment/Plan Assessment: The patient remains on a respirator. He is on an insulin drip at 10 units per hour. He is off pressors. He is currently sedated. Most recent blood sugar readings are from 214 to 286. The patient is improved. The ketoacidosis is resolved. Renal function is also improving. His serum sodium is coming down gradually. Abscess today show glucose to 36 BUN 20 creatinine 1.5, sodium 157, potassium 3.3, chloride 129 CO2 21, anion gap 7. Plan: Suggest that if we want to convert the patient to subcutaneous insulin could begin Levemir 30 units twice a day. Would also need to give him sliding-scale NovoLog every 4 hours. His sliding scale NovoLog every 4 hours would be 100-150 give 8 units NovoLog, and 151-200 give 10 units NovoLog, 201-250 give 12 units NovoLog, 251-300 give 14 units NovoLog, 301-350 give 16 units NovoLog, 351 of 400 give 18 units NovoLog. The patient should continue with free water through the NG tube to bring his sodium down gradually While on the above insulin regimen on D5 half normal saline plus 40 milliequivalents KCl at 150 mL per hour. Two hours after the first dose of Levemir and the first dose of NovoLog, the insulin drip can be discontinued. The patient should have his anti-VINAY antibody measured to see if he has type I versus type 2 diabetes. This will assist with his future management. Subjective Subjective: Sedated on respirator Objective Last 24 Hrs of Vital Signs/I&O Vital Signs Date Time Temp Pulse Resp B/P Pulse O2 O2 Flow FiO2 Ox Delivery Rate 01/13 0550 40 01/13 0400 95 Ventilator 40% 01/13 0321 40 01/13 0139 40 01/13 0039 30 01/13 0000 93 Ventilator 30% 01/13 0000 100.1 135 35 130/60 93 Ventilator 30% 01/12 2221 30 01/12 2100 101.5 01/12 2007 101.7 01/12 2000 96 Ventilator 30% 02 1931 30 01/12 1725 30 01/12 1600 98 Ventilator 30% 02 1600 97.6 125 20 108/56 98 Ventilator 30% 02/ 1402 101.7 / 1344 30 02 1200 94 Ventilator 30% 02 1100 30 01/12 0842 30 01/12 0800 98 Ventilator 30% 02/15 0800 98.3 122 24 116/67 98 Ventilator 30% Intake & Output 01/13 0800 01/13 0000 01/12 1600 Intake Total 2714 3052 2727.3 Output Total 1000 800 900 Balance 1714 2252 1827.3 Intake, IV 1914 2252 2327.3 Intake, Oral 400 Intake, Other 800 Intake, Tube 800 Irrigant Number 0 0 1 Bowel Movements Output, Urine 1000 800 900 Vital Signs Date Time Temp Pulse Resp B/P Pulse O2 O2 Flow FiO2 Ox Delivery Rate 01/13 0550 40 01/13 0400 95 Ventilator 40% 01/13 0321 40 01/13 0139 40 01/13 0039 30 01/13 0000 93 Ventilator 30% 01/13 0000 100.1 135 35 130/60 93 Ventilator 30% 01/12 2221 30 01/12 2100 101.5 01/12 2007 101.7 01/12 2000 96 Ventilator 30% 01/12 1931 30 01/12 1725 30 01/12 1600 98 Ventilator 30% 01/12 1600 97.6 125 20 108/56 98 Ventilator 30% 01/12 1402 101.7 01/12 1344 30 01/12 1200 94 Ventilator 30% 01/12 1100 30 01/12 0842 30 01/12 0800 98 Ventilator 30% 01/12 0800 98.3 122 24 116/67 98 Ventilator 30% Intake & Output 01/13 0800 01/13 0000 01/12 1600 Intake Total 2714 3052 2727.3 Output Total 1000 800 900 Balance 1714 2252 1827.3 Intake, IV 191 2252 2327.3 Intake, Oral 400 Intake, Other 800 Intake, Tube 800 Irrigant Number 0 0 1 Bowel Movements Output, Urine 1000 800 900 Physical Exam General Appearance: sedated, intubated Head: normal appearance Neck: normal inspection Respiratory: normal breath sounds Cardiovascular: regular rate/rhythm Abdomen: normal bowel sounds Extremities: normal inspection Current Medications: Current Medications Sig/Nelida Start time Last Medication Dose Route Stop Time Status Admin Acetaminophen 1,000 MG Q6P PRN 01/11 0745 AC 01/12 N/A 1 UNIT IV 2006 Ampicillin Sodium/ 1,500 MG Q6 01/12 2359 AC 01/13 Sulbactam Sodium IV 0629 Sodium Chloride 100 ML Ampicillin Sodium/ 1,500 MG Q12H 01/11 1700 DC 01/12 Sulbactam Sodium IV 1624 Sodium Chloride 100 ML Fentanyl Citrate 1,000 MCG Q4H 01/13 0500 AC 01/13 Dextrose/Water 250 ML IV 0535 Fentanyl Citrate 1,000 MCG Q14H 01/11 2200 DC 01/13 Dextrose/Water 250 ML IV 0046 Heparin Sodium 0 .STK-MED ONE 01/11 0723 CAN (Porcine) .ROUTE Heparin Sodium 5,000 UNIT Q8 01/11 0600 DC 01/13 (Porcine) SC 0629 Insulin Human Regular 100 UNIT Q12H 01/11 0445 AC 01/13 Sodium Chloride 100 ML IV 0012 Levetiracetam 500 MG BID 01/11 1230 DC 01/12 Sodium Chloride 100 ML IV 01/13 0200 2224 Lorazepam 2 MG Q1 PRN 01/11 1200 AC 01/11 IV 1222 Norepinephrine 4 MG Q3H 01/11 2200 DC 01/12 Sodium Chloride 250 ML IV 0114 Pantoprazole Sodium 40 MG BID 01/11 1138 AC 01/12 IV 2221 Potassium Chloride 20 MEQ Q6H 01/13 0000 AC 01/13 Dextrose/Sodium 1,000 ML IV 0012 Chloride Potassium Chloride 20 MEQ ONCE ONE 01/12 1945 DC 01/12 IV 01/12 1946 2004 Potassium Chloride 20 MEQ Q8H 01/12 1615 DC 01/12 Dextrose/Sodium 1,000 ML IV 1611 Chloride Potassium Chloride 40 MEQ Q4H 01/12 0130 DC 01/12 Sodium Chloride 1,000 ML IV 1321 Vancomycin HCl 1,000 MG DAILY 01/13 1000 CAN Dextrose/Water 250 ML IV Vancomycin HCl 2,000 MG ONCE ONE 01/13 0330 DC 01/13 Dextrose/Water 500 ML IV 01/13 0529 0351 Vancomycin HCl 1,500 MG ONCE ONE 01/12 0900 DC 01/12 Dextrose/Water 250 ML IV 01/12 1059 1017 Findings Pertinent Lab/Basilio Results: Laboratory Tests 01/13 01/13 0546 0310 Chemistry Sodium (137 - 145 mmol/L) 157 *H 160 *H Potassium (3.5 - 5.1 mmol/L) 3.3 L 3.7 Chloride (98 - 107 mmol/L) 129 H 131 H Carbon Dioxide (22 - 30 mmol/L) 21 L 21 L Anion Gap (5 - 16) 7 8 BUN (9 - 20 mg/dL) 20 22 H Creatinine (0.7 - 1.2 mg/dL) 1.5 H 1.6 H Estimated GFR (>60 ml/min) 51 L 48 L Glucose (65 - 99 mg/dL) 236 H 205 H Calcium (8.4 - 10.2 mg/dL) 8.1 L 8.2 L Phosphorus (2.5 - 4.5 mg/dL) 2.0 L 2.1 L Magnesium (1.6 - 2.3 mg/dL) 1.6 1.6 Total Bilirubin (0.2 - 1.3 mg/dL) 0.6 0.6 AST (17 - 59 U/L) 207 H 215 H ALT (21 - 72 U/L) 97 H 102 H Albumin (3.5 - 5.0 g/dL) 1.9 L 2.0 L Hematology CBC w Diff MAN DIFF ORDERED MAN DIFF ORDERED WBC (4.8 - 10.8 /CUMM) 10.9 H 10.9 H RBC (4.70 - 6.10 /CUMM) 3.64 L 3.78 L Hgb (14.0 - 18.0 G/DL) 10.8 L 11.3 L Hct (42 - 52 %) 32.4 L 33.3 L MCV (80.0 - 94.0 FL) 89.0 87.9 MCH (27.0 - 31.0 PG) 29.6 29.9 RDW (11.5 - 14.5 %) 14.4 14.2 Plt Count (130 - 400 /CUMM) 78 L 80 L MPV (7.4 - 10.4 FL) 13.6 H 12.0 H Gran % (42.2 - 75.2 %) 78.2 H 77.9 H Lymphocytes % (20.5 - 51.1 %) 15.3 L 11.4 L Monocytes % (1.7 - 9.3 %) 6.1 10.5 H Eosinophils % (0 - 5 %) 0.3 0.2 Basophils % (0.0 - 2.0 %) 0.1 0 L Absolute Granulocytes (1.4 - 6.5 /CUMM) 8.5 H 8.5 H Segmented Neutrophils (42.2 - 75.2 %) 61 76 H Band Neutrophils (0.0 - 5.0 %) 11 H 14 H Absolute Lymphocytes (1.2 - 3.4 /CUMM) 1.7 1.2 Lymphocytes (20.5 - 51.1 %) 21 8 L Monocytes (1.7 - 9.3 %) 4 1 L Absolute Monocytes (0.10 - 0.60 /CUMM) 0.7 H 1.1 H Eosinophils (0 - 5.0 %) 1 Absolute Eosinophils (0.0 - 0.7 /CUMM) 0 0 Basophils (0.0 - 2.0 %) 1 Absolute Basophils (0.0 - 0.2 /CUMM) 0 0 Metamyelocytes (0.0 - 1.0 %) 1 1 Platelet Estimate (ADEQUATE) DECREASED DECREASED Polychromasia 1+ 1+ Poikilocytosis 1+ 1+ Basophilic Stippling SLIGHT Ovalocytes 1+ 1+ PUBS MCHC (33.0 - 37.0 G/DL) 33.3 34.0 Other Body Source Fld Total RBCs Counted (%) 100 100 01/13 01/13 0045 0043 Chemistry Sodium (137 - 145 mmol/L) 162 *H Potassium (3.5 - 5.1 mmol/L) 3.7 Chloride (98 - 107 mmol/L) 133 H Carbon Dioxide (22 - 30 mmol/L) 19 L Anion Gap (5 - 16) 10 BUN (9 - 20 mg/dL) 24 H Creatinine (0.7 - 1.2 mg/dL) 1.8 H Estimated GFR (>60 ml/min) 42 L Glucose (65 - 99 mg/dL) 198 H Calcium (8.4 - 10.2 mg/dL) 8.4 Phosphorus (2.5 - 4.5 mg/dL) 2.1 L Magnesium (1.6 - 2.3 mg/dL) 1.7 Total Bilirubin (0.2 - 1.3 mg/dL) 0.7 AST (17 - 59 U/L) 197 H ALT (21 - 72 U/L) 95 H Albumin (3.5 - 5.0 g/dL) 2.1 L Hematology CBC w Diff MAN DIFF ORDERED WBC (4.8 - 10.8 /CUMM) 11.9 H RBC (4.70 - 6.10 /CUMM) 3.91 L Hgb (14.0 - 18.0 G/DL) 11.8 L Hct (42 - 52 %) 34.3 L MCV (80.0 - 94.0 FL) 87.8 MCH (27.0 - 31.0 PG) 30.1 RDW (11.5 - 14.5 %) 14.4 Plt Count (130 - 400 /CUMM) 89 L MPV (7.4 - 10.4 FL) 12.6 H Gran % (42.2 - 75.2 %) 78.5 H Lymphocytes % (20.5 - 51.1 %) 14.1 L Monocytes % (1.7 - 9.3 %) 6.9 Eosinophils % (0 - 5 %) 0.3 Basophils % (0.0 - 2.0 %) 0.2 Absolute Granulocytes (1.4 - 6.5 /CUMM) 9.3 H Segmented Neutrophils (42.2 - 75.2 %) 59 Band Neutrophils (0.0 - 5.0 %) 11 H Absolute Lymphocytes (1.2 - 3.4 /CUMM) 1.7 Lymphocytes (20.5 - 51.1 %) 20 L Monocytes (1.7 - 9.3 %) 9 Absolute Monocytes (0.10 - 0.60 /CUMM) 0.8 H Eosinophils (0 - 5.0 %) 1 Absolute Eosinophils (0.0 - 0.7 /CUMM) 0 Absolute Basophils (0.0 - 0.2 /CUMM) 0 Platelet Estimate (ADEQUATE) DECREASED Polychromasia 1+ Poikilocytosis 1+ Ovalocytes 1+ PUBS MCHC (33.0 - 37.0 G/DL) 34.3 Other Body Source Fld Total RBCs Counted (%) 100 Urines Urinalysis LIGHT H Urine Color (YEL,AMB,STR) YEL Urine Clarity (CLEAR) CLDY H Urine pH (5.0 - 8.0) 6.0 Ur Specific [place] (1.001 - 1.035) 1.025 Urine Protein (NEG,<30 MG/DL) 100 H Urine Ketones (NEG) NEG Urine Nitrite (NEG) NEG Urine Bilirubin (NEG) NEG Urine Urobilinogen (0.1 - 1.0 EU/dl) 0.2 Ur Leukocyte Esterase (NEG) NEG Ur Microscopic SEDIMENT EXAMINED Urine RBC (0 - 5 /HPF) 15-25 H Urine WBC (0 - 2 /HPF) RARE Ur Epithelial Cells (NONE,FEW) RARE Urine Crystals 4+ UR AC H Urine Mucus (FEW,NONE) RARE Urine Hemoglobin (NEG) LARGE H Urine Glucose (N MG/DL) 250 H 01/12 01/12 2119 1750 Chemistry Sodium (137 - 145 mmol/L) 160 *H 162 *H Potassium (3.5 - 5.1 mmol/L) 4.0 3.5 Chloride (98 - 107 mmol/L) 131 H 134 H Carbon Dioxide (22 - 30 mmol/L) 19 L 19 L Anion Gap (5 - 16) 10 9 BUN (9 - 20 mg/dL) 27 H 31 H Creatinine (0.7 - 1.2 mg/dL) 1.8 H 1.9 H Estimated GFR (>60 ml/min) 42 L 39 L Glucose (65 - 99 mg/dL) 190 H 159 H Calcium (8.4 - 10.2 mg/dL) 8.6 8.4 Phosphorus (2.5 - 4.5 mg/dL) 1.9 L 2.0 L Magnesium (1.6 - 2.3 mg/dL) 1.8 1.9 Total Bilirubin (0.2 - 1.3 mg/dL) 0.7 0.6 AST (17 - 59 U/L) 134 H 110 H ALT (21 - 72 U/L) 85 H 77 H Albumin (3.5 - 5.0 g/dL) 2.2 L 2.1 L Hematology CBC w Diff NO MAN DIFF REQ MAN DIFF ORDERED WBC (4.8 - 10.8 /CUMM) 11.2 H 9.7 RBC (4.70 - 6.10 /CUMM) 4.06 L 3.89 L Hgb (14.0 - 18.0 G/DL) 11.9 L 11.6 L Hct (42 - 52 %) 35.8 L 34.6 L MCV (80.0 - 94.0 FL) 88.0 88.9 MCH (27.0 - 31.0 PG) 29.4 29.9 RDW (11.5 - 14.5 %) 14.6 H 14.3 Plt Count (130 - 400 /CUMM) 90 L 90 L MPV (7.4 - 10.4 FL) 11.8 H 12.0 H Gran % (42.2 - 75.2 %) 76.3 H 73.1 Lymphocytes % (20.5 - 51.1 %) 14.8 L 15.0 L Monocytes % (1.7 - 9.3 %) 8.2 11.0 H Eosinophils % (0 - 5 %) 0.4 0.5 Basophils % (0.0 - 2.0 %) 0.3 0.4 Absolute Granulocytes (1.4 - 6.5 /CUMM) 8.5 H 7.1 H Segmented Neutrophils (42.2 - 75.2 %) 64 Band Neutrophils (0.0 - 5.0 %) 17 H Absolute Lymphocytes (1.2 - 3.4 /CUMM) 1.7 1.5 Lymphocytes (20.5 - 51.1 %) 12 L Monocytes (1.7 - 9.3 %) 6 Absolute Monocytes (0.10 - 0.60 /CUMM) 0.9 H 1.1 H Absolute Eosinophils (0.0 - 0.7 /CUMM) 0 0 Basophils (0.0 - 2.0 %) 1 Absolute Basophils (0.0 - 0.2 /CUMM) 0 0 Platelet Estimate (ADEQUATE) VERIFIED BY SMEAR Normocytic RBCs VERIFIED Normochromic RBCs VERIFIED PUBS MCHC (33.0 - 37.0 G/DL) 33.3 33.6 Other Body Source Fld Total RBCs Counted (%) 100 01/12 01/12 1520 1456 Chemistry Sodium (137 - 145 mmol/L) Cancelled 162 *H Potassium (3.5 - 5.1 mmol/L) Cancelled 3.7 Chloride (98 - 107 mmol/L) Cancelled 133 H Carbon Dioxide (22 - 30 mmol/L) Cancelled 19 L Anion Gap (5 - 16) Cancelled 10 BUN (9 - 20 mg/dL) Cancelled 32 H Creatinine (0.7 - 1.2 mg/dL) Cancelled 2.1 H Estimated GFR (>60 ml/min) 35 L Glucose (65 - 99 mg/dL) Cancelled 231 H Calcium (8.4 - 10.2 mg/dL) Cancelled 8.3 L Phosphorus (2.5 - 4.5 mg/dL) Cancelled 1.4 L Magnesium (1.6 - 2.3 mg/dL) Cancelled 2.0 Total Bilirubin (0.2 - 1.3 mg/dL) Cancelled 0.5 AST (17 - 59 U/L) Cancelled 105 H ALT (21 - 72 U/L) Cancelled 75 H Albumin (3.5 - 5.0 g/dL) Cancelled 2.1 L Hematology CBC w Diff NO MAN DIFF REQ WBC (4.8 - 10.8 /CUMM) Cancelled 8.8 RBC (4.70 - 6.10 /CUMM) Cancelled 3.98 L Hgb (14.0 - 18.0 G/DL) Cancelled 11.9 L Hct (42 - 52 %) Cancelled 35.4 L MCV (80.0 - 94.0 FL) Cancelled 89.1 MCH (27.0 - 31.0 PG) Cancelled 29.9 RDW (11.5 - 14.5 %) Cancelled 14.2 Plt Count (130 - 400 /CUMM) Cancelled 99 L MPV (7.4 - 10.4 FL) Cancelled 13.0 H Gran % (42.2 - 75.2 %) 74.2 Lymphocytes % (20.5 - 51.1 %) 16.6 L Monocytes % (1.7 - 9.3 %) 8.7 Eosinophils % (0 - 5 %) 0.3 Basophils % (0.0 - 2.0 %) 0.2 Absolute Granulocytes (1.4 - 6.5 /CUMM) 6.5 Absolute Lymphocytes (1.2 - 3.4 /CUMM) 1.5 Absolute Monocytes (0.10 - 0.60 /CUMM) 0.8 H Absolute Eosinophils (0.0 - 0.7 /CUMM) 0 Absolute Basophils (0.0 - 0.2 /CUMM) 0 PUBS MCHC (33.0 - 37.0 G/DL) Cancelled 33.5 15 01/12 1202 UNK Chemistry Sodium (137 - 145 mmol/L) 163 *H Cancelled Potassium (3.5 - 5.1 mmol/L) 3.9 Cancelled Chloride (98 - 107 mmol/L) 133 H Cancelled Carbon Dioxide (22 - 30 mmol/L) 19 L Cancelled Anion Gap (5 - 16) 11 Cancelled BUN (9 - 20 mg/dL) 34 H Cancelled Creatinine (0.7 - 1.2 mg/dL) 2.3 H Cancelled Estimated GFR (>60 ml/min) 31 L Glucose (65 - 99 mg/dL) 323 H Cancelled Calcium (8.4 - 10.2 mg/dL) 8.3 L Cancelled Phosphorus (2.5 - 4.5 mg/dL) 2.4 L Cancelled Magnesium (1.6 - 2.3 mg/dL) 2.1 Cancelled Total Bilirubin (0.2 - 1.3 mg/dL) 0.5 Cancelled AST (17 - 59 U/L) 106 H Cancelled ALT (21 - 72 U/L) 79 H Cancelled Albumin (3.5 - 5.0 g/dL) 2.2 L Cancelled Hematology CBC w Diff NO MAN DIFF REQ WBC (4.8 - 10.8 /CUMM) 8.3 RBC (4.70 - 6.10 /CUMM) 4.08 L Hgb (14.0 - 18.0 G/DL) 12.0 L Hct (42 - 52 %) 35.9 L MCV (80.0 - 94.0 FL) 88.1 MCH (27.0 - 31.0 PG) 29.5 RDW (11.5 - 14.5 %) 14.3 Plt Count (130 - 400 /CUMM) 109 L MPV (7.4 - 10.4 FL) 13.1 H Gran % (42.2 - 75.2 %) 72.9 Lymphocytes % (20.5 - 51.1 %) 18.0 L Monocytes % (1.7 - 9.3 %) 8.6 Eosinophils % (0 - 5 %) 0.2 Basophils % (0.0 - 2.0 %) 0.3 Absolute Granulocytes (1.4 - 6.5 /CUMM) 6.1 Absolute Lymphocytes (1.2 - 3.4 /CUMM) 1.5 Absolute Monocytes (0.10 - 0.60 /CUMM) 0.7 H Absolute Eosinophils (0.0 - 0.7 /CUMM) 0 Absolute Basophils (0.0 - 0.2 /CUMM) 0 PUBS MCHC (33.0 - 37.0 G/DL) 33.5 0215 02 0900 0850 Blood Gas pH (7.35 - 7.45 PH) 7.38 pCO2 (35 - 45 TORR) 27 L pO2 (80 - 100 TORR) 82 HCO3 (21 - 28 MEQ/L) 16 L ABG O2 Sat (Measured) (>96.0 %) 96.0 Carboxyhemoglobin (1.5 - 5.0 %) 0.6 L O2 Concentration % .30 Temperature (97.0 - 100.0 FARH) 98.3 Respiration Rate (BPM) 24 O2 Delivery Method VENT Vent Mode VC-AC Expiratory Pressure (CMH2O/P) 5 Tidal Volume (CC) 650 Chemistry Sodium (137 - 145 mmol/L) 163 *H Potassium (3.5 - 5.1 mmol/L) 4.0 Chloride (98 - 107 mmol/L) 136 H Carbon Dioxide (22 - 30 mmol/L) 18 L Anion Gap (5 - 16) 9 BUN (9 - 20 mg/dL) 37 H Creatinine (0.7 - 1.2 mg/dL) 2.5 H Estimated GFR (>60 ml/min) 28 L Glucose (65 - 99 mg/dL) 348 H Calcium (8.4 - 10.2 mg/dL) 8.4 Phosphorus (2.5 - 4.5 mg/dL) 1.5 L Magnesium (1.6 - 2.3 mg/dL) 2.3 Total Bilirubin (0.2 - 1.3 mg/dL) 0.5 AST (17 - 59 U/L) 90 H ALT (21 - 72 U/L) 75 H Albumin (3.5 - 5.0 g/dL) 2.2 L Hematology CBC w Diff NO MAN DIFF REQ WBC (4.8 - 10.8 /CUMM) 8.2 RBC (4.70 - 6.10 /CUMM) 4.16 L Hgb (14.0 - 18.0 G/DL) 12.4 L Hct (42 - 52 %) 36.4 L MCV (80.0 - 94.0 FL) 87.5 MCH (27.0 - 31.0 PG) 29.7 RDW (11.5 - 14.5 %) 14.4 Plt Count (130 - 400 /CUMM) 111 L MPV (7.4 - 10.4 FL) 12.8 H Gran % (42.2 - 75.2 %) 74.4 Lymphocytes % (20.5 - 51.1 %) 16.9 L Monocytes % (1.7 - 9.3 %) 8.4 Eosinophils % (0 - 5 %) 0.2 Basophils % (0.0 - 2.0 %) 0.1 Absolute Granulocytes (1.4 - 6.5 /CUMM) 6.1 Absolute Lymphocytes (1.2 - 3.4 /CUMM) 1.4 Absolute Monocytes (0.10 - 0.60 /CUMM) 0.7 H Absolute Eosinophils (0.0 - 0.7 /CUMM) 0 Absolute Basophils (0.0 - 0.2 /CUMM) 0 PUBS MCHC (33.0 - 37.0 G/DL) 34.0 Miscellaneous Phlebotomy Draw Site R BRACH
[2017-01-13 08:00] VITALS: BP 110/70
--- NOTE | 2017-01-13 08:02 | PN- Resident CRCU ---
Subjective HPI/CRCU Issues: Patient was kept on the insulin drip overnight with resolution of his ketoacidosis and further improvement of his multiple electrolyte abnormalities, including his sodium. He remains intubated and partially sedated but his mental status has significantly improved since yesterday. He is a lot more awake, alert and communicative, making eye contact, responding to commands and moving all four extremities spontaneously. He continues to spike fevers, Tmax was 101.7 this morning. On mechanical ventilation day #3 with the following current settings: VC-AC mode, tidal volume 650, FiO2 40%, RR 14 and PEEP 5. Objective Vital Signs & I&O Last 8 Hrs of Vitals and I&O: Vital Signs Date Time Temp Pulse Resp B/P Pulse O2 O2 Flow FiO2 Ox Delivery Rate 01/13 0800 101.7 01/13 0550 40 01/13 0400 95 Ventilator 40% 01/13 0321 40 01/13 0139 40 01/13 0039 30 01/13 0000 93 Ventilator 30% 01/13 0000 100.1 135 35 130/60 93 Ventilator 30% 01/12 2221 30 01/12 2100 101.5 01/12 2007 101.7 01/12 2000 96 Ventilator 30% 01/12 1931 30 01/12 1725 30 01/12 1600 98 Ventilator 30% 01/12 1600 97.6 125 20 108/56 98 Ventilator 30% 01/12 1402 101.7 01/12 1344 30 01/12 1200 94 Ventilator 30% 01/12 1100 30 01/12 0842 30 Exam General Appearance: sedated (partially), intubated, obese Ears, Nose, Throat: moist mucus membranes Respiratory: bilateral anterior lung marr clear to auscultation Cardiovascular: regular rate/rhythm, normal S1 and S2, no murmurs, rubs or gallops Gastrointestinal: soft, non-tender, positive bowel sounds Extremities: no edema Cranial Nerves: PERRL, makes eye contact, follows commands, moves all four extremities spontaneously Current Medications: Current Medications Sig/Nelida Start time Last Medication Dose Route Stop Time Status Admin Acetaminophen 1,000 MG Q6P PRN 01/11 0745 AC 01/13 N/A 1 UNIT IV 0800 Ampicillin Sodium/ 1,500 MG Q6 01/12 2359 AC 01/13 Sulbactam Sodium IV 0629 Sodium Chloride 100 ML Ampicillin Sodium/ 1,500 MG Q12H 01/11 1700 DC 01/12 Sulbactam Sodium IV 1624 Sodium Chloride 100 ML Fentanyl Citrate 1,000 MCG Q4H 01/13 0500 AC 01/13 Dextrose/Water 250 ML IV 0535 Fentanyl Citrate 1,000 MCG Q14H 01/11 2200 DC 01/13 Dextrose/Water 250 ML IV 0046 Heparin Sodium 0 .STK-MED ONE 01/11 0723 CAN (Porcine) .ROUTE Heparin Sodium 5,000 UNIT Q8 01/11 0600 DC 01/13 (Porcine) SC 0629 Insulin Aspart 0 Q4 01/13 1000 AC SC Insulin Detemir 30 UNITS BID 01/13 1000 AC SC Insulin Human Regular 100 UNIT Q12H 01/11 0445 AC 01/13 Sodium Chloride 100 ML IV 01/13 1200 0012 Levetiracetam 500 MG BID 01/11 1230 DC 01/12 Sodium Chloride 100 ML IV 01/13 0200 2224 Lorazepam 2 MG Q1 PRN 01/11 1200 AC 01/11 IV 1222 Norepinephrine 4 MG Q3H 01/11 2200 DC 01/12 Sodium Chloride 250 ML IV 0114 Pantoprazole Sodium 40 MG BID 01/11 1138 AC 01/12 IV 2221 Potassium Chloride 40 MEQ Q6H 01/13 0800 AC Dextrose/Sodium 1,000 ML IV Chloride Potassium Chloride 20 MEQ Q6H 01/13 0000 DC 01/13 Dextrose/Sodium 1,000 ML IV 0012 Chloride Potassium Chloride 20 MEQ ONCE ONE 01/12 1945 DC 01/12 IV 01/12 1946 2004 Potassium Chloride 20 MEQ Q8H 01/12 1615 DC 01/12 Dextrose/Sodium 1,000 ML IV 1611 Chloride Potassium Chloride 40 MEQ Q4H 01/12 0130 DC 01/12 Sodium Chloride 1,000 ML IV 1321 Potassium Phosphate 15 mMol ONE ONE 01/13 0745 AC Sodium Chloride 250 ML IV 01/13 1148 Vancomycin HCl 1,000 MG DAILY 01/13 1000 CAN Dextrose/Water 250 ML IV Vancomycin HCl 2,000 MG ONCE ONE 01/13 0330 DC 01/13 Dextrose/Water 500 ML IV 01/13 0529 0351 Vancomycin HCl 1,500 MG ONCE ONE 01/12 0900 DC 01/12 Dextrose/Water 250 ML IV 01/12 1059 1017 Results Results: Laboratory Tests 01/13 01/13 0546 0310 Chemistry Sodium (137 - 145 mmol/L) 157 *H 160 *H Potassium (3.5 - 5.1 mmol/L) 3.3 L 3.7 Chloride (98 - 107 mmol/L) 129 H 131 H Carbon Dioxide (22 - 30 mmol/L) 21 L 21 L Anion Gap (5 - 16) 7 8 BUN (9 - 20 mg/dL) 20 22 H Creatinine (0.7 - 1.2 mg/dL) 1.5 H 1.6 H Estimated GFR (>60 ml/min) 51 L 48 L Glucose (65 - 99 mg/dL) 236 H 205 H Calcium (8.4 - 10.2 mg/dL) 8.1 L 8.2 L Phosphorus (2.5 - 4.5 mg/dL) 2.0 L 2.1 L Magnesium (1.6 - 2.3 mg/dL) 1.6 1.6 Total Bilirubin (0.2 - 1.3 mg/dL) 0.6 0.6 AST (17 - 59 U/L) 207 H 215 H ALT (21 - 72 U/L) 97 H 102 H Albumin (3.5 - 5.0 g/dL) 1.9 L 2.0 L Hematology CBC w Diff MAN DIFF ORDERED MAN DIFF ORDERED WBC (4.8 - 10.8 /CUMM) 10.9 H 10.9 H RBC (4.70 - 6.10 /CUMM) 3.64 L 3.78 L Hgb (14.0 - 18.0 G/DL) 10.8 L 11.3 L Hct (42 - 52 %) 32.4 L 33.3 L MCV (80.0 - 94.0 FL) 89.0 87.9 MCH (27.0 - 31.0 PG) 29.6 29.9 RDW (11.5 - 14.5 %) 14.4 14.2 Plt Count (130 - 400 /CUMM) 78 L 80 L MPV (7.4 - 10.4 FL) 13.6 H 12.0 H Gran % (42.2 - 75.2 %) 78.2 H 77.9 H Lymphocytes % (20.5 - 51.1 %) 15.3 L 11.4 L Monocytes % (1.7 - 9.3 %) 6.1 10.5 H Eosinophils % (0 - 5 %) 0.3 0.2 Basophils % (0.0 - 2.0 %) 0.1 0 L Absolute Granulocytes (1.4 - 6.5 /CUMM) 8.5 H 8.5 H Segmented Neutrophils (42.2 - 75.2 %) 61 76 H Band Neutrophils (0.0 - 5.0 %) 11 H 14 H Absolute Lymphocytes (1.2 - 3.4 /CUMM) 1.7 1.2 Lymphocytes (20.5 - 51.1 %) 21 8 L Monocytes (1.7 - 9.3 %) 4 1 L Absolute Monocytes (0.10 - 0.60 /CUMM) 0.7 H 1.1 H Eosinophils (0 - 5.0 %) 1 Absolute Eosinophils (0.0 - 0.7 /CUMM) 0 0 Basophils (0.0 - 2.0 %) 1 Absolute Basophils (0.0 - 0.2 /CUMM) 0 0 Metamyelocytes (0.0 - 1.0 %) 1 1 Platelet Estimate (ADEQUATE) DECREASED DECREASED Polychromasia 1+ 1+ Poikilocytosis 1+ 1+ Basophilic Stippling SLIGHT Ovalocytes 1+ 1+ PUBS MCHC (33.0 - 37.0 G/DL) 33.3 34.0 Other Body Source Fld Total RBCs Counted (%) 100 100 01/13 01/13 0045 0043 Chemistry Sodium (137 - 145 mmol/L) 162 *H Potassium (3.5 - 5.1 mmol/L) 3.7 Chloride (98 - 107 mmol/L) 133 H Carbon Dioxide (22 - 30 mmol/L) 19 L Anion Gap (5 - 16) 10 BUN (9 - 20 mg/dL) 24 H Creatinine (0.7 - 1.2 mg/dL) 1.8 H Estimated GFR (>60 ml/min) 42 L Glucose (65 - 99 mg/dL) 198 H Calcium (8.4 - 10.2 mg/dL) 8.4 Phosphorus (2.5 - 4.5 mg/dL) 2.1 L Magnesium (1.6 - 2.3 mg/dL) 1.7 Total Bilirubin (0.2 - 1.3 mg/dL) 0.7 AST (17 - 59 U/L) 197 H ALT (21 - 72 U/L) 95 H Albumin (3.5 - 5.0 g/dL) 2.1 L Hematology CBC w Diff MAN DIFF ORDERED WBC (4.8 - 10.8 /CUMM) 11.9 H RBC (4.70 - 6.10 /CUMM) 3.91 L Hgb (14.0 - 18.0 G/DL) 11.8 L Hct (42 - 52 %) 34.3 L MCV (80.0 - 94.0 FL) 87.8 MCH (27.0 - 31.0 PG) 30.1 RDW (11.5 - 14.5 %) 14.4 Plt Count (130 - 400 /CUMM) 89 L MPV (7.4 - 10.4 FL) 12.6 H Gran % (42.2 - 75.2 %) 78.5 H Lymphocytes % (20.5 - 51.1 %) 14.1 L Monocytes % (1.7 - 9.3 %) 6.9 Eosinophils % (0 - 5 %) 0.3 Basophils % (0.0 - 2.0 %) 0.2 Absolute Granulocytes (1.4 - 6.5 /CUMM) 9.3 H Segmented Neutrophils (42.2 - 75.2 %) 59 Band Neutrophils (0.0 - 5.0 %) 11 H Absolute Lymphocytes (1.2 - 3.4 /CUMM) 1.7 Lymphocytes (20.5 - 51.1 %) 20 L Monocytes (1.7 - 9.3 %) 9 Absolute Monocytes (0.10 - 0.60 /CUMM) 0.8 H Eosinophils (0 - 5.0 %) 1 Absolute Eosinophils (0.0 - 0.7 /CUMM) 0 Absolute Basophils (0.0 - 0.2 /CUMM) 0 Platelet Estimate (ADEQUATE) DECREASED Polychromasia 1+ Poikilocytosis 1+ Ovalocytes 1+ PUBS MCHC (33.0 - 37.0 G/DL) 34.3 Other Body Source Fld Total RBCs Counted (%) 100 Urines Urinalysis LIGHT H Urine Color (YEL,AMB,STR) YEL Urine Clarity (CLEAR) CLDY H Urine pH (5.0 - 8.0) 6.0 Ur Specific Manley (1.001 - 1.035) 1.025 Urine Protein (NEG,<30 MG/DL) 100 H Urine Ketones (NEG) NEG Urine Nitrite (NEG) NEG Urine Bilirubin (NEG) NEG Urine Urobilinogen (0.1 - 1.0 EU/dl) 0.2 Ur Leukocyte Esterase (NEG) NEG Ur Microscopic SEDIMENT EXAMINED Urine RBC (0 - 5 /HPF) 15-25 H Urine WBC (0 - 2 /HPF) RARE Ur Epithelial Cells (NONE,FEW) RARE Urine Crystals 4+ UR AC H Urine Mucus (FEW,NONE) RARE Urine Hemoglobin (NEG) LARGE H Urine Glucose (N MG/DL) 250 H 01/12 01/12 2119 1750 Chemistry Sodium (137 - 145 mmol/L) 160 *H 162 *H Potassium (3.5 - 5.1 mmol/L) 4.0 3.5 Chloride (98 - 107 mmol/L) 131 H 134 H Carbon Dioxide (22 - 30 mmol/L) 19 L 19 L Anion Gap (5 - 16) 10 9 BUN (9 - 20 mg/dL) 27 H 31 H Creatinine (0.7 - 1.2 mg/dL) 1.8 H 1.9 H Estimated GFR (>60 ml/min) 42 L 39 L Glucose (65 - 99 mg/dL) 190 H 159 H Calcium (8.4 - 10.2 mg/dL) 8.6 8.4 Phosphorus (2.5 - 4.5 mg/dL) 1.9 L 2.0 L Magnesium (1.6 - 2.3 mg/dL) 1.8 1.9 Total Bilirubin (0.2 - 1.3 mg/dL) 0.7 0.6 AST (17 - 59 U/L) 134 H 110 H ALT (21 - 72 U/L) 85 H 77 H Albumin (3.5 - 5.0 g/dL) 2.2 L 2.1 L Hematology CBC w Diff NO MAN DIFF REQ MAN DIFF ORDERED WBC (4.8 - 10.8 /CUMM) 11.2 H 9.7 RBC (4.70 - 6.10 /CUMM) 4.06 L 3.89 L Hgb (14.0 - 18.0 G/DL) 11.9 L 11.6 L Hct (42 - 52 %) 35.8 L 34.6 L MCV (80.0 - 94.0 FL) 88.0 88.9 MCH (27.0 - 31.0 PG) 29.4 29.9 RDW (11.5 - 14.5 %) 14.6 H 14.3 Plt Count (130 - 400 /CUMM) 90 L 90 L MPV (7.4 - 10.4 FL) 11.8 H 12.0 H Gran % (42.2 - 75.2 %) 76.3 H 73.1 Lymphocytes % (20.5 - 51.1 %) 14.8 L 15.0 L Monocytes % (1.7 - 9.3 %) 8.2 11.0 H Eosinophils % (0 - 5 %) 0.4 0.5 Basophils % (0.0 - 2.0 %) 0.3 0.4 Absolute Granulocytes (1.4 - 6.5 /CUMM) 8.5 H 7.1 H Segmented Neutrophils (42.2 - 75.2 %) 64 Band Neutrophils (0.0 - 5.0 %) 17 H Absolute Lymphocytes (1.2 - 3.4 /CUMM) 1.7 1.5 Lymphocytes (20.5 - 51.1 %) 12 L Monocytes (1.7 - 9.3 %) 6 Absolute Monocytes (0.10 - 0.60 /CUMM) 0.9 H 1.1 H Absolute Eosinophils (0.0 - 0.7 /CUMM) 0 0 Basophils (0.0 - 2.0 %) 1 Absolute Basophils (0.0 - 0.2 /CUMM) 0 0 Platelet Estimate (ADEQUATE) VERIFIED BY SMEAR Normocytic RBCs VERIFIED Normochromic RBCs VERIFIED PUBS MCHC (33.0 - 37.0 G/DL) 33.3 33.6 Other Body Source Fld Total RBCs Counted (%) 100 01/12 01/12 1520 1456 Chemistry Sodium (137 - 145 mmol/L) Cancelled 162 *H Potassium (3.5 - 5.1 mmol/L) Cancelled 3.7 Chloride (98 - 107 mmol/L) Cancelled 133 H Carbon Dioxide (22 - 30 mmol/L) Cancelled 19 L Anion Gap (5 - 16) Cancelled 10 BUN (9 - 20 mg/dL) Cancelled 32 H Creatinine (0.7 - 1.2 mg/dL) Cancelled 2.1 H Estimated GFR (>60 ml/min) 35 L Glucose (65 - 99 mg/dL) Cancelled 231 H Calcium (8.4 - 10.2 mg/dL) Cancelled 8.3 L Phosphorus (2.5 - 4.5 mg/dL) Cancelled 1.4 L Magnesium (1.6 - 2.3 mg/dL) Cancelled 2.0 Total Bilirubin (0.2 - 1.3 mg/dL) Cancelled 0.5 AST (17 - 59 U/L) Cancelled 105 H ALT (21 - 72 U/L) Cancelled 75 H Albumin (3.5 - 5.0 g/dL) Cancelled 2.1 L Hematology CBC w Diff NO MAN DIFF REQ WBC (4.8 - 10.8 /CUMM) Cancelled 8.8 RBC (4.70 - 6.10 /CUMM) Cancelled 3.98 L Hgb (14.0 - 18.0 G/DL) Cancelled 11.9 L Hct (42 - 52 %) Cancelled 35.4 L MCV (80.0 - 94.0 FL) Cancelled 89.1 MCH (27.0 - 31.0 PG) Cancelled 29.9 RDW (11.5 - 14.5 %) Cancelled 14.2 Plt Count (130 - 400 /CUMM) Cancelled 99 L MPV (7.4 - 10.4 FL) Cancelled 13.0 H Gran % (42.2 - 75.2 %) 74.2 Lymphocytes % (20.5 - 51.1 %) 16.6 L Monocytes % (1.7 - 9.3 %) 8.7 Eosinophils % (0 - 5 %) 0.3 Basophils % (0.0 - 2.0 %) 0.2 Absolute Granulocytes (1.4 - 6.5 /CUMM) 6.5 Absolute Lymphocytes (1.2 - 3.4 /CUMM) 1.5 Absolute Monocytes (0.10 - 0.60 /CUMM) 0.8 H Absolute Eosinophils (0.0 - 0.7 /CUMM) 0 Absolute Basophils (0.0 - 0.2 /CUMM) 0 PUBS MCHC (33.0 - 37.0 G/DL) Cancelled 33.5 15 01/12 1202 UNK Chemistry Sodium (137 - 145 mmol/L) 163 *H Cancelled Potassium (3.5 - 5.1 mmol/L) 3.9 Cancelled Chloride (98 - 107 mmol/L) 133 H Cancelled Carbon Dioxide (22 - 30 mmol/L) 19 L Cancelled Anion Gap (5 - 16) 11 Cancelled BUN (9 - 20 mg/dL) 34 H Cancelled Creatinine (0.7 - 1.2 mg/dL) 2.3 H Cancelled Estimated GFR (>60 ml/min) 31 L Glucose (65 - 99 mg/dL) 323 H Cancelled Calcium (8.4 - 10.2 mg/dL) 8.3 L Cancelled Phosphorus (2.5 - 4.5 mg/dL) 2.4 L Cancelled Magnesium (1.6 - 2.3 mg/dL) 2.1 Cancelled Total Bilirubin (0.2 - 1.3 mg/dL) 0.5 Cancelled AST (17 - 59 U/L) 106 H Cancelled ALT (21 - 72 U/L) 79 H Cancelled Albumin (3.5 - 5.0 g/dL) 2.2 L Cancelled Hematology CBC w Diff NO MAN DIFF REQ WBC (4.8 - 10.8 /CUMM) 8.3 RBC (4.70 - 6.10 /CUMM) 4.08 L Hgb (14.0 - 18.0 G/DL) 12.0 L Hct (42 - 52 %) 35.9 L MCV (80.0 - 94.0 FL) 88.1 MCH (27.0 - 31.0 PG) 29.5 RDW (11.5 - 14.5 %) 14.3 Plt Count (130 - 400 /CUMM) 109 L MPV (7.4 - 10.4 FL) 13.1 H Gran % (42.2 - 75.2 %) 72.9 Lymphocytes % (20.5 - 51.1 %) 18.0 L Monocytes % (1.7 - 9.3 %) 8.6 Eosinophils % (0 - 5 %) 0.2 Basophils % (0.0 - 2.0 %) 0.3 Absolute Granulocytes (1.4 - 6.5 /CUMM) 6.1 Absolute Lymphocytes (1.2 - 3.4 /CUMM) 1.5 Absolute Monocytes (0.10 - 0.60 /CUMM) 0.7 H Absolute Eosinophils (0.0 - 0.7 /CUMM) 0 Absolute Basophils (0.0 - 0.2 /CUMM) 0 PUBS MCHC (33.0 - 37.0 G/DL) 33.5 01/12 01/12 0900 0850 Blood Gas pH (7.35 - 7.45 PH) 7.38 pCO2 (35 - 45 TORR) 27 L pO2 (80 - 100 TORR) 82 HCO3 (21 - 28 MEQ/L) 16 L ABG O2 Sat (Measured) (>96.0 %) 96.0 Carboxyhemoglobin (1.5 - 5.0 %) 0.6 L O2 Concentration % .30 Temperature (97.0 - 100.0 FARH) 98.3 Respiration Rate (BPM) 24 O2 Delivery Method VENT Vent Mode VC-AC Expiratory Pressure (CMH2O/P) 5 Tidal Volume (CC) 650 Chemistry Sodium (137 - 145 mmol/L) 163 *H Potassium (3.5 - 5.1 mmol/L) 4.0 Chloride (98 - 107 mmol/L) 136 H Carbon Dioxide (22 - 30 mmol/L) 18 L Anion Gap (5 - 16) 9 BUN (9 - 20 mg/dL) 37 H Creatinine (0.7 - 1.2 mg/dL) 2.5 H Estimated GFR (>60 ml/min) 28 L Glucose (65 - 99 mg/dL) 348 H Calcium (8.4 - 10.2 mg/dL) 8.4 Phosphorus (2.5 - 4.5 mg/dL) 1.5 L Magnesium (1.6 - 2.3 mg/dL) 2.3 Total Bilirubin (0.2 - 1.3 mg/dL) 0.5 AST (17 - 59 U/L) 90 H ALT (21 - 72 U/L) 75 H Albumin (3.5 - 5.0 g/dL) 2.2 L Hematology CBC w Diff NO MAN DIFF REQ WBC (4.8 - 10.8 /CUMM) 8.2 RBC (4.70 - 6.10 /CUMM) 4.16 L Hgb (14.0 - 18.0 G/DL) 12.4 L Hct (42 - 52 %) 36.4 L MCV (80.0 - 94.0 FL) 87.5 MCH (27.0 - 31.0 PG) 29.7 RDW (11.5 - 14.5 %) 14.4 Plt Count (130 - 400 /CUMM) 111 L MPV (7.4 - 10.4 FL) 12.8 H Gran % (42.2 - 75.2 %) 74.4 Lymphocytes % (20.5 - 51.1 %) 16.9 L Monocytes % (1.7 - 9.3 %) 8.4 Eosinophils % (0 - 5 %) 0.2 Basophils % (0.0 - 2.0 %) 0.1 Absolute Granulocytes (1.4 - 6.5 /CUMM) 6.1 Absolute Lymphocytes (1.2 - 3.4 /CUMM) 1.4 Absolute Monocytes (0.10 - 0.60 /CUMM) 0.7 H Absolute Eosinophils (0.0 - 0.7 /CUMM) 0 Absolute Basophils (0.0 - 0.2 /CUMM) 0 PUBS MCHC (33.0 - 37.0 G/DL) 34.0 Miscellaneous Phlebotomy Draw Site R BRACH CXR Findings: 1. Endotracheal tube 4 cm above marcello. 2. Low lung volumes. Subsegmental atelectasis right base. No definite airspace consolidation or effusion. Miscellaneous Findings: EEG: Abnormal EEG due to slowing of the backgrounds with rare intermittent periodic discharges that could potentially be epileptogenic. Please correlate clinically. Impression/Plan Impression/Problem List Impression: 41 y/o M with no prior history of DM who is admitted for severe DKA with multisystem organ failure. DKA has resolved but patient remains intubated and partially sedated. Problem List: 1. Diabetic hyperosmolar coma 2. DKA (diabetic ketoacidoses) 3. Acute renal failure 4. Metabolic encephalopathy 5. Acute respiratory failure 6. Pneumonia 7. Hypernatremia 8. Thrombocytopenia 9. Pancreatitis 10. Hyperlipidemia 11. Sepsis 12. Hypertriglyceridemia 13. Seizure 14. Hypovolemia Pain Ratin Tomorrow's Labs & Rationales: CBC and ICU bundle (critically ill patient in DKA) Plan Respiratory: #Acute respiratory failure: Secondary to metabolic encephalopathy. On mechanical ventilation day #3 with the following current vent settings: VC-AC mode, tidal volume 650, FiO2 40%, RR 14 and PEEP 5. * Check CXR daily. * Perform weaning trial and attempt to extubate patient today. Before extubation administer single dose of Lasix IV 20 mg. * Continue fentanyl IV drip and Ativan 2 mg IV Q1H PRN for sedation. * Continue to wean off sedation. Infectious Diseases: #Pneumonia: CXR yesterday with patchy right basilar opacity suspicious for aspiration pneumonia vs CAP. Sputum Cx with light growth of gram negative rods and moderate growth of yeast and Staph aureus. Continues to spike fevers, Tmax 101.7 this AM. Mild leukocytosis to 10.9. On day 3 of Unasyn and day 2 of vancomycin. BCx from admission NGTD. * Continue Unasyn 1.5 g IV Q12H. * Continue vancomycin dosing based on renal function. Will dose 2 g today as creatinine has improved. * Follow sputum Cx speciation and susceptibilities. * Repeat BCx and sputum Cx ordered. * If fever persists, check abdominal US to rule out intraabdominal pathology. Cardiovascular: #Hypovolemic shock: Resolved with aggressive IVF hydration. Patient continues to be hemodynamically stable off pressors. * Remove femoral line. * Continue telemetry monitoring. * Continue aggressive IVF hydration. Hematology: #Thrombocytopenia: Platelets were 223 on admission but have gradually been downtrending, 78 today. H/H stable. Concerning for HIT. * HIT antibody panel ordered. * HSQ discontinued. ALPs for DVT PPx. Metabolic: #DKA/hyperosmolar hyperglycemic state: Remained on insulin drip overnight with gradual normalization of multiple electrolyte abnormalities. Corrected sodium remains elevated but has improved to 157 from 160s yesterday. Currently on 20 mEq KCl in 1/2 NS @ 150 cc/hr. * Endocrinology and nephrology following. Appreciate their recs. * Transition to subcutaneous insulin. Start Levemir 30 units SQ BID and Novolog SSI Q4H as follows: for glucose 100-150 give 8 units of Novolog, 151-200 give 10 units, 201-250 give 12 units, for 251-300 give 14 units, for 301-350 give 16 units and for 351-400 give 18 units of Novolog. Will discontinue insulin drip two hours after the first dose of Levemir and first dose of Novolog. * Continue 200 mL free water flushes through the NG tube every 3 hours for correction of hypernatremia. * Continue to monitor electrolytes and replete potassium, magnesium and phosphorus aggressively. * Switch fluids to 40 mEq of KCl in D51/2NS @ 150 cc/hr. * Anti-VINAY antibody ordered to see if patient has type 1 or type 2 diabetes. #LAMBERTO: Creatinine has further improved to 1.5 this morning. Continues to have good urine output. * Nephrology following. Appreciate their recs. * Continue to monitor strict I/Os and kidney function. #Acute pancreatitis: Likely secondary to hypovolemic shock. Amylase and lipase markedly elevated on admission (amylase 481 and lipase 6960), but improved yesterday (amylase 402 and lipase 2781). * Re-check amylase and lipase tomorrow. #Hyperlipidemia/hypertriglyceridemia: Cholesterol 242 and triglycerides 839 on admission. Likely contributing to pancreatitis. * Add lipid panel to AM labs. Alimentary: NPO Neurological: #Metabolic encephalopathy: Mental status significantly improved since yesterday, patient is a lot more awake and alert. He is making eye contact and following commands. * Neurology consulted. Appreciate their recs. * Fentanyl IV drip and Ativan 2 mg IV Q1H PRN for agitation. * Avoid rapid correction of hypernatremia to prevent cerebral edema. #New onset seizures: Suspected seizure with 20 seconds of upwardly deviating gaze on the day of admission (01/11/17). Started on Keppra with no repeat seizures subsequently. Abnormal EEG with rare intermittent periodic discharges which could be epileptogenic. * Continue Keppra 500 mg IV BID. Skin: #Stage 2 pressure ulcers: Multiple stage 2 pressure ulcers noted to left buttock. * Management per wound care team. * Apply barrier cream to affected areas Qshift and PRN. * Reposition and turn patient frequently. * Patient placed on category 2 mattress. * Nutrition following. Appreciate their recs. Skin Care Protocol Ordered? Yes DVT/Prophylaxis: mechanical, pharmacological Code Status: Full Code
--- NOTE | 2017-01-13 08:28 | RADIOLOGY REPORT ---
EXAMINATION: XR PORTABLE CHEST CLINICAL INFORMATION: Evaluate for acute changes. Patient intubated on mechanical ventilation. COMPARISON: X-ray chest 01/12/2017. TECHNIQUE: Portable AP view of the chest is performed at 0624 hours. FINDINGS: There are low lung volumes with inspiration to the posterior eighth ribs. Endotracheal tube is approximately 4 cm above marcello. Nasogastric tube is again present and faintly seen with distal end below the diaphragm left upper quadrant. There is subsegmental disc atelectasis right base. There is no definite airspace consolidation or effusion. The heart is within normal size. Hilar and mediastinal contours are normal. IMPRESSION: 1. Endotracheal tube 4 cm above marcello. 2. Low lung volumes. Subsegmental atelectasis right base. No definite airspace consolidation or effusion.
--- NOTE | 2017-01-13 10:10 | PN- CRCU ---
Subjective HPI/Critical Care Issues: Doing much better today more awake and responding to commands Moves all limbs Follows commands Continues to be febrile His sodium is coming down Patient intubated partially sedated Review of symptoms could not be obtained Making eye contact SIGNIFICANT DATA Sodium was 157 potassium lobe magnesium below amylase lipase pending alkaline phosphatase pending his previous cholesterol was elevated triglyceride was 839 CPK was elevated upon admission white count 10.9 platelets have dropped significantly Objective Current Medications: Current Medications Sig/Nelida Start time Last Medication Dose Route Stop Time Status Admin Acetaminophen 1,000 MG Q6P PRN 01/11 0745 01/13 N/A 1 UNIT IV 0800 Ampicillin Sodium/ 1,500 MG Q6 01/12 2359 AC 01/13 Sulbactam Sodium IV 0629 Sodium Chloride 100 ML Ampicillin Sodium/ 1,500 MG Q12H 01/11 1700 DC 01/12 Sulbactam Sodium IV 1624 Sodium Chloride 100 ML Fentanyl Citrate 1,000 MCG Q4H 01/13 0500 01/13 Dextrose/Water 250 ML IV 0535 Fentanyl Citrate 1,000 MCG Q14H 01/11 2200 NC 01/13 Dextrose/Water 250 ML IV 0046 Heparin Sodium 0 .K-MED ONE 01/11 0723 CAN (Porcine) .ROUTE Heparin Sodium 5,000 UNIT Q8 01/11 0600 NC 01/13 (Porcine) SC 0629 Insulin Aspart 0 Q4 01/13 1000 AC SC Insulin Detemir 30 UNITS BID 01/13 1000 AC 01/13 SC 0908 Insulin Human Regular 100 UNIT Q12H 01/11 0445 01/13 Sodium Chloride 100 ML IV 01/13 1200 0012 Levetiracetam 500 MG BID 01/13 1000 AC Sodium Chloride 100 ML IV Levetiracetam 500 MG BID 01/11 1230 DC 01/12 Sodium Chloride 100 ML IV 01/13 0200 2224 Lorazepam 2 MG Q1 PRN 01/11 1200 AC 01/11 IV 1222 Norepinephrine 4 MG Q3H 01/11 2200 DC 01/12 Sodium Chloride 250 ML IV 0114 Pantoprazole Sodium 40 MG BID 01/11 1138 AC 01/12 IV 2221 Potassium Chloride 40 MEQ Q6H 01/13 0800 AC Dextrose/Sodium 1,000 ML IV Chloride Potassium Chloride 20 MEQ Q6H 01/13 0000 DC 01/13 Dextrose/Sodium 1,000 ML IV 0012 Chloride Potassium Chloride 20 MEQ ONCE ONE 01/12 194 DC 01/12 IV 01/12 194 2004 Potassium Chloride 20 MEQ Q8H 01/12 1615 DC 01/12 Dextrose/Sodium 1,000 ML IV 1611 Chloride Potassium Chloride 40 MEQ Q4H 01/12 0130 DC 01/12 Sodium Chloride 1,000 ML IV 1321 Potassium Phosphate 15 mMol ONE ONE 01/13 0745 AC 01/13 Sodium Chloride 250 ML IV 01/13 1148 0909 Vancomycin HCl 1,000 MG DAILY 01/13 1000 CAN Dextrose/Water 250 ML IV Vancomycin HCl 2,000 MG ONCE ONE 01/13 0330 DC 01/13 Dextrose/Water 500 ML IV 01/13 0529 0351 Vancomycin HCl 1,500 MG ONCE ONE 01/12 0900 DC 01/12 Dextrose/Water 250 ML IV 01/12 1059 1017 Vital Signs & I&O Last 24 Hrs of Vitals and I&O: Vital Signs Date Time Temp Pulse Resp B/P Pulse O2 O2 Flow FiO2 Ox Delivery Rate 01/13 0800 101.7 01/13 0800 96 Ventilator 40% 01/13 0800 101.7 109 21 110/70 96 Ventilator 40% 01/13 0550 40 01/13 0400 95 Ventilator 40% 01/13 0321 40 01/13 0139 40 01/13 0039 30 01/13 0000 93 Ventilator 30% 01/13 0000 100.1 135 35 130/60 93 Ventilator 30% 01/12 2221 30 01/12 2100 101.5 01/12 2007 101.7 01/12 2000 96 Ventilator 30% 01/12 1931 30 01/12 1725 30 01/12 1600 98 Ventilator 30% 01/12 1600 97.6 125 20 108/56 98 Ventilator 30% 01/12 1402 101.7 01/12 1344 30 01/12 1200 94 Ventilator 30% 01/12 1100 30 Intake & Output 01/13 1600 01/13 0800 01/13 0000 Intake Total 2714 3052 Output Total 1000 800 Balance 1714 2252 Intake, IV 1914 2252 Intake, Other 800 Intake, Tube 800 Irrigant Number 0 0 Bowel Movements Output, Urine 1000 800 Patient 265 lb Weight Impression/Plan Impression/Plan Impression/Plan: 41 y/o M with no prior history of DM who is admitted for severe DKA with multisystem organ failure. Currently hemodynamically stable off pressors, but remains intubated and on insulin drip. IMPRESSION * Improving Significant hyperosmolar hyperglycemic diabetic ketoacidosis state * Improving Acute renal insufficiency due to above and hypovolemia * Acute respiratory failure related to metabolic encephalopathy, sepsis * Resolved hypotension requiring vasopressors initially due to hypovolemia and improvement * Improving but Significantly reduced mental status related to hyperosmolar state as his corrected sodium was significantly elevated and osmolality calculated was more than 380. * Probable seizures as noted in the EEG but seems less likely * Ongoing fever with sepsis probably due to Asp pna vs cap now has staph and gram neg rods in evelina sputum * New onset thrombocytopenia. Patient is on heparin * Pancreatitis as noted upon admission * Significant hypertriglyceridemia and hyperlipidemia which may have precipitated pancreatitis as well * REsolved Mild upper GI bleed most likely related to gastritis from above- mentioned factors Significant leukocytosis most likely related to stress, probable aspiration RECOMMENDATION * Slowly wean off sedation and put him on spontaneous breathing trial and extubate today * IV fluids to contine changes insulin per endocrine note * Discontinue all heparin, checkHIT antibody panel * Use Venodyne boots * Remove femoral line * Insulin drip to continue per endocrine * Check fingerstick glucose and metabolic panel * IV PPI bid * COnt antibiotics for now and continue vancomycin will await cultures * Wean off sedation more * Continue free water down NG. Once he is extubated if he is unable to swallow we will give him D5 water intravenously * Add lipid panel to this morning's labs, alkaline phosphatase this morning's labs * Replace potassium aggressively * 2 g of magnesium intravenously * Before extubation given one dose of intravenous Lasix 20 mg * Check amylase lipase tomorrow * If he continues to have fever we'll check abdominal ultrasound to rule out any other pathology. And will also do 2 sets of blood cultures and repeat sputum culture Patient is critically ill TTS 40 minutes Code Status: Full Code
--- NOTE | 2017-01-13 11:23 | PN- Nephrology ---
Assessment/Plan Assessment: 1. DKA - resolved 2. Hypernatremia - improving 3. Multiple electrolyte abnormalities gradually normalizing Suggestion: 1. Continue current management; hopefully can be extubated today 2. Continue to monitor chemistries Subjective Subjective: Patient awake, alert, still intubated but very communicative. Urine output 2900 mL yesterday. Renal function continues to improve albeit slowly now. Objective Vital Signs and I&Os Vital Signs Date Time Temp Pulse Resp B/P Pulse O2 O2 Flow FiO2 Ox Delivery Rate 01/13 0915 40 01/13 0800 101.7 01/13 0800 96 Ventilator 40% 01/13 0800 101.7 109 21 110/70 96 Ventilator 40% 01/13 0550 40 01/13 0400 95 Ventilator 40% 01/13 0321 40 01/13 0139 40 01/13 0039 30 01/13 0000 93 Ventilator 30% 01/13 0000 100.1 135 35 130/60 93 Ventilator 30% 01/12 2221 30 01/12 2100 101.5 01/12 2007 101.7 01/12 2000 96 Ventilator 30% 01/12 1931 30 01/12 1725 30 01/12 1600 98 Ventilator 30% 01/12 1600 97.6 125 20 108/56 98 Ventilator 30% 01/12 1402 101.7 01/12 1344 30 01/12 1200 94 Ventilator 30% Intake & Output 01/13 1600 01/13 0400 01/12 1600 01/12 0400 01/11 1600 01/11 0400 Intake Total 2714 3052 6376.3 5010 8578 1000 Output Total 1098 874 8389 780 2505 200 Balance 1714 2252 4276.3 4230 6073 800 Intake, IV 1914 2252 5776.3 4880 8548 1000 Intake, Oral 400 Intake, Other 800 200 130 30 Intake, Tube 800 Irrigant Number 0 0 1 0 Bowel Movements Output, 200 550 Gastric Drainage Output, Urine 3626 100 1163 780 1955 200 Patient 265 lb 265 lb Weight Physical Exam: General: Well-developed, obese, intubated, awake and responsive white male Skin: No rash or jaundice HEENT: Conjunctivae pink, sclerae anicteric Neck: Without masses or thyromegaly, no supraclavicular or cervical adenopathy Chest: Clear anterolaterally Heart: Regular rate and rhythm without S3 or rub Abdomen: Soft without palpable masses or organomegaly Extremities: Without cyanosis or edema Neuro: Awake, alert, interactive, follows commands appropriately, no focal findings, no asterixis or myoclonus Current Medications: Current Medications Sig/Nelida Start time Last Medication Dose Route Stop Time Status Admin Acetaminophen 1,000 MG Q6P PRN 01/11 0745 01/13 N/A 1 UNIT IV 0800 Ampicillin Sodium/ 1,500 MG Q6 01/12 2359 AC 01/13 Sulbactam Sodium IV 0629 Sodium Chloride 100 ML Ampicillin Sodium/ 1,500 MG Q12H 01/11 1700 DC 01/12 Sulbactam Sodium IV 1624 Sodium Chloride 100 ML Fentanyl Citrate 1,000 MCG Q4H 01/13 0500 AC 01/13 Dextrose/Water 250 ML IV 0535 Fentanyl Citrate 1,000 MCG Q14H 01/11 2200 DC 01/13 Dextrose/Water 250 ML IV 0046 Heparin Sodium 0 .STK-MED ONE 01/11 0723 CAN (Porcine) .ROUTE Heparin Sodium 5,000 UNIT Q8 01/11 0600 ID 01/13 (Porcine) SC 0629 Insulin Aspart 0 Q4 01/13 1000 AC SC Insulin Detemir 30 UNITS BID 01/13 1000 AC 01/13 SC 0908 Insulin Human Regular 100 UNIT Q12H 01/11 0445 AC 01/13 Sodium Chloride 100 ML IV 01/13 1200 0012 Levetiracetam 500 MG BID 01/13 1000 AC 01/13 Sodium Chloride 100 ML IV 1055 Levetiracetam 500 MG BID 01/11 1230 DC 01/12 Sodium Chloride 100 ML IV 01/13 0200 2224 Lorazepam 2 MG Q1 PRN 01/11 1200 AC 01/11 IV 1222 Magnesium Sulfate 1 GM ONCE ONE 01/13 1500 AC Dextrose/Water 100 ML IV 01/13 1859 Magnesium Sulfate 1 GM ONCE ONE 01/13 1100 AC Dextrose/Water 100 ML IV 01/13 1459 Norepinephrine 4 MG Q3H 01/11 2200 DC 01/12 Sodium Chloride 250 ML IV 0114 Pantoprazole Sodium 40 MG BID 01/11 1138 AC 01/13 IV 1003 Potassium Chloride 40 MEQ Q6H 01/13 0800 AC 01/13 Dextrose/Sodium 1,000 ML IV 1055 Chloride Potassium Chloride 20 MEQ Q6H 01/13 0000 DC 01/13 Dextrose/Sodium 1,000 ML IV 0012 Chloride Potassium Chloride 20 MEQ ONCE ONE 01/12 1945 DC 01/12 IV 01/12 Potassium Chloride 20 MEQ Q8H 01/12 1615 DC 01/12 Dextrose/Sodium 1,000 ML IV 1611 Chloride Potassium Chloride 40 MEQ Q4H 01/12 0130 DC 01/12 Sodium Chloride 1,000 ML IV 1321 Potassium Phosphate 15 mMol ONE ONE 01/13 0745 AC 01/13 Sodium Chloride 250 ML IV 01/13 1148 0909 Vancomycin HCl 1,000 MG DAILY 01/13 1000 CAN Dextrose/Water 250 ML IV Vancomycin HCl 2,000 MG ONCE ONE 01/13 0330 DC 01/13 Dextrose/Water 500 ML IV 01/13 0529 0351 Results Pertinent Lab Results: Laboratory Tests 01/13 01/13 0546 0310 Chemistry Sodium (137 - 145 mmol/L) 157 *H 160 *H Potassium (3.5 - 5.1 mmol/L) 3.3 L 3.7 Chloride (98 - 107 mmol/L) 129 H 131 H Carbon Dioxide (22 - 30 mmol/L) 21 L 21 L Anion Gap (5 - 16) 7 8 BUN (9 - 20 mg/dL) 20 22 H Creatinine (0.7 - 1.2 mg/dL) 1.5 H 1.6 H Estimated GFR (>60 ml/min) 51 L 48 L Glucose (65 - 99 mg/dL) 236 H 205 H Calcium (8.4 - 10.2 mg/dL) 8.1 L 8.2 L Phosphorus (2.5 - 4.5 mg/dL) 2.0 L 2.1 L Magnesium (1.6 - 2.3 mg/dL) 1.6 1.6 Total Bilirubin (0.2 - 1.3 mg/dL) 0.6 0.6 AST (17 - 59 U/L) 207 H 215 H ALT (21 - 72 U/L) 97 H 102 H Alkaline Phosphatase (< 127 U/L) 78 Albumin (3.5 - 5.0 g/dL) 1.9 L 2.0 L Triglycerides (<150 mg/dL) 338 H Cholesterol (< 200 MG/DL) 124 LDL Cholesterol, Calc (65 - 129 mg/dL) 30 L HDL Cholesterol (40 - 60 mg/dL) 27 L Cholesterol/HDL Ratio (0.00 - 4.88 %) 5 H Hematology CBC w Diff MAN DIFF ORDERED MAN DIFF ORDERED WBC (4.8 - 10.8 /CUMM) 10.9 H 10.9 H RBC (4.70 - 6.10 /CUMM) 3.64 L 3.78 L Hgb (14.0 - 18.0 G/DL) 10.8 L 11.3 L Hct (42 - 52 %) 32.4 L 33.3 L MCV (80.0 - 94.0 FL) 89.0 87.9 MCH (27.0 - 31.0 PG) 29.6 29.9 RDW (11.5 - 14.5 %) 14.4 14.2 Plt Count (130 - 400 /CUMM) 78 L 80 L MPV (7.4 - 10.4 FL) 13.6 H 12.0 H Gran % (42.2 - 75.2 %) 78.2 H 77.9 H Lymphocytes % (20.5 - 51.1 %) 15.3 L 11.4 L Monocytes % (1.7 - 9.3 %) 6.1 10.5 H Eosinophils % (0 - 5 %) 0.3 0.2 Basophils % (0.0 - 2.0 %) 0.1 0 L Absolute Granulocytes (1.4 - 6.5 /CUMM) 8.5 H 8.5 H Segmented Neutrophils (42.2 - 75.2 %) 61 76 H Band Neutrophils (0.0 - 5.0 %) 11 H 14 H Absolute Lymphocytes (1.2 - 3.4 /CUMM) 1.7 1.2 Lymphocytes (20.5 - 51.1 %) 21 8 L Monocytes (1.7 - 9.3 %) 4 1 L Absolute Monocytes (0.10 - 0.60 /CUMM) 0.7 H 1.1 H Eosinophils (0 - 5.0 %) 1 Absolute Eosinophils (0.0 - 0.7 /CUMM) 0 0 Basophils (0.0 - 2.0 %) 1 Absolute Basophils (0.0 - 0.2 /CUMM) 0 0 Metamyelocytes (0.0 - 1.0 %) 1 1 Platelet Estimate (ADEQUATE) DECREASED DECREASED Polychromasia 1+ 1+ Poikilocytosis 1+ 1+ Basophilic Stippling SLIGHT Ovalocytes 1+ 1+ PUBS MCHC (33.0 - 37.0 G/DL) 33.3 34.0 Other Body Source Fld Total RBCs Counted (%) 100 100 01/13 01/13 0045 0043 Chemistry Sodium (137 - 145 mmol/L) 162 *H Potassium (3.5 - 5.1 mmol/L) 3.7 Chloride (98 - 107 mmol/L) 133 H Carbon Dioxide (22 - 30 mmol/L) 19 L Anion Gap (5 - 16) 10 BUN (9 - 20 mg/dL) 24 H Creatinine (0.7 - 1.2 mg/dL) 1.8 H Estimated GFR (>60 ml/min) 42 L Glucose (65 - 99 mg/dL) 198 H Calcium (8.4 - 10.2 mg/dL) 8.4 Phosphorus (2.5 - 4.5 mg/dL) 2.1 L Magnesium (1.6 - 2.3 mg/dL) 1.7 Total Bilirubin (0.2 - 1.3 mg/dL) 0.7 AST (17 - 59 U/L) 197 H ALT (21 - 72 U/L) 95 H Albumin (3.5 - 5.0 g/dL) 2.1 L Hematology CBC w Diff MAN DIFF ORDERED WBC (4.8 - 10.8 /CUMM) 11.9 H RBC (4.70 - 6.10 /CUMM) 3.91 L Hgb (14.0 - 18.0 G/DL) 11.8 L Hct (42 - 52 %) 34.3 L MCV (80.0 - 94.0 FL) 87.8 MCH (27.0 - 31.0 PG) 30.1 RDW (11.5 - 14.5 %) 14.4 Plt Count (130 - 400 /CUMM) 89 L MPV (7.4 - 10.4 FL) 12.6 H Gran % (42.2 - 75.2 %) 78.5 H Lymphocytes % (20.5 - 51.1 %) 14.1 L Monocytes % (1.7 - 9.3 %) 6.9 Eosinophils % (0 - 5 %) 0.3 Basophils % (0.0 - 2.0 %) 0.2 Absolute Granulocytes (1.4 - 6.5 /CUMM) 9.3 H Segmented Neutrophils (42.2 - 75.2 %) 59 Band Neutrophils (0.0 - 5.0 %) 11 H Absolute Lymphocytes (1.2 - 3.4 /CUMM) 1.7 Lymphocytes (20.5 - 51.1 %) 20 L Monocytes (1.7 - 9.3 %) 9 Absolute Monocytes (0.10 - 0.60 /CUMM) 0.8 H Eosinophils (0 - 5.0 %) 1 Absolute Eosinophils (0.0 - 0.7 /CUMM) 0 Absolute Basophils (0.0 - 0.2 /CUMM) 0 Platelet Estimate (ADEQUATE) DECREASED Polychromasia 1+ Poikilocytosis 1+ Ovalocytes 1+ PUBS MCHC (33.0 - 37.0 G/DL) 34.3 Other Body Source Fld Total RBCs Counted (%) 100 Urines Urinalysis LIGHT H Urine Color (YEL,AMB,STR) YEL Urine Clarity (CLEAR) CLDY H Urine pH (5.0 - 8.0) 6.0 Ur Specific [place] (1.001 - 1.035) 1.025 Urine Protein (NEG,<30 MG/DL) 100 H Urine Ketones (NEG) NEG Urine Nitrite (NEG) NEG Urine Bilirubin (NEG) NEG Urine Urobilinogen (0.1 - 1.0 EU/dl) 0.2 Ur Leukocyte Esterase (NEG) NEG Ur Microscopic SEDIMENT EXAMINED Urine RBC (0 - 5 /HPF) 15-25 H Urine WBC (0 - 2 /HPF) RARE Ur Epithelial Cells (NONE,FEW) RARE Urine Crystals 4+ UR AC H Urine Mucus (FEW,NONE) RARE Urine Hemoglobin (NEG) LARGE H Urine Glucose (N MG/DL) 250 H 01/12 01/12 2119 1750 Chemistry Sodium (137 - 145 mmol/L) 160 *H 162 *H Potassium (3.5 - 5.1 mmol/L) 4.0 3.5 Chloride (98 - 107 mmol/L) 131 H 134 H Carbon Dioxide (22 - 30 mmol/L) 19 L 19 L Anion Gap (5 - 16) 10 9 BUN (9 - 20 mg/dL) 27 H 31 H Creatinine (0.7 - 1.2 mg/dL) 1.8 H 1.9 H Estimated GFR (>60 ml/min) 42 L 39 L Glucose (65 - 99 mg/dL) 190 H 159 H Calcium (8.4 - 10.2 mg/dL) 8.6 8.4 Phosphorus (2.5 - 4.5 mg/dL) 1.9 L 2.0 L Magnesium (1.6 - 2.3 mg/dL) 1.8 1.9 Total Bilirubin (0.2 - 1.3 mg/dL) 0.7 0.6 AST (17 - 59 U/L) 134 H 110 H ALT (21 - 72 U/L) 85 H 77 H Albumin (3.5 - 5.0 g/dL) 2.2 L 2.1 L Hematology CBC w Diff NO MAN DIFF REQ MAN DIFF ORDERED WBC (4.8 - 10.8 /CUMM) 11.2 H 9.7 RBC (4.70 - 6.10 /CUMM) 4.06 L 3.89 L Hgb (14.0 - 18.0 G/DL) 11.9 L 11.6 L Hct (42 - 52 %) 35.8 L 34.6 L MCV (80.0 - 94.0 FL) 88.0 88.9 MCH (27.0 - 31.0 PG) 29.4 29.9 RDW (11.5 - 14.5 %) 14.6 H 14.3 Plt Count (130 - 400 /CUMM) 90 L 90 L MPV (7.4 - 10.4 FL) 11.8 H 12.0 H Gran % (42.2 - 75.2 %) 76.3 H 73.1 Lymphocytes % (20.5 - 51.1 %) 14.8 L 15.0 L Monocytes % (1.7 - 9.3 %) 8.2 11.0 H Eosinophils % (0 - 5 %) 0.4 0.5 Basophils % (0.0 - 2.0 %) 0.3 0.4 Absolute Granulocytes (1.4 - 6.5 /CUMM) 8.5 H 7.1 H Segmented Neutrophils (42.2 - 75.2 %) 64 Band Neutrophils (0.0 - 5.0 %) 17 H Absolute Lymphocytes (1.2 - 3.4 /CUMM) 1.7 1.5 Lymphocytes (20.5 - 51.1 %) 12 L Monocytes (1.7 - 9.3 %) 6 Absolute Monocytes (0.10 - 0.60 /CUMM) 0.9 H 1.1 H Absolute Eosinophils (0.0 - 0.7 /CUMM) 0 0 Basophils (0.0 - 2.0 %) 1 Absolute Basophils (0.0 - 0.2 /CUMM) 0 0 Platelet Estimate (ADEQUATE) VERIFIED BY SMEAR Normocytic RBCs VERIFIED Normochromic RBCs VERIFIED PUBS MCHC (33.0 - 37.0 G/DL) 33.3 33.6 Other Body Source Fld Total RBCs Counted (%) 100 01/12 01/12 1520 1456 Chemistry Sodium (137 - 145 mmol/L) Cancelled 162 *H Potassium (3.5 - 5.1 mmol/L) Cancelled 3.7 Chloride (98 - 107 mmol/L) Cancelled 133 H Carbon Dioxide (22 - 30 mmol/L) Cancelled 19 L Anion Gap (5 - 16) Cancelled 10 BUN (9 - 20 mg/dL) Cancelled 32 H Creatinine (0.7 - 1.2 mg/dL) Cancelled 2.1 H Estimated GFR (>60 ml/min) 35 L Glucose (65 - 99 mg/dL) Cancelled 231 H Calcium (8.4 - 10.2 mg/dL) Cancelled 8.3 L Phosphorus (2.5 - 4.5 mg/dL) Cancelled 1.4 L Magnesium (1.6 - 2.3 mg/dL) Cancelled 2.0 Total Bilirubin (0.2 - 1.3 mg/dL) Cancelled 0.5 AST (17 - 59 U/L) Cancelled 105 H ALT (21 - 72 U/L) Cancelled 75 H Albumin (3.5 - 5.0 g/dL) Cancelled 2.1 L Hematology CBC w Diff NO MAN DIFF REQ WBC (4.8 - 10.8 /CUMM) Cancelled 8.8 RBC (4.70 - 6.10 /CUMM) Cancelled 3.98 L Hgb (14.0 - 18.0 G/DL) Cancelled 11.9 L Hct (42 - 52 %) Cancelled 35.4 L MCV (80.0 - 94.0 FL) Cancelled 89.1 MCH (27.0 - 31.0 PG) Cancelled 29.9 RDW (11.5 - 14.5 %) Cancelled 14.2 Plt Count (130 - 400 /CUMM) Cancelled 99 L MPV (7.4 - 10.4 FL) Cancelled 13.0 H Gran % (42.2 - 75.2 %) 74.2 Lymphocytes % (20.5 - 51.1 %) 16.6 L Monocytes % (1.7 - 9.3 %) 8.7 Eosinophils % (0 - 5 %) 0.3 Basophils % (0.0 - 2.0 %) 0.2 Absolute Granulocytes (1.4 - 6.5 /CUMM) 6.5 Absolute Lymphocytes (1.2 - 3.4 /CUMM) 1.5 Absolute Monocytes (0.10 - 0.60 /CUMM) 0.8 H Absolute Eosinophils (0.0 - 0.7 /CUMM) 0 Absolute Basophils (0.0 - 0.2 /CUMM) 0 PUBS MCHC (33.0 - 37.0 G/DL) Cancelled 33.5 02 02 1202 UNK Chemistry Sodium (137 - 145 mmol/L) 163 *H Cancelled Potassium (3.5 - 5.1 mmol/L) 3.9 Cancelled Chloride (98 - 107 mmol/L) 133 H Cancelled Carbon Dioxide (22 - 30 mmol/L) 19 L Cancelled Anion Gap (5 - 16) 11 Cancelled BUN (9 - 20 mg/dL) 34 H Cancelled Creatinine (0.7 - 1.2 mg/dL) 2.3 H Cancelled Estimated GFR (>60 ml/min) 31 L Glucose (65 - 99 mg/dL) 323 H Cancelled Calcium (8.4 - 10.2 mg/dL) 8.3 L Cancelled Phosphorus (2.5 - 4.5 mg/dL) 2.4 L Cancelled Magnesium (1.6 - 2.3 mg/dL) 2.1 Cancelled Total Bilirubin (0.2 - 1.3 mg/dL) 0.5 Cancelled AST (17 - 59 U/L) 106 H Cancelled ALT (21 - 72 U/L) 79 H Cancelled Albumin (3.5 - 5.0 g/dL) 2.2 L Cancelled Hematology CBC w Diff NO MAN DIFF REQ WBC (4.8 - 10.8 /CUMM) 8.3 RBC (4.70 - 6.10 /CUMM) 4.08 L Hgb (14.0 - 18.0 G/DL) 12.0 L Hct (42 - 52 %) 35.9 L MCV (80.0 - 94.0 FL) 88.1 MCH (27.0 - 31.0 PG) 29.5 RDW (11.5 - 14.5 %) 14.3 Plt Count (130 - 400 /CUMM) 109 L MPV (7.4 - 10.4 FL) 13.1 H Gran % (42.2 - 75.2 %) 72.9 Lymphocytes % (20.5 - 51.1 %) 18.0 L Monocytes % (1.7 - 9.3 %) 8.6 Eosinophils % (0 - 5 %) 0.2 Basophils % (0.0 - 2.0 %) 0.3 Absolute Granulocytes (1.4 - 6.5 /CUMM) 6.1 Absolute Lymphocytes (1.2 - 3.4 /CUMM) 1.5 Absolute Monocytes (0.10 - 0.60 /CUMM) 0.7 H Absolute Eosinophils (0.0 - 0.7 /CUMM) 0 Absolute Basophils (0.0 - 0.2 /CUMM) 0 PUBS MCHC (33.0 - 37.0 G/DL) 33.5 01/12 02 0900 0850 Blood Gas pH (7.35 - 7.45 PH) 7.38 pCO2 (35 - 45 TORR) 27 L pO2 (80 - 100 TORR) 82 HCO3 (21 - 28 MEQ/L) 16 L ABG O2 Sat (Measured) (>96.0 %) 96.0 Carboxyhemoglobin (1.5 - 5.0 %) 0.6 L O2 Concentration % .30 Temperature (97.0 - 100.0 FARH) 98.3 Respiration Rate (BPM) 24 O2 Delivery Method VENT Vent Mode VC-AC Expiratory Pressure (CMH2O/P) 5 Tidal Volume (CC) 650 Chemistry Sodium (137 - 145 mmol/L) 163 *H Potassium (3.5 - 5.1 mmol/L) 4.0 Chloride (98 - 107 mmol/L) 136 H Carbon Dioxide (22 - 30 mmol/L) 18 L Anion Gap (5 - 16) 9 BUN (9 - 20 mg/dL) 37 H Creatinine (0.7 - 1.2 mg/dL) 2.5 H Estimated GFR (>60 ml/min) 28 L Glucose (65 - 99 mg/dL) 348 H Calcium (8.4 - 10.2 mg/dL) 8.4 Phosphorus (2.5 - 4.5 mg/dL) 1.5 L Magnesium (1.6 - 2.3 mg/dL) 2.3 Total Bilirubin (0.2 - 1.3 mg/dL) 0.5 AST (17 - 59 U/L) 90 H ALT (21 - 72 U/L) 75 H Albumin (3.5 - 5.0 g/dL) 2.2 L Hematology CBC w Diff NO MAN DIFF REQ WBC (4.8 - 10.8 /CUMM) 8.2 RBC (4.70 - 6.10 /CUMM) 4.16 L Hgb (14.0 - 18.0 G/DL) 12.4 L Hct (42 - 52 %) 36.4 L MCV (80.0 - 94.0 FL) 87.5 MCH (27.0 - 31.0 PG) 29.7 RDW (11.5 - 14.5 %) 14.4 Plt Count (130 - 400 /CUMM) 111 L MPV (7.4 - 10.4 FL) 12.8 H Gran % (42.2 - 75.2 %) 74.4 Lymphocytes % (20.5 - 51.1 %) 16.9 L Monocytes % (1.7 - 9.3 %) 8.4 Eosinophils % (0 - 5 %) 0.2 Basophils % (0.0 - 2.0 %) 0.1 Absolute Granulocytes (1.4 - 6.5 /CUMM) 6.1 Absolute Lymphocytes (1.2 - 3.4 /CUMM) 1.4 Absolute Monocytes (0.10 - 0.60 /CUMM) 0.7 H Absolute Eosinophils (0.0 - 0.7 /CUMM) 0 Absolute Basophils (0.0 - 0.2 /CUMM) 0 PUBS MCHC (33.0 - 37.0 G/DL) 34.0 Miscellaneous Phlebotomy Draw Site R BRACH 01/12 01/12 0600 0500 Chemistry Sodium (137 - 145 mmol/L) 162 *H Cancelled Potassium (3.5 - 5.1 mmol/L) 4.1 Cancelled Chloride (98 - 107 mmol/L) 136 H Cancelled Carbon Dioxide (22 - 30 mmol/L) 18 L Cancelled Anion Gap (5 - 16) 8 Cancelled BUN (9 - 20 mg/dL) 39 H Cancelled Creatinine (0.7 - 1.2 mg/dL) 2.7 H Cancelled Estimated GFR (>60 ml/min) 26 L Glucose (65 - 99 mg/dL) 381 H Cancelled Calcium (8.4 - 10.2 mg/dL) 8.3 L Cancelled Phosphorus (2.5 - 4.5 mg/dL) 1.1 L Cancelled Magnesium (1.6 - 2.3 mg/dL) 2.4 H Cancelled Total Bilirubin (0.2 - 1.3 mg/dL) 0.4 Cancelled AST (17 - 59 U/L) 81 H Cancelled ALT (21 - 72 U/L) 77 H Cancelled Troponin I (<0.11 ng/ml) 0.08 Albumin (3.5 - 5.0 g/dL) 2.2 L Cancelled Amylase (30 - 110 U/L) 402 H Lipase (23 - 300 U/L) 2781 H Hematology CBC w Diff NO MAN DIFF REQ Cancelled WBC (4.8 - 10.8 /CUMM) 8.4 Cancelled RBC (4.70 - 6.10 /CUMM) 4.11 L Cancelled Hgb (14.0 - 18.0 G/DL) 12.3 L Cancelled Hct (42 - 52 %) 36.3 L Cancelled MCV (80.0 - 94.0 FL) 88.1 Cancelled MCH (27.0 - 31.0 PG) 30.0 Cancelled RDW (11.5 - 14.5 %) 13.8 Cancelled Plt Count (130 - 400 /CUMM) 109 L Cancelled MPV (7.4 - 10.4 FL) 12.6 H Cancelled Gran % (42.2 - 75.2 %) 69.2 Lymphocytes % (20.5 - 51.1 %) 17.8 L Monocytes % (1.7 - 9.3 %) 12.6 H Eosinophils % (0 - 5 %) 0.2 Basophils % (0.0 - 2.0 %) 0.2 Absolute Granulocytes (1.4 - 6.5 /CUMM) 5.8 Absolute Lymphocytes (1.2 - 3.4 /CUMM) 1.5 Absolute Monocytes (0.10 - 0.60 /CUMM) 1.1 H Absolute Eosinophils (0.0 - 0.7 /CUMM) 0 Absolute Basophils (0.0 - 0.2 /CUMM) 0 PUBS MCHC (33.0 - 37.0 G/DL) 34.0 Cancelled 01/12 01/12 0300 0030 Chemistry Sodium (137 - 145 mmol/L) 163 *H 165 *H Potassium (3.5 - 5.1 mmol/L) 4.2 4.5 Chloride (98 - 107 mmol/L) 135 H 133 H Carbon Dioxide (22 - 30 mmol/L) 19 L 18 L Anion Gap (5 - 16) 9 14 BUN (9 - 20 mg/dL) 42 H 45 H Creatinine (0.7 - 1.2 mg/dL) 3.0 H 3.2 H Estimated GFR (>60 ml/min) 23 L 21 L Glucose (65 - 99 mg/dL) 447 H 513 *H Calcium (8.4 - 10.2 mg/dL) 8.2 L 8.3 L Phosphorus (2.5 - 4.5 mg/dL) 1.0 L 1.1 L Magnesium (1.6 - 2.3 mg/dL) 2.5 H 2.6 H Total Bilirubin (0.2 - 1.3 mg/dL) 0.4 0.4 AST (17 - 59 U/L) 74 H 65 H ALT (21 - 72 U/L) 73 H 74 H Albumin (3.5 - 5.0 g/dL) 2.2 L 2.4 L Hematology CBC w Diff NO MAN DIFF REQ MAN DIFF ORDERED WBC (4.8 - 10.8 /CUMM) 9.7 11.9 H RBC (4.70 - 6.10 /CUMM) 4.25 L 4.46 L Hgb (14.0 - 18.0 G/DL) 12.7 L 13.2 L Hct (42 - 52 %) 37.5 L 38.5 L MCV (80.0 - 94.0 FL) 88.0 86.4 MCH (27.0 - 31.0 PG) 29.8 29.7 RDW (11.5 - 14.5 %) 13.9 13.8 Plt Count (130 - 400 /CUMM) 122 L 119 L MPV (7.4 - 10.4 FL) 12.6 H 10.4 Gran % (42.2 - 75.2 %) 71.6 74.3 Lymphocytes % (20.5 - 51.1 %) 14.4 L 13.1 L Monocytes % (1.7 - 9.3 %) 13.8 H 12.2 H Eosinophils % (0 - 5 %) 0 0.1 Basophils % (0.0 - 2.0 %) 0.2 0.3 Absolute Granulocytes (1.4 - 6.5 /CUMM) 6.9 H 8.8 H Segmented Neutrophils (42.2 - 75.2 %) 67 Band Neutrophils (0.0 - 5.0 %) 9 H Absolute Lymphocytes (1.2 - 3.4 /CUMM) 1.4 1.5 Lymphocytes (20.5 - 51.1 %) 16 L Monocytes (1.7 - 9.3 %) 7 Absolute Monocytes (0.10 - 0.60 /CUMM) 1.3 H 1.4 H Absolute Eosinophils (0.0 - 0.7 /CUMM) 0 0 Basophils (0.0 - 2.0 %) 1 Absolute Basophils (0.0 - 0.2 /CUMM) 0 0 Platelet Estimate (ADEQUATE) ADEQUATE Normocytic RBCs VERIFIED Normochromic RBCs VERIFIED PUBS MCHC (33.0 - 37.0 G/DL) 33.8 34.4 Other Body Source Fld Total RBCs Counted (%) 100 01/11 01/11 2230 2030 Chemistry Sodium (137 - 145 mmol/L) 161 *H 161 *H Potassium (3.5 - 5.1 mmol/L) 4.0 3.9 Chloride (98 - 107 mmol/L) 131 H 130 H Carbon Dioxide (22 - 30 mmol/L) 18 L 20 L Anion Gap (5 - 16) 12 11 BUN (9 - 20 mg/dL) 47 H 49 H Creatinine (0.7 - 1.2 mg/dL) 3.5 H 3.7 H Estimated GFR (>60 ml/min) 19 L 18 L Glucose (65 - 99 mg/dL) 579 *H 644 *H Lactic Acid (0.7 - 2.1 mmol/L) 1.6 1.6 Calcium (8.4 - 10.2 mg/dL) 8.0 L 8.0 L Phosphorus (2.5 - 4.5 mg/dL) 1.2 L 1.0 L Magnesium (1.6 - 2.3 mg/dL) 2.6 H 2.6 H Total Bilirubin (0.2 - 1.3 mg/dL) 0.4 0.4 AST (17 - 59 U/L) 65 H 58 ALT (21 - 72 U/L) 75 H 75 H Creatine Kinase (55 - 170 U/L) 1497 H Troponin I (<0.11 ng/ml) 0.11 *H Albumin (3.5 - 5.0 g/dL) 2.4 L 2.4 L Hematology CBC w Diff MAN DIFF ORDERED MAN DIFF ORDERED WBC (4.8 - 10.8 /CUMM) 12.7 H 12.8 H RBC (4.70 - 6.10 /CUMM) 4.45 L 4.51 L Hgb (14.0 - 18.0 G/DL) 13.2 L 13.6 L Hct (42 - 52 %) 39.0 L 39.0 L MCV (80.0 - 94.0 FL) 87.7 86.5 MCH (27.0 - 31.0 PG) 29.6 30.1 RDW (11.5 - 14.5 %) 13.8 13.7 Plt Count (130 - 400 /CUMM) 119 L 139 MPV (7.4 - 10.4 FL) 10.8 H 12.5 H Segmented Neutrophils (42.2 - 75.2 %) 66 61 Band Neutrophils (0.0 - 5.0 %) 19 H 20 H Lymphocytes (20.5 - 51.1 %) 8 L 10 L Monocytes (1.7 - 9.3 %) 5 6 Metamyelocytes (0.0 - 1.0 %) 2 H 3 H Platelet Estimate (ADEQUATE) ADEQUATE Polychromasia 1+ Anisocytosis 1+ Microcytic Cells 1+ 1+ PUBS MCHC (33.0 - 37.0 G/DL) 33.7 34.8 01/11 01/11 1910 1840 Blood Gas pH (7.35 - 7.45 PH) 7.40 pCO2 (35 - 45 TORR) 28 L pO2 (80 - 100 TORR) 90 HCO3 (21 - 28 MEQ/L) 17 L ABG O2 Sat (Measured) (>96.0 %) 97.0 Carboxyhemoglobin (1.5 - 5.0 %) 0.1 L O2 Concentration % 35 Respiration Rate (BPM) 24 O2 Delivery Method VENT Vent Mode AC Expiratory Pressure (CMH2O/P) 5 Tidal Volume (CC) 650 Chemistry Sodium (137 - 145 mmol/L) 160 *H Potassium (3.5 - 5.1 mmol/L) 3.5 Chloride (98 - 107 mmol/L) 129 H Carbon Dioxide (22 - 30 mmol/L) 20 L Anion Gap (5 - 16) 11 BUN (9 - 20 mg/dL) 51 H Creatinine (0.7 - 1.2 mg/dL) 4.0 H Estimated GFR (>60 ml/min) 17 L Glucose (65 - 99 mg/dL) 749 *H Lactic Acid (0.7 - 2.1 mmol/L) 1.8 Calcium (8.4 - 10.2 mg/dL) 8.1 L Phosphorus (2.5 - 4.5 mg/dL) 0.9 *L Magnesium (1.6 - 2.3 mg/dL) 2.6 H Total Bilirubin (0.2 - 1.3 mg/dL) 0.4 AST (17 - 59 U/L) 53 ALT (21 - 72 U/L) 73 H Albumin (3.5 - 5.0 g/dL) 2.4 L Hematology CBC w Diff MAN DIFF ORDERED WBC (4.8 - 10.8 /CUMM) 13.7 H RBC (4.70 - 6.10 /CUMM) 4.46 L Hgb (14.0 - 18.0 G/DL) 13.2 L Hct (42 - 52 %) 39.2 L MCV (80.0 - 94.0 FL) 88.0 MCH (27.0 - 31.0 PG) 29.6 RDW (11.5 - 14.5 %) 13.7 Plt Count (130 - 400 /CUMM) 157 MPV (7.4 - 10.4 FL) 13.1 H Segmented Neutrophils (42.2 - 75.2 %) 75 Band Neutrophils (0.0 - 5.0 %) 13 H Lymphocytes (20.5 - 51.1 %) 8 L Monocytes (1.7 - 9.3 %) 3 Metamyelocytes (0.0 - 1.0 %) 1 Platelet Estimate (ADEQUATE) ADEQUATE Anisocytosis 1+ Microcytic Cells 1+ PUBS MCHC (33.0 - 37.0 G/DL) 33.6 Miscellaneous Phlebotomy Draw Site RIGHT BRACHIAL 01/11 01/11 01/11 1620 1445 1406 Blood Gas pH (7.35 - 7.45 PH) 7.37 pCO2 (35 - 45 TORR) 29 L pO2 (80 - 100 TORR) 117 H HCO3 (21 - 28 MEQ/L) 16 L ABG O2 Sat (Measured) (>96.0 %) 98.0 Carboxyhemoglobin (1.5 - 5.0 %) 0.4 L O2 Concentration % .35 Respiration Rate (BPM) 24 O2 Delivery Method VENT Vent Mode AC Expiratory Pressure (CMH2O/P) 5 Tidal Volume (CC) 650 Chemistry Sodium (137 - 145 mmol/L) 161 *H 162 *H Potassium (3.5 - 5.1 mmol/L) 3.1 L 3.1 L Chloride (98 - 107 mmol/L) 127 H 126 H Carbon Dioxide (22 - 30 mmol/L) 19 L 21 L Anion Gap (5 - 16) 15 15 BUN (9 - 20 mg/dL) 52 H 55 H Creatinine (0.7 - 1.2 mg/dL) 4.4 H 4.4 H Estimated GFR (>60 ml/min) 15 L 15 L Glucose (65 - 99 mg/dL) 899 *H 1076 *H Lactic Acid (0.7 - 2.1 mmol/L) 2.4 H 2.5 H Calcium (8.4 - 10.2 mg/dL) 8.2 L 8.4 Phosphorus (2.5 - 4.5 mg/dL) 0.6 *L 0.7 *L Magnesium (1.6 - 2.3 mg/dL) 2.8 H 2.9 H Total Bilirubin (0.2 - 1.3 mg/dL) 0.5 0.5 AST (17 - 59 U/L) 45 39 ALT (21 - 72 U/L) 71 78 H Troponin I (<0.11 ng/ml) 0.11 *H Albumin (3.5 - 5.0 g/dL) 2.4 L 2.6 L Hematology CBC w Diff MAN DIFF ORDERED WBC (4.8 - 10.8 /CUMM) 15.4 H RBC (4.70 - 6.10 /CUMM) 4.54 L Hgb (14.0 - 18.0 G/DL) 13.4 L Hct (42 - 52 %) 39.7 L MCV (80.0 - 94.0 FL) 87.6 MCH (27.0 - 31.0 PG) 29.6 RDW (11.5 - 14.5 %) 13.9 Plt Count (130 - 400 /CUMM) 167 MPV (7.4 - 10.4 FL) 13.0 H Segmented Neutrophils (42.2 - 75.2 %) 81 H Band Neutrophils (0.0 - 5.0 %) 4 Lymphocytes (20.5 - 51.1 %) 9 L Monocytes (1.7 - 9.3 %) 6 Platelet Estimate (ADEQUATE) ADEQUATE Anisocytosis 1+ Microcytic Cells 1+ PUBS MCHC (33.0 - 37.0 G/DL) 33.8 Miscellaneous Phlebotomy Draw Site LEFT RADIAL 01/11 01/11 1304 1040 Chemistry Lactic Acid (0.7 - 2.1 mmol/L) 2.7 H Coagulation PT (9.4 - 12.5 SEC) 12.4 INR (0.90 - 1.17) 1.18 H APTT (25 - 37 SEC) 18 L Hematology CBC w Diff NO MAN DIFF REQ WBC (4.8 - 10.8 /CUMM) 14.4 H RBC (4.70 - 6.10 /CUMM) 4.57 L Hgb (14.0 - 18.0 G/DL) 13.5 L Hct (42 - 52 %) 41.1 L MCV (80.0 - 94.0 FL) 90.0 MCH (27.0 - 31.0 PG) 29.5 RDW (11.5 - 14.5 %) 13.9 Plt Count (130 - 400 /CUMM) 190 MPV (7.4 - 10.4 FL) 13.5 H Gran % (42.2 - 75.2 %) 87.7 H Lymphocytes % (20.5 - 51.1 %) 4.6 L Monocytes % (1.7 - 9.3 %) 7.7 Eosinophils % (0 - 5 %) 0 Basophils % (0.0 - 2.0 %) 0 L Absolute Granulocytes (1.4 - 6.5 /CUMM) 12.6 H Absolute Lymphocytes (1.2 - 3.4 /CUMM) 0.7 L Absolute Monocytes (0.10 - 0.60 /CUMM) 1.1 H Absolute Eosinophils (0.0 - 0.7 /CUMM) 0 Absolute Basophils (0.0 - 0.2 /CUMM) 0 PUBS MCHC (33.0 - 37.0 G/DL) 32.8 L 01/11 01/11 01/11 1040 0905 0800 Chemistry Sodium (137 - 145 mmol/L) 159 *H Potassium (3.5 - 5.1 mmol/L) 3.0 L Chloride (98 - 107 mmol/L) 121 H Carbon Dioxide (22 - 30 mmol/L) 20 L Anion Gap (5 - 16) 18 H BUN (9 - 20 mg/dL) 53 H Creatinine (0.7 - 1.2 mg/dL) 4.4 H Estimated GFR (>60 ml/min) 15 L Glucose (65 - 99 mg/dL) 1230 *H Lactic Acid (0.7 - 2.1 mmol/L) 2.2 H Calcium (8.4 - 10.2 mg/dL) 8.6 Phosphorus (2.5 - 4.5 mg/dL) 1.4 L Magnesium (1.6 - 2.3 mg/dL) 3.2 H Total Bilirubin (0.2 - 1.3 mg/dL) 0.5 AST (17 - 59 U/L) 39 ALT (21 - 72 U/L) 86 H Troponin I (<0.11 ng/ml) 0.03 Albumin (3.5 - 5.0 g/dL) 2.9 L Vitamin B12 (239 - 931 pg/mL) > 1000 H Folate (2.76 - 20.0 ng/mL) > 20.0 H Hematology CBC w Diff NO MAN DIFF REQ WBC (4.8 - 10.8 /CUMM) 18.2 H RBC (4.70 - 6.10 /CUMM) 5.04 Hgb (14.0 - 18.0 G/DL) 15.0 Hct (42 - 52 %) 46.0 MCV (80.0 - 94.0 FL) 91.3 MCH (27.0 - 31.0 PG) 29.8 RDW (11.5 - 14.5 %) 14.1 Plt Count (130 - 400 /CUMM) 170 MPV (7.4 - 10.4 FL) 11.7 H Gran % (42.2 - 75.2 %) 88.8 H Lymphocytes % (20.5 - 51.1 %) 5.9 L Monocytes % (1.7 - 9.3 %) 5.0 Eosinophils % (0 - 5 %) 0 Basophils % (0.0 - 2.0 %) 0.3 Absolute Granulocytes (1.4 - 6.5 /CUMM) 16.2 H Absolute Lymphocytes (1.2 - 3.4 /CUMM) 1.1 L Absolute Monocytes (0.10 - 0.60 /CUMM) 0.9 H Absolute Eosinophils (0.0 - 0.7 /CUMM) 0 Absolute Basophils (0.0 - 0.2 /CUMM) 0.1 PUBS MCHC (33.0 - 37.0 G/DL) 32.7 L Serology Virus Culture Pending 01/11 01/11 0800 0755 Blood Gas pH (7.35 - 7.45 PH) 7.21 *L pCO2 (35 - 45 TORR) 33 L pO2 (80 - 100 TORR) 103 H HCO3 (21 - 28 MEQ/L) 13 L ABG O2 Sat (Measured) (>96.0 %) 97.0 P-50 (Temp Corrected) N Carboxyhemoglobin (1.5 - 5.0 %) 0.8 L O2 Concentration % 40% Respiration Rate (BPM) 24 O2 Delivery Method VENT Vent Mode AC Expiratory Pressure (CMH2O/P) 5 Tidal Volume (CC) 550 Pressure Support (CMH2O/P) 0 Chemistry Sodium (137 - 145 mmol/L) 155 H Potassium (3.5 - 5.1 mmol/L) 2.7 *L Chloride (98 - 107 mmol/L) 117 H Carbon Dioxide (22 - 30 mmol/L) 13 L Anion Gap (5 - 16) 25 H BUN (9 - 20 mg/dL) 54 H Creatinine (0.7 - 1.2 mg/dL) 4.6 H Estimated GFR (>60 ml/min) 14 L Glucose (65 - 99 mg/dL) 1464 *H Calcium (8.4 - 10.2 mg/dL) 8.6 Phosphorus (2.5 - 4.5 mg/dL) 2.5 Magnesium (1.6 - 2.3 mg/dL) 3.2 H Total Bilirubin (0.2 - 1.3 mg/dL) 0.5 AST (17 - 59 U/L) 32 ALT (21 - 72 U/L) 82 H Albumin (3.5 - 5.0 g/dL) 3.0 L Hematology CBC w Diff MAN DIFF ORDERED WBC (4.8 - 10.8 /CUMM) 19.7 H RBC (4.70 - 6.10 /CUMM) 4.99 Hgb (14.0 - 18.0 G/DL) 14.7 Hct (42 - 52 %) 47.8 MCV (80.0 - 94.0 FL) 95.8 H MCH (27.0 - 31.0 PG) 29.5 RDW (11.5 - 14.5 %) 14.7 H Plt Count (130 - 400 /CUMM) 215 MPV (7.4 - 10.4 FL) 13.7 H Gran % (42.2 - 75.2 %) 84.4 H Lymphocytes % (20.5 - 51.1 %) 8.2 L Monocytes % (1.7 - 9.3 %) 7.0 Eosinophils % (0 - 5 %) 0 Basophils % (0.0 - 2.0 %) 0.4 Absolute Granulocytes (1.4 - 6.5 /CUMM) 16.6 H Segmented Neutrophils (42.2 - 75.2 %) 76 H Band Neutrophils (0.0 - 5.0 %) 4 Absolute Lymphocytes (1.2 - 3.4 /CUMM) 1.6 Lymphocytes (20.5 - 51.1 %) 16 L Monocytes (1.7 - 9.3 %) 4 Absolute Monocytes (0.10 - 0.60 /CUMM) 1.4 H Absolute Eosinophils (0.0 - 0.7 /CUMM) 0 Absolute Basophils (0.0 - 0.2 /CUMM) 0.1 Platelet Estimate (ADEQUATE) VERIFIED BY SMEAR Normocytic RBCs VERIFIED Normochromic RBCs VERIFIED PUBS MCHC (33.0 - 37.0 G/DL) 30.8 L Miscellaneous Phlebotomy Draw Site RIGHT RADIAL 01/11 01/11 01/11 0610 0350 0340 Blood Gas pH (7.35 - 7.45 PH) 7.10 *L 7.11 *L pCO2 (35 - 45 TORR) 36 42 pO2 (80 - 100 TORR) 105 H 387 H HCO3 (21 - 28 MEQ/L) 11 L 13 L ABG O2 Sat (Measured) (>96.0 %) 97.0 99.0 P-50 (Temp Corrected) Y Y Carboxyhemoglobin (1.5 - 5.0 %) 0.1 L 0.5 L O2 Concentration % 40% 100% Temperature (97.0 - 100.0 FARH) 95.4 L 94.9 L Respiration Rate (BPM) 20 16 O2 Delivery Method ESPRIT ESPRIT Vent Mode AC AC Expiratory Pressure (CMH2O/P) 5 5 Tidal Volume (CC) 550 550 Chemistry Lactic Acid (0.7 - 2.1 mmol/L) 2.4 H Miscellaneous Phlebotomy Draw Site RIGHT RADIAL LF 01/11 0340 Chemistry Sodium (137 - 145 mmol/L) 144 Potassium (3.5 - 5.1 mmol/L) 4.6 Chloride (98 - 107 mmol/L) 102 Carbon Dioxide (22 - 30 mmol/L) 14 L Anion Gap (5 - 16) 29 H BUN (9 - 20 mg/dL) 55 H Creatinine (0.7 - 1.2 mg/dL) 5.5 *H Estimated GFR (>60 ml/min) 11 L BUN/Creatinine Ratio (7 - 25 %) 10.0 Glucose (65 - 99 mg/dL) 1942 *H Calcium (8.4 - 10.2 mg/dL) 8.9 Total Bilirubin (0.2 - 1.3 mg/dL) 0.5 AST (17 - 59 U/L) 32 ALT (21 - 72 U/L) 94 H Alkaline Phosphatase (< 127 U/L) 135 H Troponin I (<0.11 ng/ml) < 0.01 Total Protein (6.3 - 8.2 g/dL) 5.7 L Albumin (3.5 - 5.0 g/dL) 3.1 L Globulin (1.9 - 4.2 gm/dL) 2.6 Albumin/Globulin Ratio (1.1 - 2.2 %) 1.2 Triglycerides (<150 mg/dL) 839 H Cholesterol (< 200 MG/DL) 242 H LDL Cholesterol, Calc (65 - 129 MG/DL) ND HDL Cholesterol (40 - 60 mg/dL) 24 L Cholesterol/HDL Ratio (0.00 - 4.88 %) 10 H Amylase (30 - 110 U/L) 481 H Lipase (23 - 300 U/L) 6960 H TSH (0.270 - 4.200 uIU/mL) 0.142 L Free T4 (0.64 - 1.79 ng/dL) 0.94 Cortisol AM Sample (4.46 - 22.7 ug/dL) > 61.6 H Hematology CBC w Diff MAN DIFF ORDERED WBC (4.8 - 10.8 /CUMM) 18.0 H RBC (4.70 - 6.10 /CUMM) 4.94 Hgb (14.0 - 18.0 G/DL) 14.6 Hct (42 - 52 %) 50.8 MCV (80.0 - 94.0 FL) 102.8 H MCH (27.0 - 31.0 PG) 29.6 RDW (11.5 - 14.5 %) 15.9 H Plt Count (130 - 400 /CUMM) 223 MPV (7.4 - 10.4 FL) 14.2 H Gran % (42.2 - 75.2 %) 82.1 H Lymphocytes % (20.5 - 51.1 %) 8.4 L Monocytes % (1.7 - 9.3 %) 9.4 H Eosinophils % (0 - 5 %) 0.1 Basophils % (0.0 - 2.0 %) 0 L Absolute Granulocytes (1.4 - 6.5 /CUMM) 14.8 H Absolute Lymphocytes (1.2 - 3.4 /CUMM) 1.5 Absolute Monocytes (0.10 - 0.60 /CUMM) 1.7 H Absolute Eosinophils (0.0 - 0.7 /CUMM) 0 Absolute Basophils (0.0 - 0.2 /CUMM) 0 Platelet Estimate (ADEQUATE) ADEQUATE Macrocytic Cells 1+ PUBS MCHC (33.0 - 37.0 G/DL) 28.9 L Toxicology Salicylates (0 - 20.0 mg/dL) < 1.0 Acetone Level (NEGATIVE) POSITIVE AT 1:16 DIL 14 01/11 0306 0247 Chemistry Hemoglobin A1c (<5.7) 15.1 H Toxicology Urine Opiates Screen (>2000 NG/ML) < 100.00 Methadone Screen (>300 NG/ML) < 40 Barbiturate Screen (>200 NG/ML) < 60 Ur Phencyclidine Scrn (>25 NG/ML) < 6.00 Amphetamines Screen (>1000 NG/ML) < 100 U Benzodiazepines Scrn (>200 NG/ML) < 85 Urine Cocaine Screen (>300 NG/ML) < 50 Urine Cannabis Screen (>50 NG/ML) 18.00 Urines Urinalysis LIGHT H Urine Color (YEL,AMB,STR) YEL Urine Clarity (CLEAR) CLEAR Urine pH (5.0 - 8.0) 6.0 Ur Specific [place] (1.001 - 1.035) 1.010 Urine Protein (NEG,<30 MG/DL) TRACE H Urine Ketones (NEG) TRACE H Urine Nitrite (NEG) NEG Urine Bilirubin (NEG) NEG Urine Urobilinogen (0.1 - 1.0 EU/dl) 0.2 Ur Leukocyte Esterase (NEG) NEG Ur Microscopic SEDIMENT EXAMINED Urine RBC (0 - 5 /HPF) 1-3 Urine WBC (0 - 2 /HPF) 1-3 H Ur Epithelial Cells (NONE,FEW) FEW Hyaline Casts (0/LPF) 1-3 H Granular Casts (NONE /LPF) 3-5 H Urine Mucus (FEW,NONE) FEW Urine Hemoglobin (NEG) MOD H Urine Glucose (N MG/DL) >=1000 H
[2017-01-13 16:00] VITALS: BP 96/61
[2017-01-13 16:09] LABS: ABSOLUTE BASOPHIL COUNT 0 /CUMM (0.0-0.2); ABSOLUTE EOSINOPHIL COUNT 0.1 /CUMM (0.0-0.7); ABSOLUTE GRANULOCYTE CT 9.8 /CUMM (1.4-6.5); ABSOLUTE LYMPH COUNT 1.5 /CUMM (1.2-3.4); ABSOLUTE MONOCYTE COUNT 0.8 /CUMM (0.10-0.60); BASOPHIL % 0.4 % (0.0-2.0); EOSINOPHIL % 0.6 % (0-5); GRANULOCYTE % 80.5 % (42.2-75.2); HEMATOCRIT 35.8 % (42-52); MEAN CORPUSCULAR HGB 29.8 PG (27.0-31.0); MEAN CORPUSCULAR HGB CONC 33.9 G/DL (33.0-37.0); MEAN CORPUSCULAR VOLUME 87.9 FL (80.0-94.0); MEAN PLATELET VOLUME 12.5 FL (7.4-10.4); PLATELET COUNT 79 /CUMM (130-400); RBC DISTRIBUTION WIDTH 14.3 % (11.5-14.5); RED BLOOD CELL CT 4.07 /CUMM (4.70-6.10); WHITE BLOOD CELL COUNT 12.2 /CUMM (4.8-10.8)
--- NOTE | 2017-01-13 19:43 | Cons- Neurology ---
General Information and HPI Consulting Request Date of Consult: 01/13/17 Requested By: ALESSANDRO SINGH,ANKIT Brown Reason for Consult: AMS Source of Information: patient, family Exam Limitations: no limitations History of Present Illness: 41-year-old gentleman with no significant past medical history was brought in by his fiance and brother through ambulance to emergency room when she found him unresponsive/lethargic last night. By the time I saw the patient in ER he was intubated and history was taken from his fiance and brother present at bedside. According to his fiance patient was not feeling well for last couple of weeks but assuming he might had flu as she and his brother had. She noted that patient was fairly thirsty and drinking a lot of fluids to quench his thirst and also urinating a lot. Patient was getting weaker and last night he was pretty drowsy and also hallucinating, his talk was not making any sense, very cold to touch that's why she called 911. In the hospital he was found to be in DKA and have a systemic infection. EEG was done that revealed encephalopathy with some non-specific sharps. Since receiving treatment he has improved markedly with no known focal deficits or seizure activity at any point. Allergies/Medications Allergies: Coded Allergies: No Known Allergies (01/11/17) Home Med List: No Known Home Medications Current Medications: Current Medications Sig/Nelida Start time Last Medication Dose Route Stop Time Status Admin Acetaminophen 1,000 MG .STK-MED ONE 01/13 0755 DC IV 01/13 0756 Acetaminophen 1,000 MG Q6P PRN 01/11 0745 01/13 N/A 1 UNIT IV 1635 Ampicillin Sodium/ 1,500 MG Q6 01/12 2359 AC 01/13 Sulbactam Sodium IV 1820 Sodium Chloride 100 ML Ampicillin Sodium/ 1,500 MG Q12H 01/11 1700 DC 01/12 Sulbactam Sodium IV 1624 Sodium Chloride 100 ML Ciprofloxacin 400 MG Q8 01/13 1400 AC 01/13 Dextrose/Water 200 ML IV 1530 Fentanyl Citrate 1,000 MCG Q4H 01/13 0500 DC 01/13 Dextrose/Water 250 ML IV 1250 Fentanyl Citrate 1,000 MCG Q14H 01/11 2200 DC 01/13 Dextrose/Water 250 ML IV 0046 Furosemide 20 MG ONCE ONE 01/13 1315 DC 01/13 IV PUSH 01/13 1316 1314 Heparin Sodium 0 .STK-MED ONE 01/11 0723 CAN (Porcine) .ROUTE Heparin Sodium 5,000 UNIT Q8 01/11 0600 DC 01/13 (Porcine) SC 0629 Insulin Aspart 0 Q4 01/13 1000 AC 01/13 SC 1845 Insulin Detemir 30 UNITS BID 01/13 1000 AC 01/13 SC 0908 Insulin Human Regular 100 UNIT Q12H 01/11 0445 DC 01/13 Sodium Chloride 100 ML IV 01/13 1200 0012 Levetiracetam 500 MG BID 01/13 1000 AC 01/13 Sodium Chloride 100 ML IV 1055 Levetiracetam 500 MG BID 01/11 1230 DC 01/12 Sodium Chloride 100 ML IV 01/13 0200 2224 Lorazepam 1 MG ONCE ONE 01/13 1515 DC 01/13 IV 01/13 1516 1534 Lorazepam 2 MG Q1 PRN 01/11 1200 AC 01/11 IV 1222 Magnesium Sulfate 1 GM ONCE ONE 01/13 1700 AC 01/13 Dextrose/Water 100 ML IV 01/13 2059 1738 Magnesium Sulfate 1 GM ONCE ONE 01/13 1500 DC 01/13 Dextrose/Water 100 ML IV 01/13 1859 1354 Magnesium Sulfate 1 GM ONCE ONE 01/13 1100 DC 01/13 Dextrose/Water 100 ML IV 01/13 1459 1222 Pantoprazole Sodium 40 MG BID 01/11 1138 AC 01/13 IV 1003 Phosphate 250 MG ONCE ONE 01/13 1930 CAN PO 01/13 1931 Potassium Chloride 10 MEQ Q1H 01/13 1330 DC 01/13 IV 01/13 1431 1845 Potassium Chloride 40 MEQ Q6H 01/13 0800 AC 01/13 Dextrose/Sodium 1,000 ML IV 1055 Chloride Potassium Chloride 20 MEQ Q6H 01/13 0000 DC 01/13 Dextrose/Sodium 1,000 ML IV 0012 Chloride Potassium Chloride 20 MEQ ONCE ONE 01/12 1945 DC 01/12 IV 01/12 1946 2004 Potassium Chloride 20 MEQ Q8H 01/12 1615 DC 01/12 Dextrose/Sodium 1,000 ML IV 1611 Chloride Potassium Phosphate 15 mMol ONE ONE 01/13 0745 DC 01/13 Sodium Chloride 250 ML IV 01/13 1148 0909 Vancomycin HCl 1,000 MG DAILY 01/13 1000 CAN Dextrose/Water 250 ML IV Vancomycin HCl 2,000 MG ONCE ONE 01/13 0330 DC 01/13 Dextrose/Water 500 ML IV 01/13 0529 0351 Review of Systems Review of Systems: As per HPI. Past History Medical History Blood Transfusion Hx: No Neurological: NONE EENT: NONE Cardiovascular: NONE Respiratory: NONE Gastrointestinal: ABDOMINAL PAIN WITH MILK AND HIGH FIBER FOOD Hepatic: NONE Renal: NONE Musculoskeletal: NONE Psychiatric: NONE Endocrine: NONE Blood Disorders: NONE Cancer(s): NONE PRINTMAKER/Reproductive: NONE Other Medical Hx: Obesity Surgical History Surgical History: non-contributory Family History Relations & Conditions If Any: GRANDFATHER ([place] AT AGE 60). FH: [place] (myocardial infarction) MATERNAL AUNT, . FH: chronic kidney disease FH: diabetes mellitus Psychosocial History Where Do You Live? Home Who Do You Live With? fiancee Services at Home: None Primary Language: [place] Smoking Status: Never Smoked ETOH Use: denies use Illicit Drug Use: cocaine (remote history), marijuana, no IV drug abuse Functional Ability ADLs Independent: dressing, eating, toileting, bathing. Ambulation: independent IADLs Independent: shopping, housework, finances, food prep, telephone, transportation , medication admin. Employment History Employment: Employed Profession/Employer: Works from home Exam & Diagnostic Data Vital Signs and I&O Vital Signs Date Time Temp Pulse Resp B/P Pulse O2 O2 Flow FiO2 Ox Delivery Rate 01/13 1730 99.2 01/13 1635 101.7 01/13 1600 93 Nasal 8L Cannula 01/13 1600 101.7 134 33 96/61 92 Nasal 8L Cannula 01/13 1200 96 Ventilator 40% 01/13 1045 99.2 01/13 0915 40 01/13 0800 101.7 01/13 0800 96 Ventilator 40% 01/13 0800 101.7 109 21 110/70 96 Ventilator 40% 01/13 0550 40 01/13 0400 95 Ventilator 40% 01/13 0321 40 01/13 0139 40 01/13 0039 30 01/13 0000 93 Ventilator 30% 01/13 0000 100.1 135 35 130/60 93 Ventilator 30% 01/12 2221 30 01/12 2100 101.5 01/12 2007 101.7 01/12 2000 96 Ventilator 30% Intake & Output 01/13 1600 01/13 0800 01/13 0000 Intake Total 2572 2714 3052 Output Total 2730 1000 800 Balance -158 1714 2252 Intake, IV 2172 1914 2252 Intake, Other 400 800 Intake, Tube 800 Irrigant Number 0 0 Bowel Movements Output, Urine 2730 1000 800 Patient 265 lb Weight Physical Exam: Alert and oriented x3. Bruised lower lip. Hoarse and hypophonic. Fluent and comprehends. Attention and concentration reduced. S1 and S2 are normal. RRR. EOMI, BETTY, no nystagmus, face symmetric, VF full, V1-V3 sensaiton normal and equal, tongue midline and uvula raises in the midline. Hearing intact. Strength is 5/5 throughout the distribution. Sensory exam is normal. Reflexes symmetrical. Toes are downgoing. FNF normal. Gait not tested. Last 48 Hours of Lab Results: Laboratory Tests 01/13 01/13 1500 1245 Blood Gas pH (7.35 - 7.45 PH) 7.38 pCO2 (35 - 45 TORR) 32 L pO2 (80 - 100 TORR) 65 L HCO3 (21 - 28 MEQ/L) 18 L ABG O2 Sat (Measured) (>96.0 %) 91.0 L P-50 (Temp Corrected) Y Carboxyhemoglobin (1.5 - 5.0 %) 0.6 L O2 Concentration % .4 Temperature (97.0 - 100.0 FARH) 101.7 H O2 Delivery Method VENT Vent Mode CPAP Expiratory Pressure (CMH2O/P) 5 Pressure Support (CMH2O/P) 6 Chemistry Sodium (137 - 145 mmol/L) 154 H Potassium (3.5 - 5.1 mmol/L) 4.0 Chloride (98 - 107 mmol/L) 122 H Carbon Dioxide (22 - 30 mmol/L) 20 L Anion Gap (5 - 16) 12 BUN (9 - 20 mg/dL) 17 Creatinine (0.7 - 1.2 mg/dL) 1.4 H Estimated GFR (>60 ml/min) 56 L Glucose (65 - 99 mg/dL) 260 H Calcium (8.4 - 10.2 mg/dL) 8.6 Phosphorus (2.5 - 4.5 mg/dL) 2.7 Magnesium (1.6 - 2.3 mg/dL) 1.8 Total Bilirubin (0.2 - 1.3 mg/dL) 1.1 AST (17 - 59 U/L) 322 H ALT (21 - 72 U/L) 135 H Albumin (3.5 - 5.0 g/dL) 2.4 L Hematology CBC w Diff MAN DIFF ORDERED WBC (4.8 - 10.8 /CUMM) 12.2 H RBC (4.70 - 6.10 /CUMM) 4.07 L Hgb (14.0 - 18.0 G/DL) 12.1 L Hct (42 - 52 %) 35.8 L MCV (80.0 - 94.0 FL) 87.9 MCH (27.0 - 31.0 PG) 29.8 RDW (11.5 - 14.5 %) 14.3 Plt Count (130 - 400 /CUMM) 79 L MPV (7.4 - 10.4 FL) 12.5 H Gran % (42.2 - 75.2 %) 80.5 H Lymphocytes % (20.5 - 51.1 %) 12.2 L Monocytes % (1.7 - 9.3 %) 6.3 Eosinophils % (0 - 5 %) 0.6 Basophils % (0.0 - 2.0 %) 0.4 Absolute Granulocytes (1.4 - 6.5 /CUMM) 9.8 H Segmented Neutrophils (42.2 - 75.2 %) 71 Band Neutrophils (0.0 - 5.0 %) 15 H Absolute Lymphocytes (1.2 - 3.4 /CUMM) 1.5 Lymphocytes (20.5 - 51.1 %) 10 L Monocytes (1.7 - 9.3 %) 3 Absolute Monocytes (0.10 - 0.60 /CUMM) 0.8 H Eosinophils (0 - 5.0 %) 1 Absolute Eosinophils (0.0 - 0.7 /CUMM) 0.1 Absolute Basophils (0.0 - 0.2 /CUMM) 0 Platelet Estimate (ADEQUATE) DECREASED Normocytic RBCs VERIFIED Normochromic RBCs VERIFIED PUBS MCHC (33.0 - 37.0 G/DL) 33.9 Immunology Heparin-induced Plt Ab Pending Heparin-PF4 AB OD Pending Miscellaneous Phlebotomy Draw Site LEFT RADIAL 01/13 01/13 8921 7552 Chemistry Sodium (137 - 145 mmol/L) 157 *H 160 *H Potassium (3.5 - 5.1 mmol/L) 3.3 L 3.7 Chloride (98 - 107 mmol/L) 129 H 131 H Carbon Dioxide (22 - 30 mmol/L) 21 L 21 L Anion Gap (5 - 16) 7 8 BUN (9 - 20 mg/dL) 20 22 H Creatinine (0.7 - 1.2 mg/dL) 1.5 H 1.6 H Estimated GFR (>60 ml/min) 51 L 48 L Glucose (65 - 99 mg/dL) 236 H 205 H Calcium (8.4 - 10.2 mg/dL) 8.1 L 8.2 L Phosphorus (2.5 - 4.5 mg/dL) 2.0 L 2.1 L Magnesium (1.6 - 2.3 mg/dL) 1.6 1.6 Total Bilirubin (0.2 - 1.3 mg/dL) 0.6 0.6 AST (17 - 59 U/L) 207 H 215 H ALT (21 - 72 U/L) 97 H 102 H Alkaline Phosphatase (< 127 U/L) 78 Albumin (3.5 - 5.0 g/dL) 1.9 L 2.0 L Triglycerides (<150 mg/dL) 338 H Cholesterol (< 200 MG/DL) 124 LDL Cholesterol, Calc (65 - 129 mg/dL) 30 L HDL Cholesterol (40 - 60 mg/dL) 27 L Cholesterol/HDL Ratio (0.00 - 4.88 %) 5 H Hematology CBC w Diff MAN DIFF ORDERED MAN DIFF ORDERED WBC (4.8 - 10.8 /CUMM) 10.9 H 10.9 H RBC (4.70 - 6.10 /CUMM) 3.64 L 3.78 L Hgb (14.0 - 18.0 G/DL) 10.8 L 11.3 L Hct (42 - 52 %) 32.4 L 33.3 L MCV (80.0 - 94.0 FL) 89.0 87.9 MCH (27.0 - 31.0 PG) 29.6 29.9 RDW (11.5 - 14.5 %) 14.4 14.2 Plt Count (130 - 400 /CUMM) 78 L 80 L MPV (7.4 - 10.4 FL) 13.6 H 12.0 H Gran % (42.2 - 75.2 %) 78.2 H 77.9 H Lymphocytes % (20.5 - 51.1 %) 15.3 L 11.4 L Monocytes % (1.7 - 9.3 %) 6.1 10.5 H Eosinophils % (0 - 5 %) 0.3 0.2 Basophils % (0.0 - 2.0 %) 0.1 0 L Absolute Granulocytes (1.4 - 6.5 /CUMM) 8.5 H 8.5 H Segmented Neutrophils (42.2 - 75.2 %) 61 76 H Band Neutrophils (0.0 - 5.0 %) 11 H 14 H Absolute Lymphocytes (1.2 - 3.4 /CUMM) 1.7 1.2 Lymphocytes (20.5 - 51.1 %) 21 8 L Monocytes (1.7 - 9.3 %) 4 1 L Absolute Monocytes (0.10 - 0.60 /CUMM) 0.7 H 1.1 H Eosinophils (0 - 5.0 %) 1 Absolute Eosinophils (0.0 - 0.7 /CUMM) 0 0 Basophils (0.0 - 2.0 %) 1 Absolute Basophils (0.0 - 0.2 /CUMM) 0 0 Metamyelocytes (0.0 - 1.0 %) 1 1 Platelet Estimate (ADEQUATE) DECREASED DECREASED Polychromasia 1+ 1+ Poikilocytosis 1+ 1+ Basophilic Stippling SLIGHT Ovalocytes 1+ 1+ PUBS MCHC (33.0 - 37.0 G/DL) 33.3 34.0 Other Body Source Fld Total RBCs Counted (%) 100 100 01/13 01/13 0045 0043 Chemistry Sodium (137 - 145 mmol/L) 162 *H Potassium (3.5 - 5.1 mmol/L) 3.7 Chloride (98 - 107 mmol/L) 133 H Carbon Dioxide (22 - 30 mmol/L) 19 L Anion Gap (5 - 16) 10 BUN (9 - 20 mg/dL) 24 H Creatinine (0.7 - 1.2 mg/dL) 1.8 H Estimated GFR (>60 ml/min) 42 L Glucose (65 - 99 mg/dL) 198 H Calcium (8.4 - 10.2 mg/dL) 8.4 Phosphorus (2.5 - 4.5 mg/dL) 2.1 L Magnesium (1.6 - 2.3 mg/dL) 1.7 Total Bilirubin (0.2 - 1.3 mg/dL) 0.7 AST (17 - 59 U/L) 197 H ALT (21 - 72 U/L) 95 H Albumin (3.5 - 5.0 g/dL) 2.1 L Hematology CBC w Diff MAN DIFF ORDERED WBC (4.8 - 10.8 /CUMM) 11.9 H RBC (4.70 - 6.10 /CUMM) 3.91 L Hgb (14.0 - 18.0 G/DL) 11.8 L Hct (42 - 52 %) 34.3 L MCV (80.0 - 94.0 FL) 87.8 MCH (27.0 - 31.0 PG) 30.1 RDW (11.5 - 14.5 %) 14.4 Plt Count (130 - 400 /CUMM) 89 L MPV (7.4 - 10.4 FL) 12.6 H Gran % (42.2 - 75.2 %) 78.5 H Lymphocytes % (20.5 - 51.1 %) 14.1 L Monocytes % (1.7 - 9.3 %) 6.9 Eosinophils % (0 - 5 %) 0.3 Basophils % (0.0 - 2.0 %) 0.2 Absolute Granulocytes (1.4 - 6.5 /CUMM) 9.3 H Segmented Neutrophils (42.2 - 75.2 %) 59 Band Neutrophils (0.0 - 5.0 %) 11 H Absolute Lymphocytes (1.2 - 3.4 /CUMM) 1.7 Lymphocytes (20.5 - 51.1 %) 20 L Monocytes (1.7 - 9.3 %) 9 Absolute Monocytes (0.10 - 0.60 /CUMM) 0.8 H Eosinophils (0 - 5.0 %) 1 Absolute Eosinophils (0.0 - 0.7 /CUMM) 0 Absolute Basophils (0.0 - 0.2 /CUMM) 0 Platelet Estimate (ADEQUATE) DECREASED Polychromasia 1+ Poikilocytosis 1+ Ovalocytes 1+ PUBS MCHC (33.0 - 37.0 G/DL) 34.3 Other Body Source Fld Total RBCs Counted (%) 100 Urines Urinalysis LIGHT H Urine Color (YEL,AMB,STR) YEL Urine Clarity (CLEAR) CLDY H Urine pH (5.0 - 8.0) 6.0 Ur Specific [place] (1.001 - 1.035) 1.025 Urine Protein (NEG,<30 MG/DL) 100 H Urine Ketones (NEG) NEG Urine Nitrite (NEG) NEG Urine Bilirubin (NEG) NEG Urine Urobilinogen (0.1 - 1.0 EU/dl) 0.2 Ur Leukocyte Esterase (NEG) NEG Ur Microscopic SEDIMENT EXAMINED Urine RBC (0 - 5 /HPF) 15-25 H Urine WBC (0 - 2 /HPF) RARE Ur Epithelial Cells (NONE,FEW) RARE Urine Crystals 4+ UR AC H Urine Mucus (FEW,NONE) RARE Urine Hemoglobin (NEG) LARGE H Urine Glucose (N MG/DL) 250 H 01/12 01/12 2119 1750 Chemistry Sodium (137 - 145 mmol/L) 160 *H 162 *H Potassium (3.5 - 5.1 mmol/L) 4.0 3.5 Chloride (98 - 107 mmol/L) 131 H 134 H Carbon Dioxide (22 - 30 mmol/L) 19 L 19 L Anion Gap (5 - 16) 10 9 BUN (9 - 20 mg/dL) 27 H 31 H Creatinine (0.7 - 1.2 mg/dL) 1.8 H 1.9 H Estimated GFR (>60 ml/min) 42 L 39 L Glucose (65 - 99 mg/dL) 190 H 159 H Calcium (8.4 - 10.2 mg/dL) 8.6 8.4 Phosphorus (2.5 - 4.5 mg/dL) 1.9 L 2.0 L Magnesium (1.6 - 2.3 mg/dL) 1.8 1.9 Total Bilirubin (0.2 - 1.3 mg/dL) 0.7 0.6 AST (17 - 59 U/L) 134 H 110 H ALT (21 - 72 U/L) 85 H 77 H Albumin (3.5 - 5.0 g/dL) 2.2 L 2.1 L Hematology CBC w Diff NO MAN DIFF REQ MAN DIFF ORDERED WBC (4.8 - 10.8 /CUMM) 11.2 H 9.7 RBC (4.70 - 6.10 /CUMM) 4.06 L 3.89 L Hgb (14.0 - 18.0 G/DL) 11.9 L 11.6 L Hct (42 - 52 %) 35.8 L 34.6 L MCV (80.0 - 94.0 FL) 88.0 88.9 MCH (27.0 - 31.0 PG) 29.4 29.9 RDW (11.5 - 14.5 %) 14.6 H 14.3 Plt Count (130 - 400 /CUMM) 90 L 90 L MPV (7.4 - 10.4 FL) 11.8 H 12.0 H Gran % (42.2 - 75.2 %) 76.3 H 73.1 Lymphocytes % (20.5 - 51.1 %) 14.8 L 15.0 L Monocytes % (1.7 - 9.3 %) 8.2 11.0 H Eosinophils % (0 - 5 %) 0.4 0.5 Basophils % (0.0 - 2.0 %) 0.3 0.4 Absolute Granulocytes (1.4 - 6.5 /CUMM) 8.5 H 7.1 H Segmented Neutrophils (42.2 - 75.2 %) 64 Band Neutrophils (0.0 - 5.0 %) 17 H Absolute Lymphocytes (1.2 - 3.4 /CUMM) 1.7 1.5 Lymphocytes (20.5 - 51.1 %) 12 L Monocytes (1.7 - 9.3 %) 6 Absolute Monocytes (0.10 - 0.60 /CUMM) 0.9 H 1.1 H Absolute Eosinophils (0.0 - 0.7 /CUMM) 0 0 Basophils (0.0 - 2.0 %) 1 Absolute Basophils (0.0 - 0.2 /CUMM) 0 0 Platelet Estimate (ADEQUATE) VERIFIED BY SMEAR Normocytic RBCs VERIFIED Normochromic RBCs VERIFIED PUBS MCHC (33.0 - 37.0 G/DL) 33.3 33.6 Other Body Source Fld Total RBCs Counted (%) 100 01/12 01/12 1520 1456 Chemistry Sodium (137 - 145 mmol/L) Cancelled 162 *H Potassium (3.5 - 5.1 mmol/L) Cancelled 3.7 Chloride (98 - 107 mmol/L) Cancelled 133 H Carbon Dioxide (22 - 30 mmol/L) Cancelled 19 L Anion Gap (5 - 16) Cancelled 10 BUN (9 - 20 mg/dL) Cancelled 32 H Creatinine (0.7 - 1.2 mg/dL) Cancelled 2.1 H Estimated GFR (>60 ml/min) 35 L Glucose (65 - 99 mg/dL) Cancelled 231 H Calcium (8.4 - 10.2 mg/dL) Cancelled 8.3 L Phosphorus (2.5 - 4.5 mg/dL) Cancelled 1.4 L Magnesium (1.6 - 2.3 mg/dL) Cancelled 2.0 Total Bilirubin (0.2 - 1.3 mg/dL) Cancelled 0.5 AST (17 - 59 U/L) Cancelled 105 H ALT (21 - 72 U/L) Cancelled 75 H Albumin (3.5 - 5.0 g/dL) Cancelled 2.1 L Hematology CBC w Diff NO MAN DIFF REQ WBC (4.8 - 10.8 /CUMM) Cancelled 8.8 RBC (4.70 - 6.10 /CUMM) Cancelled 3.98 L Hgb (14.0 - 18.0 G/DL) Cancelled 11.9 L Hct (42 - 52 %) Cancelled 35.4 L MCV (80.0 - 94.0 FL) Cancelled 89.1 MCH (27.0 - 31.0 PG) Cancelled 29.9 RDW (11.5 - 14.5 %) Cancelled 14.2 Plt Count (130 - 400 /CUMM) Cancelled 99 L MPV (7.4 - 10.4 FL) Cancelled 13.0 H Gran % (42.2 - 75.2 %) 74.2 Lymphocytes % (20.5 - 51.1 %) 16.6 L Monocytes % (1.7 - 9.3 %) 8.7 Eosinophils % (0 - 5 %) 0.3 Basophils % (0.0 - 2.0 %) 0.2 Absolute Granulocytes (1.4 - 6.5 /CUMM) 6.5 Absolute Lymphocytes (1.2 - 3.4 /CUMM) 1.5 Absolute Monocytes (0.10 - 0.60 /CUMM) 0.8 H Absolute Eosinophils (0.0 - 0.7 /CUMM) 0 Absolute Basophils (0.0 - 0.2 /CUMM) 0 PUBS MCHC (33.0 - 37.0 G/DL) Cancelled 33.5 15 01/12 1202 UNK Chemistry Sodium (137 - 145 mmol/L) 163 *H Cancelled Potassium (3.5 - 5.1 mmol/L) 3.9 Cancelled Chloride (98 - 107 mmol/L) 133 H Cancelled Carbon Dioxide (22 - 30 mmol/L) 19 L Cancelled Anion Gap (5 - 16) 11 Cancelled BUN (9 - 20 mg/dL) 34 H Cancelled Creatinine (0.7 - 1.2 mg/dL) 2.3 H Cancelled Estimated GFR (>60 ml/min) 31 L Glucose (65 - 99 mg/dL) 323 H Cancelled Calcium (8.4 - 10.2 mg/dL) 8.3 L Cancelled Phosphorus (2.5 - 4.5 mg/dL) 2.4 L Cancelled Magnesium (1.6 - 2.3 mg/dL) 2.1 Cancelled Total Bilirubin (0.2 - 1.3 mg/dL) 0.5 Cancelled AST (17 - 59 U/L) 106 H Cancelled ALT (21 - 72 U/L) 79 H Cancelled Albumin (3.5 - 5.0 g/dL) 2.2 L Cancelled Hematology CBC w Diff NO MAN DIFF REQ WBC (4.8 - 10.8 /CUMM) 8.3 RBC (4.70 - 6.10 /CUMM) 4.08 L Hgb (14.0 - 18.0 G/DL) 12.0 L Hct (42 - 52 %) 35.9 L MCV (80.0 - 94.0 FL) 88.1 MCH (27.0 - 31.0 PG) 29.5 RDW (11.5 - 14.5 %) 14.3 Plt Count (130 - 400 /CUMM) 109 L MPV (7.4 - 10.4 FL) 13.1 H Gran % (42.2 - 75.2 %) 72.9 Lymphocytes % (20.5 - 51.1 %) 18.0 L Monocytes % (1.7 - 9.3 %) 8.6 Eosinophils % (0 - 5 %) 0.2 Basophils % (0.0 - 2.0 %) 0.3 Absolute Granulocytes (1.4 - 6.5 /CUMM) 6.1 Absolute Lymphocytes (1.2 - 3.4 /CUMM) 1.5 Absolute Monocytes (0.10 - 0.60 /CUMM) 0.7 H Absolute Eosinophils (0.0 - 0.7 /CUMM) 0 Absolute Basophils (0.0 - 0.2 /CUMM) 0 PUBS MCHC (33.0 - 37.0 G/DL) 33.5 01/12 01/12 0900 0850 Blood Gas pH (7.35 - 7.45 PH) 7.38 pCO2 (35 - 45 TORR) 27 L pO2 (80 - 100 TORR) 82 HCO3 (21 - 28 MEQ/L) 16 L ABG O2 Sat (Measured) (>96.0 %) 96.0 Carboxyhemoglobin (1.5 - 5.0 %) 0.6 L O2 Concentration % .30 Temperature (97.0 - 100.0 FARH) 98.3 Respiration Rate (BPM) 24 O2 Delivery Method VENT Vent Mode VC-AC Expiratory Pressure (CMH2O/P) 5 Tidal Volume (CC) 650 Chemistry Sodium (137 - 145 mmol/L) 163 *H Potassium (3.5 - 5.1 mmol/L) 4.0 Chloride (98 - 107 mmol/L) 136 H Carbon Dioxide (22 - 30 mmol/L) 18 L Anion Gap (5 - 16) 9 BUN (9 - 20 mg/dL) 37 H Creatinine (0.7 - 1.2 mg/dL) 2.5 H Estimated GFR (>60 ml/min) 28 L Glucose (65 - 99 mg/dL) 348 H Calcium (8.4 - 10.2 mg/dL) 8.4 Phosphorus (2.5 - 4.5 mg/dL) 1.5 L Magnesium (1.6 - 2.3 mg/dL) 2.3 Total Bilirubin (0.2 - 1.3 mg/dL) 0.5 AST (17 - 59 U/L) 90 H ALT (21 - 72 U/L) 75 H Albumin (3.5 - 5.0 g/dL) 2.2 L Hematology CBC w Diff NO MAN DIFF REQ WBC (4.8 - 10.8 /CUMM) 8.2 RBC (4.70 - 6.10 /CUMM) 4.16 L Hgb (14.0 - 18.0 G/DL) 12.4 L Hct (42 - 52 %) 36.4 L MCV (80.0 - 94.0 FL) 87.5 MCH (27.0 - 31.0 PG) 29.7 RDW (11.5 - 14.5 %) 14.4 Plt Count (130 - 400 /CUMM) 111 L MPV (7.4 - 10.4 FL) 12.8 H Gran % (42.2 - 75.2 %) 74.4 Lymphocytes % (20.5 - 51.1 %) 16.9 L Monocytes % (1.7 - 9.3 %) 8.4 Eosinophils % (0 - 5 %) 0.2 Basophils % (0.0 - 2.0 %) 0.1 Absolute Granulocytes (1.4 - 6.5 /CUMM) 6.1 Absolute Lymphocytes (1.2 - 3.4 /CUMM) 1.4 Absolute Monocytes (0.10 - 0.60 /CUMM) 0.7 H Absolute Eosinophils (0.0 - 0.7 /CUMM) 0 Absolute Basophils (0.0 - 0.2 /CUMM) 0 PUBS MCHC (33.0 - 37.0 G/DL) 34.0 Miscellaneous Phlebotomy Draw Site R BRACH 01/12 01/12 0600 0500 Chemistry Sodium (137 - 145 mmol/L) 162 *H Cancelled Potassium (3.5 - 5.1 mmol/L) 4.1 Cancelled Chloride (98 - 107 mmol/L) 136 H Cancelled Carbon Dioxide (22 - 30 mmol/L) 18 L Cancelled Anion Gap (5 - 16) 8 Cancelled BUN (9 - 20 mg/dL) 39 H Cancelled Creatinine (0.7 - 1.2 mg/dL) 2.7 H Cancelled Estimated GFR (>60 ml/min) 26 L Glucose (65 - 99 mg/dL) 381 H Cancelled Calcium (8.4 - 10.2 mg/dL) 8.3 L Cancelled Phosphorus (2.5 - 4.5 mg/dL) 1.1 L Cancelled Magnesium (1.6 - 2.3 mg/dL) 2.4 H Cancelled Total Bilirubin (0.2 - 1.3 mg/dL) 0.4 Cancelled AST (17 - 59 U/L) 81 H Cancelled ALT (21 - 72 U/L) 77 H Cancelled Troponin I (<0.11 ng/ml) 0.08 Albumin (3.5 - 5.0 g/dL) 2.2 L Cancelled Amylase (30 - 110 U/L) 402 H Lipase (23 - 300 U/L) 2781 H Hematology CBC w Diff NO MAN DIFF REQ Cancelled WBC (4.8 - 10.8 /CUMM) 8.4 Cancelled RBC (4.70 - 6.10 /CUMM) 4.11 L Cancelled Hgb (14.0 - 18.0 G/DL) 12.3 L Cancelled Hct (42 - 52 %) 36.3 L Cancelled MCV (80.0 - 94.0 FL) 88.1 Cancelled MCH (27.0 - 31.0 PG) 30.0 Cancelled RDW (11.5 - 14.5 %) 13.8 Cancelled Plt Count (130 - 400 /CUMM) 109 L Cancelled MPV (7.4 - 10.4 FL) 12.6 H Cancelled Gran % (42.2 - 75.2 %) 69.2 Lymphocytes % (20.5 - 51.1 %) 17.8 L Monocytes % (1.7 - 9.3 %) 12.6 H Eosinophils % (0 - 5 %) 0.2 Basophils % (0.0 - 2.0 %) 0.2 Absolute Granulocytes (1.4 - 6.5 /CUMM) 5.8 Absolute Lymphocytes (1.2 - 3.4 /CUMM) 1.5 Absolute Monocytes (0.10 - 0.60 /CUMM) 1.1 H Absolute Eosinophils (0.0 - 0.7 /CUMM) 0 Absolute Basophils (0.0 - 0.2 /CUMM) 0 PUBS MCHC (33.0 - 37.0 G/DL) 34.0 Cancelled 01/12 01/12 0300 0030 Chemistry Sodium (137 - 145 mmol/L) 163 *H 165 *H Potassium (3.5 - 5.1 mmol/L) 4.2 4.5 Chloride (98 - 107 mmol/L) 135 H 133 H Carbon Dioxide (22 - 30 mmol/L) 19 L 18 L Anion Gap (5 - 16) 9 14 BUN (9 - 20 mg/dL) 42 H 45 H Creatinine (0.7 - 1.2 mg/dL) 3.0 H 3.2 H Estimated GFR (>60 ml/min) 23 L 21 L Glucose (65 - 99 mg/dL) 447 H 513 *H Calcium (8.4 - 10.2 mg/dL) 8.2 L 8.3 L Phosphorus (2.5 - 4.5 mg/dL) 1.0 L 1.1 L Magnesium (1.6 - 2.3 mg/dL) 2.5 H 2.6 H Total Bilirubin (0.2 - 1.3 mg/dL) 0.4 0.4 AST (17 - 59 U/L) 74 H 65 H ALT (21 - 72 U/L) 73 H 74 H Albumin (3.5 - 5.0 g/dL) 2.2 L 2.4 L Hematology CBC w Diff NO MAN DIFF REQ MAN DIFF ORDERED WBC (4.8 - 10.8 /CUMM) 9.7 11.9 H RBC (4.70 - 6.10 /CUMM) 4.25 L 4.46 L Hgb (14.0 - 18.0 G/DL) 12.7 L 13.2 L Hct (42 - 52 %) 37.5 L 38.5 L MCV (80.0 - 94.0 FL) 88.0 86.4 MCH (27.0 - 31.0 PG) 29.8 29.7 RDW (11.5 - 14.5 %) 13.9 13.8 Plt Count (130 - 400 /CUMM) 122 L 119 L MPV (7.4 - 10.4 FL) 12.6 H 10.4 Gran % (42.2 - 75.2 %) 71.6 74.3 Lymphocytes % (20.5 - 51.1 %) 14.4 L 13.1 L Monocytes % (1.7 - 9.3 %) 13.8 H 12.2 H Eosinophils % (0 - 5 %) 0 0.1 Basophils % (0.0 - 2.0 %) 0.2 0.3 Absolute Granulocytes (1.4 - 6.5 /CUMM) 6.9 H 8.8 H Segmented Neutrophils (42.2 - 75.2 %) 67 Band Neutrophils (0.0 - 5.0 %) 9 H Absolute Lymphocytes (1.2 - 3.4 /CUMM) 1.4 1.5 Lymphocytes (20.5 - 51.1 %) 16 L Monocytes (1.7 - 9.3 %) 7 Absolute Monocytes (0.10 - 0.60 /CUMM) 1.3 H 1.4 H Absolute Eosinophils (0.0 - 0.7 /CUMM) 0 0 Basophils (0.0 - 2.0 %) 1 Absolute Basophils (0.0 - 0.2 /CUMM) 0 0 Platelet Estimate (ADEQUATE) ADEQUATE Normocytic RBCs VERIFIED Normochromic RBCs VERIFIED PUBS MCHC (33.0 - 37.0 G/DL) 33.8 34.4 Other Body Source Fld Total RBCs Counted (%) 100 01/11 01/11 2230 2030 Chemistry Sodium (137 - 145 mmol/L) 161 *H 161 *H Potassium (3.5 - 5.1 mmol/L) 4.0 3.9 Chloride (98 - 107 mmol/L) 131 H 130 H Carbon Dioxide (22 - 30 mmol/L) 18 L 20 L Anion Gap (5 - 16) 12 11 BUN (9 - 20 mg/dL) 47 H 49 H Creatinine (0.7 - 1.2 mg/dL) 3.5 H 3.7 H Estimated GFR (>60 ml/min) 19 L 18 L Glucose (65 - 99 mg/dL) 579 *H 644 *H Lactic Acid (0.7 - 2.1 mmol/L) 1.6 1.6 Calcium (8.4 - 10.2 mg/dL) 8.0 L 8.0 L Phosphorus (2.5 - 4.5 mg/dL) 1.2 L 1.0 L Magnesium (1.6 - 2.3 mg/dL) 2.6 H 2.6 H Total Bilirubin (0.2 - 1.3 mg/dL) 0.4 0.4 AST (17 - 59 U/L) 65 H 58 ALT (21 - 72 U/L) 75 H 75 H Creatine Kinase (55 - 170 U/L) 1497 H Troponin I (<0.11 ng/ml) 0.11 *H Albumin (3.5 - 5.0 g/dL) 2.4 L 2.4 L Hematology CBC w Diff MAN DIFF ORDERED MAN DIFF ORDERED WBC (4.8 - 10.8 /CUMM) 12.7 H 12.8 H RBC (4.70 - 6.10 /CUMM) 4.45 L 4.51 L Hgb (14.0 - 18.0 G/DL) 13.2 L 13.6 L Hct (42 - 52 %) 39.0 L 39.0 L MCV (80.0 - 94.0 FL) 87.7 86.5 MCH (27.0 - 31.0 PG) 29.6 30.1 RDW (11.5 - 14.5 %) 13.8 13.7 Plt Count (130 - 400 /CUMM) 119 L 139 MPV (7.4 - 10.4 FL) 10.8 H 12.5 H Segmented Neutrophils (42.2 - 75.2 %) 66 61 Band Neutrophils (0.0 - 5.0 %) 19 H 20 H Lymphocytes (20.5 - 51.1 %) 8 L 10 L Monocytes (1.7 - 9.3 %) 5 6 Metamyelocytes (0.0 - 1.0 %) 2 H 3 H Platelet Estimate (ADEQUATE) ADEQUATE Polychromasia 1+ Anisocytosis 1+ Microcytic Cells 1+ 1+ PUBS MCHC (33.0 - 37.0 G/DL) 33.7 34.8 Imaging/Other Studies: NCHCT>> FINDINGS: There is no evidence of acute intracranial hemorrhage or territorial infarction. No abnormal mass effect or midline shift is seen. [place] to white matter differentiation is well preserved. No extra-axial fluid collections are identified. The ventricles are normal in size. There is no abnormal attenuation within the brain parenchyma. The osseous structures and soft tissues are normal. The mastoid air cells and visualized portions of the paranasal sinuses are well aerated. IMPRESSION: Limited study due to motion artifacts. No acute territorial infarction or intracranial hemorrhage. No abnormal mass effect. Assessment/Plan Assessment: 41 year old with encephalopathy secondary to DKA and infection, now improved with treatment.No suggestion of seizures. Recommendations: C/w supportive care as per ICU team. No other neurological indications. Consult Acknowledgment - Thank you for your consult request.
[2017-01-14] VITALS: BP 136/74
[2017-01-14 00:29] LABS: ABSOLUTE BASOPHIL COUNT 0 /CUMM (0.0-0.2); ABSOLUTE EOSINOPHIL COUNT 0.1 /CUMM (0.0-0.7); ABSOLUTE GRANULOCYTE CT 10.5 /CUMM (1.4-6.5); ABSOLUTE LYMPH COUNT 1.6 /CUMM (1.2-3.4); ABSOLUTE MONOCYTE COUNT 0.8 /CUMM (0.10-0.60); BASOPHIL % 0.1 % (0.0-2.0); EOSINOPHIL % 0.7 % (0-5); GRANULOCYTE % 80.3 % (42.2-75.2); MEAN CORPUSCULAR HGB CONC 34.1 G/DL (33.0-37.0); MEAN CORPUSCULAR VOLUME 88.2 FL (80.0-94.0); MEAN PLATELET VOLUME 12.1 FL (7.4-10.4); PLATELET COUNT 68 /CUMM (130-400); RED BLOOD CELL CT 3.85 /CUMM (4.70-6.10); WHITE BLOOD CELL COUNT 13.1 /CUMM (4.8-10.8)
[2017-01-14 06:06] LABS: ABSOLUTE BASOPHIL COUNT 0 /CUMM (0.0-0.2); ABSOLUTE EOSINOPHIL COUNT 0.1 /CUMM (0.0-0.7); ABSOLUTE GRANULOCYTE CT 11.1 /CUMM (1.4-6.5); ABSOLUTE LYMPH COUNT 1.7 /CUMM (1.2-3.4); BASOPHIL % 0.2 % (0.0-2.0); EOSINOPHIL % 0.9 % (0-5); GRANULOCYTE % 79.7 % (42.2-75.2); HEMATOCRIT 33.7 % (42-52); MEAN CORPUSCULAR HGB 29.9 PG (27.0-31.0); MEAN CORPUSCULAR HGB CONC 33.8 G/DL (33.0-37.0); MEAN CORPUSCULAR VOLUME 88.3 FL (80.0-94.0); MEAN PLATELET VOLUME 12.6 FL (7.4-10.4); PLATELET COUNT 64 /CUMM (130-400); RED BLOOD CELL CT 3.82 /CUMM (4.70-6.10); WHITE BLOOD CELL COUNT 13.9 /CUMM (4.8-10.8)
--- NOTE | 2017-01-14 07:16 | PN- Resident CRCU ---
Subjective HPI/CRCU Issues: Insulin drip was discontinued yesterday and patient was converted to subcutaneous insulin. His multiple electrolyte abnormalities and corrected serum sodium continue to normalize. His sugars are reasonably controlled and have been running around 250. Patient was successfully extubated yesterday. Patient seen and examined this morning. He is awake, alert and oriented x3. He expresses understanding of his diagnosis, yet appears somewhat confused. Per his fiancee who is at bedside, his mental status has been improving rapidly since last night although he is still confused and not back to baseline. Patient continued to spike fevers with Tmax of 101.7 yesterday evening but has deffervesced since and continues to be afebrile. Patient passed bedside swallow evaluation. Objective Vital Signs & I&O Last 8 Hrs of Vitals and I&O: Vital Signs Date Time Temp Pulse Resp B/P Pulse O2 O2 Flow FiO2 Ox Delivery Rate 01/14 0400 95 Nasal 5.0L Cannula 01/14 0000 94 Nasal 5.0L Cannula 01/14 0000 99.6 113 32 136/74 94 Nasal 5.0L Cannula 01/13 2000 93 Nasal 6.0L Cannula 01/13 1730 99.2 01/13 1635 101.7 01/13 1600 93 Nasal 8L Cannula 01/13 1600 101.7 134 33 96/61 92 Nasal 8L Cannula 01/13 1200 96 Ventilator 40% 01/13 1045 99.2 01/13 0915 40 Exam General Appearance: alert, awake, comfortable, obese, oriented x3, mild confusion Ears, Nose, Throat: dry mucus membranes Respiratory: lungs clear Cardiovascular: regular rate/rhythm, normal S1 and S2 Gastrointestinal: soft, non-tender, positive bowel sounds Extremities: no edema Cranial Nerves: no gross focal deficits noted Skin: intact, warm/dry Current Medications: Current Medications Sig/Nelida Start time Last Medication Dose Route Stop Time Status Admin Acetaminophen 1,000 MG Q6P PRN 01/11 0745 AC 01/13 N/A 1 UNIT IV 1635 Ampicillin Sodium/ 1,500 MG Q6 01/12 2359 AC 01/14 Sulbactam Sodium IV 0558 Sodium Chloride 100 ML Ciprofloxacin 400 MG Q8 01/13 1400 AC 01/14 Dextrose/Water 200 ML IV 0629 Fentanyl Citrate 1,000 MCG Q4H 01/13 0500 DC 01/13 Dextrose/Water 250 ML IV 1250 Furosemide 20 MG ONCE ONE 01/13 1315 DC 01/13 IV PUSH 01/13 1316 1314 Insulin Aspart 0 Q4 01/13 1000 01/14 NM 0557 Insulin Detemir 30 UNITS BID 01/13 1000 01/13 SC 2206 Insulin Human Regular 100 UNIT Q12H 01/11 0445 DC 01/13 Sodium Chloride 100 ML IV 01/13 1200 0012 Levetiracetam 500 MG BID 01/13 1000 01/13 Sodium Chloride 100 ML IV 2121 Lorazepam 1 MG ONCE ONE 01/13 1515 DC 01/13 IV 01/13 1516 1534 Lorazepam 2 MG Q1 PRN 01/11 1200 AC 01/11 IV 1222 Magnesium Sulfate 1 GM ONCE ONE 01/13 1700 DC 01/13 Dextrose/Water 100 ML IV 01/13 2059 1738 Magnesium Sulfate 1 GM ONCE ONE 01/13 1500 DC 01/13 Dextrose/Water 100 ML IV 01/13 1859 1354 Magnesium Sulfate 1 GM ONCE ONE 01/13 1100 NV 01/13 Dextrose/Water 100 ML IV 01/13 1459 1222 Pantoprazole Sodium 40 MG BID 01/11 1138 AC 01/13 IV 2120 Phosphate 250 MG ONCE ONE 01/13 1930 CAN PO 01/13 1931 Potassium Chloride 10 MEQ Q1H 01/13 1330 DC 01/13 IV 01/13 1431 2021 Potassium Chloride 40 MEQ Q6H 01/13 0800 AC 01/14 Dextrose/Sodium 1,000 ML IV 0111 Chloride Potassium Phosphate 15 mMol ONE ONE 01/13 0745 DC 01/13 Sodium Chloride 250 ML IV 01/13 1148 0909 Vitamin A/Vitamin D 1 MICHELE BID 01/13 2224 [facility] Results Results: Laboratory Tests 01/14 01/14 0508 0014 Chemistry Sodium (137 - 145 mmol/L) 150 H 152 H Potassium (3.5 - 5.1 mmol/L) 4.1 4.0 Chloride (98 - 107 mmol/L) 118 H 120 H Carbon Dioxide (22 - 30 mmol/L) 25 23 Anion Gap (5 - 16) 8 8 BUN (9 - 20 mg/dL) 16 17 Creatinine (0.7 - 1.2 mg/dL) 1.1 1.2 Estimated GFR (>60 ml/min) > 60 > 60 Glucose (65 - 99 mg/dL) 215 H 220 H Calcium (8.4 - 10.2 mg/dL) 8.6 8.6 Phosphorus (2.5 - 4.5 mg/dL) 2.8 2.7 Magnesium (1.6 - 2.3 mg/dL) 2.0 2.1 Total Bilirubin (0.2 - 1.3 mg/dL) 0.9 0.9 AST (17 - 59 U/L) 536 H 455 H ALT (21 - 72 U/L) 181 H 163 H Albumin (3.5 - 5.0 g/dL) 2.3 L 2.3 L Amylase (30 - 110 U/L) 80 Lipase (23 - 300 U/L) 1154 H Hematology CBC w Diff MAN DIFF ORDERED MAN DIFF ORDERED WBC (4.8 - 10.8 /CUMM) 13.9 H 13.1 H RBC (4.70 - 6.10 /CUMM) 3.82 L 3.85 L Hgb (14.0 - 18.0 G/DL) 11.4 L 11.6 L Hct (42 - 52 %) 33.7 L 34.0 L MCV (80.0 - 94.0 FL) 88.3 88.2 MCH (27.0 - 31.0 PG) 29.9 30.0 RDW (11.5 - 14.5 %) 14.0 14.0 Plt Count (130 - 400 /CUMM) 64 L 68 L MPV (7.4 - 10.4 FL) 12.6 H 12.1 H Gran % (42.2 - 75.2 %) 79.7 H 80.3 H Lymphocytes % (20.5 - 51.1 %) 12.2 L 12.6 L Monocytes % (1.7 - 9.3 %) 7.0 6.3 Eosinophils % (0 - 5 %) 0.9 0.7 Basophils % (0.0 - 2.0 %) 0.2 0.1 Absolute Granulocytes (1.4 - 6.5 /CUMM) 11.1 H 10.5 H Segmented Neutrophils (42.2 - 75.2 %) 81 H 76 H Band Neutrophils (0.0 - 5.0 %) 3 Absolute Lymphocytes (1.2 - 3.4 /CUMM) 1.7 1.6 Lymphocytes (20.5 - 51.1 %) 14 L 13 L Monocytes (1.7 - 9.3 %) 4 6 Absolute Monocytes (0.10 - 0.60 /CUMM) 1.0 H 0.8 H Eosinophils (0 - 5.0 %) 1 2 Absolute Eosinophils (0.0 - 0.7 /CUMM) 0.1 0.1 Absolute Basophils (0.0 - 0.2 /CUMM) 0 0 Platelet Estimate (ADEQUATE) DECREASED DECREASED Polychromasia 1+ 1+ Poikilocytosis 1+ 1+ Basophilic Stippling SLIGHT Ovalocytes 1+ 1+ PUBS MCHC (33.0 - 37.0 G/DL) 33.8 34.1 Other Body Source Fld Total RBCs Counted (%) 100 100 01/13 01/13 1500 1245 Blood Gas pH (7.35 - 7.45 PH) 7.38 pCO2 (35 - 45 TORR) 32 L pO2 (80 - 100 TORR) 65 L HCO3 (21 - 28 MEQ/L) 18 L ABG O2 Sat (Measured) (>96.0 %) 91.0 L P-50 (Temp Corrected) Y Carboxyhemoglobin (1.5 - 5.0 %) 0.6 L O2 Concentration % .4 Temperature (97.0 - 100.0 FARH) 101.7 H O2 Delivery Method VENT Vent Mode CPAP Expiratory Pressure (CMH2O/P) 5 Pressure Support (CMH2O/P) 6 Chemistry Sodium (137 - 145 mmol/L) 154 H Potassium (3.5 - 5.1 mmol/L) 4.0 Chloride (98 - 107 mmol/L) 122 H Carbon Dioxide (22 - 30 mmol/L) 20 L Anion Gap (5 - 16) 12 BUN (9 - 20 mg/dL) 17 Creatinine (0.7 - 1.2 mg/dL) 1.4 H Estimated GFR (>60 ml/min) 56 L Glucose (65 - 99 mg/dL) 260 H Calcium (8.4 - 10.2 mg/dL) 8.6 Phosphorus (2.5 - 4.5 mg/dL) 2.7 Magnesium (1.6 - 2.3 mg/dL) 1.8 Total Bilirubin (0.2 - 1.3 mg/dL) 1.1 AST (17 - 59 U/L) 322 H ALT (21 - 72 U/L) 135 H Albumin (3.5 - 5.0 g/dL) 2.4 L Hematology CBC w Diff MAN DIFF ORDERED WBC (4.8 - 10.8 /CUMM) 12.2 H RBC (4.70 - 6.10 /CUMM) 4.07 L Hgb (14.0 - 18.0 G/DL) 12.1 L Hct (42 - 52 %) 35.8 L MCV (80.0 - 94.0 FL) 87.9 MCH (27.0 - 31.0 PG) 29.8 RDW (11.5 - 14.5 %) 14.3 Plt Count (130 - 400 /CUMM) 79 L MPV (7.4 - 10.4 FL) 12.5 H Gran % (42.2 - 75.2 %) 80.5 H Lymphocytes % (20.5 - 51.1 %) 12.2 L Monocytes % (1.7 - 9.3 %) 6.3 Eosinophils % (0 - 5 %) 0.6 Basophils % (0.0 - 2.0 %) 0.4 Absolute Granulocytes (1.4 - 6.5 /CUMM) 9.8 H Segmented Neutrophils (42.2 - 75.2 %) 71 Band Neutrophils (0.0 - 5.0 %) 15 H Absolute Lymphocytes (1.2 - 3.4 /CUMM) 1.5 Lymphocytes (20.5 - 51.1 %) 10 L Monocytes (1.7 - 9.3 %) 3 Absolute Monocytes (0.10 - 0.60 /CUMM) 0.8 H Eosinophils (0 - 5.0 %) 1 Absolute Eosinophils (0.0 - 0.7 /CUMM) 0.1 Absolute Basophils (0.0 - 0.2 /CUMM) 0 Platelet Estimate (ADEQUATE) DECREASED Normocytic RBCs VERIFIED Normochromic RBCs VERIFIED PUBS MCHC (33.0 - 37.0 G/DL) 33.9 Immunology Heparin-induced Plt Ab Pending Heparin-PF4 AB OD Pending Miscellaneous Phlebotomy Draw Site LEFT RADIAL Sputum Cx (01/13/17): GNRs and Staph aureus Sputum Cx (01/11/17): Enterobacter resistant to Unasyn and sensitive to ciprofloxacin and Bactrim and Staph aureus sensitive to Unasyn and Bactrim BCx (01/12/17): NGTD x2 BCx (01/11/17): NGTD x2 UCx (01/11/17): NGTD CXR Findings: CXR: Persistent left retrocardiac atelectasis or consolidation. Tubes removed. No other interval change. Impression/Plan Impression/Problem List Impression: 41 y/o M with PMHx of obesity and no prior history of DM who is admitted for severe DKA with multisystem organ failure. DKA has resolved and patient is on subcutaneous insulin. He is extubated, hemodynamically stable off pressors and AAO x3. Problem List: 1. Altered mental status 2. Metabolic encephalopathy 3. DKA (diabetic ketoacidoses) 4. Acute renal failure 5. Pneumonia 6. Hypernatremia 7. Hyperlipidemia 8. Thrombocytopenia 9. Hypertriglyceridemia 10. Transaminitis 11. Pancreatitis Pain Ratin Tomorrow's Labs & Rationales: CBC to monitor platelet count in the setting of thrombocytopenia BMP, K, Mg and Phos to monitor lytes and kidney function in the setting of LAMBERTO Hepatic function panel to monitor LFTs in the setting of transaminitis Plan Respiratory: #Acute respiratory failure: Resolving. Successfully extubated yesterday. Currently comfortable and satting well on 5 L NC. * Continue to provide supplemental oxygen as needed to keep SpO2 > 92%. * Protonix IV discontinued. Infectious Diseases: #Pneumonia: CXR (01/12/17) with patchy right basilar opacity suspicious for aspiration pneumonia vs. CAP. Sputum Cx (01/11/17) with Enterobacter resistant to Unasyn and sensitive to ciprofloxacin and Bactrim and Staph aureus sensitive to Unasyn and Bactrim. Repeat sputum Cx (01/13/17) growing GNRs and Staph aureus, speciation and susceptibilities pending. Continued to spike fevers with Tmax of 101.7 yesterday evening but has deffervesced and remains afebrile. WBC has been trending up, 13.9 today. S/p 2 doses of vancomycin which was switched to cipro IV yesterday for better Enterobacter coverage based on susceptibilities. On day 4 of Unasyn and day 2 of cipro. BCx have been negative so far. * Switch ciprofloxacin IV to ciprofloxacin 500 mg PO BID as patient is able to take PO. * Unasyn IV discontinued. * Bactrim DS 1 tab PO BID started for Staph coverage. * Abdominal US to rule out intraabdominal pathology in the setting of transaminitis. Cardiovascular: #Hypovolemic shock: Resolved with aggressive IVF hydration. Patient continues to be hemodynamically stable off pressors. Femoral line removed. * Discontinue IV fluids. Hematology: #Thrombocytopenia: Subcutaneous heparin discontinued yesterday. Platelets continue to downtrend, 64 today. * HIT antibody panel pending. * ALPs for DVT PPx. * Consider hematology consult if platelets continue to drop further. Metabolic: #DKA/hyperosmolar hyperglycemic state: Resolved. Insulin drip discontinued and converted to subcutaneous insulin yesterday. Glucose has been running around 250s. Multiple electrolyte abnormalities are resolving. Corrected sodium remains elevated but has further improved to 150. * Endocrinology following. Appreciate their recs. * Continue Levemir 30 units SQ BID. * Start patient on diabetic diet as he passed bedside swallow. * Change Novolog sliding scale to high dose TIDAC with separate bedtime high- dose sliding scale. Continue to monitor Accu-checks and adjust as needed. * Continue to monitor electrolytes and replete as needed. * Free water flushes were discontinued as NG tube was removed. * IVF discontinued. * Anti-VINAY antibody pending. * Downgrade patient to General Medicine. * Out of bed to chair with physical therapy. #Transaminitis: AST/ALT were normal on admission but have been gradually trending up. AST 536 and ALT 181 today. Alkaline phosphatase was elevated to 135 on admission, but improved to 78 yesterday. Unclear etiology but differential includes ischemic hepatitis 2/2 hypovolemic shock and infectious process. * Continue to monitor LFTs. * Complete abdominal US ordered to rule out acute intraabdominal process. #LAMBERTO: Creatinine has improved almost back to baseline, 1.1 this morning. * Continue to monitor kidney function. #Acute pancreatitis: Likely secondary to hypovolemic shock. Amylase and lipase further improved, amylase 80 and lipase 1154 today. * NTD. #Hyperlipidemia/hypertriglyceridemia: Cholesterol 242 and triglycerides 839 on admission. Repeat lipid panel yesterday with improvement of cholesterol to 124 and triglycerides to 338. * NTD. Alimentary: Consistent carbohydrate 2 Neurological: #Metabolic encephalopathy: Mental status significantly improved. Patient is awake, alert and oriented x3 but with mild confusion. * S/p neurology eval yesterday. No interventions needed from their perspective. Will continue with supportive care. #New onset seizures: No more seizures since initial episode. Abnormal EEG with rare intermittent periodic discharges which could be epileptogenic. * Discontinue Keppra. Skin: #Stage 2 pressure ulcers: Multiple stage 2 pressure ulcers noted to left buttock. * Management per wound care team. * Apply barrier cream to affected areas Qshift and PRN. * Reposition and turn patient frequently. * Patient placed on category 2 mattress. * Nutrition following. Appreciate their recs. Skin Care Protocol Ordered? Yes DVT/Prophylaxis: mechanical, pharmacological Code Status: Full Code
--- NOTE | 2017-01-14 07:50 | PN- Diabetes ---
Assessment/Plan Assessment: The patient has been extubated. he ia awake and beginning to understand why he is here in the hospital. His renal function is improved and his serum sodium is down to 150. He states he is thirsty. He is on levemir 30 units twice a day and SS novolog every 4 hours. His blood sugars are under reasonable control. He is on D51/2 normal saline at 150 cc per hour. Plan: Patient to have a swallowing evaluation today. If he passes would start diabetic diet. Continue present dose of levemir and change SS novolog to before meals. A separate bedtime SS novolog should be dordered for bedtime starting with a sugar above 250. Subjective Subjective: feels thirsty Review of Systems Constitutional: Denies: chills, fever. Cardiovascular: Denies: chest pain. Respiratory: Denies: short of breath. Gastrointestinal: Denies: abdominal pain, nausea. Skin: Reports: no symptoms. Objective Last 24 Hrs of Vital Signs/I&O Vital Signs Date Time Temp Pulse Resp B/P Pulse O2 O2 Flow FiO2 Ox Delivery Rate 01/14 0400 95 Nasal 5.0L Cannula 01/14 0000 94 Nasal 5.0L Cannula 01/14 0000 99.6 113 32 136/74 94 Nasal 5.0L Cannula 01/13 2000 93 Nasal 6.0L Cannula 01/13 1730 99.2 01/13 1635 101.7 01/13 1600 93 Nasal 8L Cannula 01/13 1600 101.7 134 33 96/61 92 Nasal 8L Cannula 01/13 1200 96 Ventilator 40% 01/13 1045 99.2 01/13 0915 40 01/13 0800 101.7 01/13 0800 96 Ventilator 40% 01/13 0800 101.7 109 21 110/70 96 Ventilator 40% Intake & Output 01/14 0800 01/14 0000 01/13 1600 Intake Total 1191 1804 2572 Output Total 3100 3935 2730 Balance -1909 -2131 -158 Intake, IV 1191 1804 2172 Intake, Other 400 Number 0 0 Bowel Movements Output, Urine 3100 3935 2730 Vital Signs Date Time Temp Pulse Resp B/P Pulse O2 O2 Flow FiO2 Ox Delivery Rate 01/14 0400 95 Nasal 5.0L Cannula 01/14 0000 94 Nasal 5.0L Cannula 01/14 0000 99.6 113 32 136/74 94 Nasal 5.0L Cannula 01/13 2000 93 Nasal 6.0L Cannula 01/13 1730 99.2 01/13 1635 101.7 01/13 1600 93 Nasal 8L Cannula 01/13 1600 101.7 134 33 96/61 92 Nasal 8L Cannula 01/13 1200 96 Ventilator 40% 01/13 1045 99.2 01/13 0915 40 01/13 0800 101.7 01/13 0800 96 Ventilator 40% 01/13 0800 101.7 109 21 110/70 96 Ventilator 40% Intake & Output 01/14 0800 01/14 0000 01/13 1600 Intake Total 1191 1804 2572 Output Total 3100 3935 2730 Balance -1909 -2131 -158 Intake, IV 1191 1804 2172 Intake, Other 400 Number 0 0 Bowel Movements Output, Urine 3100 3935 2730 Physical Exam General Appearance: well developed/nourished, alert, awake, comfortable Head: normal appearance Neck: normal inspection Respiratory: normal breath sounds Cardiovascular: regular rate/rhythm Extremities: normal inspection Current Medications: Current Medications Sig/Nelida Start time Last Medication Dose Route Stop Time Status Admin Acetaminophen 1,000 MG .STK-MED ONE 01/13 0755 DC IV 01/13 0756 Acetaminophen 1,000 MG Q6P PRN 01/11 0745 01/13 N/A 1 UNIT IV 1635 Ampicillin Sodium/ 1,500 MG Q6 01/12 2359 AC 01/14 Sulbactam Sodium IV 0558 Sodium Chloride 100 ML Ciprofloxacin 400 MG Q8 01/13 1400 AC 01/14 Dextrose/Water 200 ML IV 0629 Fentanyl Citrate 1,000 MCG Q4H 01/13 0500 DC 01/13 Dextrose/Water 250 ML IV 1250 Furosemide 20 MG ONCE ONE 01/13 1315 DC 01/13 IV PUSH 01/13 1316 1314 Insulin Aspart 0 Q4 01/13 1000 AC 01/14 SC 0557 Insulin Detemir 30 UNITS BID 01/13 1000 01/13 SC 2206 Insulin Human Regular 100 UNIT Q12H 01/11 0445 DC 01/13 Sodium Chloride 100 ML IV 01/13 1200 0012 Levetiracetam 500 MG BID 01/13 1000 AC 01/13 Sodium Chloride 100 ML IV 2121 Lorazepam 1 MG ONCE ONE 01/13 1515 DC 02/16 IV 01/13 1516 1534 Lorazepam 2 MG Q1 PRN 01/11 1200 AC 01/11 IV 1222 Magnesium Sulfate 1 GM ONCE ONE 01/13 1700 DC 01/13 Dextrose/Water 100 ML IV 01/13 2059 1738 Magnesium Sulfate 1 GM ONCE ONE 01/13 1500 DC 01/13 Dextrose/Water 100 ML IV 01/13 1859 1354 Magnesium Sulfate 1 GM ONCE ONE 01/13 1100 DC 01/13 Dextrose/Water 100 ML IV 01/13 1459 1222 Pantoprazole Sodium 40 MG BID 01/11 1138 AC 01/13 IV 2120 Phosphate 250 MG ONCE ONE 01/13 1930 CAN PO 01/13 1931 Potassium Chloride 10 MEQ Q1H 01/13 1330 DC 01/13 IV 01/13 1431 2021 Potassium Chloride 40 MEQ Q6H 01/13 0800 AC 01/14 Dextrose/Sodium 1,000 ML IV 0111 Chloride Potassium Chloride 20 MEQ Q6H 01/13 0000 DC 01/13 Dextrose/Sodium 1,000 ML IV 0012 Chloride Potassium Phosphate 15 mMol ONE ONE 01/13 0745 DC 01/13 Sodium Chloride 250 ML IV 01/13 1148 0909 Vitamin A/Vitamin D 1 MICHELE BID 01/13 2224 TOP Findings Pertinent Lab/Basilio Results: Laboratory Tests 01/14 01/14 0508 0014 Chemistry Sodium (137 - 145 mmol/L) 150 H 152 H Potassium (3.5 - 5.1 mmol/L) 4.1 4.0 Chloride (98 - 107 mmol/L) 118 H 120 H Carbon Dioxide (22 - 30 mmol/L) 25 23 Anion Gap (5 - 16) 8 8 BUN (9 - 20 mg/dL) 16 17 Creatinine (0.7 - 1.2 mg/dL) 1.1 1.2 Estimated GFR (>60 ml/min) > 60 > 60 Glucose (65 - 99 mg/dL) 215 H 220 H Calcium (8.4 - 10.2 mg/dL) 8.6 8.6 Phosphorus (2.5 - 4.5 mg/dL) 2.8 2.7 Magnesium (1.6 - 2.3 mg/dL) 2.0 2.1 Total Bilirubin (0.2 - 1.3 mg/dL) 0.9 0.9 AST (17 - 59 U/L) 536 H 455 H ALT (21 - 72 U/L) 181 H 163 H Albumin (3.5 - 5.0 g/dL) 2.3 L 2.3 L Amylase (30 - 110 U/L) 80 Lipase (23 - 300 U/L) 1154 H Hematology CBC w Diff MAN DIFF ORDERED MAN DIFF ORDERED WBC (4.8 - 10.8 /CUMM) 13.9 H 13.1 H RBC (4.70 - 6.10 /CUMM) 3.82 L 3.85 L Hgb (14.0 - 18.0 G/DL) 11.4 L 11.6 L Hct (42 - 52 %) 33.7 L 34.0 L MCV (80.0 - 94.0 FL) 88.3 88.2 MCH (27.0 - 31.0 PG) 29.9 30.0 RDW (11.5 - 14.5 %) 14.0 14.0 Plt Count (130 - 400 /CUMM) 64 L 68 L MPV (7.4 - 10.4 FL) 12.6 H 12.1 H Gran % (42.2 - 75.2 %) 79.7 H 80.3 H Lymphocytes % (20.5 - 51.1 %) 12.2 L 12.6 L Monocytes % (1.7 - 9.3 %) 7.0 6.3 Eosinophils % (0 - 5 %) 0.9 0.7 Basophils % (0.0 - 2.0 %) 0.2 0.1 Absolute Granulocytes (1.4 - 6.5 /CUMM) 11.1 H 10.5 H Segmented Neutrophils (42.2 - 75.2 %) 81 H 76 H Band Neutrophils (0.0 - 5.0 %) 3 Absolute Lymphocytes (1.2 - 3.4 /CUMM) 1.7 1.6 Lymphocytes (20.5 - 51.1 %) 14 L 13 L Monocytes (1.7 - 9.3 %) 4 6 Absolute Monocytes (0.10 - 0.60 /CUMM) 1.0 H 0.8 H Eosinophils (0 - 5.0 %) 1 2 Absolute Eosinophils (0.0 - 0.7 /CUMM) 0.1 0.1 Absolute Basophils (0.0 - 0.2 /CUMM) 0 0 Platelet Estimate (ADEQUATE) DECREASED DECREASED Polychromasia 1+ 1+ Poikilocytosis 1+ 1+ Basophilic Stippling SLIGHT Ovalocytes 1+ 1+ PUBS MCHC (33.0 - 37.0 G/DL) 33.8 34.1 Other Body Source Fld Total RBCs Counted (%) 100 100 01/13 01/13 1500 1245 Blood Gas pH (7.35 - 7.45 PH) 7.38 pCO2 (35 - 45 TORR) 32 L pO2 (80 - 100 TORR) 65 L HCO3 (21 - 28 MEQ/L) 18 L ABG O2 Sat (Measured) (>96.0 %) 91.0 L P-50 (Temp Corrected) Y Carboxyhemoglobin (1.5 - 5.0 %) 0.6 L O2 Concentration % .4 Temperature (97.0 - 100.0 FARH) 101.7 H O2 Delivery Method VENT Vent Mode CPAP Expiratory Pressure (CMH2O/P) 5 Pressure Support (CMH2O/P) 6 Chemistry Sodium (137 - 145 mmol/L) 154 H Potassium (3.5 - 5.1 mmol/L) 4.0 Chloride (98 - 107 mmol/L) 122 H Carbon Dioxide (22 - 30 mmol/L) 20 L Anion Gap (5 - 16) 12 BUN (9 - 20 mg/dL) 17 Creatinine (0.7 - 1.2 mg/dL) 1.4 H Estimated GFR (>60 ml/min) 56 L Glucose (65 - 99 mg/dL) 260 H Calcium (8.4 - 10.2 mg/dL) 8.6 Phosphorus (2.5 - 4.5 mg/dL) 2.7 Magnesium (1.6 - 2.3 mg/dL) 1.8 Total Bilirubin (0.2 - 1.3 mg/dL) 1.1 AST (17 - 59 U/L) 322 H ALT (21 - 72 U/L) 135 H Albumin (3.5 - 5.0 g/dL) 2.4 L Hematology CBC w Diff MAN DIFF ORDERED WBC (4.8 - 10.8 /CUMM) 12.2 H RBC (4.70 - 6.10 /CUMM) 4.07 L Hgb (14.0 - 18.0 G/DL) 12.1 L Hct (42 - 52 %) 35.8 L MCV (80.0 - 94.0 FL) 87.9 MCH (27.0 - 31.0 PG) 29.8 RDW (11.5 - 14.5 %) 14.3 Plt Count (130 - 400 /CUMM) 79 L MPV (7.4 - 10.4 FL) 12.5 H Gran % (42.2 - 75.2 %) 80.5 H Lymphocytes % (20.5 - 51.1 %) 12.2 L Monocytes % (1.7 - 9.3 %) 6.3 Eosinophils % (0 - 5 %) 0.6 Basophils % (0.0 - 2.0 %) 0.4 Absolute Granulocytes (1.4 - 6.5 /CUMM) 9.8 H Segmented Neutrophils (42.2 - 75.2 %) 71 Band Neutrophils (0.0 - 5.0 %) 15 H Absolute Lymphocytes (1.2 - 3.4 /CUMM) 1.5 Lymphocytes (20.5 - 51.1 %) 10 L Monocytes (1.7 - 9.3 %) 3 Absolute Monocytes (0.10 - 0.60 /CUMM) 0.8 H Eosinophils (0 - 5.0 %) 1 Absolute Eosinophils (0.0 - 0.7 /CUMM) 0.1 Absolute Basophils (0.0 - 0.2 /CUMM) 0 Platelet Estimate (ADEQUATE) DECREASED Normocytic RBCs VERIFIED Normochromic RBCs VERIFIED PUBS MCHC (33.0 - 37.0 G/DL) 33.9 Immunology Heparin-induced Plt Ab Pending Heparin-PF4 AB OD Pending Miscellaneous Phlebotomy Draw Site LEFT RADIAL
[2017-01-14 08:00] VITALS: BP 150/62
--- NOTE | 2017-01-14 08:34 | RADIOLOGY REPORT ---
EXAMINATION: XR PORTABLE CHEST CLINICAL INFORMATION: Intubated on mechanical ventilation. Evaluate for interval changes. COMPARISON: Portable chest 01/13/2017. TECHNIQUE: Portable AP view of the chest was obtained. FINDINGS: The endotracheal and nasogastric tubes have been removed. The heart is normal in size. The lungs are hypoexpanded. There is persistent left retrocardiac atelectasis or consolidation. IMPRESSION: Persistent left retrocardiac atelectasis or consolidation. Tubes removed. No other interval change.
--- NOTE | 2017-01-14 10:56 | PN- Pulmonary ---
Subjective HPI/Critical Care Issues: Insulin drip was discontinued yesterday and patient was converted to subcutaneous insulin. Pt extubated yesterday His multiple electrolyte abnormalities and corrected serum sodium continue to normalize. His sugars are reasonably controlled and have been running around 250. Patient was successfully extubated yesterday. Patient seen and examined this morning. He is awake, alert and oriented x3. He expresses understanding of his diagnosis, yet appears somewhat confused. Per his fiancee who is at bedside, his mental status has been imrpoving rapidly since last night although he is still confused and not back to baseline. Objective Current Medications: Current Medications Sig/Nelida Start time Last Medication Dose Route Stop Time Status Admin Acetaminophen 1,000 MG Q6P PRN 01/11 0745 AC 01/13 N/A 1 UNIT IV 1635 Ampicillin Sodium/ 1,500 MG Q6 01/12 2359 AC 01/14 Sulbactam Sodium IV 0558 Sodium Chloride 100 ML Ciprofloxacin 400 MG Q8 01/13 1400 AC 01/14 Dextrose/Water 200 ML IV 0629 Fentanyl Citrate 1,000 MCG Q4H 01/13 0500 DC 01/13 Dextrose/Water 250 ML IV 1250 Furosemide 20 MG ONCE ONE 01/13 1315 DC 01/13 IV PUSH 01/13 1316 1314 Insulin Aspart 0 Q4 01/13 1000 AC 01/14 SC 1024 Insulin Detemir 30 UNITS BID 01/13 1000 AC 01/14 SC 1025 Insulin Human Regular 100 UNIT Q12H 01/11 0445 DC 01/13 Sodium Chloride 100 ML IV 01/13 1200 0012 Levetiracetam 500 MG BID 01/13 1000 AC 01/14 Sodium Chloride 100 ML IV 1025 Lorazepam 1 MG ONCE ONE 01/13 1515 DC 01/13 IV 01/13 1516 1534 Lorazepam 2 MG Q1 PRN 01/11 1200 AC 01/11 IV 1222 Magnesium Sulfate 1 GM ONCE ONE 01/13 1700 DC 01/13 Dextrose/Water 100 ML IV 01/13 2059 1738 Magnesium Sulfate 1 GM ONCE ONE 01/13 1500 DC 01/13 Dextrose/Water 100 ML IV 01/13 1859 1354 Magnesium Sulfate 1 GM ONCE ONE 01/13 1100 DC 01/13 Dextrose/Water 100 ML IV 01/13 1459 1222 Pantoprazole Sodium 40 MG BID 01/11 1138 AC 01/14 IV 1025 Phosphate 250 MG ONCE ONE 01/13 1930 CAN PO 01/13 193 Potassium Chloride 10 MEQ Q1H 01/13 1330 DC 01/13 IV 01/13 1431 2021 Potassium Chloride 40 MEQ Q6H 01/13 0800 AC 01/14 Dextrose/Sodium 1,000 ML IV 0939 Chloride Potassium Phosphate 15 mMol ONE ONE 01/13 0745 DC 01/13 Sodium Chloride 250 ML IV 01/13 1148 0909 Vitamin A/Vitamin D 1 MICHELE BID 01/13 2224 01/14 TOP 1026 Vital Signs & I&O Last 24 Hrs of Vitals and I&O: Vital Signs Date Time Temp Pulse Resp B/P Pulse O2 O2 Flow FiO2 Ox Delivery Rate 01/14 0400 95 Nasal 5.0L Cannula 01/14 0000 94 Nasal 5.0L Cannula 01/14 0000 99.6 113 32 136/74 94 Nasal 5.0L Cannula 01/13 2000 93 Nasal 6.0L Cannula 01/13 1730 99.2 01/13 1635 101.7 01/13 1600 93 Nasal 8L Cannula 01/13 1600 101.7 134 33 96/61 92 Nasal 8L Cannula 01/13 1200 96 Ventilator 40% 01/13 1045 99.2 Intake & Output 01/14 1600 01/14 0800 01/14 0000 Intake Total 1191 1804 Output Total 3100 3935 Balance -1909 -2131 Intake, IV 1191 1804 Number 0 0 Bowel Movements Output, Urine 3100 3935 Impression/Plan Impression/Plan Impression/Plan: 41 y/o M with no prior history of DM who is admitted for severe DKA with multisystem organ failure. Currently hemodynamically stable off pressors, but remains intubated and on insulin drip. IMPRESSION * Improving Significant hyperosmolar hyperglycemic diabetic ketoacidosis state * Improving Acute renal insufficiency due to above and hypovolemia * S/p Acute respiratory failure related to metabolic encephalopathy, sepsis now resolved * Resolved hypotension requiring vasopressors initially due to hypovolemia and improvement * Improving mental status * Neuro with suspected seizures and neuro eval suggest supportive care only * Ongoing fever with sepsis probably due to Asp pna vs cap now has staph and enterobacter in the sputum * New onset thrombocytopenia. Patient was on heparin * Pancreatitis as noted upon admission improving * Significant hypertriglyceridemia and hyperlipidemia which may have precipitated pancreatitis as well nwo better * REsolved Mild upper GI bleed most likely related to gastritis from above- mentioned factors Significant leukocytosis most likely related to stress, probable aspiration RECOMMENDATION * IV fluids to contine changes insulin per endocrine note * COnt abx, oob to chair * Follow platelets and if it drops have heme see him * Use Venodyne boots * DC ppi, odalis Ok to be transferred to the floor when he is better swallow eval today OOB to chair Feed if he passes swallow
[2017-01-14 16:00] VITALS: BP 100/70
--- NOTE | 2017-01-14 16:33 | ULTRASOUND REPORT ---
EXAMINATION: US ABDOMEN COMPLETE CLINICAL INFORMATION: Transaminitis, pancreatitis, persistent fevers and leukocytosis despite antibiotic therapy. Evaluate for acute process. COMPARISON: CT of the abdomen and pelvis 01/11/2017. TECHNIQUE: Real-time imaging of the abdominal viscera. FINDINGS: PANCREAS: Partially obscured by gas. Otherwise unremarkable. ABDOMINAL AORTA: The proximal segment is normal in caliber. INFERIOR VENA CAVA: Visualized portions are normal. LIVER: Diffusely echogenic, consistent with hepatic steatosis is noted on the CT scan. There is focal sparing in the gallbladder fossa region. There are no focal liver lesions and there is no intrahepatic biliary duct dilatation. GALLBLADDER: Normal. The gallbladder is physiologically distended without evidence of stones, sludge, polyps, wall thickening or pericholecystic fluid. COMMON BILE DUCT: Normal in caliber measuring 0.4 cm in diameter. RIGHT KIDNEY: Normal. No hydronephrosis. No renal calculi or focal parenchymal lesions. The kidney measures 12.9 cm in maximum dimension. LEFT KIDNEY: Normal. No hydronephrosis. No renal calculi or focal parenchymal lesions. The kidney measures 14.9 cm in maximum dimension. SPLEEN: Normal. The spleen measures 11.1 cm in maximum dimension. FREE FLUID: None IMPRESSION: 1. Diffuse hepatic steatosis with focal sparing in the gallbladder fossa region. 2. No evidence of cholelithiasis.
[2017-01-14 23:59] VITALS: BP 108/72
[2017-01-15 05:48] LABS: ABSOLUTE BASOPHIL COUNT 0.1 /CUMM (0.0-0.2); ABSOLUTE EOSINOPHIL COUNT 0.1 /CUMM (0.0-0.7); ABSOLUTE GRANULOCYTE CT 8.8 /CUMM (1.4-6.5); ABSOLUTE LYMPH COUNT 1.3 /CUMM (1.2-3.4); ABSOLUTE MONOCYTE COUNT 0.8 /CUMM (0.10-0.60); BASOPHIL % 0.7 % (0.0-2.0); GRANULOCYTE % 78.8 % (42.2-75.2); HEMATOCRIT 34.8 % (42-52); MEAN CORPUSCULAR HGB 29.4 PG (27.0-31.0); MEAN CORPUSCULAR HGB CONC 33.2 G/DL (33.0-37.0); MEAN CORPUSCULAR VOLUME 88.5 FL (80.0-94.0); MEAN PLATELET VOLUME 13.3 FL (7.4-10.4); PLATELET COUNT 65 /CUMM (130-400); RED BLOOD CELL CT 3.94 /CUMM (4.70-6.10)
[2017-01-15 06:15] LABS: WHITE BLOOD CELL COUNT 11.2 /CUMM (4.8-10.8)
[2017-01-15 08:00] VITALS: BP 132/70
--- NOTE | 2017-01-15 08:00 | PN- Diabetes ---
Assessment/Plan Assessment: The patient has been extubated. He is awake and and oriented His renal function is improved and his serum sodium is down to 149. He states he is not as thirsty. He is on Levemir 30 units twice a day. He is on sliding scale NovoLog before meals. His blood sugars yesterday were somewhat high. Plan: Suggest continue 30 units of Levemir twice a day. Change sliding-scale NovoLog before meals to 80-150 give 6 units NovoLog, 151- 200 give 8 units NovoLog, 201-250 give 10 units NovoLog, 251-300 give 12 units NovoLog, 301-350 give 14 units NovoLog, 351-400 give 16 units NovoLog. A separate bedtime started scale NovoLog should be written. Sliding-scale NovoLog at bedtime should be less than 250 give no insulin, 251-300 give 3 units NovoLog, 301-350 give 4 units NovoLog, 351-400 give 5 units NovoLog Subjective Subjective: Feels improved Review of Systems Constitutional: Denies: chills, fever. Cardiovascular: Denies: chest pain. Respiratory: Denies: short of breath. Gastrointestinal: Denies: nausea, vomiting. Skin: Reports: no symptoms. Objective Last 24 Hrs of Vital Signs/I&O Vital Signs Date Time Temp Pulse Resp B/P Pulse O2 O2 Flow FiO2 Ox Delivery Rate 01/15 0000 97 Nasal 5.0L Cannula 01/14 2359 98.2 104 18 108/72 97 Nasal 5.0L Cannula 01/14 1600 Nasal 5.0L Cannula 01/14 1600 99.9 115 24 100/70 94 Nasal 5.0L Cannula Intake & Output 01/15 1600 01/15 0800 01/15 0000 Intake Total 480 950 Output Total 1000 1575 Balance -520 -625 Intake, Oral 480 50 Intake, Tube 900 Irrigant Output, Urine 1000 1575 Vital Signs Date Time Temp Pulse Resp B/P Pulse O2 O2 Flow FiO2 Ox Delivery Rate 01/15 0000 97 Nasal 5.0L Cannula 01/14 2359 98.2 104 18 108/72 97 Nasal 5.0L Cannula 01/14 1600 Nasal 5.0L Cannula 01/14 1600 99.9 115 24 100/70 94 Nasal 5.0L Cannula Intake & Output 01/15 1600 01/15 0800 01/15 0000 Intake Total 480 950 Output Total 1000 1575 Balance -520 -625 Intake, Oral 480 50 Intake, Tube 900 Irrigant Output, Urine 1000 1575 Physical Exam General Appearance: alert, awake, comfortable Head: normal appearance Neck: normal inspection Respiratory: normal breath sounds Abdomen: normal bowel sounds Extremities: normal inspection Current Medications: Current Medications Sig/Nelida Start time Last Medication Dose Route Stop Time Status Admin Acetaminophen 1,000 MG Q6P PRN 01/11 0745 DC 01/13 N/A 1 UNIT IV 1635 Ampicillin Sodium/ 1,500 MG Q6 01/12 2359 DC 01/14 Sulbactam Sodium IV 0558 Sodium Chloride 100 ML Ciprofloxacin 500 MG 0600,1800 01/14 1800 AC 01/15 PO 01/18 1759 0504 Ciprofloxacin 500 MG BID 01/14 1128 DC PO 01/18 1127 Ciprofloxacin 400 MG Q8 01/13 1400 DC 01/14 Dextrose/Water 200 ML IV 0629 Insulin Aspart 0 AT BEDTIME 01/14 2200 AC 01/14 AR 2222 Insulin Aspart 0 TIDAC 01/14 1700 AC 01/14 AR 1625 Insulin Aspart 0 Q4 01/14 1400 DC 01/14 SC 01/14 1700 1429 Insulin Aspart 0 Q4 01/13 1000 DC 01/14 SC 1024 Insulin Detemir 30 UNITS BID 01/13 1000 AC 01/14 SC 2224 Levetiracetam 500 MG BID 01/13 1000 DC 01/14 Sodium Chloride 100 ML IV 1025 Lorazepam 2 MG Q1 PRN 01/11 1200 DC 01/11 IV 1222 Pantoprazole Sodium 40 MG BID 01/11 1138 DC 01/14 IV 1025 Potassium Chloride 40 MEQ Q6H 01/14 1130 DC 01/14 Dextrose/Sodium 1,000 ML IV 01/14 1700 1700 Chloride Potassium Chloride 40 MEQ Q6H 01/13 0800 DC 01/14 Dextrose/Sodium 1,000 ML IV 0939 Chloride Trimethoprim/ 1 TAB 0600,1800 01/14 1800 AC 01/15 Sulfamethoxazole PO 0504 Trimethoprim/ 1 TAB BID 01/14 1136 DC Sulfamethoxazole PO Vitamin A/Vitamin D 1 MICHELE BID 01/13 2224 AC 01/14 [facility] 2235 Findings Pertinent Lab/Basilio Results: Laboratory Tests 01/15 0445 Chemistry Sodium (137 - 145 mmol/L) 149 H Potassium (3.5 - 5.1 mmol/L) 4.1 Chloride (98 - 107 mmol/L) 114 H Carbon Dioxide (22 - 30 mmol/L) 22 Anion Gap (5 - 16) 12 BUN (9 - 20 mg/dL) 19 Creatinine (0.7 - 1.2 mg/dL) 0.9 Estimated GFR (>60 ml/min) > 60 Glucose (65 - 99 mg/dL) 217 H Calcium (8.4 - 10.2 mg/dL) 8.7 Phosphorus (2.5 - 4.5 mg/dL) 3.5 Magnesium (1.6 - 2.3 mg/dL) 2.0 Total Bilirubin (0.2 - 1.3 mg/dL) 0.7 AST (17 - 59 U/L) 443 H ALT (21 - 72 U/L) 213 H Albumin (3.5 - 5.0 g/dL) 2.4 L Hematology CBC w Diff NO MAN DIFF REQ WBC (4.8 - 10.8 /CUMM) 11.2 H RBC (4.70 - 6.10 /CUMM) 3.94 L Hgb (14.0 - 18.0 G/DL) 11.6 L Hct (42 - 52 %) 34.8 L MCV (80.0 - 94.0 FL) 88.5 MCH (27.0 - 31.0 PG) 29.4 RDW (11.5 - 14.5 %) 14.0 Plt Count (130 - 400 /CUMM) 65 L MPV (7.4 - 10.4 FL) 13.3 H Gran % (42.2 - 75.2 %) 78.8 H Lymphocytes % (20.5 - 51.1 %) 12.0 L Monocytes % (1.7 - 9.3 %) 7.5 Eosinophils % (0 - 5 %) 1.0 Basophils % (0.0 - 2.0 %) 0.7 Absolute Granulocytes (1.4 - 6.5 /CUMM) 8.8 H Absolute Lymphocytes (1.2 - 3.4 /CUMM) 1.3 Absolute Monocytes (0.10 - 0.60 /CUMM) 0.8 H Absolute Eosinophils (0.0 - 0.7 /CUMM) 0.1 Absolute Basophils (0.0 - 0.2 /CUMM) 0.1 PUBS MCHC (33.0 - 37.0 G/DL) 33.2
--- NOTE | 2017-01-15 08:15 | PN- Housestaff ---
See Addendum Subjective Follow-up For: New-onset diabetes s/p DKA Pneumonia Transaminitis Thrombocytopenia LAMBERTO Subjective: No acute events overnight. Patient seen and examined this morning. He is doing much better today. He is walking around comfortably around the unit with the assistance of a walker. His appetite is good. He feels back to baseline in terms of his mental status. His only complaint is pain in his right back, 2 out of 10 in intensity. He reports that he has chronic back pain at baseline. Review of Systems Constitutional: Reports: no symptoms. Objective Last 24 Hrs of Vital Signs/I&O Vital Signs Date Time Temp Pulse Resp B/P Pulse O2 O2 Flow FiO2 Ox Delivery Rate 01/15 08 94 Nasal 5.0L Cannula 01/15 08 98.9 100 20 132/70 94 Nasal 5.0L Cannula 01/15 0000 97 Nasal 5.0L Cannula 01/14 2359 98.2 104 18 108/72 97 Nasal 5.0L Cannula 01/14 1600 Nasal 5.0L Cannula 01/14 1600 99.9 115 24 100/70 94 Nasal 5.0L Cannula Intake & Output 01/15 1600 01/15 0800 01/15 0000 Intake Total 480 480 950 Output Total 650 1000 1575 Balance -170 -520 -625 Intake, Oral 480 480 50 Intake, Tube 900 Irrigant Output, Urine 650 1000 1575 Physical Exam General Appearance: Alert, Oriented X3, No Acute Distress HEENT: Cheilitis Neck: Supple Cardiovascular: Regular Rate, Normal S1, Normal S2 Lungs: Clear to Auscultation Abdomen: Soft, No Tenderness, Positive Bowel Sounds Neurological: No Gross Focal Deficits Noted Extremities: No Clubbing, No Cyanosis, No Edema Current Medications: Current Medications Sig/Nelida Start time Last Medication Dose Route Stop Time Status Admin Ciprofloxacin 500 MG 0600,1800 01/14 1800 DC 01/15 PO 01/18 1759 0504 Ciprofloxacin 500 MG BID 01/14 1128 DC PO 01/18 1127 Cyanocobalamin/ 1 BAG DAILY 01/15 1335 AC Thiamine/Pyridoxine IV 01/15 2134 Sodium Chloride 1,000 ML Insulin Aspart 0 AT BEDTIME 01/14 2200 AC 01/14 SC 2222 Insulin Aspart 0 TIDAC 01/14 1700 AC 01/15 SC 1155 Insulin Aspart 0 Q4 01/14 1400 DC 01/14 SC 01/14 1700 1429 Insulin Detemir 30 UNITS BID 01/13 1000 AC 01/15 SC 1040 Nystatin 5 ML 4 TIMES/DAY 01/15 1400 AC PO Potassium Chloride 40 MEQ Q6H 01/14 1130 DC 01/14 Dextrose/Sodium 1,000 ML IV 01/14 1700 1700 Chloride Tramadol HCl 50 MG Q6P PRN 01/15 1030 AC 01/15 PO 1040 Trimethoprim/ 1 TAB 0600,1800 01/14 1800 AC 01/15 Sulfamethoxazole PO 0504 Trimethoprim/ 1 TAB BID 01/14 1136 DC Sulfamethoxazole PO Vitamin A/Vitamin D 1 MICHELE BID 01/13 2224 AC 01/15 TOP 1040 Last 24 Hrs of Lab/Basilio Results Last 24 Hrs of Labs/Mics: Laboratory Tests 01/15/17 0445: Anion Gap 12, Estimated GFR > 60, Glucose 217 H, Calcium 8.7, Phosphorus 3.5, Magnesium 2.0, Total Bilirubin 0.7, AST 443 H, ALT 213 H, Albumin 2.4 L, CBC w Diff NO MAN DIFF REQ, RBC 3.94 L, MCV 88.5, MCH 29.4, RDW 14.0, MPV 13.3 H, Gran % 78.8 H, Lymphocytes % 12.0 L, Monocytes % 7.5, Eosinophils % 1.0, Basophils % 0.7, Absolute Granulocytes 8.8 H, Absolute Lymphocytes 1.3, Absolute Monocytes 0.8 H, Absolute Eosinophils 0.1, Absolute Basophils 0.1, PUBS MCHC 33.2 Sputum Cx (01/13/17) and (01/11/17): Enterobacter resistant to Unasyn and sensitive to ciprofloxacin and Bactrim and Staph aureus sensitive to Unasyn and Bactrim BCx (01/12/17): NGTD BCx (01/11/17): One out of two cultures growing gram positive rods Assessment/Plan Assessment: 41 y/o M with PMHx of obesity but no prior history of diabetes who presented with severe DKA complicated by acute respiratory failure requiring intubation and hypovolemic shock requiring pressors, now resolved. #New-onset diabetes: Blood sugars have been running high around 250-350 yesterday. Na has slightly improved to 149. * Endocrinology following. Appreciate their recs. * Continue Levemir 30 units SQ BID. * Change Novolog TIDAC sliding scale to: for glucose 80-150 give 6 units of Novolog, 151-200 give 8 units, 201-250 give 10 units, 251-300 give 12 units, 301 -350 give 14 units and 351-400 give 16 units. * Change Novolog QHS sliding scale to: for glucose less than 250 give no insulin , 251-300 3 units, 301-350 give 4 units and 351-400 give 5 units. * Continue to monitor electrolytes and replete as needed. * Anti-VINAY antibody pending to evaluate if patient has type 1 or type 2 diabetes. * Administer 1 banana bag as patient has cheilitis on exam concerning for vitamin deficiency. * Nystatin swish and swallow 5 ml QID. * Continue physical therapy. #Pneumonia: Repeat sputum Cx (01/13/17) also growing Enterobacter resistant to Unasyn and sensitive to ciprofloxacin and Bactrim and Staph aureus sensitive to Unasyn and Bactrim. Remains afebrile and with improving leukocytosis on day 2 of Bactrim and day 3 of cipro and s/p 3 days of IV Unasyn. BCx from admission (01/11) with gram negative rods in 1 out of 2 sets. Most likely contaminant. Repeat BCx (01/12/17) NGTD. Remains on 5 L NC. * Continue Bactrim DS 1 tab PO BID. * Ciprofloxacin discontinued. #Thrombocytopenia: Most likely secondary to Unasyn which was discontinued yesterday. Platelets remain stable in the 60s. * Continue to monitor platelet count. * ALPs for DVT PPx. * HIT antibody panel pending. * Consider hematology consult if platelets drop further. #Transaminitis: AST/ALT remain elevated, 443/213 today. Most likely secondary to ischemic hepatitis. Complete abdominal US with diffuse hepatic steatosis and no focal liver lesions or evidence of cholelithiasis. * Continue to monitor LFTs. #LAMBERTO: Resolved. Creatinine back to baseline, 0.9 today. * Continue to monitor lytes and kidney function. * Avoid nephrotoxic medications. Diet: Consistent Carbohydrate 2 DVT PPx: ALPs CODE: FULL Problem List: 1. Transaminitis 2. Thrombocytopenia 3. Acute respiratory failure 4. DKA (diabetic ketoacidoses) 5. Diabetes mellitus, new onset 6. Hypernatremia 7. Pneumonia 8. Metabolic encephalopathy Pain Ratin Pain Location: Back Pain Goal: Remain pain free Pain Plan: Tramadol 50 mg PO Q6H PRN Tomorrow's Labs & Rationales: CBC to monitor platelet count in the setting of thrombocytopenia BMP, K, Mg and Phos to monitor lytes and kidney function in the setting of recent episode of DKA and LAMBERTO Hepatic function panel to monitor LFTs in the setting of transaminitis
--- NOTE | 2017-01-15 13:09 | PN- Pulmonary ---
Subjective HPI/Critical Care Issues: Doing well Stable [place]uth and pharyngeal stain Objective Current Medications: Current Medications Sig/Nelida Start time Last Medication Dose Route Stop Time Status Admin Ciprofloxacin 500 MG 0600,1800 01/14 1800 AC 01/15 PO 01/18 1759 0504 Ciprofloxacin 500 MG BID 01/14 1128 DC PO 01/18 1127 Insulin Aspart 0 AT BEDTIME 01/14 2200 AC 01/14 SC 2222 Insulin Aspart 0 TIDAC 01/14 1700 AC 01/15 SC 1155 Insulin Aspart 0 Q4 01/14 1400 DC 01/14 SC 01/14 1700 1429 Insulin Detemir 30 UNITS BID 01/13 1000 AC 01/15 SC 1040 Potassium Chloride 40 MEQ Q6H 01/14 1130 DC 01/14 Dextrose/Sodium 1,000 ML IV 01/14 1700 1700 Chloride Tramadol HCl 50 MG Q6P PRN 01/15 1030 AC 01/15 PO 1040 Trimethoprim/ 1 TAB 0600,1800 01/14 1800 AC 01/15 Sulfamethoxazole PO 0504 Trimethoprim/ 1 TAB BID 01/14 1136 DC Sulfamethoxazole PO Vitamin A/Vitamin D 1 MICHELE BID 01/13 2224 AC 01/15 [facility] 1040 Vital Signs & I&O Last 24 Hrs of Vitals and I&O: Vital Signs Date Time Temp Pulse Resp B/P Pulse O2 O2 Flow FiO2 Ox Delivery Rate 01/15 0800 94 Nasal 5.0L Cannula 01/15 0800 98.9 100 20 132/70 94 Nasal 5.0L Cannula 01/15 0000 97 Nasal 5.0L Cannula 01/14 2359 98.2 104 18 108/72 97 Nasal 5.0L Cannula 01/14 1600 Nasal 5.0L Cannula 01/14 1600 99.9 115 24 100/70 94 Nasal 5.0L Cannula Intake & Output 01/15 1600 01/15 0800 01/15 0000 Intake Total 480 950 Output Total 650 1000 1575 Balance -650 -520 -625 Intake, Oral 480 50 Intake, Tube 900 Irrigant Output, Urine 650 1000 1575 Impression/Plan Impression/Plan Impression/Plan: 41 y/o M with no prior history of DM who is admitted for severe DKA with multisystem organ failure. Currently hemodynamically stable off pressors, but remains intubated and on insulin drip. IMPRESSION * Improving Significant hyperosmolar hyperglycemic diabetic ketoacidosis state * Improving Acute renal insufficiency due to above and hypovolemia * S/p Acute respiratory failure related to metabolic encephalopathy, sepsis now resolved * Resolved hypotension requiring vasopressors initially due to hypovolemia and improvement * Improving mental status * Neuro with suspected seizures and neuro eval suggest supportive care only * Ongoing fever with sepsis probably due to Asp pna vs cap now has staph and enterobacter in the sputum * New onset thrombocytopenia. Patient was on heparin * Pancreatitis as noted upon admission improving * Significant hypertriglyceridemia and hyperlipidemia which may have precipitated pancreatitis as well nwo better * REsolved Mild upper GI bleed most likely related to gastritis from above- mentioned factors Significant leukocytosis most likely related to stress, probable aspiration RECOMMENDATION * DC cipro and bactrim daily, Check potassium daily * COnt abx, oob to chair * Follow platelets * Use Venodyne boots Ok to be transferred to the floor Insulin per endo Will follow prn Wean oxygen if able Start nystatin s and s 5 ml qid for now
[2017-01-15 16:09] VITALS: BP 120/84
--- NOTE | 2017-01-15 20:22 | Transfer of Care Summary ---
Hospital Course Course Hospital Course: Mr. Diaz is a 41 y/o M with no significant PMHx other than obesity of who presented with unresponsiveness, preceded by nonproductive cough, generalized weakness and lethargy x 1 week as well as polyuria, polydipsia and 20-40 pound weight loss in the past 3 weeks leading up to current presentation. On initial presentation in the ED, vitals were temperature 95.4, HR 85, BP 76/39 and SpO2 of 79% on RA. Patient was comatose and was subsequently intubated for airway protection. Labs were remarkable for WBC 18, Na 144, anion gap metabolic acidosis with bicarbonate 14 and anion gap 29, BUN 55, creatinine 5.5, glucose 1942, AST 32, ALT 95 and alkaline phosphatase 135. UA was positive for glucose and ketones. Urine toxicology was positive for acetone and THC. CT Head was negative for acute intracranial process and ABG revealed marked acidosis with 7.11/42/387/13. CT Chest/Abdomen/Pelvis was unremarkable. Patient was fluid resuscitated with 1 L boluses of NS x 6. Femoral line was placed and patient was started on Levophed drip for blood pressure support. He was admitted to the ICU for management of his severe DKA with multisystem organ failure. Below are the issues that were addressed during current admission: Assessment/Plan: #DKA/hyperosmolar hyperglycemic state: Endocrinology, nephrology and [facility] were consulted and management was performed according to their recs. Patient remained on the insulin drip for 2 days and received aggressive hydration with KCl- containing IV fluids with resolution of his ketoacidosis, improvement of his blood sugars and normalization of his multiple electrolyte abnormalities. Electrolytes including Mg, K and Phos were re-checked frequently and aggressively repleted during this time. Once glucose and the electrolytes were stable, patient was converted to subcutaneous insulin: Levemir 30 units BID and Novolog sliding scale, initially Q4H and later changed to TIDAC with a separate bedtime scale once patient started eating. * Endocrinology following. Appreciate their recs. * Continue Levemir 30 units SQ BID. * Continue Novolog TIDAC sliding scale: for glucose 80-150 give 6 units of Novolog, 151-200 give 8 units, 201-250 give 10 units, 251-300 give 12 units, 301 -350 give 14 units and 351-400 give 16 units. * Continue Novolog QHS sliding scale: for glucose less than 250 give no insulin, 251-300 3 units, 301-350 give 4 units and 351-400 give 5 units. * Continue to monitor electrolytes and replete as needed. * Anti-VINAY antibody pending evaluate if patient has type 1 or type 2 diabetes. * Continue physical therapy. * 1 banana bag administered as patient has cheilitis on exam concerning for vitamin deficiency. * Nystatin swish and swallow 5 ml QID. #Pneumonia: Although, patient was afebrile on initial presentation, he later spiked fevers on the first day of admission. Patient was started on IV Unasyn due to concern for aspiration pneumonia in the setting of AMS. CXR showed (01/12) patchy right basilar opacity suspicious for aspiration pneumonia vs. CAP. Sputum Cx from admission (01/11) later grew Enterobacter resistant to Unasyn and sensitive to ciprofloxacin and Bactrim and Staph aureus sensitive to Unasyn and Bactrim. Patient was started on IV vancomycin (01/12-01/13) for Staph coverage but after receiving two doses, was switched to IV ciprofloxacin for better Enterobacter coverage once speciation and susceptibilities came back, which was continued for 2 days (01/13-01/15). Once patient was able to take PO, Unasyn (01/11 -01/14) was switched to Bactrim as it was suspected that it could be causing the thrombocytopenia. Patient defervesced on day 3 of admission and has been afebrile since. 1 out of 2 sets of BCx from admission grew gram negative rods, but this is likely contaminant. Repeat BCx were negative. * Continue Bactrim DS 1 tab PO BID (01/14-). #Acute respiratory failure: Patient remained intubated and on mechanical ventilation until day 3 on admission when he was successfully extubated. He continues to have an oxygen requirement of 5 L. * Continue to provide supplemental oxygen as needed to keep SpO2 > 92%. #Thrombocytopenia: Platelets were 223 on admission but were noted to gradually downtrend. Patient had no evidence of bleeding or bruising. Subcutaneous heparin was discontinued. It was suspected that the acute drop in platelets was secondary to IV Unasyn which was discontinued. Platelets are currently stable around 60s. * HIT antibody panel pending. * ALPs for DVT PPx. * Consider hematology consult if platelets continue to drop further. #Hypovolemic shock: This occurred secondary to dehydration in the setting of severe DKA. Hypothyroidism and adrenal insufficiency were ruled out. Patient initially remained hypotensive despite maximum doses of Levophed IV drip and aggressive IVF hydration and was started on vasopressin IV drip, which was discontinued shortly after improvement of his blood pressures. By day 2 of admission, hypotension had resolved and patient no longer required pressors. He remained hemodynamically stable off pressors afterwards. Femoral line was later removed. #Hypernatremia: Patient presented with a markedly elevated corrected sodium in the 170s and an extremely high effective osmolality of about 400 corresponding to a massive free water deficit. This was felt to be secondary to polyuria and polydipsia that had been ongoing for several weeks leading up to admission. Na was monitored very closely and frequently to avoid rapid correction of hypernatremia and prevent irreversible brain damage. Patient received aggressive IVF hydration as well as free water flushes through the NG tube with gradual improvement of his sodium to 146. #Transaminitis: AST/ALT were normal on admission but gradually uptrended to 500s /200s. Alkaline phosphatase was elevated to 135 on admission, but later normalized. Total bilirubin remained normal. Complete abdominal US was performed which showed diffuse hepatic steatosis with no focal liver lesions and cholelithiasis. Transaminitis most likely reflects ischemic hepatitis 2/2 hypovolemic shock. #LAMBERTO: LAMBERTO was pre-renal in etiology 2/2 hypovolemic shock and resolved with aggressive IVF hydration. Creatinine improved from 5.5 on admission to 0.9. #Metabolic encephalopathy: Patient's mental status showed gradual improvement throughout admission. Due to concern for traumatic brain injury in the setting of severe DKA and hypernatremia, neurology was consulted who felt that there was no indication for neurological intervention. Within 2 days after being extubated , patient had almost completely improved back to baseline with no residual neurological deficits. #Acute pancreatitis: Amylase and lipase were markedly elevated to 482 and 6960 on admission, likely secondary to hypovolemic shock. They later normalized to amylase 80 and lipase 1154. #Hyperlipidemia/hypertriglyceridemia: Cholesterol and triglycerides were elevated to 839 and 242 respectively on admission. This likely contributed to acute pancreatitis. Repeat lipid panel showed with improvement of cholesterol to 124 and triglycerides to 338. #New onset seizures: On the day of admission, patient had a suspected seizure with 20 seconds of upwardly deviating gaze and was started on Keppra. CT Head was repeated and was negative. EEG was performed and revealed encephalopathy with some non-specific sharp discharges. Keppra was later discontinued as patient had no repeat seizures. #Stage 2 pressure ulcers: Multiple stage 2 pressure ulcers were noted to left buttock on day 2 admission. * Management per wound care team.
[2017-01-15 21:53] VITALS: BP 140/88
[2017-01-16 06:27] VITALS: BP 130/60
--- NOTE | 2017-01-16 07:31 | PN- Housestaff ---
ALANA LARSON 01/16/17 0730: Subjective Follow-up For: DKA Subjective: Complaints of lethargy and sleepiness right after insulin dosage in the morning. No other complaints. No abdominal pain chest pain, palpitations. Vitals were stable overnight. Blood sugars-242 ,287 , 351 , and 272. Review of Systems Constitutional: Reports: see HPI. Objective Last 24 Hrs of Vital Signs/I&O Vital Signs Date Time Temp Pulse Resp B/P Pulse O2 O2 Flow FiO2 Ox Delivery Rate 01/16 06 97.6 100 20 130/60 94 Nasal 5.0L Cannula 01/15 2153 98.9 92 20 140/88 95 01/15 1609 99.8 110 20 120/84 94 Nasal 5.0L Cannula 01/15 1600 Nasal 5.0L Cannula 01/15 0800 94 Nasal 5.0L Cannula 01/15 0800 98.9 100 20 132/70 94 Nasal 5.0L Cannula Intake & Output 01/16 0800 01/16 0000 01/15 1600 Intake Total 120 1700 480 Output Total 600 650 Balance 120 1100 -170 Intake, IV 1000 Intake, Oral 120 700 480 Output, Urine 600 650 Physical Exam General Appearance: No Acute Distress Other Physical Findings: General Exam: AAOx3, No acute distress, exudate on the posterior pharyngeal wall. Skin: No rashes, breakdown on the lower lip. HEENT: PERRLA, EOMI Neck: Supple, No JVD No cervical lymphadenopathy CVS: Reg Rate, Normal S1,S2, No MGR Resp: Normal air entry, no ronchi/rales Abdomen: Soft, No tenderness, Normal Bowel Sounds Neuro: Normal Speech, Strength 5/5 b/l x 4 extremities, Sensation intact, CN III -XII NL, Reflexes 2+ Extremities: No cyanosis, pedal edema 1+ Current Medications: Current Medications Sig/Nelida Start time Last Medication Dose Route Stop Time Status Admin Ciprofloxacin 500 MG 0600,1800 01/14 1800 DC 01/15 PO 01/18 1759 0504 Cyanocobalamin/ 1 BAG DAILY 01/15 1335 DC 01/15 Thiamine/Pyridoxine IV 01/15 2134 1552 Sodium Chloride 1,000 ML Insulin Aspart 0 AT BEDTIME 01/14 2200 AC 01/15 SC 2146 Insulin Aspart 0 TIDAC 01/14 1700 AC 02/18 SC 1715 Insulin Detemir 30 UNITS BID 01/13 1000 AC 01/15 SC 2146 Nystatin 5 ML 4 TIMES/DAY 01/15 1400 AC 01/15 PO 214 Tramadol HCl 50 MG Q6P PRN 01/15 1030 AC 01/15 PO 2147 Trimethoprim/ 1 TAB 0600,1800 01/14 1800 AC 01/16 Sulfamethoxazole PO 0556 Vitamin A/Vitamin D 1 MICHELE BID 01/13 2224 AC 01/15 TOP 2146 Last 24 Hrs of Lab/Basilio Results Last 24 Hrs of Labs/Mics: Laboratory Tests 01/16/17 0658: Sodium Pending, Potassium Pending, Chloride Pending, Carbon Dioxide Pending, Anion Gap Pending, BUN Pending, Creatinine Pending, BUN/Creatinine Ratio Pending , Magnesium Pending, Total Bilirubin Pending, Direct Bilirubin Pending, AST Pending, ALT Pending, Alkaline Phosphatase Pending, Total Protein Pending, Albumin Pending, CBC w Diff Pending, WBC Pending, RBC Pending, Hgb Pending, Hct Pending, MCV Pending, MCH Pending, RDW Pending, Plt Count Pending, MPV Pending, PUBS MCHC Pending Assessment/Plan Assessment: 41 y/o M with PMHx of obesity but no prior history of diabetes who presented with severe DKA complicated by acute respiratory failure requiring intubation and hypovolemic shock requiring pressors, now resolved. #New-onset diabetes: Blood sugars have been running high around 250-350 yesterday. Na has slightly improved to 146. * Endocrinology following. Appreciate their recs. * Continue Levemir 30 units SQ BID. * Change Novolog TIDAC/HS sliding scale as per Dr. Aquino recommendations. * Continue to monitor electrolytes and replete as needed. * Anti-VINAY antibody pending. * Nystatin swish and swallow 5 ml QID. * Continue physical therapy. #Pneumonia: Repeat sputum Cx (01/13/17) also growing Enterobacter resistant to Unasyn and sensitive to ciprofloxacin and Bactrim and Staph aureus sensitive to Unasyn and Bactrim. Remains afebrile and with improving leukocytosis on day 2 of Bactrim and day 3 of cipro and s/p 3 days of IV Unasyn. BCx from admission (01/11) with gram negative rods in 1 out of 2 sets. Most likely contaminant. Repeat BCx (01/12/17) NGTD. Remains on 5 L NC. * Continue Bactrim DS 1 tab PO BID. * Ciprofloxacin discontinued. #Thrombocytopenia: Most likely secondary to Unasyn which was discontinued. Improved after unasyn was dc'ed. * Continue to monitor platelet count. * ALPs for DVT PPx. * HIT antibody panel pending. * Consider hematology consult if platelets drop. #Transaminitis: AST/ALT remain elevated, improving. Most likely secondary to ischemic hepatitis. Complete abdominal US with diffuse hepatic steatosis and no focal liver lesions or evidence of cholelithiasis. * Continue to monitor LFTs. #LAMBERTO: Resolved. Creatinine back to baseline, 0.8 today. * Continue to monitor lytes and kidney function. * Avoid nephrotoxic medications. Diet: Consistent Carbohydrate 2 DVT PPx: ALPs CODE: FULL Problem List: 1. Diabetes mellitus, new onset 2. Transaminitis 3. Hypovolemia Pain Ratin Pain Location: back Pain Goal: Pain 4 or less Pain Plan: Tramadol Tomorrow's Labs & Rationales: Basic electrolyte panel-to monitor for serum creatinine and electrolytes. CBC-to monitor for leukocytosis. ENEDINA CARR MD 01/16/17 1349: Attending MD Review Statement Attending Statement Attending MD Statement: examined this patient, discuss w/resident/PA/ASSOCIATE MEDICAL DIRECTOR, agreed w/resident/PA/ASSOCIATE MEDICAL DIRECTOR, reviewed EMR data (avail) Attending Assessment/Plan: 41M admitted with hyperosmolar hyperglycemia DKA with initial sepsis, metabolic encephalopathy, aspiration pneumonia with sputum cultures growing staph and enterobacter. Patient is markedly improed, awake, alert and walking around. He reports his thirst has improved and his appetite has returned. Glucose controlled, sodium 146. Platelets are improving. Plan - Follow endocrine recommendations - Continue Bactrim and Cipro - Follow sputum and blood cultures - Monitor BEP, Mg - DVT PPx - Follow up anti-VINAY
[2017-01-16 07:55] LABS: ABSOLUTE BASOPHIL COUNT 0 /CUMM (0.0-0.2); ABSOLUTE EOSINOPHIL COUNT 0.1 /CUMM (0.0-0.7); ABSOLUTE LYMPH COUNT 1.4 /CUMM (1.2-3.4); EOSINOPHIL % 0.9 % (0-5); MEAN CORPUSCULAR HGB 29.5 PG (27.0-31.0); MEAN CORPUSCULAR VOLUME 88.7 FL (80.0-94.0)
[2017-01-16 08:17] LABS: ABSOLUTE GRANULOCYTE CT 6.8 /CUMM (1.4-6.5); ABSOLUTE MONOCYTE COUNT 1.2 /CUMM (0.10-0.60); BASOPHIL % 0.4 % (0.0-2.0); GRANULOCYTE % 71.7 % (42.2-75.2); HEMATOCRIT 36.3 % (42-52); MEAN CORPUSCULAR HGB CONC 33.3 G/DL (33.0-37.0); MEAN PLATELET VOLUME 11.5 FL (7.4-10.4); PLATELET COUNT 91 /CUMM (130-400); RED BLOOD CELL CT 4.09 /CUMM (4.70-6.10); WHITE BLOOD CELL COUNT 9.4 /CUMM (4.8-10.8)
--- NOTE | 2017-01-16 09:05 | PN- Diabetes ---
Assessment/Plan Assessment: The patient is out of the intensive care unit. He is awake and and oriented His renal function is improved and his serum sodium is down to 146. His liver function tests are also starting to come down. He states he is not as thirsty. He is on Levemir 30 units twice a day. He is on sliding scale NovoLog before meals. His blood sugars yesterday were somewhat high. Blood sugar readings were 242 before breakfast, 287 before lunch, 351 and before dinner, and 272 at bedtime. This morning his blood sugar is 239. Plan: Suggest increase the patient's insulin before meals. NovoLog sliding scale before meals should be 80-150 give 10 units NovoLog, 151-200 give 12 units NovoLog, 201-250 give 14 units NovoLog, 251-300 give 16 units NovoLog, 301-350 give 18 units NovoLog, 351-400 give 20 units NovoLog. Bedtime sinus scale NovoLog can stay the same. We can also continue the same dose of Levemir 30 units twice a day. It is still important that we measured this patient's anti-VINAY antibody. Subjective Subjective: Feels a little unsteady on his feet Review of Systems Constitutional: Denies: chills, fever. Cardiovascular: Denies: chest pain. Respiratory: Denies: short of breath. Gastrointestinal: Denies: nausea, vomiting. Genitourinary: Denies: dysuria. Skin: Denies: change in skin color. Objective Last 24 Hrs of Vital Signs/I&O Vital Signs Date Time Temp Pulse Resp B/P Pulse O2 O2 Flow FiO2 Ox Delivery Rate 01/16 627 97.6 100 20 130/60 94 Nasal 5.0L Cannula 01/15 2153 98.9 92 20 140/88 95 01/15 1609 99.8 110 20 120/84 94 Nasal 5.0L Cannula 01/15 1600 Nasal 5.0L Cannula Intake & Output 01/16 1600 01/16 0800 01/16 0000 Intake Total 120 1700 Output Total 600 Balance 120 1100 Intake, IV 1000 Intake, Oral 120 700 Output, Urine 600 Vital Signs Date Time Temp Pulse Resp B/P Pulse O2 O2 Flow FiO2 Ox Delivery Rate 01/16 627 97.6 100 20 130/60 94 Nasal 5.0L Cannula 01/15 2153 98.9 92 20 140/88 95 01/15 1609 99.8 110 20 120/84 94 Nasal 5.0L Cannula 01/15 1600 Nasal 5.0L Cannula Intake & Output 01/16 1600 01/16 0800 01/16 0000 Intake Total 120 1700 Output Total 600 Balance 120 1100 Intake, IV 1000 Intake, Oral 120 700 Output, Urine 600 Physical Exam General Appearance: alert, awake, comfortable Head: normal appearance Neck: normal inspection Cardiovascular: regular rate/rhythm Abdomen: normal bowel sounds Extremities: normal inspection Current Medications: Current Medications Sig/Nelida Start time Last Medication Dose Route Stop Time Status Admin Ciprofloxacin 500 MG 0600,1800 01/14 1800 DC 01/15 PO 01/18 1759 0504 Cyanocobalamin/ 1 BAG DAILY 01/15 1335 DC 01/15 Thiamine/Pyridoxine IV 01/15 2134 1552 Sodium Chloride 1,000 ML Insulin Aspart 0 AT BEDTIME 01/14 2200 AC 01/15 SC 2146 Insulin Aspart 0 TIDAC 01/14 1700 AC 01/16 SC 0746 Insulin Detemir 30 UNITS BID 01/13 1000 AC 01/15 SC 2146 Nystatin 5 ML 4 TIMES/DAY 01/15 1400 AC 01/15 PO 2146 Tramadol HCl 50 MG Q6P PRN 01/15 1030 AC 01/15 PO 2147 Trimethoprim/ 1 TAB 0600,1800 01/14 1800 AC 01/16 Sulfamethoxazole PO 0556 Vitamin A/Vitamin D 1 MICHELE BID 01/13 2224 AC 01/15 [facility] 2146 Findings Pertinent Lab/Basilio Results: Laboratory Tests 01/16 0658 Chemistry Sodium (137 - 145 mmol/L) 146 H Potassium (3.5 - 5.1 mmol/L) 4.3 Chloride (98 - 107 mmol/L) 113 H Carbon Dioxide (22 - 30 mmol/L) 22 Anion Gap (5 - 16) 12 BUN (9 - 20 mg/dL) 22 H Creatinine (0.7 - 1.2 mg/dL) 0.8 Estimated GFR (>60 ml/min) > 60 BUN/Creatinine Ratio (7 - 25 %) 27.5 H Magnesium (1.6 - 2.3 mg/dL) 2.0 Total Bilirubin (0.2 - 1.3 mg/dL) 0.5 Direct Bilirubin (< 0.4 mg/dL) 0.4 AST (17 - 59 U/L) 358 H ALT (21 - 72 U/L) 229 H Alkaline Phosphatase (< 127 U/L) 122 Total Protein (6.3 - 8.2 g/dL) 5.6 L Albumin (3.5 - 5.0 g/dL) 2.6 L Hematology CBC w Diff MAN DIFF ORDERED WBC (4.8 - 10.8 /CUMM) 9.4 RBC (4.70 - 6.10 /CUMM) 4.09 L Hgb (14.0 - 18.0 G/DL) 12.1 L Hct (42 - 52 %) 36.3 L MCV (80.0 - 94.0 FL) 88.7 MCH (27.0 - 31.0 PG) 29.5 RDW (11.5 - 14.5 %) 14.0 Plt Count (130 - 400 /CUMM) 91 L MPV (7.4 - 10.4 FL) 11.5 H Gran % (42.2 - 75.2 %) 71.7 Lymphocytes % (20.5 - 51.1 %) 14.4 L Monocytes % (1.7 - 9.3 %) 12.6 H Eosinophils % (0 - 5 %) 0.9 Basophils % (0.0 - 2.0 %) 0.4 Absolute Granulocytes (1.4 - 6.5 /CUMM) 6.8 H Segmented Neutrophils (42.2 - 75.2 %) 57 Band Neutrophils (0.0 - 5.0 %) 8 H Absolute Lymphocytes (1.2 - 3.4 /CUMM) 1.4 Lymphocytes (20.5 - 51.1 %) 16 L Monocytes (1.7 - 9.3 %) 17 H Absolute Monocytes (0.10 - 0.60 /CUMM) 1.2 H Absolute Eosinophils (0.0 - 0.7 /CUMM) 0.1 Basophils (0.0 - 2.0 %) 2 Absolute Basophils (0.0 - 0.2 /CUMM) 0 Platelet Estimate (ADEQUATE) DECREASED Hypochromic-Microcytic 1+ PUBS MCHC (33.0 - 37.0 G/DL) 33.3
--- NOTE | 2017-01-16 09:28 | PN- Housestaff ---
Assessment/Plan Assessment: 41 y/o M with PMHx of obesity but no prior history of diabetes who presented with severe DKA complicated by acute respiratory failure requiring intubation and hypovolemic shock requiring pressors, now resolved. #New-onset diabetes: Blood sugars have been running high around 250-350 yesterday. Na has slightly improved to 149. * Endocrinology following. Appreciate their recs. * Continue Levemir 30 units SQ BID. * Change Novolog TIDAC sliding scale to: for glucose 80-150 give 6 units of Novolog, 151-200 give 8 units, 201-250 give 10 units, 251-300 give 12 units, 301 -350 give 14 units and 351-400 give 16 units. * Change Novolog QHS sliding scale to: for glucose less than 250 give no insulin , 251-300 3 units, 301-350 give 4 units and 351-400 give 5 units. * Continue to monitor electrolytes and replete as needed. * Anti-VINAY antibody pending to evaluate if patient has type 1 or type 2 diabetes. * Administer 1 banana bag as patient has cheilitis on exam concerning for vitamin deficiency. * Nystatin swish and swallow 5 ml QID. * Continue physical therapy. #Pneumonia: Repeat sputum Cx (01/13/17) also growing Enterobacter resistant to Unasyn and sensitive to ciprofloxacin and Bactrim and Staph aureus sensitive to Unasyn and Bactrim. Remains afebrile and with improving leukocytosis on day 2 of Bactrim and day 3 of cipro and s/p 3 days of IV Unasyn. BCx from admission (01/11) with gram negative rods in 1 out of 2 sets. Most likely contaminant. Repeat BCx (01/12/17) NGTD. Remains on 5 L NC. * Continue Bactrim DS 1 tab PO BID. * Ciprofloxacin discontinued. #Thrombocytopenia: Most likely secondary to Unasyn which was discontinued yesterday. Platelets remain stable in the 60s. * Continue to monitor platelet count. * ALPs for DVT PPx. * HIT antibody panel pending. * Consider hematology consult if platelets drop further. #Transaminitis: AST/ALT remain elevated, 443/213 today. Most likely secondary to ischemic hepatitis. Complete abdominal US with diffuse hepatic steatosis and no focal liver lesions or evidence of cholelithiasis. * Continue to monitor LFTs. #LAMBERTO: Resolved. Creatinine back to baseline, 0.9 today. * Continue to monitor lytes and kidney function. * Avoid nephrotoxic medications. Diet: Consistent Carbohydrate 2 DVT PPx: ALPs CODE: FULL
[2017-01-16 13:45] VITALS: BP 140/90
[2017-01-16 22:17] VITALS: BP 138/78
--- NOTE | 2017-01-17 05:48 | PN- Housestaff ---
Subjective Follow-up For: - DKA Subjective: Pt was comfortable. He was concerned about the sore throat, and lethargy after receiving insulin. vitals were stable, and he remained afebrile. Still on 5 L oxygen. Blood sugars ranged in between 200-300's, and curretnly on insulin sliding scale and long acting insulin. Discussed with him and his fiancee' about compliance with his medication, diet and exericise etc. Seemed receptive, and motivated. Also reached out to the nutriton for dietary recommendation. Also spoke to the physcial therapy who would work with him. This a.m., while we were doing our routine rounds, it was brought to our attention that the patient had pain in right flank. Did not have any urinary complaints. Review of Systems Constitutional: Reports: see HPI. Objective Last 24 Hrs of Vital Signs/I&O Vital Signs Date Time Temp Pulse Resp B/P Pulse O2 O2 Flow FiO2 Ox Delivery Rate 01/17 0000 Nasal 5.0L Cannula 01/16 2217 98.3 86 20 138/78 96 01/16 1600 Nasal 5.0L Cannula 01/16 1345 97.5 72 20 140/90 95 Nasal 5.0L Cannula 01/16 0627 97.6 100 20 130/60 94 Nasal 5.0L Cannula Intake & Output 01/17 0800 01/17 0000 01/16 1600 Intake Total 700 710 Output Total 600 Balance 100 710 Intake, IV 10 Intake, Oral 700 700 Output, Urine 600 Physical Exam General Appearance: No Acute Distress Other Physical Findings: General Exam: AAOx3, No acute distress, erythematous posterior pharyngeal wall. Skin: No rashes, breakdown on the left lateral- lower lip. HEENT: PERRLA, EOMI Neck: Supple, No JVD No cervical lymphadenopathy CVS: Reg Rate, Normal S1,S2, No MGR Resp: Normal air entry, no ronchi/rales Abdomen: Soft, No tenderness, Normal Bowel Sounds Neuro: Normal Speech, Strength 5/5 b/l x 4 extremities, Sensation intact, CN III -XII NL, Reflexes 2+ Extremities: No cyanosis, pedal edema trace. Current Medications: Current Medications Sig/Nelida Start time Last Medication Dose Route Stop Time Status Admin Insulin Aspart 0 AT BEDTIME 01/14 2200 AC 01/16 SC 2108 Insulin Aspart 0 TIDAC 01/14 1700 AC 01/16 SC 1719 Insulin Detemir 30 UNITS BID 01/13 1000 01/16 SC 210 Nystatin 5 ML 4 TIMES/DAY 01/15 1400 AC 01/16 PO 2108 Tramadol HCl 50 MG Q6P PRN 01/15 1030 01/16 PO 1657 Trimethoprim/ 1 TAB 0600,1800 01/14 1800 AC 01/17 Sulfamethoxazole PO 0518 Vitamin A/Vitamin D 1 MICHELE BID 01/13 2224 01/16 [facility] 210 Last 24 Hrs of Lab/Basilio Results Last 24 Hrs of Labs/Mics: Laboratory Tests 01/16/17 0658: Anion Gap 12, Estimated GFR > 60, BUN/Creatinine Ratio 27.5 H, Magnesium 2.0, Total Bilirubin 0.5, Direct Bilirubin 0.4, AST 358 H, ALT 229 H, Alkaline Phosphatase 122, Total Protein 5.6 L, Albumin 2.6 L, CBC w Diff MAN DIFF ORDERED, RBC 4.09 L, MCV 88.7, MCH 29.5, RDW 14.0, MPV 11.5 H, Gran % 71.7, Lymphocytes % 14.4 L, Monocytes % 12.6 H, Eosinophils % 0.9, Basophils % 0.4, Absolute Granulocytes 6.8 H, Segmented Neutrophils 57, Band Neutrophils 8 H, Absolute Lymphocytes 1.4, Lymphocytes 16 L, Monocytes 17 H, Absolute Monocytes 1.2 H, Absolute Eosinophils 0.1, Basophils 2, Absolute Basophils 0, Platelet Estimate DECREASED, Hypochromic-Microcytic 1+, PUBS MCHC 33.3, VINAY Antibody Pending Assessment/Plan Assessment: 41 y/o M with PMHx of obesity but no prior history of diabetes who presented with HHS with ketoacidosis complicated by acute respiratory failure requiring intubation and hypovolemic shock requiring pressors, now resolved. Transfered to general medicine floor for further management. #New-onset diabetes: HHS with ketoacidosis now resolved. Blood [phone]. Currently on Levemir 36 units twice a day. NovoLog sliding scale 3 times a day before meals/at bedtime aspirin Tigre Montanez MD's recommendations. Anti-vinay 65 antibody still pending. Clinical presentation very similar to latent onset diabetes. HbA1c 15.1 Sodium-141 (resolved). #Pneumonia: Sputum culture shows growth of Enterobacter, Klebsiella and staph aureus. Sensitive to Bactrim. Remains on 5 L NC. * Continue Bactrim DS 1 tab PO BID. D3 of Bactrim #Thrombocytopenia: Most likely secondary to Unasyn which was discontinued. Improved after unasyn was dc'ed. platelets-187. * Continue to monitor platelet count. * ALPs for DVT PPx. * HIT antibody panel pending. * Consider hematology consult if platelets drop. #Transaminitis: AST/ALT remain elevated, improving. Most likely secondary to ischemic hepatitis. Complete abdominal US with diffuse hepatic steatosis and no focal liver lesions or evidence of cholelithiasis. * Continue to monitor LFTs. #LAMBERTO: Resolved. Creatinine back to baseline, 0.8 today. Check urinalysis and urine culture. No CVA tenderness. * Continue to monitor lytes and kidney function. * Avoid nephrotoxic medications. Diet: Consistent Carbohydrate 2 DVT PPx: ALPs CODE: FULL Problem List: 1. Diabetes mellitus, new onset 2. Transaminitis 3. Hypovolemia 4. Seizure Pain Ratin Pain Location: - Tramadol Pain Goal: Pain 4 or less Pain Plan: Tramadol Tomorrow's Labs & Rationales: - CBC: To monitor for leukocytosis. Patient had elevated WBC count, and still requiring high oxygen. Basic electrolyte panel- to check for serum electrolytes, kidney function.
[2017-01-17 06:25] VITALS: BP 132/76
[2017-01-17 08:05] LABS: ABSOLUTE BASOPHIL COUNT 0 /CUMM (0.0-0.2); ABSOLUTE MONOCYTE COUNT 1.3 /CUMM (0.10-0.60); MEAN CORPUSCULAR HGB CONC 33.5 G/DL (33.0-37.0)
--- NOTE | 2017-01-17 08:48 | PN- Diabetes ---
Assessment/Plan Assessment: The patient is out of the intensive care unit. He is awake and and oriented His renal function is improved and his serum sodium is down to 141 today. His liver function tests are also starting to come down. He is on Levemir 30 units twice a day. He is on sliding scale NovoLog before meals. His blood sugars yesterday were somewhat high. Patient's sliding scale NovoLog before meals was increased yesterday. Plan: Suggest increase Levemir to 36 units twice a day. Continue present sliding scale NovoLog. Increase activity. The dietitian should see the patient with regard to his diet. The patient also needs to be taught to take his own blood sugar and administer insulin. When he is sent home we will need to teach him how to use the insulin pen. The patient' s anti-VINAY antibody is pending. The patient needs to increase his activity with the help of physical therapy. Subjective Subjective: Feels tired Review of Systems Constitutional: Denies: chills, fever. Cardiovascular: Denies: chest pain. Respiratory: Denies: cough, short of breath. Gastrointestinal: Denies: abdominal pain. Genitourinary: Denies: dysuria. Skin: Reports: no symptoms. Objective Last 24 Hrs of Vital Signs/I&O Vital Signs Date Time Temp Pulse Resp B/P Pulse O2 O2 Flow FiO2 Ox Delivery Rate 01/17 0625 97.6 95 20 132/76 93 Nasal 5.0L Cannula 01/17 0000 Nasal 5.0L Cannula 01/16 2217 98.3 86 20 138/78 96 01/16 1600 Nasal 5.0L Cannula 01/16 1345 97.5 72 20 140/90 95 Nasal 5.0L Cannula Intake & Output 01/17 1600 01/17 0800 01/17 0000 Intake Total 480 700 Output Total 600 Balance 480 100 Intake, Oral 480 700 Output, Urine 600 Vital Signs Date Time Temp Pulse Resp B/P Pulse O2 O2 Flow FiO2 Ox Delivery Rate 01/17 0625 97.6 95 20 132/76 93 Nasal 5.0L Cannula 01/17 0000 Nasal 5.0L Cannula 01/16 2217 98.3 86 20 138/78 96 01/16 1600 Nasal 5.0L Cannula 01/16 1345 97.5 72 20 140/90 95 Nasal 5.0L Cannula Intake & Output 01/17 1600 01/17 0800 01/17 0000 Intake Total 480 700 Output Total 600 Balance 480 100 Intake, Oral 480 700 Output, Urine 600 Physical Exam General Appearance: alert, awake, comfortable Neck: normal inspection Respiratory: normal breath sounds Cardiovascular: regular rate/rhythm Abdomen: normal bowel sounds Extremities: normal inspection Current Medications: Current Medications Sig/Nelida Start time Last Medication Dose Route Stop Time Status Admin Insulin Aspart 0 AT BEDTIME 01/14 2200 AC 01/16 SC 2108 Insulin Aspart 0 TIDAC 01/14 1700 AC 01/17 SC 0750 Insulin Detemir 30 UNITS BID 01/13 1000 AC 01/17 SC 0750 Nystatin 5 ML 4 TIMES/DAY 01/15 1400 AC 01/16 PO 2108 Tramadol HCl 50 MG Q6P PRN 01/15 1030 AC 01/16 PO 1657 Trimethoprim/ 1 TAB 0600,1800 01/14 1800 AC 01/17 Sulfamethoxazole PO 0518 Vitamin A/Vitamin D 1 MICHELE BID 01/13 2224 AC 01/16 TOP 2109 Findings Pertinent Lab/Basilio Results: Laboratory Tests 01/17 0620 Chemistry Sodium (137 - 145 mmol/L) 141 Potassium (3.5 - 5.1 mmol/L) 3.9 Chloride (98 - 107 mmol/L) 106 Carbon Dioxide (22 - 30 mmol/L) 24 Anion Gap (5 - 16) 11 BUN (9 - 20 mg/dL) 17 Creatinine (0.7 - 1.2 mg/dL) 0.7 Estimated GFR (>60 ml/min) > 60 BUN/Creatinine Ratio (7 - 25 %) 24.3 Magnesium (1.6 - 2.3 mg/dL) 1.8 Total Bilirubin (0.2 - 1.3 mg/dL) 0.5 Direct Bilirubin (< 0.4 mg/dL) 0.5 H AST (17 - 59 U/L) 192 H ALT (21 - 72 U/L) 208 H Alkaline Phosphatase (< 127 U/L) 127 H Total Protein (6.3 - 8.2 g/dL) 5.6 L Albumin (3.5 - 5.0 g/dL) 2.6 L Hematology CBC w Diff Pending WBC Pending RBC Pending Hgb Pending Hct Pending MCV Pending MCH Pending RDW Pending Plt Count Pending MPV Pending PUBS MCHC Pending
[2017-01-17 08:49] LABS: ABSOLUTE EOSINOPHIL COUNT 0.2 /CUMM (0.0-0.7); ABSOLUTE GRANULOCYTE CT 6.2 /CUMM (1.4-6.5); ABSOLUTE LYMPH COUNT 1.8 /CUMM (1.2-3.4); BASOPHIL % 0.4 % (0.0-2.0); EOSINOPHIL % 1.8 % (0-5); HEMATOCRIT 36.3 % (42-52); MEAN CORPUSCULAR HGB 29.8 PG (27.0-31.0); MEAN CORPUSCULAR VOLUME 88.8 FL (80.0-94.0); MEAN PLATELET VOLUME 13.1 FL (7.4-10.4); RBC DISTRIBUTION WIDTH 13.7 % (11.5-14.5); RED BLOOD CELL CT 4.09 /CUMM (4.70-6.10); WHITE BLOOD CELL COUNT 9.5 /CUMM (4.8-10.8)
[2017-01-17 09:36] LABS: PLATELET COUNT 187 /CUMM (130-400)
--- NOTE | 2017-01-17 11:06 | RADIOLOGY REPORT ---
EXAMINATION: XR CHEST CLINICAL INFORMATION: Assess for pneumonia. COMPARISON: Chest x-ray 01/14/2017. TECHNIQUE: AP and lateral views of the chest were obtained. FINDINGS: The right lung there is well expanded and appears clear. The left lung is slightly less well expanded, with coarse areas of opacity at the left base, which may be consistent with atelectasis although developing consolidation cannot be excluded. Linear opacity in the right middle lobe is most consistent with atelectasis. The cardiac silhouette is normal. There are no pleural effusions or pneumothorax. The central pulmonary vasculature is normal. The hilar regions appear normal. There is a dextroscoliosis in the thoracic spine. IMPRESSION: 1. There are coarse linear opacities at the left base, which may be consistent with atelectasis versus developing consolidation. Correlate clinically. 2. Linear opacity in the right middle lobe is most consistent with atelectasis.
--- NOTE | 2017-01-17 13:37 | PN- Att Addend ---
Attending Addendum Attending Brief Note Patient seen and examined. Agree with the graphics intern's note. This is a 41-year-old male who was transferred from the ICU. He's had multiple medical issues. Namely new onset diabetes with DKA and hyperglycemic coma, metabolic encephalopathy with a suspected seizure now off anticonvulsants, transaminitis of unclear etiology, thrombocytopenia of unclear etiology. He also had acute respiratory failure requiring intubation and is now being treated with by mouth Bactrim for a gram-negative and staph pneumonia. Right now the active issues are that he is still requiring 5 L of oxygen. We are going to get a chest x-ray PA and lateral today to help clarify matters and ask pulmonary to see him again today. The thrombocytopenia is worrisome but it is stable at this point and I don't know whether this medication induced. The hit antibody is pending. If the chest x-ray doesn't show anything suggestive of the etiology of the degree of hypoxemia, then I think we might need to look for a PE. He is getting insulin teaching for his new onset diabetes and will trend the transaminases closely.
[2017-01-17 14:03] VITALS: BP 140/70
[2017-01-17 14:42] LABS: HEPARIN INDUCED PLATELET AB NEGATIVE (NEGATIVE)
--- NOTE | 2017-01-17 15:06 | PN- Pulmonary ---
Subjective HPI/Critical Care Issues: Pt was comfortable. He was concerned about the sore throat, and lethargy after receiving insulin. vitals were stable, and he remained afebrile. Still on 5 L oxygen. Blood sugars ranged in between 200-300's, and curretnly on insulin sliding scale and long acting insulin. Still has hypoxia Coughing better This a.m., while we were doing our routine rounds, it was brought to our attention that the patient had pain in right flank. Did not have any urinary complaints. Review of Systems Constitutional: Reports: see HPI. Objective Current Medications: Current Medications Sig/Nelida Start time Last Medication Dose Route Stop Time Status Admin Benzocaine/Menthol See Dose TID 01/17 1600 AC Insts (1) PO Insulin Aspart 0 AT BEDTIME 01/14 2200 AC 01/16 SC 2108 Insulin Aspart 0 TIDAC 01/14 1700 AC 01/17 SC 1204 Insulin Detemir 36 UNITS BID 01/17 2200 AC SC Insulin Detemir 6 UNITS ONCE ONE 01/17 0900 DC 01/17 SC 01/17 0901 0904 Insulin Detemir 30 UNITS BID 01/13 1000 AC 01/17 SC 01/17 2159 0750 Magnesium Hydroxide 30 ML ONE ONE 01/17 1330 DC 01/17 PO 01/17 1331 1342 Nystatin 5 ML 4 TIMES/DAY 01/15 1400 AC 01/17 PO 1342 Tramadol HCl 50 MG Q6P PRN 01/15 1030 AC 01/17 PO 1346 Trimethoprim/ 1 TAB 0600,1800 01/14 1800 AC 01/17 Sulfamethoxazole PO 0518 Vitamin A/Vitamin D 1 SHANTA BID 01/13 2224 AC 01/17 TOP 0902 Dose Instructions: (1)Benzocaine/Menthol: 1 LOZENGE Vital Signs & I&O Last 24 Hrs of Vitals and I&O: Vital Signs Date Time Temp Pulse Resp B/P Pulse O2 O2 Flow FiO2 Ox Delivery Rate 01/17 1403 98.8 98 18 140/70 93 Nasal 5.0L Cannula 01/17 0800 Nasal 5.0L Cannula 01/17 0625 97.6 95 20 132/76 93 Nasal 5.0L Cannula 01/17 0000 Nasal 5.0L Cannula 01/16 2217 98.3 86 20 138/78 96 01/16 1600 Nasal 5.0L Cannula Intake & Output 01/17 1600 01/17 0800 01/17 0000 Intake Total 480 480 700 Output Total 400 600 Balance 80 480 100 Intake, Oral 480 480 700 Number 0 Bowel Movements Output, Urine 400 600 Impression/Plan Impression/Plan Impression/Plan: 41 y/o M with no prior history of DM who is admitted for severe DKA with multisystem organ failure. Currently hemodynamically stable off pressors, but remains intubated and on insulin drip. IMPRESSION * Improved diabetic hyperosmolar, DKA with acute renal failure * S/p Acute respiratory failure related to metabolic encephalopathy, sepsis now resolved * Resolved hypotension requiring vasopressors initially due to hypovolemia and improvement. Sputum did grow mssa, enterobacter and klebsiell on shanta abx * Pancreatitis as noted upon admission improving * Ongoing hypoxia due to pna and fluid overload and less likely pe but cannot rule out as his heparin was stopped due to worsening platelets (HIT antibody neg ) RECOMMENDATION * COnt abx * One dose of lasix po today * Ultrasound of lower ext If he is still oxygen dependent order cta in am
--- NOTE | 2017-01-17 21:54 | ULTRASOUND REPORT ---
EXAMINATION: US TRIPLEX LOWER EXTREMITY, BILATERAL CLINICAL INFORMATION: Oxygen requirement. Evaluate for deep venous thrombosis. COMPARISON: None. TECHNIQUE: Color-flow triplex imaging with spectral analysis and compression Doppler were performed on the bilateral lower extremities. FINDINGS: Multiple grayscale, color Doppler and spectral Doppler images of the right lower extremity veins demonstrate a partially occlusive thrombus within the right common femoral vein. The remaining imaged veins of the right lower extremity are patent. Specifically, the right femoral, profunda femoral, popliteal, mid calf peroneal and posterior tibial venous segments demonstrate no evidence of deep venous thrombosis. Respiratory variation, normal compression and augmented flow are noted throughout the left lower extremities. The visualized common femoral vein, femoral vein, profunda femoral vein, popliteal vein and midcalf peroneal and posterior tibial venous segments show no evidence of deep venous thrombosis. There are no Schneider's cysts. IMPRESSION: 1. Deep venous thrombosis of the right lower extremity veins, with nonocclusive thrombus identified within the right common femoral vein. The remaining imaged veins of the right lower extremity are patent. 2. No evidence of deep venous thrombosis involving the left lower extremity veins. This critical result was discussed with Dr. Neymar Sam at 9:50 PM on 01/17/2017 and it was ascertained that the content and urgency of the report was understood at the time of direct communication.
[2017-01-17 22:23] VITALS: BP 124/70
--- NOTE | 2017-01-17 23:22 | CT SCAN REPORT ---
EXAMINATION: CT ANGIOGRAM OF THE CHEST WITH AND WITHOUT CONTRAST (CT PULMONARY ANGIOGRAM FOR PE) CLINICAL INFORMATION: Shortness of breath. Hypoxia. COMPARISON: CT chest 01/11/2017. Chest x-ray 01/17/2017 TECHNIQUE: Prior to contrast administration, noncontrast localization images were obtained. Subsequently, multidetector volumetric imaging was performed from the thoracic inlet to below the diaphragms following the administration of 95 mL Optiray 350 intravenous contrast. No contrast reaction reported Sagittal, coronal, and MIP oblique sagittal reformatted images were obtained on the CT workstation, uploaded to PACS, and reviewed. Total exam dose-length product 604.37 mGy-cm FINDINGS: QUALITY OF STUDY/CONTRAST BOLUS: Satisfactory. PULMONARY ARTERIES: No central or segmental pulmonary emboli. THORACIC AORTA: No aneurysm or dissection. LUNG: There are small groundglass opacities in the right upper lobe and left upper lobe. There is scattered regions of peribronchial consolidation and atelectasis involving both the right and left lower lobes. The central bronchial airways are open. These changes of lung are new since CAT scan of 01/11/2017. PLEURA: No pleural effusion or pneumothorax. MEDIASTINUM: Normal heart size. No pericardial effusion. No hilar or mediastinal lymphadenopathy. No evidence of septal bowing or right heart strain. CHEST WALL/AXILLA: No axillary or internal mammary lymphadenopathy. OSSEOUS STRUCTURES: No acute or suspicious osseous abnormality. UPPER ABDOMEN: Low-attenuation of liver parenchyma due to fatty change. Adrenal glands normal. Visualized portions of spleen, pancreas are normal. IMPRESSION: 1. No evidence of pulmonary embolism. 2. Scattered areas of peribronchial consolidation at both lower lobes and bilateral upper lobe scattered groundglass opacities. Inflammation or infection likely etiology. 3. Low-attenuation of liver parenchyma due to fatty change. VTE: negative
--- NOTE | 2017-01-18 00:11 | Event Note ---
Event Note Event Note: Bilateral lower extremity Doppler ultrasound was ordered for patient as patient has acute hypoxic respiratory failure requiring 4-5 L and there was suspicion for DVT. I got call from [facility] by Dr. Pineda for critical results of Doppler ultrasound. Patient is having DVT of right Common femoral vein. Stat EKG, troponins and CTA were ordered. Stool guaiac was negative and patient was started on IV heparin drip after giving him bolus. EKG did not show any acute changes as compared to previous one. No evidence of right heart strain. Trop pending. For CTA I got call from Dr. Pineda again stating that patient has bilateral PEs. CTA report that was dictated by Dr. Loera was reviewed that did not mention anything about PE. I called [facility] and spoke with Dr. Loera for clarification. He reviewed images again and confirmed the presence of bilateral PEs. He also mentioned that there is no evidence of right heart strain. He is going to dictate CTA report correctly.
--- NOTE | 2017-01-18 05:57 | PN- Housestaff ---
Subjective Follow-up For: - HHS w/ ketosis Subjective: He was comfortable this morning. Vitals remained stable overnight. Currently on 3L oxygen. He did not have any complaints. He stated that he walked in the room, and worked with the physical therapy no complaints. Overnight, the patient was started on IV heparin for the treatment of DVT and PE. Discussed with him in detail this morning about the long-term treatment for blood clots. The patient was receptive to the idea that anticoagulation needs to be taken for at least 3 months and the wellness consultant would reassess for any further continuation. Review of Systems Constitutional: Reports: see HPI. Objective Last 24 Hrs of Vital Signs/I&O Vital Signs Date Time Temp Pulse Resp B/P Pulse O2 O2 Flow FiO2 Ox Delivery Rate 01/18 0000 Nasal 2.0L Cannula 01/17 2223 99.1 92 18 124/70 95 Nasal Cannula 01/17 1403 98.8 98 18 140/70 93 Nasal 5.0L Cannula 01/17 0800 Nasal 5.0L Cannula 01/17 0625 97.6 95 20 132/76 93 Nasal 5.0L Cannula Intake & Output 01/18 0800 01/18 0000 01/17 1600 Intake Total 100 480 Output Total 400 Balance 100 80 Intake, Oral 100 480 Number 0 Bowel Movements Output, Urine 400 Physical Exam General Appearance: No Acute Distress Other Physical Findings: General Exam: AAOx3, No acute distress, erythematous posterior pharyngeal wall. No lymphadenopathy. Skin: No rashes, breakdown on left lower lip. HEENT: PERRLA, EOMI Neck: Supple, No JVD No cervical lymphadenopathy CVS: Reg Rate, Normal S1,S2, No MGR Resp: Normal air entry, no ronchi/rales Abdomen: Soft, No tenderness, Normal Bowel Sounds Neuro: Normal Speech, Strength 5/5 b/l x 4 extremities, Sensation intact, CN III -XII NL, Reflexes 2+ Extremities: No cyanosis, pedal edema Current Medications: Current Medications Sig/Nelida Start time Last Medication Dose Route Stop Time Status Admin Benzocaine/Menthol See Dose TID 01/17 1600 AC 01/17 Insts (1) PO 2133 Furosemide 20 MG ONCE ONE 01/17 1545 DC 01/17 PO 01/17 154 1627 Heparin Sodium 5,000 UNIT ONCE ONE 01/17 2215 DC 01/17 (Porcine) IV 01/17 2216 2333 Heparin Sodium 25,000 UNIT Q24H 01/17 221 AC 01/17 (Porcine) IV 2333 Sodium Chloride 500 ML Insulin Aspart 0 AT BEDTIME 01/14 220 AC 01/16 SC 2108 Insulin Aspart 0 TIDAC 01/14 1700 AC 01/17 SC 1730 Insulin Detemir 36 UNITS BID 01/17 2200 AC 01/17 SC 2132 Insulin Detemir 6 UNITS ONCE ONE 01/17 0900 DC 01/17 SC 01/17 0901 0904 Insulin Detemir 30 UNITS BID 01/13 1000 DC 01/17 SC 01/17 2159 0750 Magnesium Hydroxide 30 ML ONE ONE 01/17 1330 DC 01/17 PO 01/17 1331 1342 Nystatin 5 ML 4 TIMES/DAY 01/15 1400 AC 01/17 PO 2132 Tramadol HCl 50 MG Q6P PRN 01/15 1030 AC 01/17 PO 1346 Trimethoprim/ 1 TAB 0600,1800 01/14 1800 AC 01/17 Sulfamethoxazole PO 1730 Vitamin A/Vitamin D 1 MICHELE BID 01/13 2224 01/17 TOP 2134 Dose Instructions: (1)Benzocaine/Menthol: 1 LOZENGE Last 24 Hrs of Lab/Basilio Results Last 24 Hrs of Labs/Mics: Laboratory Tests 01/17/17 2330: Troponin I 0.02 01/17/17 1205: Urinalysis LIGHT H, Urine Color YEL, Urine Clarity HAZY H, Urine pH 6.0, Ur Specific Rogers 1.025, Urine Protein TRACE H, Urine Ketones 40 H, Urine Nitrite NEG, Urine Bilirubin NEG@ICTO, Urine Urobilinogen 0.2, Ur Leukocyte Esterase NEG, Ur Microscopic SEDIMENT EXAMINED, Urine RBC RARE, Urine WBC RARE, Ur Epithelial Cells RARE, Granular Casts RARE H, Urine Mucus FEW, Urine Hemoglobin MOD H, Urine Glucose >=1000 H 01/17/17 0620: Anion Gap 11, Estimated GFR > 60, BUN/Creatinine Ratio 24.3, Magnesium 1.8, Total Bilirubin 0.5, Direct Bilirubin 0.5 H, AST 192 H, ALT 208 H, Alkaline Phosphatase 127 H, Total Protein 5.6 L, Albumin 2.6 L, CBC w Diff NO MAN DIFF REQ, RBC 4.09 L, MCV 88.8, MCH 29.8, RDW 13.7, MPV 13.1 H, Gran % 65.0, Lymphocytes % 19.0 L, Monocytes % 13.8 H, Eosinophils % 1.8, Basophils % 0.4, Absolute Granulocytes 6.2, Absolute Lymphocytes 1.8, Absolute Monocytes 1.3 H, Absolute Eosinophils 0.2, Absolute Basophils 0, PUBS MCHC 33.5, Hepatitis A IgM Ab Pending, Hep Bs Antigen Pending, Hep B Core IgM Ab Conf Pending, Hepatitis C Antibody Pending Microbiology 01/17 1205 URINE ROUT: Urine Culture - RECD Assessment/Plan Assessment: 41 y/o M with PMHx of obesity but no prior history of diabetes who presented with HHS with ketoacidosis complicated by acute respiratory failure requiring intubation and hypovolemic shock requiring pressors, now resolved. Transfered to general medicine floor for further management. Imaging in the last 24 hrs: US dopplers b/l- Deep venous thrombosis of the right lower extremity veins, with nonocclusive thrombus identified within the right common femoral vein. The remaining imaged veins of the right lower extremity are patent. Normal left side. CTA chest- Pulmonary arteries: There are bilateral pulmonary emboli. There is emboli in the right lower lobe secondary and tertiary vessels. There are also small emboli on the left in the left upper lobe and lower lobe secondary and tertiary branches. The bulk of the emboli that was in the right lower lobe. #New-onset diabetes: HHS with ketoacidosis now resolved. Blood sugars-200s Currently on Levemir 36 units twice a day. NovoLog sliding scale 3 times a day before meals/at bedtime aspirin Tigre Montanez MD's recommendations. Anti-shaheed 65 antibody still pending. Clinical presentation very similar to latent onset diabetes. HbA1c 15.1 Sodium- 137 (resolved). #Pneumonia: Sputum culture shows growth of Enterobacter, Klebsiella and staph aureus. Sensitive to Bactrim. Remains on 3 L NC. * Continue Bactrim DS 1 tab PO BID. D3 of Bactrim and D7 of abx. * Taper oxygen as tolerated. #Thrombocytopenia: Most likely secondary to Unasyn which was discontinued. Improved after unasyn was dc'ed. platelets-246(improved) * Continue to monitor platelet count. * HIT antibody panel negative including HF4. #Transaminitis: AST/ALT remain elevated, improving. Most likely secondary to ischemic hepatitis. Complete abdominal US with diffuse hepatic steatosis and no focal liver lesions or evidence of cholelithiasis. * Rehcek LFTs in the am. #LAMBERTO: Resolved. Creatinine back to baseline, 0.7 today. Check urinalysis and urine culture. No CVA tenderness. * Continue to monitor lytes and kidney function. * Avoid nephrotoxic medications. # DVT and PE: DVT in right lower extremity-which is nonocclusive. Pulmonary embolism bilaterally. Right lower lobe secondary and tertiary vessels are involved. Small embolus on the left lower lobe also seen. Hyperosmolar state is known to cause hypercoagulability. * Has been started on intravenous heparin after a bolus. * Change to NOAC after discussing with Dr. Victoria. Await his recommendations. Diet: Consistent Carbohydrate 2 DVT PPx: ALPs CODE: FULL Problem List: 1. Diabetes mellitus, new onset 2. Transaminitis 3. Sepsis 4. Thrombocytopenia 5. Pneumonia 6. Diabetic hyperosmolar coma Pain Ratin Pain Location: Lower back Pain Goal: Pain 4 or less Pain Plan: Tramadol Tomorrow's Labs & Rationales: CBC-check for hemoglobin and leukocytosis. Patient has pneumonia, and was started on anticoagulation in the last 24 hours. Basic electrolyte panel-patient received contrast in the last 24 hours. Monitor serum creatinine. DVT/Prophylaxis: pharmacological (IV heparin)
[2017-01-18 06:58] VITALS: BP 122/70
[2017-01-18 07:45] LABS: ABSOLUTE BASOPHIL COUNT 0 /CUMM (0.0-0.2); ABSOLUTE EOSINOPHIL COUNT 0.2 /CUMM (0.0-0.7); ABSOLUTE GRANULOCYTE CT 6.8 /CUMM (1.4-6.5); ABSOLUTE LYMPH COUNT 2.6 /CUMM (1.2-3.4); ABSOLUTE MONOCYTE COUNT 1.3 /CUMM (0.10-0.60); BASOPHIL % 0.4 % (0.0-2.0); EOSINOPHIL % 1.9 % (0-5); GRANULOCYTE % 61.9 % (42.2-75.2); HEMATOCRIT 35.8 % (42-52); MEAN CORPUSCULAR HGB 29.9 PG (27.0-31.0); MEAN CORPUSCULAR HGB CONC 33.7 G/DL (33.0-37.0); MEAN CORPUSCULAR VOLUME 88.6 FL (80.0-94.0); MEAN PLATELET VOLUME 13.1 FL (7.4-10.4); PLATELET COUNT 246 /CUMM (130-400); RBC DISTRIBUTION WIDTH 13.5 % (11.5-14.5); RED BLOOD CELL CT 4.04 /CUMM (4.70-6.10)
[2017-01-18 08:27] LABS: PTT 26 SEC (25-37)
--- NOTE | 2017-01-18 08:27 | PN- Diabetes ---
Assessment/Plan Assessment: The patient is out of the intensive care unit. He is awake and and oriented His renal function is improved and his serum sodium is down to 141 today. His liver function tests are also starting to come down. He is on Levemir 36 units twice a day. He is on sliding scale NovoLog for meals. His blood sugars starting to improve. Fingerstick blood sugar today before breakfast is 205. The patient has been found to have a DVT and evidence of pulmonary emboli. It turns out that hyperosmolar states are associated with hypercoagulability. Many patients with hyperosmolar coma of emboli rather than the underlying metabolic changes. As mentioned in my admission note full-blown heparinization is often desirable in these patients. Plan: Suggest continue the present insulin. Continue treatment with IV heparin. Subjective Subjective: Feels OK Vital Signs Date Time Temp Pulse Resp B/P Pulse O2 O2 Flow FiO2 Ox Delivery Rate 01/18 658 98.5 91 19 122/70 95 Nasal Cannula 01/18 0000 Nasal 2.0L Cannula 01/173 99.1 92 18 124/70 95 Nasal Cannula 01/17 1403 98.8 98 18 140/ 93 Nasal 5.0L Cannula Intake & Output 01/18 1600 01/18 0800 01/18 0000 Intake Total 308 100 Output Total Balance 308 100 Intake, IV 208 Intake, Oral 100 100 Review of Systems Constitutional: Denies: chills, fever. Respiratory: Reports: short of breath. Gastrointestinal: Denies: abdominal pain. Genitourinary: Denies: dysuria. Skin: Reports: no symptoms. Objective Last 24 Hrs of Vital Signs/I&O Vital Signs Date Time Temp Pulse Resp B/P Pulse O2 O2 Flow FiO2 Ox Delivery Rate 01/18 0658 98.5 91 19 122/70 95 Nasal Cannula 01/18 0000 Nasal 2.0L Cannula 01/17 2223 99.1 92 18 124/70 95 Nasal Cannula 01/17 1403 98.8 98 18 140/70 93 Nasal 5.0L Cannula Intake & Output 01/18 1600 01/18 0800 01/18 0000 Intake Total 308 100 Output Total Balance 308 100 Intake, IV 208 Intake, Oral 100 100 Vital Signs Date Time Temp Pulse Resp B/P Pulse O2 O2 Flow FiO2 Ox Delivery Rate 01/18 0658 98.5 91 19 122/70 95 Nasal Cannula 01/18 0000 Nasal 2.0L Cannula 01/17 2223 99.1 92 18 124/70 95 Nasal Cannula 01/17 1403 98.8 98 18 140/70 93 Nasal 5.0L Cannula Intake & Output 01/18 1600 01/18 0800 01/18 0000 Intake Total 308 100 Output Total Balance 308 100 Intake, IV 208 Intake, Oral 100 100 Physical Exam General Appearance: alert, awake, comfortable Neck: normal inspection Cardiovascular: regular rate/rhythm Abdomen: normal bowel sounds Extremities: normal inspection Current Medications: Current Medications Sig/Nelida Start time Last Medication Dose Route Stop Time Status Admin Benzocaine/Menthol See Dose TID 01/17 1600 AC 01/17 Insts (1) PO 2133 Furosemide 20 MG ONCE ONE 01/17 1545 DC 01/17 PO 01/17 1546 1627 Heparin Sodium 5,000 UNIT .STK-MED ONE 01/17 2246 DC (Porcine) IV 01/17 2247 Heparin Sodium 5,000 UNIT ONCE ONE 01/17 2215 DC 01/17 (Porcine) IV 01/17 2216 2333 Heparin Sodium 25,000 UNIT Q24H 01/17 2215 AC 01/17 (Porcine) IV 2333 Sodium Chloride 500 ML Insulin Aspart 0 AT BEDTIME 01/14 2200 AC 01/16 SC 2108 Insulin Aspart 0 TIDAC 01/14 1700 AC 01/18 SC 0757 Insulin Detemir 36 UNITS BID 01/17 2200 AC 01/17 SC 2132 Insulin Detemir 6 UNITS ONCE ONE 01/17 0900 DC 01/17 SC 01/17 0901 0904 Insulin Detemir 30 UNITS BID 01/13 1000 DC 01/17 SC 01/17 2159 0750 Magnesium Hydroxide 30 ML ONE ONE 01/17 1330 DC 01/17 PO 01/17 1331 1342 Nystatin 5 ML 4 TIMES/DAY 01/15 1400 AC 01/17 PO 2132 Tramadol HCl 50 MG Q6P PRN 01/15 1030 AC 01/17 PO 1346 Trimethoprim/ 1 TAB 0600,1800 01/14 1800 AC 01/18 Sulfamethoxazole PO 0648 Vitamin A/Vitamin D 1 MICHELE BID 01/13 2224 AC 01/17 TOP 2134 Dose Instructions: (1)Benzocaine/Menthol: 1 LOZENGE Findings Pertinent Lab/Basilio Results: Laboratory Tests 01/18 01/17 0615 2330 Chemistry Sodium (137 - 145 mmol/L) 137 Potassium (3.5 - 5.1 mmol/L) 3.6 Chloride (98 - 107 mmol/L) 103 Carbon Dioxide (22 - 30 mmol/L) 24 Anion Gap (5 - 16) 9 BUN (9 - 20 mg/dL) 14 Creatinine (0.7 - 1.2 mg/dL) 0.7 Estimated GFR (>60 ml/min) > 60 BUN/Creatinine Ratio (7 - 25 %) 20.0 Troponin I (<0.11 ng/ml) 0.02 0.02 Coagulation APTT Pending Hematology CBC w Diff NO MAN DIFF REQ WBC (4.8 - 10.8 /CUMM) 11.0 H RBC (4.70 - 6.10 /CUMM) 4.04 L Hgb (14.0 - 18.0 G/DL) 12.1 L Hct (42 - 52 %) 35.8 L MCV (80.0 - 94.0 FL) 88.6 MCH (27.0 - 31.0 PG) 29.9 RDW (11.5 - 14.5 %) 13.5 Plt Count (130 - 400 /CUMM) 246 MPV (7.4 - 10.4 FL) 13.1 H Gran % (42.2 - 75.2 %) 61.9 Lymphocytes % (20.5 - 51.1 %) 23.6 Monocytes % (1.7 - 9.3 %) 12.2 H Eosinophils % (0 - 5 %) 1.9 Basophils % (0.0 - 2.0 %) 0.4 Absolute Granulocytes (1.4 - 6.5 /CUMM) 6.8 H Absolute Lymphocytes (1.2 - 3.4 /CUMM) 2.6 Absolute Monocytes (0.10 - 0.60 /CUMM) 1.3 H Absolute Eosinophils (0.0 - 0.7 /CUMM) 0.2 Absolute Basophils (0.0 - 0.2 /CUMM) 0 PUBS MCHC (33.0 - 37.0 G/DL) 33.7 01/17 1205 Urines Urinalysis LIGHT H Urine Color (YEL,AMB,STR) YEL Urine Clarity (CLEAR) HAZY H Urine pH (5.0 - 8.0) 6.0 Ur Specific Woodward (1.001 - 1.035) 1.025 Urine Protein (NEG,<30 MG/DL) TRACE H Urine Ketones (NEG) 40 H Urine Nitrite (NEG) NEG Urine Bilirubin (NEG) NEG@ICTO Urine Urobilinogen (0.1 - 1.0 EU/dl) 0.2 Ur Leukocyte Esterase (NEG) NEG Ur Microscopic SEDIMENT EXAMINED Urine RBC (0 - 5 /HPF) RARE Urine WBC (0 - 2 /HPF) RARE Ur Epithelial Cells (NONE,FEW) RARE Granular Casts (NONE /LPF) RARE H Urine Mucus (FEW,NONE) FEW Urine Hemoglobin (NEG) MOD H Urine Glucose (N MG/DL) >=1000 H
--- NOTE | 2017-01-18 11:40 | PN- Att Addend ---
Attending Addendum Attending Brief Note Patient seen and examined. Events over the last night is noted. He is a 41- year-old male who was initially admitted to the ICU with profound DKA and hyperglycemic hyperosmolar comatose state. He developed respiratory failure requiring intubation, acute renal failure that has since resolved and he is being treated for a staph and gram-negative pneumonia with by mouth Bactrim today is day 7. Because of ongoing O2 requirement with a chest x-ray that showed atelectasis, an ultrasound of the legs was pursued which was positive for a DVT and the CTA shows bilateral pulmonary embolism. His thrombocytopenia has resolved and his HIT workup has been negative. His platelet count has also come back to normal and he was started on IV heparin. We will talk to pulmonology about starting him on an oral anticoagulant given that this is all brand-new to him, taper his O2 requirement, continue insulin and long-acting insulin, appreciate endocrine follow-up and will follow closely.
[2017-01-18 14:16] VITALS: BP 110/70
[2017-01-18 16:59] LABS: PTT 38 SEC (25-37)
--- NOTE | 2017-01-18 17:56 | PN- Pulmonary ---
Subjective HPI/Critical Care Issues: He was comfortable this morning. Vitals remained stable overnight. Currently on 3L oxygen. He did not have any complaints. He stated that he walked in the room, and worked with the physical therapy no complaints. Overnight, the patient was started on IV heparin for the treatment of DVT and PE. Discussed with him in detail this morning about the long-term treatment for blood clots. The patient was receptive to the idea that anticoagulation needs to be taken for at least 3 months and the packager would reassess for any further continuation. Review of Systems Constitutional: Reports: see HPI. Objective Current Medications: Current Medications Sig/Nelida Start time Last Medication Dose Route Stop Time Status Admin Benzocaine/Menthol See Dose TID 01/17 1600 AC 01/18 Insts (1) PO 1727 Heparin Sodium 10,000 UNIT .STK-MED ONE 01/18 0933 DC (Porcine) IV 01/18 0934 Heparin Sodium 5,000 UNIT .STK-MED ONE 01/17 2246 DC (Porcine) IV 01/17 2247 Heparin Sodium 5,000 UNIT ONCE ONE 01/17 2215 DC 01/17 (Porcine) IV 01/17 2216 2333 Heparin Sodium 25,000 UNIT Q24H 01/17 2215 AC 01/18 (Porcine) IV 01/18 220 0943 Sodium Chloride 500 ML Insulin Aspart 0 AT BEDTIME 01/14 2200 AC 01/16 SC 2108 Insulin Aspart 0 TIDAC 01/14 1700 AC 01/18 SC 1727 Insulin Detemir 36 UNITS BID 01/17 2200 AC 01/18 SC 0927 Insulin Detemir 30 UNITS BID 01/13 1000 DC 01/17 SC 01/17 2159 0750 Nystatin 5 ML 4 TIMES/DAY 01/15 1400 AC 01/18 PO 1726 Patient Medication 1 ED .STK-MED ONE 01/18 1423 DC Teaching ED 01/18 1424 Rivaroxaban 15 MG BID 01/18 2200 AC PO Tramadol HCl 50 MG Q6P PRN 01/15 1030 AC 01/17 PO 1346 Trimethoprim/ 1 TAB 0600,1800 01/14 1800 AC 01/18 Sulfamethoxazole PO 0648 Vitamin A/Vitamin D 1 SHANTA BID 01/13 2224 AC 01/18 TOP 0945 Dose Instructions: (1)Benzocaine/Menthol: 1 LOZENGE Vital Signs & I&O Last 24 Hrs of Vitals and I&O: Vital Signs Date Time Temp Pulse Resp B/P Pulse O2 O2 Flow FiO2 Ox Delivery Rate 01/18 1416 98.1 96 20 110/70 94 Room Air 01/18 0800 95 Nasal 2.0L Cannula 01/18 0658 98.5 91 19 122/70 95 Nasal Cannula 01/18 0000 Nasal 2.0L Cannula 01/17 2223 99.1 92 18 124/70 95 Nasal Cannula Intake & Output 01/18 1600 01/18 0800 01/18 0000 Intake Total 677 308 100 Output Total Balance 677 308 100 Intake, IV 197 208 Intake, Oral 480 100 100 Impression/Plan Impression/Plan Impression/Plan: 41 y/o M with no prior history of DM who is admitted for severe DKA with multisystem organ failure. IMPRESSION * DVT in the rt lower ext with no sig pe * Improved diabetic hyperosmolar, DKA with acute renal failure * S/p Acute respiratory failure related to metabolic encephalopathy, sepsis now resolved * Resolved hypotension requiring vasopressors initially due to hypovolemia and improvement. Sputum did grow mssa, enterobacter and klebsiell on shanta abx * Pancreatitis as noted upon admission improving * Ongoing hypoxia due to pna and fluid overload and less likely pe but cannot rule out as his heparin was stopped due to worsening platelets (HIT antibody neg ) RECOMMENDATION * Transition to po xeralto with 15 mg bid for three weeks and then 20 mg dialy for a minimum of 3 months * COnt abx * Needs proper out pt mgt with PCP and endocrine upon dc * Discussed with father who will take the patient to his personal pcp * Discussed with family
[2017-01-18 23:53] VITALS: BP 132/60
[2017-01-19 06:28] VITALS: BP 130/80
--- NOTE | 2017-01-19 07:17 | PN- Housestaff ---
ALANA LARSON 01/19/17 0714: Subjective Follow-up For: - HHS w/ ketoacidosis Subjective: Pt was comfortable. Currently on 1L oxygen, w/ oxygen saturation above 92. Discussed in detail about the use of insulin, anticoagulation, dietary adherence , exercise, and follow-ups. Review of Systems Constitutional: Reports: see HPI. Objective Last 24 Hrs of Vital Signs/I&O Vital Signs Date Time Temp Pulse Resp B/P Pulse O2 O2 Flow FiO2 Ox Delivery Rate 01/19 0628 97.9 88 20 130/80 97 Nasal 2.0L Cannula 01/18 2353 99.4 91 20 132/60 96 Nasal 2.0L Cannula 01/18 1600 98 Nasal 2.0L Cannula 01/18 1416 98.1 96 20 110/70 94 Room Air 01/18 0800 95 Nasal 2.0L Cannula Intake & Output 01/19 0800 01/19 0000 01/18 1600 Intake Total 690 677 Output Total Balance 690 677 Intake, IV 350 197 Intake, Oral 340 480 Physical Exam General Appearance: No Acute Distress Other Physical Findings: General Exam: AAOx3, No acute distress, Skin: No rashes, no breakdown HEENT: PERRLA, EOMI, multiple lesions present on the tongue, ulcer on the right side of the lower lip Neck: Supple, No JVD No cervical lymphadenopathy CVS: Reg Rate, Normal S1,S2, No MGR Resp: Normal air entry, no ronchi/rales Abdomen: Soft, No tenderness, Normal Bowel Sounds Neuro: Normal Speech, Strength 5/5 b/l x 4 extremities, Sensation intact, CN III -XII NL, Reflexes 2+ Extremities: No cyanosis, pedal edema Current Medications: Current Medications Sig/Nelida Start time Last Medication Dose Route Stop Time Status Admin Benzocaine/Menthol See Dose TID 01/17 1600 AC 01/18 Insts (1) PO 2148 Heparin Sodium 10,000 UNIT .STK-MED ONE 01/18 0933 DC (Porcine) IV 01/18 0934 Heparin Sodium 25,000 UNIT Q24H 01/17 2215 DC 01/18 (Porcine) IV 01/18 2200 1956 Sodium Chloride 500 ML Insulin Aspart 0 AT BEDTIME 01/14 2200 AC 01/16 SC 2108 Insulin Aspart 0 TIDAC 01/14 1700 AC 01/18 SC 1727 Insulin Detemir 36 UNITS BID 01/17 2200 AC 01/18 SC 2147 Nystatin 5 ML 4 TIMES/DAY 01/15 1400 AC 01/18 PO 2148 Patient Medication 1 ED .STK-MED ONE 01/18 1423 MS Teaching ED 01/18 1424 Rivaroxaban 15 MG BID 01/18 2200 AC 01/18 PO 2148 Tramadol HCl 50 MG Q6P PRN 01/15 1030 AC 01/17 PO 1346 Trimethoprim/ 1 TAB 0600,1800 01/19 0600 AC 01/19 Sulfamethoxazole PO 0640 Trimethoprim/ 1 TAB 0600,1800 01/14 1800 DC 01/18 Sulfamethoxazole PO 0648 Vitamin A/Vitamin D 1 MICHELE BID 01/13 2224 AC 01/18 TOP 2149 Dose Instructions: (1)Benzocaine/Menthol: 1 LOZENGE Last 24 Hrs of Lab/Basilio Results Last 24 Hrs of Labs/Mics: Laboratory Tests 01/19/17 0655: CBC w Diff Pending, WBC Pending, RBC Pending, Hgb Pending, Hct Pending, MCV Pending, MCH Pending, RDW Pending, Plt Count Pending, MPV Pending, PUBS MCHC Pending 01/18/17 1615: APTT 38 H Assessment/Plan Assessment: 41 y/o M with PMHx of obesity but no prior history of diabetes who presented with HHS with ketoacidosis complicated by acute respiratory failure requiring intubation and hypovolemic shock requiring pressors, now resolved. Transfered to general medicine floor for further management. #New-onset diabetes: HHS with ketoacidosis now resolved. Blood sugars-200s Currently on Levemir 36 units twice a day. NovoLog sliding scale 3 times a day before meals/at bedtime aspirin Tigre Montanez MD's recommendations. Anti-shaheed 65 antibody still pending. Clinical presentation very similar to latent onset diabetes. HbA1c 15.1 #Pneumonia: Sputum culture shows growth of Enterobacter, Klebsiella and staph aureus. Sensitive to Bactrim. Remains on 3 L NC. * Continue Bactrim DS 1 tab PO BID. D4 of Bactrim and D7 of abx. * Taper oxygen as tolerated. #Thrombocytopenia: Most likely secondary to Unasyn which was discontinued. Improved after unasyn was dc'ed. platelets-improved * Continue to monitor platelet count. * HIT antibody panel negative including HF4. #Transaminitis: AST/ALT remain elevated, improving. Most likely secondary to ischemic hepatitis. Complete abdominal US with diffuse hepatic steatosis and no focal liver lesions or evidence of cholelithiasis. #LAMBERTO: Resolved. Creatinine back to baseline, tenderness. * Continue to monitor lytes and kidney function. * Avoid nephrotoxic medications. # DVT and PE: DVT in right lower extremity-which is nonocclusive. Pulmonary embolism bilaterally. Right lower lobe secondary and tertiary vessels are involved. Small embolus on the left lower lobe also seen. Hyperosmolar state is known to cause hypercoagulability. * Has been started on intravenous heparin after a bolus. * Change to NOAC after discussing with Dr. Victoria. Xarelto 15mg by mouth twice a day for a total of 21 days, and changed to 20 mg by mouth daily for 3 months. Reassess after 3 months by the plaster block layer. Discussed in detail about side effects of an anticoagulation. Diet: Consistent Carbohydrate 2 DVT PPx: NOAC CODE: FULL Problem List: 1. Diabetes mellitus, new onset 2. Transaminitis Pain Ratin Pain Location: Back Pain Goal: Pain 4 or less Pain Plan: Tramadol Tomorrow's Labs & Rationales: No labs necessary. The patient to be discharged. STEFFEN SINGH,[facility] 01/19/17 1133: Attending MD Review Statement Attending Statement Attending MD Statement: examined this patient, discuss w/resident/PA/HEAT AND FROST INSULATOR, agreed w/resident/PA/HEAT AND FROST INSULATOR, discussed with family, reviewed EMR data (avail), discussed with nursing, discussed with case mgmt, reviewed images, amended to note Attending Assessment/Plan: Patient seen and examined, feels overall much better. Denies any shortness of breath. Blood sugars are under reasonable control. Patient has been followed by endocrinology. Vital Signs Date Time Temp Pulse Resp B/P Pulse O2 O2 Flow FiO2 Ox Delivery Rate 01/19 0800 Nasal 1.0L Cannula 01/19 0628 97.9 88 20 130/80 97 Nasal 2.0L Cannula 01/19 0000 96 Nasal 3.0L Cannula 01/18 2353 99.4 91 20 132/60 96 Nasal 2.0L Cannula 01/18 1600 98 Nasal 2.0L Cannula 01/18 1416 98.1 96 20 110/70 94 Room Air on exam; aox3, nad. cv; s1, s2, rrr. resp; clear b/l abd; soft, nt, bs+ ext; no edema Laboratory Tests 01/19 01/18 0655 1615 Coagulation APTT (25 - 37 SEC) 38 H Hematology CBC w Diff NO MAN DIFF REQ WBC (4.8 - 10.8 /CUMM) 11.7 H RBC (4.70 - 6.10 /CUMM) 4.24 L Hgb (14.0 - 18.0 G/DL) 12.6 L Hct (42 - 52 %) 37.4 L MCV (80.0 - 94.0 FL) 88.3 MCH (27.0 - 31.0 PG) 29.6 RDW (11.5 - 14.5 %) 13.1 Plt Count (130 - 400 /CUMM) 324 MPV (7.4 - 10.4 FL) 11.9 H Gran % (42.2 - 75.2 %) 67.8 Lymphocytes % (20.5 - 51.1 %) 19.2 L Monocytes % (1.7 - 9.3 %) 10.9 H Eosinophils % (0 - 5 %) 1.9 Basophils % (0.0 - 2.0 %) 0.2 Absolute Granulocytes (1.4 - 6.5 /CUMM) 7.5 H Absolute Lymphocytes (1.2 - 3.4 /CUMM) 2.1 Absolute Monocytes (0.10 - 0.60 /CUMM) 1.2 H Absolute Eosinophils (0.0 - 0.7 /CUMM) 0.2 Absolute Basophils (0.0 - 0.2 /CUMM) 0 PUBS MCHC (33.0 - 37.0 G/DL) 33.5 A/P; 41-year-old male who was initially admitted to the ICU with profound DKA and hyperglycemic hyperosmolar comatose state. He developed respiratory failure requiring intubation, acute renal failure that has since resolved. Patient was also treated for MSSA, enterococcus and A Pneumonia with Oral Bactrim. He Needs Total of 10 Days of Antibiotics. He also found to have a DVT as well as pulmonary embolism. He was started on Xarelto for that. At this point that sugars are under reasonable control on current insulin regimen as recommended by endocrinology. He still requiring oxygen, will check his ambulatory O2 sat and see if he needs any home oxygen. Please follow pulmonology recommendations. Patient's girlfriend has learned how to give the patient insulin but patient at the same time also is learning how to do his blood sugar checks. He is medically stable for discharge home today. He will follow with Dr. Montanez as well as we will establish his care with a primary care doctor as an outpatient.
--- NOTE | 2017-01-19 07:50 | PN- Diabetes ---
Assessment/Plan Assessment: The patient is awake and and oriented His renal function is improved and his serum sodium is down to 137 today. His liver function tests are also starting to come down. He is on Levemir 36 units twice a day. He is on sliding scale NovoLog for meals. His blood sugars starting to improve. Fingerstick blood sugar today before breakfast is 238. The patient has been found to have a DVT and evidence of pulmonary emboli. He is off IV heparin and on xeralto. Plan: Suggest continue the present insulin. Increase activity. We are awaiting the anti-VINAY antibody result before deciding whether or not he is a candidate for oral agents for his diabetes. Subjective Subjective: Feels better Review of Systems Constitutional: Denies: chills, fever. EENTM: Reports: mouth pain (tongue is improving). Respiratory: Reports: short of breath. Denies: cough. Gastrointestinal: Denies: nausea, vomiting. Skin: Denies: lesions. Objective Last 24 Hrs of Vital Signs/I&O Vital Signs Date Time Temp Pulse Resp B/P Pulse O2 O2 Flow FiO2 Ox Delivery Rate 01/19 628 97.9 88 20 130/80 97 Nasal 2.0L Cannula 01/18 2353 99.4 91 20 132/60 96 Nasal 2.0L Cannula 01/18 1600 98 Nasal 2.0L Cannula 01/18 1416 98.1 96 20 110/70 94 Room Air 01/18 0800 95 Nasal 2.0L Cannula Intake & Output 01/19 0800 01/19 0000 01/18 1600 Intake Total 690 677 Output Total Balance 690 677 Intake, IV 350 197 Intake, Oral 340 480 Vital Signs Date Time Temp Pulse Resp B/P Pulse O2 O2 Flow FiO2 Ox Delivery Rate 01/19 628 97.9 88 20 130/80 97 Nasal 2.0L Cannula 01/18 2353 99.4 91 20 132/60 96 Nasal 2.0L Cannula 01/18 1600 98 Nasal 2.0L Cannula 01/18 1416 98.1 96 20 110/70 94 Room Air 01/18 0800 95 Nasal 2.0L Cannula Intake & Output 01/19 0800 01/19 0000 01/18 1600 Intake Total 690 677 Output Total Balance 690 677 Intake, IV 350 197 Intake, Oral 340 480 Physical Exam General Appearance: alert, awake, comfortable Head: normal appearance Respiratory: normal breath sounds Cardiovascular: regular rate/rhythm Extremities: normal inspection Current Medications: Vital Signs Date Time Temp Pulse Resp B/P Pulse O2 O2 Flow FiO2 Ox Delivery Rate 01/19 0628 97.9 88 20 130/80 97 Nasal 2.0L Cannula 01/18 2353 99.4 91 20 132/60 96 Nasal 2.0L Cannula 01/18 1600 98 Nasal 2.0L Cannula 01/18 1416 98.1 96 20 110/70 94 Room Air 01/18 0800 95 Nasal 2.0L Cannula Intake & Output 01/19 0800 01/19 0000 01/18 1600 Intake Total 690 677 Output Total Balance 690 677 Intake, IV 350 197 Intake, Oral 340 480 Findings Pertinent Lab/Basilio Results: Laboratory Tests 01/19 01/18 0655 1615 Coagulation APTT (25 - 37 SEC) 38 H Hematology CBC w Diff Pending WBC Pending RBC Pending Hgb Pending Hct Pending MCV Pending MCH Pending RDW Pending Plt Count Pending MPV Pending PUBS MCHC Pending
[2017-01-19 08:11] LABS: ABSOLUTE BASOPHIL COUNT 0 /CUMM (0.0-0.2); ABSOLUTE EOSINOPHIL COUNT 0.2 /CUMM (0.0-0.7); ABSOLUTE GRANULOCYTE CT 7.5 /CUMM (1.4-6.5); ABSOLUTE LYMPH COUNT 2.1 /CUMM (1.2-3.4); ABSOLUTE MONOCYTE COUNT 1.2 /CUMM (0.10-0.60); BASOPHIL % 0.2 % (0.0-2.0); EOSINOPHIL % 1.9 % (0-5); GRANULOCYTE % 67.8 % (42.2-75.2); HEMATOCRIT 37.4 % (42-52); MEAN CORPUSCULAR HGB 29.6 PG (27.0-31.0); MEAN CORPUSCULAR HGB CONC 33.5 G/DL (33.0-37.0); MEAN CORPUSCULAR VOLUME 88.3 FL (80.0-94.0); MEAN PLATELET VOLUME 11.9 FL (7.4-10.4); RBC DISTRIBUTION WIDTH 13.1 % (11.5-14.5); RED BLOOD CELL CT 4.24 /CUMM (4.70-6.10)
[2017-01-19 08:59] LABS: WHITE BLOOD CELL COUNT 11.7 /CUMM (4.8-10.8)
[2017-01-19 09:00] LABS: PLATELET COUNT 324 /CUMM (130-400)
--- NOTE | 2017-01-19 10:02 | PN- Pulmonary ---
Subjective HPI/Critical Care Issues: Stable Objective Current Medications: Current Medications Sig/Nelida Start time Last Medication Dose Route Stop Time Status Admin Benzocaine/Menthol See Dose TID 01/17 1600 AC 01/19 Insts (1) PO 0918 Heparin Sodium 25,000 UNIT Q24H 01/17 221 DC 01/18 (Porcine) IV 01/18 2200 195 Sodium Chloride 500 ML Insulin Aspart 0 AT BEDTIME 01/14 220 AC 01/16 SC 2108 Insulin Aspart 0 TIDAC 01/14 1700 AC 01/19 SC 0808 Insulin Detemir 36 UNITS BID 01/17 220 AC 01/19 SC 0918 Nystatin 5 ML 4 TIMES/DAY 01/15 1400 AC 01/19 PO 0918 Patient Medication 1 ED .STK-MED ONE 01/18 1423 [facility] Teaching ED 01/18 1424 Rivaroxaban 15 MG BID 01/18 220 AC 01/19 PO 0918 Tramadol HCl 50 MG Q6P PRN 01/15 1030 AC 01/17 PO 1346 Trimethoprim/ 1 TAB 0600,1800 01/19 0600 AC 01/19 Sulfamethoxazole PO 0640 Trimethoprim/ 1 TAB 0600,1800 01/14 1800 DC 01/18 Sulfamethoxazole PO 0648 Vitamin A/Vitamin D 1 SHANTA BID 01/13 2224 AC 01/19 TOP 0918 Dose Instructions: (1)Benzocaine/Menthol: 1 LOZENGE Vital Signs & I&O Last 24 Hrs of Vitals and I&O: Vital Signs Date Time Temp Pulse Resp B/P Pulse O2 O2 Flow FiO2 Ox Delivery Rate 01/19 0628 97.9 88 20 130/80 97 Nasal 2.0L Cannula 01/18 2353 99.4 91 20 132/60 96 Nasal 2.0L Cannula 01/18 1600 98 Nasal 2.0L Cannula 01/18 1416 98.1 96 20 110/70 94 Room Air Intake & Output 01/19 1600 01/19 0800 01/19 0000 Intake Total 690 Output Total Balance 690 Intake, IV 350 Intake, Oral 340 Impression/Plan Impression/Plan Impression/Plan: 41 y/o M with no prior history of DM who is admitted for severe DKA with multisystem organ failure. IMPRESSION * DVT in the rt lower ext with no sig pe * Improved diabetic hyperosmolar, DKA with acute renal failure * S/p Acute respiratory failure related to metabolic encephalopathy, sepsis now resolved * Resolved hypotension requiring vasopressors initially due to hypovolemia and improvement. Sputum did grow mssa, enterobacter and klebsiell on shanta abx * Pancreatitis as noted upon admission improving RECOMMENDATION * Po xeralto with 15 mg bid for three weeks and then 20 mg dialy for a minimum of 3 months * COnt abx for a total duration of 10 days * Needs proper out pt mgt with PCP and endocrine upon dc * Discussed with family yesterday Ok to dc soon Wean off oxygen May benefit from one dose of lasix to see if hypoxia improves
[2017-01-19] MEDS ORDERED: XARELTO20 M2 PO ×2 (11:39→12:54)
[2017-01-19] MEDS ORDERED: XARELTO15 M1 PO ×2 (11:39→12:54)
[2017-01-19] MEDS ORDERED: NOVOLOG100 UNIT/2 SC ×3 (11:39→12:54)
[2017-01-19] MEDS ORDERED: VITAMIN A & D56.7 GM TOP ×2 (11:39→12:54)
[2017-01-19] MEDS ORDERED: CHLORASEPTIC M1 EACH PO ×2 (11:39→12:54)
[2017-01-19] MEDS ORDERED: LEVEMIR100 UNIT/1 SC ×2 (11:39→12:54)
[2017-01-19] MEDS ORDERED: BACTRIM DS TAB1 EACH PO ×2 (11:39→12:54)
--- NOTE | 2017-01-19 11:45 | Patient Discharge Instructions ---
Discharge Instructions General Discharge Information You were seen/treated for: #1 elevated glucose leading to coma #2 pneumonia Watch for these problems: #1 altered mental status, unconsciousness #2 chest pain, shortness of breath #3 increased urination, increased thirst Special Instructions: #1 please follow up with her primary care doctor within 1-2 weeks of discharge. #2 please follow-up with your program research specialist-Arpan Victoria MD within 1-2 weeks of discharge. Please take your medications as prescribed. Xarelto 15 mg twice a day-stop on 02/07/2017. Start Xarelto 20 mg by mouth daily on 02/08/2017. #3 please follow-up with nutritional-dietitian within 1 week. #4 please take your medications as prescribed. #5 please follow-up with her directional survey drafter-Tigre Montanez MD within 1-2 weeks of discharge. #6 in the meanwhile, if you have any loss of consciousness, chest pain or shortness of breath contact your primary care provider as soon as possible or go to the nearest emergency room. #7. If the oral ulcers are not healed in the next few days, please see a PCP. Acute Coronary Syndrome Inclusion Criteria At DC or during hospital stay patient has or had the following: ACS DIAGNOSIS No Discharge Core Measures Meds if any: Prescribed or Continued at Discharge Meds if any: NOT Prescribed or Continued at Discharge Congestive Heart Failure Inclusion Criteria At DC or during hospital stay patient has or had the following: CHF DIAGNOSIS No Discharge Core Measures Meds if any: Prescribed or Continued at Discharge Meds if any: NOT Prescribed or Continued at Discharge Cerebrovascular accident Inclusion Criteria At DC or during hospital stay patient has or had the following: CVA/TIA Diagnosis No Discharge Core Measures Meds if any: Prescribed or Continued at Discharge Meds if any: NOT Prescribed or Continued at Discharge Venous thromboembolism Inclusion Criteria VTE Diagnosis No VTE Type NONE VTE Confirmed by (Test) NONE Discharge Core Measures - Per Current guidelines, there needs to be overlap - treatment for the first 5 days of Warfarin therapy. - If discharged on Warfarin prior to 5 days of - overlap therapy, the patient will need to be - assessed for post discharge needs including - *Post discharge parental anticoagulation - *Warfarin and/or parental anticoagulation education - *Follow up date to check INR post discharge At least 5 days overlap therapy as Inpatient No Meds if any: Prescribed or Continued at Discharge Note: Overlap Therapy is Warfarin and Anticoagulant Meds if any: NOT Prescribed or Continued at Discharge
--- NOTE | 2017-01-19 12:42 | Discharge Summary ---
Visit Information Visit Dates Admission Date: 01/11/17 Discharge Date: 01/19/17 Hospital Course Course Attending Physician: STEFFEN SINGH,[place] Primary Care Physician: PATIENT HAS NO PRIMARY CARE DR Hospital Course: Mr. Diaz is a 41 year old man with no significant past medical history, was brought to the ED, w/ a chief concern of unresponsiveness, that was preceded by nonproductive cough, generalized weakness and lethargy x 1 week. He also had polyuria, polydipsia and 20-40 pound weight loss in 2-3 wks prior to admission. At the time of admission, vitals temperature 95.4, HR 85, BP 76/39 and SpO2 of 79% on RA. He was comatose and was subsequently intubated for airway protection. Lab findings revealed- WBC 18k, Na 144, anion gap metabolic acidosis with bicarbonate 14 and anion gap 29, BUN 55, creatinine 5.5, glucose 1942, AST 32, ALT 95 and alkaline phosphatase 135. UA was positive for glucose and ketones. Urine toxicology was positive for acetone and THC. ABG revealed marked acidosis with 7.11/42/387/13. Radiological findings - CT Head was negative for acute intracranial process. CT Chest/Abdomen/Pelvis was unremarkable. In the ED, patient was fluid resuscitated with 1 L boluses of NS x 6. Femoral line was placed and patient was started on Levophed drip for blood pressure support. He was admitted to the ICU for management of his severe DKA with multisystem organ failure, and subsequently transfered to General Medicine floor for further management. Differential diagnosis: 1. Hyperosmolar hypoglycemic state w/ ketoacidosis. Below are the issues that were addressed during current admission: Assessment/Plan: # Hyperosmolar hyperglycemic state w/ ketosis: Patient remained on the insulin drip for 2 days and received aggressive hydration with KCl-containing IV fluids with resolution of his ketoacidosis, with improvement of his blood sugars and normalization of his multiple electrolyte abnormalities. Electrolytes including Mg, K and Phos were aggressively repleted during this time. Once glucose and the electrolytes were stable, patient was started on subcutaneous insulin: Levemir and Novolog sliding scale. Endocrinology, nephrology and [facility] were consulted and management was performed according to their recs. Blood sugar levels were adequately controlled. Although, urine glucose excretion was still above 1000mg/ dl, during the stay in the hospital. VINAY antibody was negative, which ruled out the DUSTY. He was provided w/ aggressive diabetic education including dietary advice, exercise, insulin administration and glucose checks. #Pneumonia: Although, patient was afebrile on initial presentation, he had fevers on the first day of admission. Chest x ray showed patchy right basilar opacity suspicious for aspiration pneumonia. Sputum Cx from admission later grew Enterobacter and Staph aureus, and was given emperic abx vancomycin, unasyn and ciprofloxacin. After reviewing the sensitivities, iv Unasyn, was switched to Bactrim as it was suspected that it could be causing the thrombocytopenia. Patient defervesced on day 3 of admission and was afebrile during the stay in the hospital. #Acute respiratory failure: Patient remained intubated and on mechanical ventilation until day 3 on admission when he was successfully extubated. He continued to require 3-5L oxygen, during the stay in the hospital, although he was clinically improving. CTA and US lower extremities were done that revealed a clot in the right lower extremity and PE(although small). Since the pt was at a high risk for coagulopathy in [facility], and unfortunately had to discontinue heparin in the setting of thrombocytopenia(pending HIT antibody panel); thrombotic events were expected. He was started on a newer NOAC, w/ an advice to follow up with the ladder operator to re-assess the need for continuation after 3 months. #Thrombocytopenia: Platelets were 223 on admission but were noted to gradually downtrend. Patient had no evidence of bleeding or bruising. It was suspected that the acute drop in platelets was secondary to IV Unasyn which was discontinued. HIT antibody panel including HF4 was negative ruling out the HIT. Stabilization of platelet count coincided w/ discontinuation of Unasyn. No thrombocytopenia was seen upon treatment w/ bactrim, however. #Hypovolemic shock: This occurred secondary to dehydration in the setting of severe DKA. Hypothyroidism and adrenal insufficiency were ruled out. Patient initially remained hypotensive despite maximum doses of Levophed IV drip and aggressive IVF hydration and was started on vasopressin IV drip, which was discontinued shortly after improvement of his blood pressures. By day 2 of admission, hypotension had resolved and patient no longer required pressors. He remained hemodynamically stable off pressors afterwards. Femoral line was later removed. #Hypernatremia: Patient presented with a markedly elevated corrected sodium in the 170s and an extremely high effective osmolality of about 400 corresponding to a massive free water deficit. This was felt to be secondary to polyuria and polydipsia that had been ongoing for several weeks leading up to admission. Na was monitored very closely and frequently to avoid rapid correction of hypernatremia and prevent irreversible brain damage. Patient received aggressive IVF hydration as well as free water flushes through the NG tube with gradual improvement of his sodium within normal limits. #Transaminitis: AST/ALT were normal on admission but gradually uptrended to 500s /200s. Alkaline phosphatase was elevated to 135 on admission, but later normalized. Total bilirubin remained normal. Complete abdominal US was performed which showed diffuse hepatic steatosis with no focal liver lesions and cholelithiasis. Transaminitis most likely due to sepsis or acute liver injury from hypotension. #LAMBERTO: LAMBERTO was pre-renal in etiology 2/2 hypovolemic shock and resolved with aggressive IVF hydration. Creatinine improved from 5.5 on admission to 0.9. #Metabolic encephalopathy: Patient's mental status showed gradual improvement throughout admission. Due to concern for traumatic brain injury in the setting of severe DKA and hypernatremia, neurology was consulted who felt that there was no indication for neurological intervention. Within 2 days after being extubated , patient had almost completely improved back to baseline with no residual neurological deficits. Worked aggressively with the physical therapy. #Acute pancreatitis: Amylase and lipase were markedly elevated to 482 and 6960 on admission, likely secondary to hypovolemic shock. Mutiorgan diysfunction was the likely cause of deranged enzymatic levels. #Hyperlipidemia/hypertriglyceridemia: Cholesterol and triglycerides were elevated to 839 and 242 respectively on admission. This likely contributed to acute pancreatitis. Repeat lipid panel showed with improvement of cholesterol to 124 and triglycerides to 338. #New onset seizures: On the day of admission, patient had a suspected seizure with 20 seconds of upwardly deviating gaze and was started on Keppra. CT Head was repeated and was negative. EEG was performed and revealed encephalopathy with some non-specific sharp discharges. Keppra was later discontinued as patient had no repeat seizures. #Stage 2 pressure ulcers: Multiple stage 2 pressure ulcers were noted to left buttock on day 2 admission. Improved during the stay in the hospital. Allergies: Coded Allergies: No Known Allergies (01/11/17) Pertinent Lab Results: SERVICE DATE: 01/11/17 EXAM TYPE: CAT - CT ABD & PELVIS W/O IV CONTRAS; CT CHEST WO IV CONTRAST IMPRESSION: 1. No acute findings identified in the chest/abdomen/pelvis. 2. Bibasilar atelectasis. 3. Hepatic steatosis. 4. Mild colonic diverticulosis. US - US-EXT BILAT VENOUS DOPPLER IMPRESSION: 1. Deep venous thrombosis of the right lower extremity veins, with nonocclusive thrombus identified within the right common femoral vein. The remaining imaged veins of the right lower extremity are patent. 2. No evidence of deep venous thrombosis involving the left lower extremity veins. CAT - CTA CHEST-PULMONARY EMBOLISM CT ANGIOGRAM OF THE CHEST WITH AND WITHOUT CONTRAST (CT PULMONARY ANGIOGRAM FOR PE) Addendum: CORRECTION: Pulmonary arteries: There are bilateral pulmonary emboli. There is emboli in the right lower lobe secondary and tertiary vessels. There are also small emboli on the left in the left upper lobe and lower lobe secondary and tertiary branches. The bulk of the emboli that was in the right lower lobe. No evidence of right-sided heart strain. This critical result was discussed with Dr. Sam on 11/17/2017, 12:00 AM and it was ascertained that the content and urgency of the report was understood at the time of direct communication. Addendum Signed by: CAROLINA TABOR MD 01/17/17 4680 Disposition Summary Disposition Principal Diagnosis: HHS w/ ketosis Additional Diagnosis: Sepsis w/ Multiorgan dysfunction Discharge Disposition: home or self care Discharge Instructions General Discharge Information Code Status: Full Code Patient's Diet: diabetic diet Patient's Activity: as tolerated. Follow-Up Instructions/Appts: - Please follow strict dietary recommendations. - Please see your PCP within one week of discharge. - Please see your assistant chief train dispatcher within one week of discharge. - Please take your medicaitons as prescribed. Medications at Discharge Discharge Medications: Start taking the following new medications: Vitamin A & D (Vitamin A & D Ointment) 56.7 GM OINT...G. 1 Application On the skin TWICE DAILY as needed for skin tear Qty = 1 No Refills Instructions: . Comments: Last Taken: 01/19/17 Time: 10AM Insulin Detemir (Levemir) 100 UNIT/ML VIAL 36 Units Inject into fatty tissue TWICE DAILY Qty = 30 No Refills Instructions: . Comments: Last Taken: 01/19/17 Time: 10 AM Insulin Aspart (Novolog) 100 UNIT/ML VIAL 0 Inject into fatty tissue 3 TIMES DAILY BEFORE MEALS Qty = 30 No Refills Instructions: please take Blood sugar Insulin dose 80-150mg/dl 10 units 151-200mg/dl 12 units 201-250mg/dl 14 units 251-300mg/dl 16 units 301-351mg/dl 18 units 351-400mg/dl 20 units more than 400mg/dl 20 units and call MD Comments: Last Taken: 01/19/17 Time: 12PM Benzocaine/Menthol (Chloraseptic Max Lozenge) 15 MG-10 MG LOZENGE 1 Lozenge ORAL THREE TIMES A DAY NEEDED as needed for throat irritation Qty = 21 No Refills Instructions: . Comments: Last Taken: 01/19/17 Time: 2 PM Rivaroxaban (Xarelto) 20 MG TABLET 1 Tablet ORAL Every night Qty = 30 Refills = 2 Instructions: with food. Please start on 02/08. Comments: NOT GIVEN IN HOSPITAL Rivaroxaban (Xarelto) 15 MG TABLET 1 Tablet ORAL TWICE DAILY Qty = 39 No Refills Instructions: Please stop on 02/07/17. Start taking once daily dosing(20mg) starting on 02/08/17. Comments: Last Taken: 01/19/17 Time: 10AN Sulfamethoxazole/Trimethoprim (Bactrim Ds Tablet) 800 MG-160 MG TABLET 1 Tablet ORAL TWICE DAILY Qty = 7 No Refills Instructions: . Comments: Last Taken: 2/22/17 Time: 6AM Copies To: TYSON SINGH,[place] Attending MD Review Statement Documenting Attending: [place] BOURNE MD
--- NOTE | 2017-01-19 15:33 | ECHOCARDIOGRAM REPORT ---
SENIORMERYL VIEIRA Age: 41 : 1975 Gender: M Exam Date: 01/18/2017 19:03 Exam Location: [facility] Ht (in): 70 Wt (lb): 264 BSA: 2.48 BP: 110 / 70 Ordering Physician: MAGALY STRATTON MD Referring Physician: MAGALY STRATTON MD Technologist: Nicole George ROXI Room Number: 222 Indications: RESPIRATORY FAILURE Rhythm: Sinus Technical Quality: Good FINDINGS Left Ventricle Normal size left ventricle. Left ventricular wall thickness at upper limits of normal. Normal left ventricular ejection fraction visually estimated at >65 %. No obvious regional wall motion abnormalities. Normal left ventricular diastolic filling pattern for age. Right Ventricle The right ventricle is normal in size and function. Right Atrium The right atrium is normal in size. Left Atrium The left atrium is normal in size. The interatrial septum is intact. Mitral Valve The mitral valve is normal in structure and function. There is mild mitral regurgitation. Aortic Valve Structurally normal aortic valve without significant sclerosis or stenosis. There is no aortic regurgitation. Tricuspid Valve The tricuspid valve is normal in structure and function. There is trace tricuspid regurgitation. Pulmonary artery systolic pressure is normal. Pulmonic Valve Structurally normal pulmonic valve. There is no pulmonic regurgitation. Pericardium Normal pericardium without effusion. No pleural effusion. Great Vessels Normal aortic root dimension. The aortic arch and great vessels are well seen and are normal. CONCLUSIONS Left ventricular wall thickness at upper limits of normal. Normal left ventricular ejection fraction visually estimated at >65 Normal left ventricular diastolic filling pattern for age. The left atrium is normal in size. No significant valve abnormalities. Physiologic valvular regurgitation. Jayson Be M.D. (Electronically Signed) Final Date: 19 January 2017 15:32 MEASUREMENTS (Male / Female) Normal Values 2D ECHO LV Diastolic Diameter PLAX 5.5 cm 4.2 - 5.9 / 3.9 - 5.3 cm LV Systolic Diameter PLAX 2.6 cm 2.1 - 4.0 cm LV Fractional Shortening PLAX 52.7 % 25 - 46 % LV Ejection Fraction 2D Teich 83.3 % IVS Diastolic Thickness 1.1 cm LVPW Diastolic Thickness 1.1 cm LV Relative Wall Thickness 0.4 RV Internal Dim ED PLAX 2.5 cm 1.9 - 3.8 cm LVOT Diameter 2.3 cm Aortic Root Diameter 3.2 cm LA Systolic Diameter LX 3.6 cm 3.0 - 4.0 / 2.7 - 3.8 cm LA Volume 37.0 cm 18 - 58 / 22 - 52 cm Ascending Aorta Diameter 3.1 cm DOPPLER AV Peak Velocity 176.0 cm/s AV Peak Gradient 12.4 mmHg AV Mean Velocity 135.0 cm/s AV Mean Gradient 8.0 mmHg AV Velocity Time Integral 23.8 cm LVOT Peak Velocity 155.0 cm/s LVOT Peak Gradient 9.6 mmHg LVOT Mean Velocity 102.0 cm/s LVOT Mean Gradient 5.0 mmHg LVOT Velocity Time Integral 21.9 cm LVOT Stroke Volume 91.0 cm AV Area Cont Eq vti 3.8 cm AV Area Cont Eq pk 3.7 cm MV Peak Velocity 85.7 cm/s MV Peak Gradient 2.9 mmHg MV Mean Velocity 58.1 cm/s MV Mean Gradient 2.0 mmHg Mitral E Point Velocity 88.8 cm/s Mitral A Point Velocity 68.6 cm/s Mitral E to A Ratio 1.3 MV PHT Velocity 88.5 cm/s MV Deceleration [place] 520.0 cm/s MV Pressure Half Time 51.1 ms MV Area PHT 4.3 cm MV Deceleration Time 235.0 ms TR Peak Velocity 138.0 cm/s TR Peak Gradient 7.6 mmHg Right Atrial Pressure 5.0 mmHg Pulmonary Artery Systolic Pressu 12.6 mmHg Right Ventricular Systolic Press 12.6 mmHg PV Peak Velocity 124.0 cm/s PV Peak Gradient 6.2 mmHg PV Mean Velocity 86.6 cm/s PV Mean Gradient 3.0 mmHg PV Velocity Time Integral 19.8 cm LV E' Lateral Velocity 13.0 cm/s Mitral E to LV E' Lateral Ratio 6.8 LV E' Septal Velocity 11.0 cm/s Mitral E to LV E' Septal Ratio 8.1
== END 2017-01-19 16:05 | disposition home health service (06) | DRG 420 ==
LOC: ENRESERVDT → ENRESERVTM → ERH 02:24 → 2NA 04:46 → CRI 04:46 → ERHI 04:46 → CRI 08:35 → 2NA 01-15 14:55
PROVIDERS: Dermatology; Emergency Medicine; Internal Medicine; Internal Medicine Endocrinology, Diabetes & Metabolism; Internal Medicine Pulmonary Disease; Preventive Medicine Public Health & General Preventive Medicine; Student in an Organized Health Care Education/Training Program; ADMIT Internal Medicine
PROC: 0BH17EZ Insertion of Endotracheal Airway into Trachea, Via Natural or Artificial Opening (ICD-10-PCS; principal; 2017-01-11)
PROC: 5A1945Z Respiratory Ventilation, 24-96 Consecutive Hours (ICD-10-PCS; principal; 2017-01-11)
DX: E13.11 Other specified diabetes mellitus with ketoacidosis with coma (principal); Z79.4 Long term (current) use of insulin; J96.01 Acute respiratory failure with hypoxia; R57.1 Hypovolemic shock; J69.0 Pneumonitis due to inhalation of food and vomit; G93.41 Metabolic encephalopathy; R56.9 Unspecified convulsions; E87.0 Hyperosmolality and hypernatremia
CPT/HCPCS: 2NAP; 83519; 87184; CCU; 36415; 74176; 80307; 81001; 82436; 87040; 87070; 87071; 87086; 87147; 87804; 87804-59; 93005; 93010; 93306; 93970; 94799; 95816; 96374; 96375; 97110-GO; 97116-GO; 97162-GP; 97530-GO; 99291; G0480; J0131; J0330; J0744; J1644; J1815; J1953; J2310; J3010; J3370; J7040; J7042; J7060